=== PATIENT | female | born 1935 | race Caucasian/White ===

== ENCOUNTER 2017-02-10 12:15 | Observation (INO) | payer MEDICARE ==
--- NOTE | 2017-02-10 13:05 | RAD ---
ONE VIEW CHEST: History: Syncope. Generalized weakness. Comparison: 11-16-16 FINDINGS: Atherosclerosis of the aorta. Normal cardiac silhouette. The pulmonary vessels and hilum are normal. Costophrenic angles are clear. Stable minimal elevation of the right hemidiaphragm. Chronic change in the lung parenchyma noted. No masses or consolidation. Old left rib fractures are noted. No pneum othorax. Cervical fusion hardware is identified. IMPRESSION: 1. Atherosclerosis. 2. Chronic changes. POS: [facility]
[2017-02-10 13:15] LABS: #Basophils 0.1 thou/uL (0.0-0.2); #Eosinphils 0.1 thou/uL (0.0-0.7); #Lymphocytes 1.1 thou/uL (1.20-3.40); #Monocytes 0.6 thou/uL (0.11-0.59); #Neutrophils 7.6 thou/uL (1.40-6.50); %Basophils 0.8 % (0.0-1.0); %Eosinophils 1.1 % (0.0-10.0); %Lymphocytes 11.9 % (21.0-51.0); %Monocytes 6.5 % (0.0-10.0); Hematocrit 28.3 % (36.0-47.0); Mean Platelet Volume 7.5 fL (7.4-10.4); Red Blood Cell (RBC) Count 3.26 mill/uL (4.20-5.40); White Blood Cell (WBC) Count 9.5 thou/uL (4.8-10.8)
[2017-02-10 13:33] LABS: ALT (SGPT) 8 U/L (8-55); AST (SGOT) 9 U/L (5-34); Alkaline Phosphatase 119 U/L (40-150); Anion Gap 19 mmol/L (10-20); BUN (Urea Nitrogen) 26 mg/dL (9.8-20.1); Bilirubin, Total 0.4 mg/dL (0.2-1.2); CK (CPK) 22 U/L (29-168); Calc. Creatinine Clearance 0 mL/min (70-130); Calcium 8.7 mg/dL (7.8-10.44); Carbon Dioxide 21 mmol/L (23-31); Chloride 102 mmol/L (98-107); Estimated GFR-MDRD 40; Protein, Total 7.2 g/dL (6.0-8.3)
[2017-02-10 13:38] LABS: Troponin I 0.015 ng/mL (< 0.028)
[2017-02-10 15:03] LABS: Bilirubin Negative (Negative); Blood, Urine Trace (Negative); Glucose, Urine (Dipstick) Negative (Negative); Ketone, Urine Negative (Negative); Nitrite Negative (Negative); Protein, Urine (Dipstick) 100 mg/dL (Neg-Trace)
[2017-02-10 15:06] LABS: Bacteria/HPF 4+ HPF (None Seen); Hyaline Casts/LPF 0-3 HYALINE CAST LPF (0-3 Hyaline); Squamous Epithelial None Seen HPF (0-3)
[2017-02-10] MEDS ORDERED: Ondansetron ODT 4 MG TAB SL PRN (18:38)
[2017-02-10] MEDS ORDERED: Ondansetron HCl/PF 4 MG/2 ML Vial IVP PRN (18:38)
[2017-02-10] MEDS ORDERED: Dextrose 50% Abboject 50 ML SYRINGE SLOW IVP PRN (19:20)
[2017-02-10] MEDS ORDERED: Dextrose 5% in Water 1,000 ML IV PRN (19:20)
[2017-02-10 21:24] VITALS: BMI 34.3
[2017-02-10] MEDS: traMADol HCl 50 MG TAB PO PRN (22:31)
--- NOTE | 2017-02-10 23:58 | HP ---
DATE OF ADMISSION: 02/10/2017 CHIEF COMPLAINT: Generalized weakness, right hand pain. HISTORY OF PRESENT ILLNESS: The patient is a 81-year-old female who [facility] after she was discharged from [facility] a month ago when she was diagnosed with generalized weakness and UTI and she required physical therapy, but she was not v ted happy with the place she was sent to and she said that the quality of care she was giving and th e quality of physical therapy she was giving did not meet her expectations and she requested to be d ischarged home. After she was discharged home visiting nurse at home, noticed that she was very uns teady. She was not able to walk and she was requiring a lot of help to get up. It was very unsafe to keep her at home without any help and she lives alone and so the EMS was called and she was taken to the emergency room for further management of her problem. As mentioned above, she complains abo ut generalized weakness and not being able to get up and walk and then do everything what she needs to do and she lives alone. She denied any chest pain, shortness of breath, headache. She complaine d only about the right hand pain. She had the swelling and redness for several days while at [facility]. PAST MEDICAL HISTORY: Positive for: 1. Atrial fibrillation on chronic anticoagulation. 2. Chronic kidney disease stage 3. 3. Diabetes mellitus type 2. 4. Hypertension. 5. Dyslipidemia. 6. Coronary artery disease. 7. Chronic anticoagulation with Eliquis. 8. Morbid obesity. 9. Moderate aortic stenosis and tricuspid regurgitation. 10. History of cerebrovascular accident. 11. History of polio. 12. Gout. PAST SURGICAL HISTORY: 1. Appendectomy. 2. Left carpal tunnel surgery. 3. Neck surgery. 4. Ablation for atrial flutter. ALLERGIES: FISH, IODINE, METFORMIN, NAPROXEN, PREDNISONE, and PROPOXYPHENE. SOCIAL HISTORY: She is a former smoker. She quit 20 years ago. She does not drink any alcohol. S he does not use any illicit drugs. She has one son who lives in [place]. FAMILY HISTORY: Her mother from cancer. Her father was alcoholic and related to cirrhosi s complications in his 60s. Code status is FULL. Surrogate decision maker is her son, Bella Albright who lives in [place]. MEDICATIONS: Please refer to the list of the long term medications she was taking before. REVIEW OF SYSTEMS: All systems were reviewed and positive only for above-mentioned in HPI, plus roselia ropathy in lower extremities and itching in lower extremities. PHYSICAL EXAMINATION: VITAL SIGNS: Blood pressure is 112/55, pulse is 85, respirations 16, and she is afebrile. HEENT: Head is atraumatic, normocephalic. Eyes are PERRLA. Conjunctivae pinkish. Oral mucosa is moist. NECK: Supple, no lymphadenopathy. Thyroid is not palpable. LUNGS: Clear. HEART: S1, S2 normal, somewhat irregularly irregular. No S3, no S4. There is a systolic murmur mo stly audible at the left sternal border/apex. ABDOMEN: Obese, nondistended, soft, nontender to palpation. EXTREMITIES: She has multiple abrasions to skin over her legs above the ankles. Her pulses are sli ghtly diminished on both tibialis posterior and dorsalis pedis arteries, similar bilaterally. SKIN: Her upper extremities show a lot of ecchymotic areas from previous subcutaneous and continuou s bleeding. LABORATORY: Showed white count of 9.5, hemoglobin 8.8, hematocrit 28.3, platelet count is 383,000, neutrophils 79.8. Chemistry: Sodium of 130, potassium 4.2, chloride 102, CO2 of 21, BUN 26, creati nine 1.28, glucose 182. Lactic acid is 1.0. The rest of chemistry is within normal limits except f or albumin 3.2, globulin 4.0. Urinalysis showed yellow urine, cloudy, pH of 5.5, and urine specific gravity 1.019, 100 of protein, trace of blood, moderate amount of leukocyte esterase, wbc's greater than 50 to too numerous to count, and urine bacteria 4+. Chest x-ray was done, which showed chronic changes, old left rib fractures. This was personally rev iewed by me and EKG showed sinus tachycardia at 107 with first degree AV block and right bundle bran ch block. IMPRESSION: 1. Generalized weakness. 2. Right hand cellulitis, which is mild and borderline. There is some swelling and some erythema, but that is quite mild and there is also some swelling and mild erythema of the finger in the left h and. 3. Diabetes mellitus with neuropathy. 4. Chronic renal insufficiency with metabolic acidosis, mild. 5. Normocytic anemia, which seems to be chronic. 6. Gout. 7. Chronic atrial fibrillation on chronic anticoagulation. 8. Hypertension. 9. Dyslipidemia. 10. Coronary artery disease, chronic, stable. 11. Chronic anticoagulation with Eliquis. 12. Morbid obesity. 13. Moderate aortic stenosis and tricuspid regurgitation. 14. History of cerebrovascular accident. 15. History of polio. PLAN: Plan is to admission to observation. Condition is fair. Activity, bed rest for now, but she will start doing physical therapy, so we will evaluate her what she can do during the first session , on IV Hep-Lock, I think she is at her baseline in terms of renal function. Pain management with t ramadol 100 mg every 6 hours p.r.n. as needed. We will use Rocephin for both cellulitis and UTI. Joann shi will have urine culture. We will do DVT prophylaxis with SCDs and no Lovenox or heparin since she is on Eliquis. We will continue her home medication and we will check her Accu-Cheks a.c. and at b edtime and cover with Humalog sliding scale, mild. We will get keycase assembler to try to arrange some other care home facility, where she can get physical therapy and obviously, we are going to aguirre ve physical therapy working with her.
[2017-02-11] MEDS: HumaLOG 300 UNITS/3 ML VIAL SC PRN ×2 (06:12→14:40)
[2017-02-11] MEDS ORDERED: FLU VACC TS2017-18 (>65YR) 0.5 ML SYRINGE IM ONE (09:00)
--- NOTE | 2017-02-11 11:30 | PDOC.PN ---
- Subjective Encounter Start Date: 02/11/17 Encounter Start Time: 08:50 -: old records requested/rev Patient seen and examined. No new complaints. No overnight events - Objective Resuscitation Status: Resuscitation Status FULL:Full Resuscitation MAR Reviewed: Yes Vital Signs & Weight: Vital Signs (12 hours) Temp Pulse Resp BP BP Pulse Ox 02/11/17 08:00 98.2 F 81 20 123/66 98 02/11/17 04:00 98.4 F 93 18 122/55 L 94 L 02/11/17 00:00 98.4 F 90 18 157/81 H 100 Weight Weight 200 lb I&O: 02/10/17 02/11/17 02/12/17 06:59 06:59 06:59 Intake Total 720 Balance 720 Result Diagrams: 02/10/17 13:00 02/10/17 13:00 Additional Labs: Accuchecks 02/11/17 04:24 POC Glucose 230 H Phys Exam - Physical Examination Constitutional: NAD HEENT: PERRLA, moist MMs, sclera anicteric Neck: no JVD, supple Respiratory: no wheezing, no rales, no rhonchi Cardiovascular: RRR, no significant murmur, no rub Gastrointestinal: soft, non-tender, no distention, positive bowel sounds Musculoskeletal: no edema, pulses present right hand cellulitis Neurological: non-focal, normal sensation Lymphatic: no nodes Psychiatric: normal affect, A&O x 3 Skin: no rash, normal turgor Dx/Plan (1) Cellulitis of right hand Code(s): L03.113 - CELLULITIS OF RIGHT UPPER LIMB Status: Acute (2) UTI (urinary tract infection) Status: Acute (3) Weakness generalized Code(s): R53.1 - WEAKNESS Status: Acute (4) Atrial fibrillation Code(s): I48.91 - UNSPECIFIED ATRIAL FIBRILLATION Status: Chronic (5) CKD (chronic kidney disease) stage 3, GFR 30-59 ml/min Status: Chronic (6) Chronic anticoagulation Code(s): Z79.01 - JAIL (CURRENT) USE OF ANTICOAGULANTS Status: Chronic (7) Chronic diastolic heart failure Code(s): I50.32 - CHRONIC DIASTOLIC (CONGESTIVE) HEART FAILURE Status: Chronic (8) Diabetes type 2, controlled Code(s): E11.9 - TYPE 2 DIABETES MELLITUS WITHOUT COMPLICATIONS Status: Chronic (9) Dyslipidemia Code(s): E78.5 - HYPERLIPIDEMIA, UNSPECIFIED Status: Chronic (10) Gout Code(s): M10.9 - GOUT, UNSPECIFIED Status: Chronic (11) Hypertension Code(s): I10 - ESSENTIAL (PRIMARY) HYPERTENSION Status: Chronic Qualifiers: (12) Moderate aortic stenosis by prior echocardiogram Code(s): I35.0 - NONRHEUMATIC AORTIC (VALVE) STENOSIS Status: Chronic (13) Moderate tricuspid regurgitation by prior echocardiogram Code(s): I07.1 - RHEUMATIC TRICUSPID INSUFFICIENCY Status: Chronic (14) Obesity (BMI 30-39.9) Code(s): E66.9 - OBESITY, UNSPECIFIED Status: Chronic - Plan cont current plan of care, continue antibiotics, PT/OT, social media editor * pt is not safe discharge to home * will consult rehab for evaluation * continue rocephin * on discharge keflex and doxy * medication reviewed as below * symptomatic treatment * possible discharge when rehab accepts. Review of Systems - Review of Systems Constitutional: negative: Fever, Chills, Sweats, Weakness, Malaise, Other ENT: negative: Ear Pain, Ear Discharge, Nose Pain, Nose Discharge, Nose Congestion, Mouth Pain, Mouth Swelling, Throat Pain, Throat Swelling, Other Respiratory: negative: Cough, Dry, Shortness of Breath, Hemoptysis, SOB with Excertion, Pleuritic Pain, Sputum, Wheezing Cardiovascular: negative: Chest Pain, Palpitations, Orthopnea, Paroxysmal Noc. Dyspnea, Edema, Light Headedness, Other Gastrointestinal: negative: Nausea, Vomiting, Abdominal Pain, Diarrhea, Constipation, Melena, Hematochezia, Other Genitourinary: negative: Dysuria, Frequency, Incontinence, Hematuria, Retention , Other Musculoskeletal: Back Pain. negative: Neck Pain, Shoulder Pain, Arm Pain, Hand Pain, Leg Pain, Foot Pain, Other Skin: negative: Rash, Lesions, Vignesh, Bruising, Other - Medications/Allergies Allergies/Adverse Reactions: Allergies Allergy/AdvReac Type Severity Reaction Status Date / Time acetaminophen Allergy Verified 07/28/16 14:21 [From Sandip-N 100] fish derived Allergy Verified 07/28/16 14:21 iodine Allergy Verified 07/28/16 14:21 metformin Allergy Verified 07/28/16 14:21 naproxen Allergy Verified 07/28/16 14:21 omega-3 acid ethyl esters Allergy Verified 07/28/16 14:21 prednisone Allergy Verified 07/28/16 14:21 propoxyphene napsylate Allergy Verified 07/28/16 14:21 [From [facility]-N 100] shellfish derived Allergy Verified 07/28/16 14:21 Medications: Current Medications Dextrose/Water (Dextrose 50%) 25 gm SLOW IVP PRN PRN PRN Reason: Hypoglycemia Glucagon (Glucagon) 1 mg IM PRN PRN PRN Reason: Hypoglycemia Dextrose/Water (D5w) 1,000 mls @ 0 mls/hr IV .Q0M PRN; As Directed PRN Reason: Hypoglycemia Ceftriaxone Sodium 1 gm/ (Syringe 0.4 ml/ Sterile Water) 10 mls @ 120 mls/hr SLOW IVP 1800 KEVAN Insulin Human Lispro (Humalog) 0 units SC .MILD SLIDING SCALE PRN PRN Reason: Mild Correctional Scale Last Admin: 02/11/17 06:12 Dose: 4 unit Tramadol HCl (Ultram) 100 mg PO Q6H PRN PRN Reason: Moderate to Severe Pain (4-10) Last Admin: 02/10/17 22:31 Dose: 100 mg
[2017-02-11] MEDS: traMADol HCl 50 MG TAB PO PRN ×2 (16:10→21:58)
[2017-02-11] MEDS: cefTRIAXone\\ROCEPHIN 1 GM, Syringe 0.4 ML in Sterile Water 9.6 ML SLOW IVP SCH (17:31)
[2017-02-11] MEDS ORDERED: cefTRIAXone\\ROCEPHIN 1 GM in Sodium Chloride 0.9% 100 ML IVPB SCH (18:00)
[2017-02-12] MEDS: traMADol HCl 50 MG TAB PO PRN ×2 (03:51→20:21)
--- NOTE | 2017-02-12 11:04 | PDOC.PN ---
- Subjective Encounter Start Date: 02/12/17 Encounter Start Time: 08:50 Patient seen and examined. No new complaints. No overnight events - Objective Resuscitation Status: Resuscitation Status FULL:Full Resuscitation MAR Reviewed: Yes Vital Signs & Weight: Vital Signs (12 hours) Temp Pulse Resp BP BP Pulse Ox 02/12/17 08:26 99.1 F 91 20 144/64 H 93 L 02/12/17 08:00 99.1 F 91 20 144/64 H 144/64 H 93 L Weight Weight 200 lb I&O: 02/11/17 02/12/17 02/13/17 06:59 06:59 06:59 Intake Total 720 Balance 720 Result Diagrams: 02/10/17 13:00 02/10/17 13:00 Additional Labs: Accuchecks 02/12/17 02/11/17 02/11/17 06:06 19:27 15:46 POC Glucose 193 H 200 H 212 H 02/11/17 11:53 POC Glucose 191 H Phys Exam - Physical Examination Constitutional: NAD HEENT: PERRLA, moist MMs, sclera anicteric Neck: no JVD, supple Respiratory: no wheezing, no rales, no rhonchi Cardiovascular: RRR, no significant murmur, no rub Gastrointestinal: soft, non-tender, no distention, positive bowel sounds Musculoskeletal: no edema, pulses present Neurological: non-focal, normal sensation Lymphatic: no nodes Psychiatric: normal affect, A&O x 3 Skin: no rash, normal turgor Dx/Plan (1) Cellulitis of right hand Code(s): L03.113 - CELLULITIS OF RIGHT UPPER LIMB Status: Acute (2) UTI (urinary tract infection) Status: Acute (3) Weakness generalized Code(s): R53.1 - WEAKNESS Status: Acute (4) Atrial fibrillation Code(s): I48.91 - UNSPECIFIED ATRIAL FIBRILLATION Status: Chronic (5) CKD (chronic kidney disease) stage 3, GFR 30-59 ml/min Status: Chronic (6) Chronic anticoagulation Code(s): Z79.01 - [facility]FP (CURRENT) USE OF ANTICOAGULANTS Status: Chronic (7) Chronic diastolic heart failure Code(s): I50.32 - CHRONIC DIASTOLIC (CONGESTIVE) HEART FAILURE Status: Chronic (8) Diabetes type 2, controlled Code(s): E11.9 - TYPE 2 DIABETES MELLITUS WITHOUT COMPLICATIONS Status: Chronic (9) Dyslipidemia Code(s): E78.5 - HYPERLIPIDEMIA, UNSPECIFIED Status: Chronic (10) Gout Code(s): M10.9 - GOUT, UNSPECIFIED Status: Chronic (11) Hypertension Code(s): I10 - ESSENTIAL (PRIMARY) HYPERTENSION Status: Chronic Qualifiers: (12) Moderate aortic stenosis by prior echocardiogram Code(s): I35.0 - NONRHEUMATIC AORTIC (VALVE) STENOSIS Status: Chronic (13) Moderate tricuspid regurgitation by prior echocardiogram Code(s): I07.1 - RHEUMATIC TRICUSPID INSUFFICIENCY Status: Chronic (14) Obesity (BMI 30-39.9) Code(s): E66.9 - OBESITY, UNSPECIFIED Status: Chronic - Plan cont current plan of care, PT/OT, social work associate * await rehab decision * pt is not safe for discharge to home * continue rocephin * will repeat labs tomorrow if pt has to stay tonight * medication reviewed as below * symptomatic treatment * home medication reconciled. Review of Systems - Review of Systems ENT: negative: Ear Pain, Ear Discharge, Nose Pain, Nose Discharge, Nose Congestion, Mouth Pain, Mouth Swelling, Throat Pain, Throat Swelling, Other Respiratory: negative: Cough, Dry, Shortness of Breath, Hemoptysis, SOB with Excertion, Pleuritic Pain, Sputum, Wheezing Cardiovascular: negative: Chest Pain, Palpitations, Orthopnea, Paroxysmal Noc. Dyspnea, Edema, Light Headedness, Other Gastrointestinal: negative: Nausea, Vomiting, Abdominal Pain, Diarrhea, Constipation, Melena, Hematochezia, Other Genitourinary: negative: Dysuria, Frequency, Incontinence, Hematuria, Retention , Other Musculoskeletal: negative: Neck Pain, Shoulder Pain, Arm Pain, Back Pain, Hand Pain, Leg Pain, Foot Pain, Other - Medications/Allergies Allergies/Adverse Reactions: Allergies Allergy/AdvReac Type Severity Reaction Status Date / Time acetaminophen Allergy Verified 07/28/16 14:21 [From Darlianet-N 100] fish derived Allergy Verified 07/28/16 14:21 iodine Allergy Verified 07/28/16 14:21 metformin Allergy Verified 07/28/16 14:21 naproxen Allergy Verified 07/28/16 14:21 omega-3 acid ethyl esters Allergy Verified 07/28/16 14:21 prednisone Allergy Verified 07/28/16 14:21 propoxyphene napsylate Allergy Verified 07/28/16 14:21 [From [facility]-N 100] shellfish derived Allergy Verified 07/28/16 14:21 Medications: Current Medications Dextrose/Water (Dextrose 50%) 25 gm SLOW IVP PRN PRN PRN Reason: Hypoglycemia Glucagon (Glucagon) 1 mg IM PRN PRN PRN Reason: Hypoglycemia Dextrose/Water (D5w) 1,000 mls @ 0 mls/hr IV .Q0M PRN; As Directed PRN Reason: Hypoglycemia Ceftriaxone Sodium 1 gm/ (Syringe 0.4 ml/ Sterile Water) 10 mls @ 120 mls/hr SLOW IVP 1800 KEVAN Last Admin: 02/11/17 17:31 Dose: 10 mls Insulin Human Lispro (Humalog) 0 units SC .MILD SLIDING SCALE PRN PRN Reason: Mild Correctional Scale Last Admin: 02/11/17 14:40 Dose: 2 unit Tramadol HCl (Ultram) 100 mg PO Q6H PRN PRN Reason: Moderate to Severe Pain (4-10) Last Admin: 02/12/17 03:51 Dose: 100 mg
[2017-02-12] MEDS: hydrOXYzine 25 MG TAB PO SCH ×3 (12:03→23:46)
[2017-02-12] MEDS: Carvedilol 6.25 MG TAB PO SCH (17:37)
[2017-02-12] MEDS: cefTRIAXone\\ROCEPHIN 1 GM, Syringe 0.4 ML in Sterile Water 9.6 ML SLOW IVP SCH (17:40)
[2017-02-12] MEDS: Apixaban 5 MG TAB PO SCH (20:22)
[2017-02-12] MEDS: Gabapentin 300 MG CAP PO SCH (20:22)
[2017-02-12] MEDS: Famotidine 20 MG TAB PO SCH (20:22)
[2017-02-12] MEDS: Insulin NPH/Reg Insulin Hm 300 UNITS/3 ML VIAL SC SCH (20:25)
[2017-02-13 06:06] LABS: #Eosinphils 0.2 thou/uL (0.0-0.7); #Lymphocytes 1.4 thou/uL (1.20-3.40); #Monocytes 0.7 thou/uL (0.11-0.59); #Neutrophils 4.4 thou/uL (1.40-6.50); %Basophils 0.4 % (0.0-1.0); %Lymphocytes 21.1 % (21.0-51.0); Hematocrit 29.4 % (36.0-47.0); Mean Platelet Volume 7.8 fL (7.4-10.4); Red Blood Cell (RBC) Count 3.41 mill/uL (4.20-5.40); White Blood Cell (WBC) Count 6.7 thou/uL (4.8-10.8)
[2017-02-13] MEDS: hydrOXYzine 25 MG TAB PO SCH ×4 (06:13→22:16)
[2017-02-13 06:34] LABS: ALT (SGPT) Less than 7 U/L (8-55); AST (SGOT) 11 U/L (5-34); Alkaline Phosphatase 115 U/L (40-150); Anion Gap 16 mmol/L (10-20); BUN (Urea Nitrogen) 15 mg/dL (9.8-20.1); Bilirubin, Total 0.2 mg/dL (0.2-1.2); Calc. Creatinine Clearance 67 mL/min (70-130); Calcium 8.9 mg/dL (7.8-10.44); Carbon Dioxide 23 mmol/L (23-31); Chloride 101 mmol/L (98-107); Estimated GFR-MDRD 55; Globulin 3.9 g/dL (2.4-3.5); Protein, Total 6.7 g/dL (6.0-8.3); Uric Acid 9.3 mg/dL (2.6-6.0)
[2017-02-13] MEDS ORDERED: Ketorolac Tromethamine 30 MG/ML VIAL IVP PRN (08:07)
[2017-02-13] MEDS: Gabapentin 300 MG CAP PO SCH ×2 (09:06→22:20)
[2017-02-13] MEDS: Apixaban 5 MG TAB PO SCH ×2 (09:06→22:19)
[2017-02-13] MEDS: Aspirin 81 mg Enteric Coated Tablet PO SCH (09:06)
[2017-02-13] MEDS: Furosemide 20 MG TAB PO SCH (09:07)
[2017-02-13] MEDS: Famotidine 20 MG TAB PO SCH ×2 (09:07→22:21)
[2017-02-13] MEDS: Carvedilol 6.25 MG TAB PO SCH ×2 (09:07→17:07)
[2017-02-13] MEDS: Insulin NPH/Reg Insulin Hm 300 UNITS/3 ML VIAL SC SCH ×2 (09:08→22:22)
[2017-02-13] MEDS: Colchicine 0.6 MG TAB PO SCH ×2 (09:12→22:20)
--- NOTE | 2017-02-13 13:21 | PDOC.PN ---
- Subjective Encounter Start Date: 02/13/17 Encounter Start Time: 10:20 Patient seen and examined. No new complaints. No overnight events - Objective Resuscitation Status: Resuscitation Status FULL:Full Resuscitation MAR Reviewed: Yes Vital Signs & Weight: Vital Signs (12 hours) Temp Pulse Resp BP BP Pulse Ox 02/13/17 09:07 108 H 138/64 02/13/17 08:37 99.3 F 108 H 20 138/77 94 L 02/13/17 08:00 98.3 F 108 H 18 94 L 02/13/17 06:05 99.0 F 101 H 18 148/70 H Weight Weight 200 lb I&O: 02/12/17 02/13/17 02/14/17 06:59 06:59 06:59 Intake Total 720 360 Balance 720 360 Result Diagrams: 02/13/17 04:10 02/13/17 04:10 Additional Labs: Accuchecks 02/13/17 02/13/17 02/12/17 11:37 06:17 20:06 POC Glucose 251 H 116 H 207 H 02/12/17 16:40 POC Glucose 127 H Phys Exam - Physical Examination Constitutional: NAD HEENT: PERRLA, moist MMs, sclera anicteric Neck: no JVD, supple Respiratory: no wheezing, no rales, no rhonchi Cardiovascular: RRR, no significant murmur, no rub Gastrointestinal: soft, non-tender, no distention, positive bowel sounds Musculoskeletal: no edema, pulses present right hand swelling improving Neurological: non-focal, normal sensation, moves all 4 limbs Psychiatric: normal affect, A&O x 3 Skin: no rash, normal turgor Dx/Plan (1) Cellulitis of right hand Code(s): L03.113 - CELLULITIS OF RIGHT UPPER LIMB Status: Acute (2) UTI (urinary tract infection) Status: Acute (3) Weakness generalized Code(s): R53.1 - WEAKNESS Status: Acute (4) Atrial fibrillation Code(s): I48.91 - UNSPECIFIED ATRIAL FIBRILLATION Status: Chronic (5) CKD (chronic kidney disease) stage 3, GFR 30-59 ml/min Status: Chronic (6) Chronic anticoagulation Code(s): Z79.01 - [employer] (CURRENT) USE OF ANTICOAGULANTS Status: Chronic (7) Chronic diastolic heart failure Code(s): I50.32 - CHRONIC DIASTOLIC (CONGESTIVE) HEART FAILURE Status: Chronic (8) Diabetes type 2, controlled Code(s): E11.9 - TYPE 2 DIABETES MELLITUS WITHOUT COMPLICATIONS Status: Chronic (9) Dyslipidemia Code(s): E78.5 - HYPERLIPIDEMIA, UNSPECIFIED Status: Chronic (10) Gout Code(s): M10.9 - GOUT, UNSPECIFIED Status: Chronic (11) Hypertension Code(s): I10 - ESSENTIAL (PRIMARY) HYPERTENSION Status: Chronic Qualifiers: (12) Moderate aortic stenosis by prior echocardiogram Code(s): I35.0 - NONRHEUMATIC AORTIC (VALVE) STENOSIS Status: Chronic (13) Moderate tricuspid regurgitation by prior echocardiogram Code(s): I07.1 - RHEUMATIC TRICUSPID INSUFFICIENCY Status: Chronic (14) Obesity (BMI 30-39.9) Code(s): E66.9 - OBESITY, UNSPECIFIED Status: Chronic (15) Acute gout Code(s): M10.9 - GOUT, UNSPECIFIED Status: Acute Qualifiers: Gout site: hand Laterality: right - Plan cont current plan of care, continue antibiotics, PT/OT, health care social worker * uric acid is high, and crp is high, will try colchicine * medication reviewed as below * symptomatic treatment * await rehab placement. Review of Systems - Review of Systems ENT: negative: Ear Pain, Ear Discharge, Nose Pain, Nose Discharge, Nose Congestion, Mouth Pain, Mouth Swelling, Throat Pain, Throat Swelling, Other Respiratory: negative: Cough, Dry, Shortness of Breath, Hemoptysis, SOB with Excertion, Pleuritic Pain, Sputum, Wheezing Cardiovascular: negative: Chest Pain, Palpitations, Orthopnea, Paroxysmal Noc. Dyspnea, Edema, Light Headedness, Other Gastrointestinal: negative: Nausea, Vomiting, Abdominal Pain, Diarrhea, Constipation, Melena, Hematochezia, Other Genitourinary: negative: Dysuria, Frequency, Incontinence, Hematuria, Retention , Other Musculoskeletal: Hand Pain. negative: Neck Pain, Shoulder Pain, Arm Pain, Back Pain, Leg Pain, Foot Pain, Other - Medications/Allergies Allergies/Adverse Reactions: Allergies Allergy/AdvReac Type Severity Reaction Status Date / Time acetaminophen Allergy Verified 07/28/16 14:21 [From Darvocet-N 100] fish derived Allergy Verified 07/28/16 14:21 iodine Allergy Verified 07/28/16 14:21 metformin Allergy Verified 07/28/16 14:21 naproxen Allergy Verified 07/28/16 14:21 omega-3 acid ethyl esters Allergy Verified 07/28/16 14:21 prednisone Allergy Verified 07/28/16 14:21 propoxyphene napsylate Allergy Verified 07/28/16 14:21 [From Darcet-N 100] shellfish derived Allergy Verified 07/28/16 14:21 Medications: Current Medications Apixaban (Eliquis) 2.5 mg PO BID ON LICENSE OF [facility] Last Admin: 02/13/17 09:06 Dose: 2.5 mg Aspirin (Ecotrin) 81 mg PO DAILY ON LICENSE OF [facility] Last Admin: 02/13/17 09:06 Dose: 81 mg Carvedilol (Coreg) 6.25 mg PO BID-[facility] Last Admin: 02/13/17 09:07 Dose: 6.25 mg Colchicine (Colcrys) 0.6 mg PO BID ON LICENSE OF [facility] Last Admin: 02/13/17 09:12 Dose: 0.6 mg Dextrose/Water (Dextrose 50%) 25 gm SLOW IVP PRN PRN PRN Reason: Hypoglycemia Diltiazem HCl (Cardizem Cd) 120 mg PO DAILY ON LICENSE OF [facility] Last Admin: 02/13/17 09:07 Dose: 120 mg Famotidine (Pepcid) 20 mg PO BID ON LICENSE OF [facility] Last Admin: 02/13/17 09:07 Dose: 20 mg Furosemide (Lasix) 40 mg PO DAILY ON LICENSE OF [facility] Last Admin: 02/13/17 09:07 Dose: 40 mg Gabapentin (Neurontin) 600 mg PO BID ON LICENSE OF [facility] Last Admin: 02/13/17 09:06 Dose: 600 mg Glucagon (Glucagon) 1 mg IM PRN PRN PRN Reason: Hypoglycemia Hydroxyzine HCl (Atarax) 25 mg PO Q6H ON LICENSE OF [facility] Last Admin: 02/13/17 11:05 Dose: 25 mg Dextrose/Water (D5w) 1,000 mls @ 0 mls/hr IV .Q0M PRN; As Directed PRN Reason: Hypoglycemia Ceftriaxone Sodium 1 gm/ (Syringe 0.4 ml/ Sterile Water) 10 mls @ 120 mls/hr SLOW IVP 1800 ON LICENSE OF [facility] Last Admin: 02/12/17 17:40 Dose: 10 mls Insulin Human Isoph/Insulin Regular (Humulin 70/30) 15 units SC BID ON LICENSE OF [facility] Last Admin: 02/13/17 09:08 Dose: 15 unit Insulin Human Lispro (Humalog) 0 units SC .MILD SLIDING SCALE PRN PRN Reason: Mild Correctional Scale Last Admin: 02/11/17 14:40 Dose: 2 unit Ketorolac Tromethamine (Toradol) 15 mg IVP Q6H PRN PRN Reason: Pain Stop: 02/18/17 08:08 Pantoprazole Sodium (Protonix) 40 mg PO DAILY KEVAN Last Admin: 02/13/17 09:07 Dose: 40 mg Tramadol HCl (Ultram) 100 mg PO Q6H PRN PRN Reason: Moderate to Severe Pain (4-10) Last Admin: 02/12/17 20:21 Dose: 100 mg
[2017-02-13] MEDS: cefTRIAXone\\ROCEPHIN 1 GM, Syringe 0.4 ML in Sterile Water 9.6 ML SLOW IVP SCH (17:07)
[2017-02-13] MEDS: traMADol HCl 50 MG TAB PO PRN (22:21)
[2017-02-14] MEDS: hydrOXYzine 25 MG TAB PO SCH ×4 (06:10→23:42)
[2017-02-14] MEDS: Carvedilol 6.25 MG TAB PO SCH ×2 (08:44→17:05)
[2017-02-14] MEDS: Colchicine 0.6 MG TAB PO SCH ×2 (08:44→20:56)
[2017-02-14] MEDS: Aspirin 81 mg Enteric Coated Tablet PO SCH (08:44)
[2017-02-14] MEDS: Furosemide 20 MG TAB PO SCH (08:44)
[2017-02-14] MEDS: Gabapentin 300 MG CAP PO SCH ×2 (08:45→20:56)
[2017-02-14] MEDS: Apixaban 5 MG TAB PO SCH ×2 (08:45→20:56)
[2017-02-14] MEDS: Insulin NPH/Reg Insulin Hm 300 UNITS/3 ML VIAL SC SCH ×2 (08:45→20:57)
[2017-02-14] MEDS: Famotidine 20 MG TAB PO SCH ×2 (08:45→20:56)
[2017-02-14] MEDS: traMADol HCl 50 MG TAB PO PRN ×2 (09:58→20:57)
--- NOTE | 2017-02-14 13:56 | PDOC.PN ---
- Subjective Encounter Start Date: 02/14/17 Encounter Start Time: 10:00 Patient seen and examined. No new complaints. No overnight events - Objective Resuscitation Status: Resuscitation Status FULL:Full Resuscitation MAR Reviewed: Yes Vital Signs & Weight: Vital Signs (12 hours) Temp Pulse Resp BP BP Pulse Ox 02/14/17 10:49 98.5 F 77 20 112/64 97 02/14/17 08:44 77 101/67 02/14/17 08:00 98.3 F 77 20 101/67 93 L Weight Weight 200 lb I&O: 02/13/17 02/14/17 02/15/17 06:59 06:59 06:59 Intake Total 1090 480 Balance 1090 480 Result Diagrams: 02/13/17 04:10 02/13/17 04:10 Additional Labs: Accuchecks 02/14/17 02/14/17 02/13/17 11:09 04:19 20:06 POC Glucose 149 H 107 171 H 02/13/17 15:55 POC Glucose 166 H Phys Exam - Physical Examination Constitutional: NAD HEENT: PERRLA, moist MMs, sclera anicteric Neck: no JVD, supple Respiratory: no wheezing, no rales, no rhonchi Cardiovascular: RRR, no significant murmur, no rub Gastrointestinal: soft, non-tender, no distention Musculoskeletal: no edema, pulses present Neurological: non-focal, normal sensation Lymphatic: no nodes Psychiatric: normal affect, A&O x 3 Skin: no rash, normal turgor Dx/Plan (1) Cellulitis of right hand Code(s): L03.113 - CELLULITIS OF RIGHT UPPER LIMB Status: Acute (2) UTI (urinary tract infection) Status: Acute (3) Weakness generalized Code(s): R53.1 - WEAKNESS Status: Acute (4) Atrial fibrillation Code(s): I48.91 - UNSPECIFIED ATRIAL FIBRILLATION Status: Chronic (5) CKD (chronic kidney disease) stage 3, GFR 30-59 ml/min Status: Chronic (6) Chronic anticoagulation Code(s): Z79.01 - IT APPLICATIONS MANAGER (CURRENT) USE OF ANTICOAGULANTS Status: Chronic (7) Chronic diastolic heart failure Code(s): I50.32 - CHRONIC DIASTOLIC (CONGESTIVE) HEART FAILURE Status: Chronic (8) Diabetes type 2, controlled Code(s): E11.9 - TYPE 2 DIABETES MELLITUS WITHOUT COMPLICATIONS Status: Chronic (9) Dyslipidemia Code(s): E78.5 - HYPERLIPIDEMIA, UNSPECIFIED Status: Chronic (10) Gout Code(s): M10.9 - GOUT, UNSPECIFIED Status: Chronic (11) Hypertension Code(s): I10 - ESSENTIAL (PRIMARY) HYPERTENSION Status: Chronic Qualifiers: (12) Moderate aortic stenosis by prior echocardiogram Code(s): I35.0 - NONRHEUMATIC AORTIC (VALVE) STENOSIS Status: Chronic (13) Moderate tricuspid regurgitation by prior echocardiogram Code(s): I07.1 - RHEUMATIC TRICUSPID INSUFFICIENCY Status: Chronic (14) Obesity (BMI 30-39.9) Code(s): E66.9 - OBESITY, UNSPECIFIED Status: Chronic (15) Acute gout Code(s): M10.9 - GOUT, UNSPECIFIED Status: Acute Qualifiers: Gout site: hand Laterality: right - Plan cont current plan of care, 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 Review of Systems - Review of Systems ENT: negative: Ear Pain, Ear Discharge, Nose Pain, Nose Discharge, Nose Congestion, Mouth Pain, Mouth Swelling, Throat Pain, Throat Swelling, Other Respiratory: negative: Cough, Dry, Shortness of Breath, Hemoptysis, SOB with Excertion, Pleuritic Pain, Sputum, Wheezing Cardiovascular: negative: Chest Pain, Palpitations, Orthopnea, Paroxysmal Noc. Dyspnea, Edema, Light Headedness, Other Gastrointestinal: negative: Nausea, Vomiting, Abdominal Pain, Diarrhea, Constipation, Melena, Hematochezia, Other Genitourinary: negative: Dysuria, Frequency, Incontinence, Hematuria, Retention , Other Musculoskeletal: negative: Neck Pain, Shoulder Pain, Arm Pain, Back Pain, Hand Pain, Leg Pain, Foot Pain, Other - Medications/Allergies Allergies/Adverse Reactions: Allergies Allergy/AdvReac Type Severity Reaction Status Date / Time acetaminophen Allergy Verified 07/28/16 14:21 [From Lexat-N 100] fish derived Allergy Verified 07/28/16 14:21 iodine Allergy Verified 07/28/16 14:21 metformin Allergy Verified 07/28/16 14:21 naproxen Allergy Verified 07/28/16 14:21 omega-3 acid ethyl esters Allergy Verified 07/28/16 14:21 prednisone Allergy Verified 07/28/16 14:21 propoxyphene napsylate Allergy Verified 07/28/16 14:21 [From Darlianet-N 100] shellfish derived Allergy Verified 07/28/16 14:21 Medications: Current Medications Apixaban (Eliquis) 2.5 mg PO BID [facility] Last Admin: 02/14/17 08:45 Dose: 2.5 mg Aspirin (Ecotrin) 81 mg PO DAILY [facility] Last Admin: 02/14/17 08:44 Dose: 81 mg Carvedilol (Coreg) 6.25 mg PO BID[facility] Last Admin: 02/14/17 08:44 Dose: 6.25 mg Colchicine (Colcrys) 0.6 mg PO BID [facility] Last Admin: 02/14/17 08:44 Dose: 0.6 mg Dextrose/Water (Dextrose 50%) 25 gm SLOW IVP PRN PRN PRN Reason: Hypoglycemia Diltiazem HCl (Cardizem Cd) 120 mg PO DAILY [facility] Last Admin: 02/14/17 08:44 Dose: 120 mg Famotidine (Pepcid) 20 mg PO BID [facility] Last Admin: 02/14/17 08:45 Dose: 20 mg Furosemide (Lasix) 40 mg PO DAILY [facility] Last Admin: 02/14/17 08:44 Dose: 40 mg Gabapentin (Neurontin) 600 mg PO BID [facility] Last Admin: 02/14/17 08:45 Dose: 600 mg Glucagon (Glucagon) 1 mg IM PRN PRN PRN Reason: Hypoglycemia Hydroxyzine HCl (Atarax) 25 mg PO Q6H [facility] Last Admin: 02/14/17 11:11 Dose: 25 mg Dextrose/Water (D5w) 1,000 mls @ 0 mls/hr IV .Q0M PRN; As Directed PRN Reason: Hypoglycemia Ceftriaxone Sodium 1 gm/ (Syringe 0.4 ml/ Sterile Water) 10 mls @ 120 mls/hr SLOW IVP 1800 [facility] Last Admin: 02/13/17 17:07 Dose: 10 mls Insulin Human Isoph/Insulin Regular (Humulin 70/30) 15 units SC BID [facility] Last Admin: 02/14/17 08:45 Dose: 15 unit Insulin Human Lispro (Humalog) 0 units SC .MILD SLIDING SCALE PRN PRN Reason: Mild Correctional Scale Last Admin: 02/11/17 14:40 Dose: 2 unit Ketorolac Tromethamine (Toradol) 15 mg IVP Q6H PRN PRN Reason: Pain Stop: 02/18/17 08:08 Pantoprazole Sodium (Protonix) 40 mg PO DAILY [facility] Last Admin: 02/14/17 08:45 Dose: 40 mg Tramadol HCl (Ultram) 100 mg PO Q6H PRN PRN Reason: Moderate to Severe Pain (4-10) Last Admin: 02/14/17 09:58 Dose: 100 mg
[2017-02-14] MEDS: cefTRIAXone\\ROCEPHIN 1 GM, Syringe 0.4 ML in Sterile Water 9.6 ML SLOW IVP SCH (17:06)
[2017-02-15] MEDS: traMADol HCl 50 MG TAB PO PRN ×2 (05:37→21:11)
[2017-02-15] MEDS: hydrOXYzine 25 MG TAB PO SCH ×4 (05:37→21:11)
[2017-02-15] MEDS: Insulin NPH/Reg Insulin Hm 300 UNITS/3 ML VIAL SC SCH ×2 (08:49→21:10)
[2017-02-15] MEDS: Apixaban 5 MG TAB PO SCH ×2 (08:53→21:08)
[2017-02-15] MEDS: Carvedilol 6.25 MG TAB PO SCH ×2 (08:54→17:24)
[2017-02-15] MEDS: Gabapentin 300 MG CAP PO SCH ×2 (08:55→21:09)
[2017-02-15] MEDS: Colchicine 0.6 MG TAB PO SCH ×2 (08:55→21:09)
[2017-02-15] MEDS: Famotidine 20 MG TAB PO SCH ×2 (08:55→21:09)
[2017-02-15] MEDS: Furosemide 20 MG TAB PO SCH (08:55)
[2017-02-15] MEDS: Aspirin 81 mg Enteric Coated Tablet PO SCH (08:55)
--- NOTE | 2017-02-15 11:48 | PDOC.PN ---
- Subjective Encounter Start Date: 02/15/17 Encounter Start Time: 08:40 Patient seen and examined. No new complaints. No overnight events - Objective Resuscitation Status: Resuscitation Status FULL:Full Resuscitation MAR Reviewed: Yes Vital Signs & Weight: Vital Signs (12 hours) Temp Pulse Resp BP BP BP Pulse Ox 02/15/17 08:56 70 117/56 L 02/15/17 08:54 117/56 L 02/15/17 08:00 98.2 F 70 22 H 95 02/15/17 07:18 98.2 F 70 22 H 117/56 L 95 02/15/17 04:00 98.0 F 75 18 118/73 91 L Weight Weight 200 lb I&O: 02/14/17 02/15/17 02/16/17 06:59 06:59 06:59 Intake Total 1090 1920 240 Balance 1090 1920 240 Result Diagrams: 02/13/17 04:10 02/13/17 04:10 Additional Labs: Accuchecks 02/15/17 02/15/17 02/14/17 10:58 04:58 18:47 POC Glucose 143 H 119 H 178 H 02/14/17 15:54 POC Glucose 147 H Phys Exam - Physical Examination Constitutional: NAD HEENT: PERRLA, moist MMs, sclera anicteric Neck: no JVD, supple Respiratory: no wheezing, no rales, no rhonchi Cardiovascular: RRR, no significant murmur, no rub Gastrointestinal: soft, non-tender, no distention, positive bowel sounds Musculoskeletal: no edema, pulses present right hand swelling improving Neurological: non-focal, normal sensation Psychiatric: normal affect, A&O x 3 Skin: no rash, normal turgor Dx/Plan (1) Cellulitis of right hand Code(s): L03.113 - CELLULITIS OF RIGHT UPPER LIMB Status: Acute (2) UTI (urinary tract infection) Status: Acute (3) Weakness generalized Code(s): R53.1 - WEAKNESS Status: Acute (4) Atrial fibrillation Code(s): I48.91 - UNSPECIFIED ATRIAL FIBRILLATION Status: Chronic (5) CKD (chronic kidney disease) stage 3, GFR 30-59 ml/min Status: Chronic (6) Chronic anticoagulation Code(s): Z79.01 - NURSING HOME (CURRENT) USE OF ANTICOAGULANTS Status: Chronic (7) Chronic diastolic heart failure Code(s): I50.32 - CHRONIC DIASTOLIC (CONGESTIVE) HEART FAILURE Status: Chronic (8) Diabetes type 2, controlled Code(s): E11.9 - TYPE 2 DIABETES MELLITUS WITHOUT COMPLICATIONS Status: Chronic (9) Dyslipidemia Code(s): E78.5 - HYPERLIPIDEMIA, UNSPECIFIED Status: Chronic (10) Gout Code(s): M10.9 - GOUT, UNSPECIFIED Status: Chronic (11) Hypertension Code(s): I10 - ESSENTIAL (PRIMARY) HYPERTENSION Status: Chronic Qualifiers: (12) Moderate aortic stenosis by prior echocardiogram Code(s): I35.0 - NONRHEUMATIC AORTIC (VALVE) STENOSIS Status: Chronic (13) Moderate tricuspid regurgitation by prior echocardiogram Code(s): I07.1 - RHEUMATIC TRICUSPID INSUFFICIENCY Status: Chronic (14) Obesity (BMI 30-39.9) Code(s): E66.9 - OBESITY, UNSPECIFIED Status: Chronic (15) Acute gout Code(s): M10.9 - GOUT, UNSPECIFIED Status: Acute Qualifiers: Gout site: hand Laterality: right - Plan cont current plan of care, 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 Review of Systems - Review of Systems ENT: negative: Ear Pain, Ear Discharge, Nose Pain, Nose Discharge, Nose Congestion, Mouth Pain, Mouth Swelling, Throat Pain, Throat Swelling, Other Respiratory: negative: Cough, Dry, Shortness of Breath, Hemoptysis, SOB with Excertion, Pleuritic Pain, Sputum, Wheezing Cardiovascular: negative: Chest Pain, Palpitations, Orthopnea, Paroxysmal Noc. Dyspnea, Edema, Light Headedness, Other Gastrointestinal: negative: Nausea, Vomiting, Abdominal Pain, Diarrhea, Constipation, Melena, Hematochezia, Other Genitourinary: negative: Dysuria, Frequency, Incontinence, Hematuria, Retention , Other Musculoskeletal: negative: Neck Pain, Shoulder Pain, Arm Pain, Back Pain, Hand Pain, Leg Pain, Foot Pain, Other - Medications/Allergies Allergies/Adverse Reactions: Allergies Allergy/AdvReac Type Severity Reaction Status Date / Time acetaminophen Allergy Verified 07/28/16 14:21 [From Darvocet-N 100] fish derived Allergy Verified 07/28/16 14:21 iodine Allergy Verified 07/28/16 14:21 metformin Allergy Verified 07/28/16 14:21 naproxen Allergy Verified 07/28/16 14:21 omega-3 acid ethyl esters Allergy Verified 07/28/16 14:21 prednisone Allergy Verified 07/28/16 14:21 propoxyphene napsylate Allergy Verified 07/28/16 14:21 [From [facility]-N 100] shellfish derived Allergy Verified 07/28/16 14:21 Medications: Current Medications Apixaban (Eliquis) 2.5 mg PO BID [facility] Last Admin: 02/15/17 08:53 Dose: 2.5 mg Aspirin (Ecotrin) 81 mg PO DAILY [facility] Last Admin: 02/15/17 08:55 Dose: 81 mg Carvedilol (Coreg) 6.25 mg PO BID[facility] Last Admin: 02/15/17 08:54 Dose: 6.25 mg Colchicine (Colcrys) 0.6 mg PO BID [facility] Last Admin: 02/15/17 08:55 Dose: 0.6 mg Dextrose/Water (Dextrose 50%) 25 gm SLOW IVP PRN PRN PRN Reason: Hypoglycemia Diltiazem HCl (Cardizem Cd) 120 mg PO DAILY [facility] Last Admin: 02/15/17 08:56 Dose: 120 mg Famotidine (Pepcid) 20 mg PO BID [facility] Last Admin: 02/15/17 08:55 Dose: 20 mg Furosemide (Lasix) 40 mg PO DAILY [facility] Last Admin: 02/15/17 08:55 Dose: 40 mg Gabapentin (Neurontin) 600 mg PO BID [facility] Last Admin: 02/15/17 08:55 Dose: 600 mg Glucagon (Glucagon) 1 mg IM PRN PRN PRN Reason: Hypoglycemia Hydroxyzine HCl (Atarax) 25 mg PO Q6H [facility] Last Admin: 02/15/17 11:11 Dose: 25 mg Dextrose/Water (D5w) 1,000 mls @ 0 mls/hr IV .Q0M PRN; As Directed PRN Reason: Hypoglycemia Ceftriaxone Sodium 1 gm/ (Syringe 0.4 ml/ Sterile Water) 10 mls @ 120 mls/hr SLOW IVP 1800 [facility] Last Admin: 02/14/17 17:06 Dose: 10 mls Insulin Human Isoph/Insulin Regular (Humulin 70/30) 15 units SC BID [facility] Last Admin: 02/15/17 08:49 Dose: 15 unit Insulin Human Lispro (Humalog) 0 units SC .MILD SLIDING SCALE PRN PRN Reason: Mild Correctional Scale Last Admin: 02/11/17 14:40 Dose: 2 unit Ketorolac Tromethamine (Toradol) 15 mg IVP Q6H PRN PRN Reason: Pain Stop: 02/18/17 08:08 Pantoprazole Sodium (Protonix) 40 mg PO DAILY [facility] Last Admin: 02/15/17 08:56 Dose: 40 mg Tramadol HCl (Ultram) 100 mg PO Q6H PRN PRN Reason: Moderate to Severe Pain (4-10) Last Admin: 02/15/17 05:37 Dose: 100 mg
[2017-02-15] MEDS: cefTRIAXone\\ROCEPHIN 1 GM, Syringe 0.4 ML in Sterile Water 9.6 ML SLOW IVP SCH (18:21)
[2017-02-15] MEDS: HumaLOG 300 UNITS/3 ML VIAL SC PRN ×2 (18:21→21:13)
[2017-02-16 04:35] LABS: Hematocrit 26.9 % (36.0-47.0)
[2017-02-16] MEDS: hydrOXYzine 25 MG TAB PO SCH ×2 (05:08→13:39)
--- NOTE | 2017-02-16 07:05 | PDOC.PN ---
- Subjective Encounter Start Date: 02/16/17 Encounter Start Time: 07:03 Patient seen and examined. No new complaints. No overnight events - Objective Resuscitation Status: Resuscitation Status FULL:Full Resuscitation MAR Reviewed: Yes Vital Signs & Weight: Vital Signs (12 hours) Temp Pulse Resp 02/15/17 20:00 98.2 F 62 20 Weight Weight 200 lb I&O: 02/15/17 02/16/17 02/17/17 06:59 06:59 06:59 Intake Total 1920 1460 Balance 1920 1460 Result Diagrams: 02/16/17 03:57 02/16/17 03:57 Additional Labs: Accuchecks 02/16/17 02/15/17 02/15/17 05:04 19:00 16:18 POC Glucose 98 228 H 176 H 02/15/17 10:58 POC Glucose 143 H Phys Exam - Physical Examination Constitutional: NAD HEENT: PERRLA, moist MMs, sclera anicteric Neck: no JVD, supple Respiratory: no wheezing, no rales, no rhonchi Cardiovascular: RRR, no significant murmur, no rub Gastrointestinal: soft, non-tender, no distention, positive bowel sounds Musculoskeletal: no edema, pulses present Neurological: non-focal, normal sensation Psychiatric: normal affect, A&O x 3 Skin: no rash, normal turgor Dx/Plan (1) Cellulitis of right hand Code(s): L03.113 - CELLULITIS OF RIGHT UPPER LIMB Status: Acute (2) UTI (urinary tract infection) Status: Acute (3) Weakness generalized Code(s): R53.1 - WEAKNESS Status: Acute (4) Atrial fibrillation Code(s): I48.91 - UNSPECIFIED ATRIAL FIBRILLATION Status: Chronic (5) CKD (chronic kidney disease) stage 3, GFR 30-59 ml/min Status: Chronic (6) Chronic anticoagulation Code(s): Z79.01 - CAR FERRIER (CURRENT) USE OF ANTICOAGULANTS Status: Chronic (7) Chronic diastolic heart failure Code(s): I50.32 - CHRONIC DIASTOLIC (CONGESTIVE) HEART FAILURE Status: Chronic (8) Diabetes type 2, controlled Code(s): E11.9 - TYPE 2 DIABETES MELLITUS WITHOUT COMPLICATIONS Status: Chronic (9) Dyslipidemia Code(s): E78.5 - HYPERLIPIDEMIA, UNSPECIFIED Status: Chronic (10) Gout Code(s): M10.9 - GOUT, UNSPECIFIED Status: Chronic (11) Hypertension Code(s): I10 - ESSENTIAL (PRIMARY) HYPERTENSION Status: Chronic Qualifiers: (12) Moderate aortic stenosis by prior echocardiogram Code(s): I35.0 - NONRHEUMATIC AORTIC (VALVE) STENOSIS Status: Chronic (13) Moderate tricuspid regurgitation by prior echocardiogram Code(s): I07.1 - RHEUMATIC TRICUSPID INSUFFICIENCY Status: Chronic (14) Obesity (BMI 30-39.9) Code(s): E66.9 - OBESITY, UNSPECIFIED Status: Chronic (15) Acute gout Code(s): M10.9 - GOUT, UNSPECIFIED Status: Acute Qualifiers: Gout site: hand Laterality: right (16) Acute kidney injury Code(s): N17.9 - ACUTE KIDNEY FAILURE, UNSPECIFIED Status: Acute - Plan cont current plan of care, continue antibiotics, PT/OT, 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 * today creatinine is high, so i will give 500 ml ivf and dc toradol and hold lasix today, encourage oral intake Review of Systems - Review of Systems ENT: negative: Ear Pain, Ear Discharge, Nose Pain, Nose Discharge, Nose Congestion, Mouth Pain, Mouth Swelling, Throat Pain, Throat Swelling, Other Respiratory: negative: Cough, Dry, Shortness of Breath, Hemoptysis, SOB with Excertion, Pleuritic Pain, Sputum, Wheezing Cardiovascular: negative: Chest Pain, Palpitations, Orthopnea, Paroxysmal Noc. Dyspnea, Edema, Light Headedness, Other Gastrointestinal: negative: Nausea, Vomiting, Abdominal Pain, Diarrhea, Constipation, Melena, Hematochezia, Other Genitourinary: negative: Dysuria, Frequency, Incontinence, Hematuria, Retention , Other Musculoskeletal: negative: Neck Pain, Shoulder Pain, Arm Pain, Back Pain, Hand Pain, Leg Pain, Foot Pain, Other Skin: negative: Rash, Lesions, Vignesh, Bruising, Other - Medications/Allergies Allergies/Adverse Reactions: Allergies Allergy/AdvReac Type Severity Reaction Status Date / Time acetaminophen Allergy Verified 07/28/16 14:21 [From Darvocet-N 100] fish derived Allergy Verified 07/28/16 14:21 iodine Allergy Verified 07/28/16 14:21 metformin Allergy Verified 07/28/16 14:21 naproxen Allergy Verified 07/28/16 14:21 omega-3 acid ethyl esters Allergy Verified 07/28/16 14:21 prednisone Allergy Verified 07/28/16 14:21 propoxyphene napsylate Allergy Verified 07/28/16 14:21 [From Darvocet-N 100] shellfish derived Allergy Verified 07/28/16 14:21 Medications: Current Medications Apixaban (Eliquis) 2.5 mg PO BID [facility] Last Admin: 02/15/17 21:08 Dose: 2.5 mg Aspirin (Ecotrin) 81 mg PO DAILY [facility] Last Admin: 02/15/17 08:55 Dose: 81 mg Carvedilol (Coreg) 6.25 mg PO BID[facility] Last Admin: 02/15/17 17:24 Dose: 6.25 mg Colchicine (Colcrys) 0.6 mg PO BID [facility] Last Admin: 02/15/17 21:09 Dose: 0.6 mg Dextrose/Water (Dextrose 50%) 25 gm SLOW IVP PRN PRN PRN Reason: Hypoglycemia Diltiazem HCl (Cardizem Cd) 120 mg PO DAILY [facility] Last Admin: 02/15/17 08:56 Dose: 120 mg Famotidine (Pepcid) 20 mg PO BID [facility] Last Admin: 02/15/17 21:09 Dose: 20 mg Furosemide (Lasix) 40 mg PO DAILY [facility] Last Admin: 02/15/17 08:55 Dose: 40 mg Gabapentin (Neurontin) 600 mg PO BID [facility] Last Admin: 02/15/17 21:09 Dose: 600 mg Glucagon (Glucagon) 1 mg IM PRN PRN PRN Reason: Hypoglycemia Hydroxyzine HCl (Atarax) 25 mg PO Q6H [facility] Last Admin: 02/16/17 05:08 Dose: Not Given Dextrose/Water (D5w) 1,000 mls @ 0 mls/hr IV .Q0M PRN; As Directed PRN Reason: Hypoglycemia Ceftriaxone Sodium 1 gm/ (Syringe 0.4 ml/ Sterile Water) 10 mls @ 120 mls/hr SLOW IVP 1800 [facility] Last Admin: 02/15/17 18:21 Dose: 10 mls Insulin Human Isoph/Insulin Regular (Humulin 70/30) 15 units SC BID [facility] Last Admin: 02/15/17 21:10 Dose: 15 unit Insulin Human Lispro (Humalog) 0 units SC .MILD SLIDING SCALE PRN PRN Reason: Mild Correctional Scale Last Admin: 02/15/17 21:13 Dose: 4 unit Ketorolac Tromethamine (Toradol) 15 mg IVP Q6H PRN PRN Reason: Pain Stop: 02/18/17 08:08 Pantoprazole Sodium (Protonix) 40 mg PO DAILY [facility] Last Admin: 02/15/17 08:56 Dose: 40 mg Tramadol HCl (Ultram) 100 mg PO Q6H PRN PRN Reason: Moderate to Severe Pain (4-10) Last Admin: 02/15/17 21:11 Dose: 100 mg
[2017-02-16] MEDS: Colchicine 0.6 MG TAB PO SCH (08:49)
[2017-02-16] MEDS: Aspirin 81 mg Enteric Coated Tablet PO SCH (08:49)
[2017-02-16] MEDS: Famotidine 20 MG TAB PO SCH (08:50)
[2017-02-16] MEDS: Apixaban 5 MG TAB PO SCH (08:50)
[2017-02-16] MEDS: Carvedilol 6.25 MG TAB PO SCH (08:50)
[2017-02-16] MEDS: Gabapentin 300 MG CAP PO SCH (08:50)
[2017-02-16] MEDS: traMADol HCl 50 MG TAB PO PRN (08:51)
[2017-02-16] MEDS: Insulin NPH/Reg Insulin Hm 300 UNITS/3 ML VIAL SC SCH (08:51)
[2017-02-16] MEDS: Sodium Chloride 0.9% 500 ML IV SCH ×2 (08:51→15:32)
--- NOTE | 2017-02-16 14:26 | DIS ---
DATE OF ADMISSION: 02/10/2017 DATE OF DISCHARGE: 02/16/2017 PRIMARY CARE PHYSICIAN: Hanh Doe. DISCHARGE DISPOSITION: group home unit. PRIMARY DISCHARGE DIAGNOSES: 1. Acute gout, improved. 2. Acute kidney injury, improved. 3. Cellulitis of right hand, improving. 4. Urinary tract infection. 5. Generalized weakness. SECONDARY DISCHARGE DIAGNOSES: Atrial fibrillation, chronic anticoagulation, chronic diastolic heart failure, chronic kidney disease stage 3, diabetes type 2, dyslipidemia, gout, hypertension, moderate aortic stenosis, moderate tricuspid regurgitation, obesity with BMI 34. PRIMARY PROCEDURE/OPERATION: None. RADIOLOGICAL INVESTIGATION: Chest x-ray was normal. SIGNIFICANT LABS: WBC 6.7, hemoglobin 8.7 and platelets 407. Sodium 136, potassium 4.0, BUN 15, cre atinine 0.98, calcium 8.9, uric acid 9.3. LFTs normal. CRP 20.21. Urinalysis suggestive of UTI. U rine culture grew E. coli. Blood culture negative. DISCHARGE MEDICATIONS: Eliquis 2.5 mg p.o. b.i.d., aspirin 81 mg p.o. daily, Coreg 6.25 mg p.o. b.i. d., Keflex 500 mg t.i.d. for 5 days, Cardizem-CD 120 mg p.o. daily, doxycycline 100 mg p.o. b.i.d. fo r 5 days, Lasix 40 mg p.o. daily, Neurontin 600 mg p.o. b.i.d., NPH insulin 15 units subcutaneously b .i.d., Protonix 40 mg p.o. daily, ranitidine 150 mg p.o. daily, Florastor 250 mg p.o. daily for 5 day s, tramadol one or two tablets q.4 hourly p.r.n., colchicine 0.6 mg p.o. b.i.d. for 5 days. CONTRAINDICATIONS: None. CODE STATUS: FULL CODE. INPATIENT CONSULTANTS: None. ALLERGIES: TYLENOL, METFORMIN and NAPROXEN. DISCHARGE PLAN: Post hospital, the patient will follow up with primary care physician. HOSPITAL COURSE: A 81-year-old female who was admitted by Dr. Henderson 02/10/2017. Please see hi s H&P for further details. The patient mainly came to the hospital for generalized weakness. She wa s having right hand swelling and pain and erythema. She was also found with urinary tract infection. On admission, she had acute kidney injury. The patient was treated with Rocephin while in hospital for suspected gout. We also started colchicine. The patient's right hand cellulitis as well as gou t significantly improved with conservative treatment. Her blood culture remained negative. Her urin e culture was positive for E. coli. While in hospital, she has given Rocephin on a daily basis and n ow we are changing to Keflex and doxycycline for another 5 days. The patient is overall doing very well. This patient was admitted as observation status. The patien t was not meeting inpatient criteria per the cyanide case hardener and that is why during this entire hospital , she remained in observation. Unfortunately, the patient stayed in the hospital longer because she was waiting for her insurance for approval to go to rehab and that was denied and subsequently case josselyn banuelos arranged assisted home. This patient was not safe for home discharge and that is why w e have to keep her in the hospital for several days. The patient is seen and examined at bedside today. Please see my progress note from today for furthe r details. On the day of discharge, we gave her 500 mL of IV fluid because of slightly elevated crea tinine.
[2017-02-16 15:31] VITALS: BP 122/71; TEMP 97.4
--- NOTE | 2017-03-12 12:16 | EKG ---
Test Reason : Blood Pressure : / mmHG Vent. Rate : 107 BPM Atrial Rate : 107 BPM P-R Int : 000 ms QRS Dur : 104 ms QT Int : 320 ms P-R-T Axes : 000 003 010 degrees QTc Int : 427 ms Sinus tachycardia with 1st degree A-V block Incomplete right bundle branch block Borderline ECG Confirmed by JEEVAN CRAWFORD, KALE Mcgarry ([id number]), video news editor NIKKIE LUNA ([id number]) on 03/12/2017 12:15:51 PM Referred By: Confirmed By:KALE CHEW MD
== END 2017-02-16 17:29 ==
LOC: ERS 12:15 → T4-A 18:22
PROVIDERS: ADMIT Internal Medicine; ATTEND Internal Medicine
DX: N39.0 Urinary tract infection, site not specified (principal); R53.1 Weakness; I48.91 Unspecified atrial fibrillation; I13.0 Hypertensive heart and chronic kidney disease with heart failure and stage 1 through stage 4 chronic kidney disease, or unspecified chronic kidney disease; E11.22 Type 2 diabetes mellitus with diabetic chronic kidney disease; N18.3 Chronic kidney disease, stage 3 (moderate); I50.32 Chronic diastolic (congestive) heart failure; N17.9 Acute kidney failure, unspecified; E11.40 Type 2 diabetes mellitus with diabetic neuropathy, unspecified; E78.5 Hyperlipidemia, unspecified; E11.628 Type 2 diabetes mellitus with other skin complications; L03.113 Cellulitis of right upper limb; I25.10 Atherosclerotic heart disease of native coronary artery without angina pectoris; I35.0 Nonrheumatic aortic (valve) stenosis; M10.9 Gout, unspecified; E66.01 Morbid (severe) obesity due to excess calories; Z68.34 Body mass index [BMI] 34.0-34.9, adult; Z88.6 Allergy status to analgesic agent; Z88.5 Allergy status to narcotic agent; Z91.018 Allergy to other foods; Z91.09 Other allergy status, other than to drugs and biological substances; Z91.041 Radiographic dye allergy status; Z79.01 Long term (current) use of anticoagulants; Z79.84 Long term (current) use of oral hypoglycemic drugs; Z79.899 Other long term (current) drug therapy; Z90.49 Acquired absence of other specified parts of digestive tract; Z98.890 Other specified postprocedural states; Z87.891 Personal history of nicotine dependence; Z86.73 Personal history of transient ischemic attack (TIA), and cerebral infarction without residual deficits; Z86.12 Personal history of poliomyelitis
CPT/HCPCS: 51701; 71010; 80053 ×2; 82550; 82553; 82565; 82947; 82962 ×6; 83605; 84484; 84550; 85014; 85018; 85025 ×2; 85049; 86140; 87040; 87077; 87086; 87186; 93005; 96374; 96376 ×5; 97110 ×5; 97139 ×4; 97530 ×5; 97535; 99285; G0008; G0378 ×2; G8978; G8979; G8987; G8988; Q2036; 36415; 36416; 81003; 81015; 90471; 90682; A4216; J0696

== ENCOUNTER 2017-07-06 12:53 | Emergency (ER) | payer MEDICARE ==
[2017-07-06 13:32] LABS: #Eosinphils 0.1 thou/uL (0.0-0.7); #Monocytes 0.4 thou/uL (0.11-0.59); #Neutrophils 5.5 thou/uL (1.40-6.50); %Basophils 0.2 % (0.0-1.0); %Eosinophils 1.7 % (0.0-10.0); %Lymphocytes 13.7 % (21.0-51.0); %Monocytes 5.6 % (0.0-10.0); %Neutrophils 78.8 % (42.0-75.0); Hemoglobin 9.9 g/dL (12.0-16.0); Mean Corpuscular HGB CONC 31.8 g/dL (32.0-36.0); Mean Corpuscular Volume 84.9 fl (81.0-99.0); Mean Platelet Volume 8.4 fL (7.4-10.4); Platelet Count 299 thou/uL (130-400); RBC Distribution Width 16.2 % (11.5-14.5); Red Blood Cell (RBC) Count 3.65 mill/uL (4.20-5.40); White Blood Cell (WBC) Count 6.9 thou/uL (4.8-10.8)
[2017-07-06 14:01] LABS: ALT (SGPT) 7 U/L (8-55); AST (SGOT) 11 U/L (5-34); Albumin 3.7 g/dL (3.4-4.8); Alkaline Phosphatase 131 U/L (40-150); Anion Gap 15 mmol/L (10-20); BUN (Urea Nitrogen) 24 mg/dL (9.8-20.1); Bilirubin, Total 0.3 mg/dL (0.2-1.2); CK (CPK) 25 U/L (29-168); CKMB 0.8 ng/mL (0-6.6); Calc. Creatinine Clearance 0 mL/min (70-130); Calcium 8.9 mg/dL (7.8-10.44); Carbon Dioxide 24 mmol/L (23-31); Chloride 103 mmol/L (98-107); Estimated GFR-MDRD 34; Globulin 3.8 g/dL (2.4-3.5); Glucose 183 mg/dL (83-110); Potassium 4.3 mmol/L (3.5-5.1); Protein, Total 7.5 g/dL (6.0-8.3); Sodium 138 mmol/L (136-145); Troponin I Less than 0.010 ng/mL (< 0.028)
--- NOTE | 2017-07-06 15:42 | RAD ---
PORTABLE CHEST: Date: 07-06-17 Provided Clinical History: Chest pain. Comparison: 02-10-17 FINDINGS: Cardiac silhouette remains enlarged. Atherosclerosis involves the aortic arch. Emphysematous changes are suspected. No focal consolidation, pleural fluid, or pneumothorax apparent. Remote, healed, left sided rib fractures are redemonstrated. IMPRESSION: No evidence for acute cardiopulmonary process. POS: [facility]
== END 2017-07-06 15:55 | disposition home or self-care (01) ==
LOC: ERS 12:53
DX: R07.89 Other chest pain (principal); E11.9 Type 2 diabetes mellitus without complications; E78.5 Hyperlipidemia, unspecified; M19.90 Unspecified osteoarthritis, unspecified site; I48.91 Unspecified atrial fibrillation; I10 Essential (primary) hypertension; M10.9 Gout, unspecified; Z79.4 Long term (current) use of insulin; Z79.82 Long term (current) use of aspirin; Z79.899 Other long term (current) drug therapy
CPT/HCPCS: 71045; 80053; 82553; 83880; 84484; 85025; 93005

== ENCOUNTER 2017-09-10 19:50 | Inpatient (IN) | payer MEDICARE ==
--- NOTE | 2017-09-10 20:16 | RAD ---
CHEST ONE VIEW: 09/10/17 HISTORY: Chest pain. COMPARISON: Chest radiograph 07/06/17. FINDINGS: Heart size is enlarged. Dense mitral annular calcifications. No acute osseous abnormality. Old left sided rib fractures. IMPRESSION: Mild cardiomegaly. No acute intrathoracic abnormality. POS: [facility]
[2017-09-10 20:30] LABS: #Eosinphils 0.1 thou/uL (0.0-0.7); #Lymphocytes 1.2 thou/uL (1.20-3.40); #Monocytes 0.4 thou/uL (0.11-0.59); #Neutrophils 3.7 thou/uL (1.40-6.50); %Basophils 0.5 % (0.0-1.0); %Eosinophils 1.4 % (0.0-10.0); %Lymphocytes 21.9 % (21.0-51.0); %Monocytes 7.7 % (0.0-10.0); %Neutrophils 68.6 % (42.0-75.0); Hemoglobin 10.3 g/dL (12.0-16.0); Mean Corpuscular HGB CONC 33.1 g/dL (32.0-36.0); Mean Corpuscular Hemoglobin 27.6 pg (27.0-31.0); Mean Corpuscular Volume 83.5 fl (81.0-99.0); Mean Platelet Volume 8.1 fL (7.4-10.4); Platelet Count 281 thou/uL (130-400); RBC Distribution Width 15.2 % (11.5-14.5); Red Blood Cell (RBC) Count 3.72 mill/uL (4.20-5.40); White Blood Cell (WBC) Count 5.4 thou/uL (4.8-10.8)
[2017-09-10 20:54] LABS: ALT (SGPT) Less than 7 U/L (8-55); AST (SGOT) 10 U/L (5-34); Albumin 3.5 g/dL (3.4-4.8); Alkaline Phosphatase 124 U/L (40-150); Anion Gap 15 mmol/L (10-20); BUN (Urea Nitrogen) 31 mg/dL (9.8-20.1); Bilirubin, Total 0.2 mg/dL (0.2-1.2); CK (CPK) 20 U/L (29-168); Calc. Creatinine Clearance 0 mL/min (70-130); Calcium 9.3 mg/dL (7.8-10.44); Carbon Dioxide 24 mmol/L (23-31); Chloride 103 mmol/L (98-107); Estimated GFR-MDRD 41; Globulin 3.5 g/dL (2.4-3.5); Glucose 222 mg/dL (83-110); Potassium 4.4 mmol/L (3.5-5.1); Sodium 138 mmol/L (136-145)
[2017-09-10 20:59] LABS: CKMB 0.6 ng/mL (0-6.6); Troponin I Less than 0.010 ng/mL (< 0.028)
[2017-09-10 21:07] LABS: Bilirubin Negative (Negative); Blood, Urine Small (Negative); Clarity CLOUDY (Clear); Glucose, Urine (Dipstick) Negative (Negative); Leukocyte Small (Negative); Nitrite Negative (Negative); Protein, Urine (Dipstick) 100 mg/dL (Neg-Trace); Specific Gravity, Urine 1.012 (1.002-1.036); Urobilinogen 0.2 mg/dL (0.2-1.0); pH, Urine 6.5 (5.0-9.0)
[2017-09-10 21:08] LABS: Bacteria/HPF 4+ HPF (None Seen); Hyaline Casts/LPF 0-3 HYALINE CAST LPF (0-3 Hyaline); Squamous Epithelial 0-3 HPF (0-3)
[2017-09-10] MEDS ORDERED: Labetalol HCl 100 MG/20 ML VIAL SLOW IVP PRN ×2 (21:23→23:25)
[2017-09-10] MEDS ORDERED: hydrALAZINE 20 MG/ML VIAL SLOW IVP PRN (21:23)
[2017-09-10] MEDS ORDERED: cefTRIAXone\\ROCEPHIN 1 GM VIAL ONE (21:46)
[2017-09-10] MEDS ORDERED: Nitroglycerin 2% Ointment 1 INCH/1 GM Packet ONE (21:46)
[2017-09-10] MEDS ORDERED: HumaLOG 300 UNITS/3 ML VIAL SC PRN ×3 (21:53→23:25)
[2017-09-10] MEDS ORDERED: Dextrose 5% in Water 1,000 ML IV PRN ×2 (21:53→23:25)
[2017-09-10] MEDS ORDERED: Dextrose 50% Abboject 50 ML SYRINGE SLOW IVP PRN ×2 (21:53→23:25)
[2017-09-10] MEDS ORDERED: Milk Of Magnesia 30 ML UDCUP PO PRN ×2 (21:55→23:26)
[2017-09-10] MEDS: hydrALAZINE 20 MG/ML VIAL SLOW IVP PRN (23:46)
--- NOTE | 2017-09-11 00:01 | HP ---
PRIMARY CARE PHYSICIAN: Dr. Brian Mac. PRESENTING COMPLAINT: Chest pain. HISTORY OF PRESENT ILLNESS: Ms. Heike Santos is an 82-year-old female with a past medical history o f hypertension, hyperlipidemia, CKD, and atrial fibrillation on anticoagulation, who presents to the emergency room with complaints of chest pain, which she reports started around 5:00 a.m. today. This is intermittent, substernal, 5/10, does not radiate, with no clear aggravating or relieving factors. Pain was fleeting and subsequently resolved; however, she felt that she was in atrial fibrillation and felt it was acting up, so decided to come to the emergency room. At the emergency room, she also complained of urgency and polyuria and her urinalysis was abnormal. She was also shown to have bloo d pressure with systolic in the 200s and was given nitro paste to control blood pressure. She denies nausea, vomiting, diarrhea, or constipation. She has no chest pain, palpitations, PND, orthopnea, l ower extremity edema. PAST MEDICAL HISTORY: Hyperlipidemia; hypertension; atrial fibrillation; CKD, stage 3; type 2 diabet es mellitus; CAD; morbid obesity; moderate aortic stenosis and tricuspid regurgitation; history of CV A, and gout. PAST SURGICAL HISTORY: Appendectomy, left carpal tunnel surgery. FAMILY HISTORY: Reviewed and noncontributory. SOCIAL HISTORY: Does not drink alcohol, but is a former smoker, who quit 20 years ago. Does not use illicit drugs. ALLERGIES: FISH, IODINE, METFORMIN, NAPROXEN, PREDNISONE, and PROPOXYPHENE. FAMILY HISTORY: Reviewed, not contributory. MEDICATIONS TAKEN AT HOME: Referred to home medications, reviewed and ordered. REVIEW OF SYSTEMS: All systems reviewed and only positive for above-mentioned symptoms, all other sy stems otherwise negative. PHYSICAL EXAMINATION: GENERAL: Not in acute distress, lying comfortably in bed. HEENT: Normocephalic, atraumatic. Not pale, anicteric. Moist mucous membrane. PERRLA, EOMI. RESPIRATORY: Vesicular breath sounds. No wheezes, rales or rhonchi. NECK: Supple, full range of movement, no edema. CARDIOVASCULAR: S1 and S2 only, irregularly irregular rhythm with regular rate. Slight systolic mur mur. No rubs or gallops. ABDOMEN: Soft, nontender, nondistended. Bowel sounds positive. MUSCULOSKELETAL: No edema. SKIN: Warm, dry, and well-perfused. No rashes or lesions. PSYCHIATRIC: Normal mood and affect. NEUROLOGIC: Alert and well oriented to time, place and person. No focal deficits. LABORATORY DATA AND X-RAY FINDINGS: CBC: Largely unremarkable. CMP seems to be at patient's baseli ne. BNP was 117. Initial troponin less than 0.010. Urinalysis showed 4+ bacteria with greater than 50 wbc with leukocyte esterase and small amounts of rbc. Chest x-ray, no acute abnormalities. EKG, no signs of acute ischemia, but shows cardiomegaly and signs of LVH. ASSESSMENT AND PLAN: 1. Hypertensive urgency: The patient is otherwise asymptomatic. She has been placed on nitro paste , which should improve her blood pressure. We will also placed on IV hydralazine and labetalol p.r.n . for systolic blood pressure greater than 180 and we will reintroduce her home medications. We will monitor closely on telemetry. 2. Hypertension: As above. 3. Hyperlipidemia: Resume statin. 4. Atrial fibrillation with anticoagulation: She is currently rate controlled. We will continue ca rvedilol, aspirin and Eliquis, as well as diltiazem. 5. Type 2 diabetes mellitus with chronic kidney disease and hyperglycemia: We will restart home med ication, place on sliding scale insulin, fingerstick glucose before meals and at bedtime, hypoglycemi a protocol and a diabetic diet. 6. Urinary tract infection. The patient was symptomatic and had abnormal urinalysis. She has been given one dose of ceftriaxone, which will continue while in hospital and follow up urine cultures. 7. Code status: FULL CODE. 8. Deep venous thrombosis prophylaxis: Eliquis. All other medical conditions at her baseline and we will resume her home medications.
[2017-09-11 02:11] LABS: CKMB 0.8 ng/mL (0-6.6)
[2017-09-11] MEDS: traMADol HCl 50 MG TAB PO PRN ×2 (04:02→23:31)
[2017-09-11 05:38] LABS: Troponin I 0.015 ng/mL (< 0.028)
[2017-09-11] MEDS ORDERED: cefTRIAXone\\ROCEPHIN 1 GM in Sodium Chloride 0.9% 100 ML IVPB SCH (07:00)
[2017-09-11] MEDS ORDERED: Docusate 100 MG CAP PO SCH (09:00)
[2017-09-11] MEDS ORDERED: Apixaban 5 MG TAB PO SCH (09:00)
[2017-09-11] MEDS: cefTRIAXone\\ROCEPHIN 1 GM in Sodium Chloride 0.9% 100 ML IVPB SCH (09:54)
[2017-09-11] MEDS: Saccharomyces boulardii 250 MG CAP PO SCH (09:54)
[2017-09-11] MEDS: Gabapentin 300 MG CAP PO SCH ×2 (09:54→21:12)
[2017-09-11] MEDS: Famotidine 20 MG TAB PO SCH (09:55)
[2017-09-11] MEDS: Aspirin 81 mg Enteric Coated Tablet PO SCH (09:55)
[2017-09-11] MEDS: Docusate 100 MG CAP PO SCH ×2 (09:55→22:12)
[2017-09-11] MEDS: Furosemide 40 MG TAB PO SCH (09:55)
[2017-09-11] MEDS: Insulin NPH/Reg Insulin Hm 300 UNITS/3 ML VIAL SC SCH ×2 (09:56→17:32)
--- NOTE | 2017-09-11 10:24 | PDOC.PN ---
- Subjective Encounter Start Date: 09/11/17 Encounter Start Time: 08:40 Subjective: no c/o sob or chest pain now -: feels better - Objective Resuscitation Status: Resuscitation Status FULL:Full Resuscitation MAR Reviewed: Yes Vital Signs & Weight: Vital Signs (12 hours) Temp Pulse Resp BP BP Pulse Ox 09/11/17 09:55 113 H 09/11/17 09:49 98.9 F 113 H 18 132/60 94 L 09/11/17 04:28 98.8 F 98 19 135/60 96 09/10/17 23:46 84 185/79 H Weight Weight 211 lb 3.2 oz Result Diagrams: 09/10/17 20:21 09/10/17 20:21 Additional Labs: Accuchecks 09/11/17 05:52 POC Glucose 204 H Phys Exam - Physical Examination HEENT: PERRLA, moist MMs Neck: no JVD, supple Respiratory: no wheezing, no rales Cardiovascular: no significant murmur, irregular Gastrointestinal: soft, non-tender, positive bowel sounds Musculoskeletal: no edema, pulses present Neurological: non-focal, moves all 4 limbs Psychiatric: normal affect, A&O x 3 Dx/Plan (1) UTI (urinary tract infection) Status: Acute Qualifiers: Urinary tract infection type: acute cystitis Hematuria presence: with hematuria Qualified Code(s): N30.01 - Acute cystitis with hematuria (2) Atrial fibrillation Code(s): I48.91 - UNSPECIFIED ATRIAL FIBRILLATION Status: Chronic Qualifiers: Atrial fibrillation type: chronic Qualified Code(s): I48.2 - Chronic atrial fibrillation Comment: mild rvr this admission (3) Chronic anticoagulation Code(s): Z79.01 - SNF (CURRENT) USE OF ANTICOAGULANTS Status: Chronic Comment: on eliquis (4) Chronic diastolic heart failure Code(s): I50.32 - CHRONIC DIASTOLIC (CONGESTIVE) HEART FAILURE Status: Chronic Comment: ef of 60% per prior echo in 2016 (5) Diabetes type 2, controlled Code(s): E11.9 - TYPE 2 DIABETES MELLITUS WITHOUT COMPLICATIONS Status: Chronic Qualifiers: Diabetes mellitus ferry terminal agent insulin use: with ferry terminal agent use Diabetes mellitus complication detail: with chronic kidney disease Chronic kidney disease stage: stage 2 (mild) (6) Dyslipidemia Code(s): E78.5 - HYPERLIPIDEMIA, UNSPECIFIED Status: Chronic (7) Gout Code(s): M10.9 - GOUT, UNSPECIFIED Status: Chronic Qualifiers: Gout site: unspecified site Chronicity: chronic (8) Hypertension Code(s): I10 - ESSENTIAL (PRIMARY) HYPERTENSION Status: Chronic Qualifiers: Hypertension type: essential hypertension (9) Moderate aortic stenosis by prior echocardiogram Code(s): I35.0 - NONRHEUMATIC AORTIC (VALVE) STENOSIS Status: Chronic (10) Obesity (BMI 30-39.9) Code(s): E66.9 - OBESITY, UNSPECIFIED Status: Chronic - Plan increase cardizem CD to bid 120mg -: coreg 6.25mg bid, has had prior ablation in 2016 for a.flutter here -: is on ceftriaxone, await cs -: to amb with PT/assistance -: echo, cardiology consultation * . trop x3 is -ve continue home dose 70/30, 15u bid along with coverage. Review of Systems - Medications/Allergies Allergies/Adverse Reactions: Allergies Allergy/AdvReac Type Severity Reaction Status Date / Time acetaminophen Allergy Verified 09/10/17 23:39 [From Darvocet-N 100] fish derived Allergy Verified 09/10/17 23:39 iodine Allergy Verified 09/10/17 23:39 metformin Allergy Verified 09/10/17 23:39 naproxen Allergy Verified 09/10/17 23:39 omega-3 acid ethyl esters Allergy Verified 09/10/17 23:39 prednisone Allergy Verified 09/10/17 23:39 propoxyphene napsylate Allergy Verified 09/10/17 23:39 [From Darvocet-N 100] shellfish derived Allergy Verified 09/10/17 23:39 Medications: Current Medications Apixaban (Eliquis) 2.5 mg PO BID [facility] Last Admin: 09/11/17 09:55 Dose: 2.5 mg Aspirin (Ecotrin) 81 mg PO DAILY [facility] Last Admin: 09/11/17 09:55 Dose: 81 mg Carvedilol (Coreg) 6.25 mg PO BID-[facility] Dextrose/Water (Dextrose 50%) 25 gm SLOW IVP PRN PRN PRN Reason: Hypoglycemia Diltiazem HCl (Cardizem Cd) 120 mg PO BID [facility] Docusate Sodium (Colace) 100 mg PO BID [facility] Last Admin: 09/11/17 09:55 Dose: 100 mg Famotidine (Pepcid) 20 mg PO DAILY [facility] Last Admin: 09/11/17 09:55 Dose: 20 mg Furosemide (Lasix) 40 mg PO DAILY [facility] Last Admin: 09/11/17 09:55 Dose: 40 mg Gabapentin (Neurontin) 600 mg PO BID [facility] Last Admin: 09/11/17 09:54 Dose: 600 mg Glucagon (Glucagon) 1 mg IM PRN PRN PRN Reason: Hypoglycemia Hydralazine HCl (Apresoline) 10 mg SLOW IVP Q4H PRN PRN Reason: Hypertension (SBP > 180) Last Admin: 09/10/17 23:46 Dose: 10 mg Dextrose/Water (D5w) 1,000 mls @ 0 mls/hr IV .Q0M PRN; As Directed PRN Reason: Hypoglycemia Ceftriaxone Sodium 1 gm/ (Sodium Chloride) 100 mls @ 200 mls/hr IVPB Q24HR [facility] Last Admin: 09/11/17 09:54 Dose: 100 mls Insulin Human Isoph/Insulin Regular (Humulin 70/30) 15 units SC BID-[facility] Last Admin: 09/11/17 09:56 Dose: 15 unit/kg Insulin Human Lispro (Humalog) 0 units SC .MILD SLIDING SCALE PRN PRN Reason: Mild Correctional Scale Insulin Human Lispro (Humalog) 0 units SC .BEDTIME SLIDING SC PRN PRN Reason: Bedtime Correctional Scale Labetalol HCl (Normodyne) 10 mg SLOW IVP Q4H PRN PRN Reason: SBP Greater Than 180 Magnesium Hydroxide (Milk Of Magnesium) 30 ml PO DAILYPRN PRN PRN Reason: Constipation Pantoprazole Sodium (Protonix) 40 mg PO DAILY [facility] Last Admin: 09/11/17 09:55 Dose: 40 mg Saccharomyces Boulardii (Florastor) 250 mg PO DAILY [facility] Last Admin: 09/11/17 09:54 Dose: 250 mg Tramadol HCl (Ultram) 50 mg PO Q4H PRN PRN Reason: Pain Last Admin: 09/11/17 04:02 Dose: 50 mg
[2017-09-11] MEDS: Carvedilol 6.25 MG TAB PO SCH (17:32)
--- NOTE | 2017-09-11 20:58 | CON ---
HISTORY OF PRESENT ILLNESS: The patient is a pleasant 82-year-old woman, who presented with left-sided chest discomfort. The patient has a previous history of coronary artery disease. She underwent cardiac catheterization in 2014. This revealed a 40% proximal LAD lesion, a 70% ostial first diagonal lesion and two sequential lesions in the right coronary artery. The patient also has a history of atrial fibrillation. She has previously undergone an ablation in 2015. The patient is on chronic anticoagulation therapy. The patient was in her usual state of health when she developed left-sided chest discomfort. She states it began this morning and was continued for nearly 12 hours. She eventually came to the emergency room for further evaluation. The patient denies having any present chest discomfort. The patient states that the discomfort was left-sided,and it did not radiate. It was not associated with diaphoresis or dyspnea. PAST MEDICAL HISTORY: 1. Coronary artery disease. 2. Atrial fibrillation. 3. Aortic stenosis. 4. Hypertension. 5. Dyslipidemia. 6. History of a cerebrovascular accident. 7. Gout. PAST SURGICAL HISTORY: Appendectomy, carpal tunnel surgery. SOCIAL HISTORY: Nonsmoker. ALLERGIES: METFORMIN, IODINE, FISH OIL, NAPROSYN, PREDNISONE, and PROPOXYPHENE. MEDICATIONS: See nursing list. FAMILY HISTORY: No strong family history of heart disease. REVIEW OF SYSTEMS: Ten-point system otherwise unremarkable. No history of easy bruising or bleeding, bright red blood per rectum. PHYSICAL EXAMINATION: GENERAL: This is an elderly woman in no acute distress. VITAL SIGNS: The blood pressure 132/60. NECK: Showed no jugular venous distention. LUNGS: Clear to auscultation. HEART: Regular rate and rhythm with a normal S1, S2 with a 2/6 systolic murmur. ABDOMEN: Nondistended. EXTREMITIES: Showed no edema. SKIN: Warm and dry. NEUROLOGIC: Nonfocal. VASCULAR: Radial pulses are 2+. LABORATORY DATA: Sodium 138, potassium 4.4, chloride 103, bicarbonate 24, BUN 39, creatinine is 1.26, glucose 222, troponin less than 0.015. BNP was 117. Her white blood cell count is 5.4, hemoglobin 10.3, hematocrit 31.1. Her platelets are 281. Her EKG revealed her to have normal sinus rhythm with an incomplete first degree AV block, incomplete right bundle branch block. IMPRESSION: 1. Chest pain with some features suggestive of angina. 2. Paroxysmal atrial fibrillation. 3. Aortic stenosis. 4. Coronary artery disease. 5. Hypertension. 6. History of cerebrovascular accident. 7. Urinary tract infection. 8. Gout. This patient presents with left-sided chest pain. Her cardiac enzymes revealed no evidence of myocardial infarction. There were no acute electric changes on her electrocardiogram. From a cardiac standpoint, she has a long history of coronary artery disease and with left-sided chest pain. We would recommend repeat stress testing to make sure there is no evidence of severe ischemia. PLAN: 1. Proceed with adenosine stress test 2. Hold Eliquis. We will follow this patient with you through her hospitalization. KELLI
[2017-09-11] MEDS: hydrALAZINE 20 MG/ML VIAL SLOW IVP PRN (21:13)
[2017-09-12] MEDS: Insulin NPH/Reg Insulin Hm 300 UNITS/3 ML VIAL SC SCH ×2 (08:15→17:04)
[2017-09-12] MEDS: cefTRIAXone\\ROCEPHIN 1 GM in Sodium Chloride 0.9% 100 ML IVPB SCH (08:21)
--- NOTE | 2017-09-12 09:38 | PDOC.PN ---
- Subjective Encounter Start Date: 09/12/17 Encounter Start Time: 13:50 Subjective: Patient denies further chest pain or SOB. Ambulating with walker. -: Just got back from stress test which she was told went well. - Objective Resuscitation Status: Resuscitation Status FULL:Full Resuscitation MAR Reviewed: Yes Vital Signs & Weight: Vital Signs (12 hours) Temp Pulse Resp BP Pulse Ox 09/12/17 08:19 97.7 F 86 16 144/67 H 95 09/12/17 04:00 98.4 F 84 14 143/65 H Weight Weight 212 lb I&O: 09/11/17 09/12/17 09/13/17 06:59 06:59 06:59 Intake Total 100 Balance 100 Result Diagrams: 09/10/17 20:21 09/10/17 20:21 Additional Labs: Accuchecks 09/12/17 09/11/17 09/11/17 06:28 20:42 17:31 POC Glucose 175 H 208 H 121 H 09/11/17 10:47 POC Glucose 205 H Phys Exam - Physical Examination Constitutional: NAD Obese, sitting in chair at bedside HEENT: moist MMs Respiratory: no wheezing, no rales, no rhonchi Cardiovascular: RRR 2-3/6 holosytolic murmur at RSB Gastrointestinal: soft, non-tender, positive bowel sounds Neurological: non-focal, moves all 4 limbs Psychiatric: normal affect, A&O x 3 Dx/Plan (1) Chest pain Code(s): R07.9 - CHEST PAIN, UNSPECIFIED Status: Acute Comment: Stress test , Cardiology following (2) Coronary artery disease Code(s): I25.10 - ATHSCL HEART DISEASE OF [place] CORONARY ARTERY W/O ANG PCTRS Status: Chronic (3) Atrial fibrillation Code(s): I48.91 - UNSPECIFIED ATRIAL FIBRILLATION Status: Chronic Qualifiers: Atrial fibrillation type: chronic Qualified Code(s): I48.2 - Chronic atrial fibrillation Comment: mild rvr this admission (4) Moderate aortic stenosis by prior echocardiogram Code(s): I35.0 - NONRHEUMATIC AORTIC (VALVE) STENOSIS Status: Chronic (5) Chronic anticoagulation Code(s): Z79.01 - RESIDENTIAL (CURRENT) USE OF ANTICOAGULANTS Status: Chronic Comment: holding eliquis in case need to cath (6) Chronic diastolic heart failure Code(s): I50.32 - CHRONIC DIASTOLIC (CONGESTIVE) HEART FAILURE Status: Chronic Comment: ef of 60% per prior echo in 2016 (7) Diabetes type 2, controlled Code(s): E11.9 - TYPE 2 DIABETES MELLITUS WITHOUT COMPLICATIONS Status: Chronic Qualifiers: Diabetes mellitus custodial insulin use: with manager terminal use Diabetes mellitus complication detail: with chronic kidney disease Chronic kidney disease stage: stage 2 (mild) (8) Dyslipidemia Code(s): E78.5 - HYPERLIPIDEMIA, UNSPECIFIED Status: Chronic (9) Gout Code(s): M10.9 - GOUT, UNSPECIFIED Status: Chronic Qualifiers: Gout site: unspecified site Chronicity: chronic (10) Hypertension Code(s): I10 - ESSENTIAL (PRIMARY) HYPERTENSION Status: Chronic Qualifiers: Hypertension type: essential hypertension Qualified Code(s): I10 - Essential (primary) hypertension (11) Obesity (BMI 30-39.9) Code(s): E66.9 - OBESITY, UNSPECIFIED Status: Chronic - Plan cont current plan of care, PT/OT, DVT proph w/SCDs Awaiting stress test results and cardiology plan. * . - Discharge Day Encounter end time: 14:05
[2017-09-12] MEDS: Aspirin 81 mg Enteric Coated Tablet PO SCH (14:04)
[2017-09-12] MEDS: Carvedilol 6.25 MG TAB PO SCH ×2 (14:04→17:04)
[2017-09-12] MEDS: Docusate 100 MG CAP PO SCH ×2 (14:04→20:50)
[2017-09-12] MEDS: Saccharomyces boulardii 250 MG CAP PO SCH (14:05)
[2017-09-12] MEDS: Gabapentin 300 MG CAP PO SCH ×2 (14:05→20:49)
[2017-09-12] MEDS: Famotidine 20 MG TAB PO SCH (14:05)
[2017-09-12] MEDS: Furosemide 40 MG TAB PO SCH (14:05)
[2017-09-12] MEDS ORDERED: Regadenoson 0.4 MG/5 ML SYRINGE ONE (14:25)
--- NOTE | 2017-09-12 15:32 | NM ---
CARDIAC SPECT: CLINICAL HISTORY: 82-year-old female with chest pain, coronary artery disease, atrial fibrillation, hypertension, diabe zak, and dyslipidemia. TECHNIQUE: A myocardial perfusion scan was performed using the single isotope two day protocol with 28 mCi techn etium-99m sestamibi injected intravenously for both stress and rest images. Pharmacologic stress with Lexiscan was monitored and interpreted by Dr. Olmos. FINDINGS: Homogeneous tracer distribution is seen in the myocardial segments on stress and rest images without fixed or reversible defects. GATED SPECT LVEF: 64%. WALL MOTION EXAM: Normal. IMPRESSION: Normal myocardial perfusion scan. POS: MARGY
[2017-09-12] MEDS: HumaLOG 300 UNITS/3 ML VIAL SC PRN (17:05)
--- NOTE | 2017-09-12 19:39 | PDOC.CTH ---
Cardiology Progress Note - Subjective Pt. seen and eval. She denies any cardiac complaints at this time. The stress test was negative for ischemia. - Objective Vital Signs Temp Pulse Pulse Resp BP BP Pulse Ox 09/12/17 16:06 78 16 118/58 L 97 09/12/17 13:56 97.8 F 89 18 124/54 L 98 09/12/17 11:16 87 126/63 09/12/17 08:00 97.7 F 86 16 95 09/12/17 07:48 97.7 F 86 16 144/67 H 95 Weight 212 lb 09/11/17 09/12/17 09/13/17 06:59 06:59 06:59 Intake Total 100 Balance 100 - Physical Examination General/Neuro: alert & oriented x3 Neck: carotid US brisk Lungs: CTA Heart: RRR Abdomen: no HSM, NT/ND - Telemetry Telemetry Rhythm: sinus - Labs Result Diagrams: 09/10/17 20:21 09/10/17 20:21 Troponin/CKMB CK-MB (CK-2) 1.0 ng/mL (0-6.6) 09/11/17 03:54 Troponin I 0.015 ng/mL (< 0.028) 09/11/17 03:54 - Assessment/Plan 1. Chest pain- probably non-cardiac. stress test negative. Okay to D/C pt. to home at any time from a cardiac stand point. 2. HTN- stable. 3. DM2 4. Dyslipidemia 5. CAD- stable. Neg. stress test. 6. Afib., paroxysmal. Maintaining NSR. 7. - moderate. Asymptomatic. Continue medical treatment.
[2017-09-13] MEDS: cefTRIAXone\\ROCEPHIN 1 GM in Sodium Chloride 0.9% 100 ML IVPB SCH (08:45)
[2017-09-13] MEDS: Carvedilol 6.25 MG TAB PO SCH ×2 (08:46→17:55)
[2017-09-13] MEDS: Aspirin 81 mg Enteric Coated Tablet PO SCH (08:46)
[2017-09-13] MEDS: Docusate 100 MG CAP PO SCH ×2 (08:46→20:37)
[2017-09-13] MEDS: Insulin NPH/Reg Insulin Hm 300 UNITS/3 ML VIAL SC SCH ×2 (08:46→17:56)
[2017-09-13] MEDS: Saccharomyces boulardii 250 MG CAP PO SCH (08:47)
[2017-09-13] MEDS: Furosemide 40 MG TAB PO SCH (08:47)
[2017-09-13] MEDS: Gabapentin 300 MG CAP PO SCH ×2 (08:47→20:37)
[2017-09-13] MEDS: Famotidine 20 MG TAB PO SCH (08:47)
[2017-09-13] MEDS: HumaLOG 300 UNITS/3 ML VIAL SC PRN ×2 (11:59→20:53)
--- NOTE | 2017-09-13 15:18 | PDOC.CTH ---
<Megha Ward - Last Filed: 09/13/17 15:22> Cardiology Progress Note - Subjective The pt seen and examined. No overnight events. No cardiac complaints. - Objective Vital Signs Temp Pulse Resp BP Pulse Ox 09/13/17 11:52 98.5 F 62 18 95/53 L 97 09/13/17 07:49 98 F 71 16 98 09/13/17 07:44 98 F 71 16 148/65 H 98 09/13/17 04:00 97.5 F L 61 20 125/58 L 95 Weight 212 lb 09/12/17 09/13/17 09/14/17 06:59 06:59 06:59 Intake Total 100 Balance 100 - Physical Examination General/Neuro: alert & oriented x3 Neck: no JVD present Lungs: CTA (diminished at bases) Heart: RRR Abdomen: soft Extremities: other: (No edema) - Telemetry Telemetry Rhythm: SR 1st AVB, HR 60s - Labs Result Diagrams: 09/10/17 20:21 09/10/17 20:21 Troponin/CKMB CK-MB (CK-2) 1.0 ng/mL (0-6.6) 09/11/17 03:54 Troponin I 0.015 ng/mL (< 0.028) 09/11/17 03:54 - Assessment/Plan 1. Chest pain- probably non-cardiac. stress test negative. Okay to D/C pt. to home at any time from a cardiac stand point. 2. HTN- stable. 3. DM2 - stable 4. Dyslipidemia 5. CAD- stable. Neg. stress test. 6. Afib., paroxysmal - Maintaining NSR. 7. - moderate. Asymptomatic. Continue medical treatment. * Echo on 09/12/17 showed EF 60-65%, mod dilated LA and mod . Review of Systems - Review of Systems Constitutional: reports: no symptoms reported EENTM: reports: no symptoms reported Respiratory: reports: no symptoms reported Cardiac (ROS): reports: no symptoms reported ABD/GI: reports: no symptoms reported : reports: no symptoms reported Musculoskeletal: reports: no symptoms reported <Vanessa Suarez - Last Filed: 09/13/17 20:43> Cardiology Progress Note - Objective Vital Signs Temp Pulse Pulse Pulse Resp BP BP 09/13/17 20:37 85 09/13/17 18:04 98.7 F 65 18 09/13/17 14:45 59 L 65 126/60 136/62 09/13/17 11:52 98.5 F 62 18 BP Pulse Ox 09/13/17 20:37 09/13/17 18:04 125/58 L 93 L 09/13/17 14:45 09/13/17 11:52 95/53 L 97 Weight 212 lb 09/12/17 09/13/17 09/14/17 06:59 06:59 06:59 Intake Total 100 Balance 100 - Labs Result Diagrams: 09/10/17 20:21 09/10/17 20:21 Troponin/CKMB CK-MB (CK-2) 1.0 ng/mL (0-6.6) 09/11/17 03:54 Troponin I 0.015 ng/mL (< 0.028) 09/11/17 03:54 - Assessment/Plan Pt. seen and eval. by me. I agree with the A/P by the NP. Frost to d/c pt. in AM. Chest clear. RRR.
--- NOTE | 2017-09-13 18:49 | PDOC.PN ---
- Subjective Encounter Start Date: 09/13/17 Encounter Start Time: 18:35 Subjective: f/u for CP with BOLT LABELER negative for ischemia. UTI dx with E. coli on current -: Rocephin. Overall feels ok and denies SOB or CP. - Objective Resuscitation Status: Resuscitation Status FULL:Full Resuscitation MAR Reviewed: Yes Vital Signs & Weight: Vital Signs (12 hours) Temp Pulse Pulse Pulse Resp BP BP 09/13/17 18:04 98.7 F 65 18 09/13/17 14:45 59 L 65 126/60 136/62 09/13/17 11:52 98.5 F 62 18 09/13/17 07:49 98 F 71 16 09/13/17 07:44 98 F 71 16 BP Pulse Ox 09/13/17 18:04 125/58 L 93 L 09/13/17 14:45 09/13/17 11:52 95/53 L 97 09/13/17 07:49 98 09/13/17 07:44 148/65 H 98 Weight Weight 212 lb I&O: 09/12/17 09/13/17 09/14/17 06:59 06:59 06:59 Intake Total 100 Balance 100 Result Diagrams: 09/10/17 20:21 09/10/17 20:21 Additional Labs: Accuchecks 09/13/17 09/13/17 09/13/17 16:43 10:36 05:45 POC Glucose 158 H 226 H 127 H 09/12/17 20:23 POC Glucose 165 H Microbiology 09/11/17 17:25 Urine voided Urine Culture - Final Escherichia coli 09/11/17 10:52 Venous blood - Right Hand Blood Culture - Preliminary NO GROWTH AT 48 HOURS 09/11/17 10:52 Venous blood - Left Hand Blood Culture - Preliminary NO GROWTH AT 48 HOURS Radiology Reviewed by me: Yes (2D echo - EF 60%, mod , diast dysfxn) EKG Reviewed by me: Yes (Tele - SR in 70's) Phys Exam - Physical Examination Constitutional: NAD HEENT: PERRLA, sclera anicteric, oral pharynx no lesions Neck: no nodes, no JVD, supple, full ROM Respiratory: no wheezing, no rales, no rhonchi, clear to auscultation bilateral II/ MICHAEL RUSB S1, S2 Cardiovascular: RRR, no rub, gallop Gastrointestinal: soft, non-tender, no distention, positive bowel sounds Musculoskeletal: no edema, pulses present Neurological: non-focal, normal sensation, moves all 4 limbs Psychiatric: normal affect, A&O x 3 Skin: no rash, normal turgor, cap refill <2 seconds Dx/Plan (1) Chest pain Code(s): R07.9 - CHEST PAIN, UNSPECIFIED Status: Acute Comment: BOLT LABELER negative , continue ASA and Coreg, likely due to HTN urgency (2) UTI (urinary tract infection) Status: Acute Qualifiers: Urinary tract infection type: acute cystitis Hematuria presence: with hematuria Qualified Code(s): N30.01 - Acute cystitis with hematuria Comment: E. coli by Ucx, transition to po abx in am, continue Rocephin another 24h (3) CKD (chronic kidney disease) stage 3, GFR 30-59 ml/min Status: Chronic Comment: Avoid nephrotoxic meds and contrast exposure (4) Chronic anticoagulation Code(s): Z79.01 - [place]ENT[place] (CURRENT) USE OF ANTICOAGULANTS Status: Chronic Comment: Resume Eliquis 2.5mg BID (5) Diabetes type 2, controlled Code(s): E11.9 - TYPE 2 DIABETES MELLITUS WITHOUT COMPLICATIONS Status: Chronic Qualifiers: Diabetes mellitus shelter insulin use: with shelter use Diabetes mellitus complication detail: with chronic kidney disease Chronic kidney disease stage: stage 2 (mild) Comment: Continue NPH 15u sc BID, ISS (6) Hypertension Code(s): I10 - ESSENTIAL (PRIMARY) HYPERTENSION Status: Chronic Qualifiers: Hypertension type: essential hypertension Qualified Code(s): I10 - Essential (primary) hypertension Comment: Stable, monitor trend - Plan continue antibiotics, 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
[2017-09-13] MEDS: traMADol HCl 50 MG TAB PO PRN (23:11)
[2017-09-14 03:16] VITALS: BMI 35.4
[2017-09-14] MEDS: cefTRIAXone\\ROCEPHIN 1 GM in Sodium Chloride 0.9% 100 ML IVPB SCH (08:10)
[2017-09-14] MEDS: Carvedilol 6.25 MG TAB PO SCH (08:11)
[2017-09-14] MEDS: Aspirin 81 mg Enteric Coated Tablet PO SCH (08:12)
[2017-09-14] MEDS: Furosemide 40 MG TAB PO SCH (08:12)
[2017-09-14] MEDS: Docusate 100 MG CAP PO SCH (08:12)
[2017-09-14] MEDS: Famotidine 20 MG TAB PO SCH (08:12)
[2017-09-14] MEDS: Insulin NPH/Reg Insulin Hm 300 UNITS/3 ML VIAL SC SCH (08:12)
[2017-09-14] MEDS: Saccharomyces boulardii 250 MG CAP PO SCH (08:13)
[2017-09-14] MEDS: Gabapentin 300 MG CAP PO SCH (08:13)
[2017-09-14 10:33] VITALS: BP 123/58; TEMP 98.1
--- NOTE | 2017-09-14 12:38 | DIS ---
DATE OF ADMISSION: 09/10/2017 DATE OF DISCHARGE: 09/14/2017 DISCHARGE DIAGNOSES: 1. Chest pain likely secondary to musculoskeletal origin and hypertensive urgency. 2. Hypertensive urgency, resolved. 3. Urinary tract infection with Escherichia coli. 4. Chronic kidney disease stage 3. 5. Chronic anticoagulation with Eliquis. 6. Diabetes mellitus type 2, insulin requiring. 7. Hypertension, stable. CONSULTATIONS: Dr. Suarez with Cardiology Service. PERTINENT LABORATORY AND X-RAY FINDINGS: Creatinine 1.26 with estimated GFR of 41, troponin I negati ve x3. BNP 117. CBC showed a hemoglobin of 10.3. Urine culture dated 09/11/2017 showed 10-25,000 c olonies of E. coli. Blood cultures x2 from 09/11/2017 showed no growth at 48 hours. A 2D transthora cic echocardiogram dated 09/11/2017 showed ejection fraction of 60%-65%. Moderate left atrial enlarg ement. Diastolic dysfunction. Cardiolite stress test dated 09/11/2017 showed no evidence of reversi ble or fixed ischemia with calculated ejection fraction of 64%. Portable chest x-ray dated 8 showed mild cardiomegaly without acute infiltrate. HOSPITAL COURSE: The patient was admitted to the telemetry unit after initially presenting with ches t pain in the context of multiple risk factors including hypertension; hyperlipidemia; and history of atrial fibrillation, on chronic anticoagulation with Eliquis. The patient was also noted with hyper tensive urgency at the time of admission. The patient was initially treated with IV hydralazine and topical nitroglycerin. The patient underwent subsequent Cardiolite stress testing showing no evidenc e of reversible or fixed ischemia with calculated ejection fraction in the 60%-65% range. The patien t was evaluated by the Cardiology service without recommendations for further aggressive intervention . The patient's blood pressure trend remained stable throughout the hospital course after resumption of home blood pressure regimen. The patient was noted with a urinary tract infection with E. coli s alexeijoesph sensitive to quinolones. The patient overall remained clinically stable throughout the hospit al course, tolerating regular oral intake with telemetry monitoring showing a sinus mechanism. I hav e examined the patient at the time of discharge and discussed pertinent, radiology findings, and foll ow up instructions. The patient verbalized understanding and agreement and will discharge home on . DISCHARGE MEDICATIONS: 1. Eliquis 2.5 mg p.o. b.i.d. 2. Enteric-coated aspirin 81 mg 1 tab p.o. daily. 3. Coreg 6.25 mg p.o. b.i.d. 4. Diltiazem HCL ER 120 mg p.o. daily. 5. Lasix 40 mg p.o. daily. 6. Neurontin 300 mg 4 tabs p.o. b.i.d. 7. NPH insulin 15 units subcutaneously b.i.d. 8. Levaquin 250 mg p.o. daily x5 days. 9. Multivitamin 1 tab p.o. daily. 10. Protonix 40 mg p.o. daily. 11. Florastor 250 mg p.o. daily. 12. Tramadol 50 mg 1-2 tabs p.o. q.4-6 hours p.r.n. pain. FOLLOWUP: The patient will follow up with her primary care provider, Dr. Brian Mac within 7 days o f discharge. SPECIAL INSTRUCTIONS: The patient will receive home health services through [facility] on discharge including physical therapy. CONDITION ON DISCHARGE: Stable. ACTIVITY: ad jose. DIET: Heart healthy and ADA. CODE STATUS: FULL. DISPOSITION: Home on 09/14/2017.
== END 2017-09-14 11:00 | disposition home or self-care (01) | DRG 303 ==
LOC: ERS 19:50 → 2NO 21:30 → ERS 22:53
PROVIDERS: ADMIT Internal Medicine; ATTEND Internal Medicine
DX: I25.119 Atherosclerotic heart disease of native coronary artery with unspecified angina pectoris (principal); N39.0 Urinary tract infection, site not specified; I50.32 Chronic diastolic (congestive) heart failure; I13.0 Hypertensive heart and chronic kidney disease with heart failure and stage 1 through stage 4 chronic kidney disease, or unspecified chronic kidney disease; I16.0 Hypertensive urgency; B96.20 Unspecified Escherichia coli [E. coli] as the cause of diseases classified elsewhere; N18.3 Chronic kidney disease, stage 3 (moderate); Z79.01 Long term (current) use of anticoagulants; I12.9 Hypertensive chronic kidney disease with stage 1 through stage 4 chronic kidney disease, or unspecified chronic kidney disease; E78.5 Hyperlipidemia, unspecified; E11.22 Type 2 diabetes mellitus with diabetic chronic kidney disease; Z79.4 Long term (current) use of insulin; I48.0 Paroxysmal atrial fibrillation; M10.9 Gout, unspecified; E66.9 Obesity, unspecified; Z68.35 Body mass index [BMI] 35.0-35.9, adult; Z86.73 Personal history of transient ischemic attack (TIA), and cerebral infarction without residual deficits; I25.10 Atherosclerotic heart disease of native coronary artery without angina pectoris; Z87.891 Personal history of nicotine dependence; E11.65 Type 2 diabetes mellitus with hyperglycemia; I35.0 Nonrheumatic aortic (valve) stenosis; I07.0 Rheumatic tricuspid stenosis
CPT/HCPCS: 36415; 36416; 71045; 78452; 80053; 81003; 81015; 82553; 83880; 84484; 85025; 87040; 87077; 87086; 87186; 93005; 93017; 93306; 96365; A9500; G8978-GP-CL; G8979-GP-CJ; J0360; J0696; J2785; J7050

== ENCOUNTER 2017-11-16 12:18 | Observation (INO) | payer MEDICARE, MEDICAID ==
[2017-11-16 13:08] LABS: #Eosinphils 0.1 thou/uL (0.0-0.7); #Lymphocytes 1.3 thou/uL (1.20-3.40); #Monocytes 0.4 thou/uL (0.11-0.59); #Neutrophils 3.8 thou/uL (1.40-6.50); %Basophils 0.4 % (0.0-1.0); %Eosinophils 2.4 % (0.0-10.0); %Lymphocytes 22.4 % (21.0-51.0); %Monocytes 7.2 % (0.0-10.0); %Neutrophils 67.6 % (42.0-75.0); Hemoglobin 11.8 g/dL (12.0-16.0); Mean Corpuscular HGB CONC 33.2 g/dL (32.0-36.0); Mean Corpuscular Hemoglobin 28.5 pg (27.0-31.0); Mean Corpuscular Volume 85.7 fL (78.0-98.0); Mean Platelet Volume 8.5 fL (7.4-10.4); Platelet Count 197 thou/uL (130-400); RBC Distribution Width 15.8 % (11.5-14.5); Red Blood Cell (RBC) Count 4.16 mill/uL (4.20-5.40); White Blood Cell (WBC) Count 5.7 thou/uL (4.8-10.8)
[2017-11-16 13:37] LABS: ALT (SGPT) 10 U/L (8-55); AST (SGOT) 10 U/L (5-34); Alkaline Phosphatase 138 U/L (40-150); Anion Gap 18 mmol/L (10-20); BUN (Urea Nitrogen) 28 mg/dL (9.8-20.1); Bilirubin, Total 0.7 mg/dL (0.2-1.2); CK (CPK) 21 U/L (29-168); Calc. Creatinine Clearance 0 mL/min (70-130); Calcium 9.1 mg/dL (7.8-10.44); Carbon Dioxide 21 mmol/L (23-31); Chloride 101 mmol/L (98-107); Estimated GFR-MDRD 33; Globulin 3.3 g/dL (2.4-3.5); Glucose 164 mg/dL (83-110); Lipase 155 U/L (8-78); Potassium 4.1 mmol/L (3.5-5.1); Protein, Total 7.3 g/dL (6.0-8.3); Sodium 136 mmol/L (136-145)
[2017-11-16 13:39] LABS: CKMB 0.8 ng/mL (0-6.6); Troponin I Less than 0.010 ng/mL (< 0.028)
--- NOTE | 2017-11-16 13:57 | RAD ---
PORTABLE CHEST 1 VIEW: DATE: 11/16/17. TIME: 12:14 p.m. HISTORY: Chest pain. FINDINGS: Comparison is made with the exam of 09/21/17. The heart size is enlarged. There is evidence of old granulomatous disease. The lungs are expanded without focal areas of consolidation, pneumothoraces, or pleural effusions. There are degenerative c hanges in the spine. IMPRESSION: No radiographic evidence of acute cardiopulmonary process. POS: OFF
[2017-11-16] MEDS ORDERED: Ondansetron ODT 4 MG TAB ONE ×2 (15:26→19:24)
--- NOTE | 2017-11-16 16:27 | HP ---
DATE OF ADMISSION: 11/16/2017 PRIMARY CARE PHYSICIAN: Brian Mac M.D. REASON FOR ADMISSION: Chest pain. HISTORY OF PRESENT ILLNESS: An 82-year-old female who has underlying history of hypertension, diabet es type 2, paroxysmal atrial fibrillation on chronic anticoagulation therapy, who presented from [facility] with a complaint of chest pain. The patient was not feeling good last night. Thi s morning, she was experiencing chest tightness on the left side, 5/10 in intensity with some left ar m pain. She thought she might have atrial fibrillation, but in the emergency room, her electrocardio gram was normal. She denied any palpitations. She denied any dizziness or any syncope or near synco pe. She denies any associated shortness of breath, cough. She denies any relation of chest pain wit h food, respiration or activity. When she came to emergency room, she refused nitroglycerin, but her pain subsided by itself. The patient was recently admitted in our hospital in 09/2017. At that sascha e, the patient had a stress test done, which was normal. The patient's echocardiography was also don e, which showed moderate aortic stenosis and diastolic dysfunction. Today, in the emergency room, ro utine blood tests including cardiac enzyme is unremarkable. The patient has slightly elevated lipase , but the patient denies any epigastric pain. She denies any UTI symptoms. She denies any constipat ion, diarrhea, melena or hematochezia. REVIEW OF SYSTEMS: The following complete review of systems was negative, unless otherwise mentioned in the HPI or below: Constitutional: Weight loss or gain, ability to conduct usual activities. Sk in: Rash, itching. Eyes: Double vision, pain. ENT/Mouth: Nose bleeding, neck stiffness, pain, te nderness. Cardiovascular: Palpitations, dyspnea on exertion, orthopnea. Respiratory: Shortness of breath, wheezing, cough, hemoptysis, fever or night sweats. Gastrointestinal: Poor appetite, abdom inal pain, heartburn, nausea, vomiting, constipation, or diarrhea. Genitourinary: Urgency, frequenc y, dysuria, nocturia. Musculoskeletal: Pain, swelling. Neurologic/Psychiatric: Anxiety, depressio n. Allergy/Immunologic: Skin rash, bleeding tendency. Please see my HPI for pertinent positive and negative. All other review of system reviewed and negative except as mentioned in the HPI. PAST MEDICAL HISTORY: Diabetes type 2, hypertension, dyslipidemia, paroxysmal atrial fibrillation, C KD stage 3, morbid obesity, moderate aortic stenosis, tricuspid regurgitation, history of CVA, gout. PAST PSYCHIATRIC HISTORY: Reviewed and negative. PAST SURGICAL HISTORY: Appendicectomy, left carpal tunnel surgery. FAMILY HISTORY: No strong family history of premature coronary artery disease, stroke or cancer. SOCIAL HISTORY: The patient lives at [place]. She denies any currently tobacco, alcohol or illici t drug abuse. She is a former smoker. She quit smoking more than 20 years ago. She lives at [facility]. ALLERGIES: FISH, IODINE, METFORMIN, NAPROXEN, PREDNISONE, PROPOXYPHENE. PAST PSYCHIATRIC HISTORY: Reviewed and negative. CURRENT HOME MEDICATIONS: The patient did not bring her medication, but based on our previous hospit al record, the patient is on the following medications: Tramadol 50 mg q.4 hourly p.r.n., Cardizem C D 120 mg p.o. daily, gabapentin 1200 mg twice daily, Novolin insulin 15 units subcu b.i.d., multivita min 1 tablet p.o. daily, ranitidine 150 mg p.o. daily, Eliquis 2.5 mg p.o. b.i.d., aspirin 81 mg p.o. daily, Coreg 6.25 mg p.o. b.i.d., Lasix 40 mg p.o. daily, Protonix 40 mg p.o. daily. EMERGENCY ROOM COURSE: Reviewed. PHYSICAL EXAMINATION: VITAL SIGNS: On arrival, blood pressure 147/68, pulse 72, respiratory rate 17, temperature 98.4, sat uration 95% on room air, weight 95.3 kilograms. GENERAL: The patient is currently alert, awake, no obvious acute distress. HEAD: Normocephalic, atraumatic. EYES: Pupils round and reactive to light. Extraocular muscle intact. ENT: Oropharynx within normal limits. Moist mucous membranes, no oral lesion, no pharyngeal erythem a, no exudate. NECK: Supple, no JVD, no thyromegaly, no carotid bruit. LUNGS: Clear to auscultation without any rhonchi or rales. CARDIAC: S1, S2 regular. No murmur, no gallop, no rub. ABDOMEN: Soft, bowel sounds present, nontender, nondistended. No organomegaly, no mass, no suprapub ic tenderness. Morbid obesity noted. EXTREMITIES: No edema. Good distal pulsation. No calf tenderness. SKIN: No skin rash. HEMATOLOGICAL: No lymphadenopathy. PSYCHIATRIC: Normal affect. SIGNIFICANT LABORATORY DATA: EKG showing normal sinus rhythm within normal limits. Chest x-ray base d on my review, no acute cardiopulmonary process. CBC, WBC 5.7, hemoglobin 11.8, platelet 197,000. Sodium 136, potassium 4.1, chloride 101, carbon dioxide 21, anion gap 18, BUN 28, creatinine 1.53, gl ucose 164, calcium 9.1. LFT, AST 10, ALT 10, alkaline phosphatase 138, albumin 4.0. CK 21, CK-MB 0.8. Troponin I less than 0.010. Lipase 155. ASSESSMENT AND PLAN: 1. Chest discomfort, most likely acid reflux. Currently, the patient's cardiac enzymes negative. E KG is normal. The patient has underlying moderate aortic stenosis, but doubt that contributing to an y chest discomfort. The patient already had negative stress test in 09/2017 and she already had echo cardiography. We will do serial cardiac enzymes x3. If cardiac enzyme remains negative, then we kari l consider discharging back to [place] tomorrow. No need of repeating lipid profile as well, as it was done recently. Her lipid profile is not at target and that is why we need to start the Lipitor therapy as well. The patient is refusing nitroglycerin. We will monitor on telemetry floor. 2. Diabetes type 2. We will continue her insulin 70/30, 15 units subcu b.i.d., Humulin regular insu lewis as per sliding scale. Diabetic diet will be given. 3. Paroxysmal atrial fibrillation, currently in sinus rhythm. We will continue Cardizem CD 120 mg p .o. daily, Coreg 6.25 mg p.o. b.i.d. and anticoagulation with Eliquis 2.5 mg p.o. b.i.d. 4. Diabetic neuropathy. We will continue gabapentin 1200 mg twice daily. 5. Moderate aortic stenosis, stable. The patient will need outpatient Cardiology followup. 6. Morbid obesity. Dietary education given. Weight loss education given. 7. Gastroesophageal reflux disease. We will continue Protonix 40 mg p.o. daily. 8. Deep venous thrombosis prophylaxis not needed because we are expecting discharge in 24 hours. 9. Gastrointestinal prophylaxis, Protonix 40 mg p.o. daily. CODE STATUS: The patient is full code. DISPOSITION PLAN: Based on clinical course, likely within 24 hours. Plan of care discussed with the patient in detail.
[2017-11-16 18:37] LABS: Troponin I Less than 0.010 ng/mL (< 0.028)
[2017-11-16] MEDS ORDERED: Diabetic Tussin 200 MG/10 ML UDCUP PO PRN (21:08)
[2017-11-16] MEDS ORDERED: Mag-Al 1200 mg/1200 mg/30 ML UDCUP PO PRN (21:08)
[2017-11-16] MEDS ORDERED: Chloraseptic Spray 180 ml Bottle PO PRN (21:08)
[2017-11-16] MEDS ORDERED: Zolpidem Tartrate 5 MG TAB PO PRN (21:08)
[2017-11-16] MEDS ORDERED: Milk Of Magnesia 30 ML UDCUP PO PRN (21:08)
[2017-11-16] MEDS ORDERED: Loratadine 10 MG TAB PO PRN (21:08)
[2017-11-16] MEDS ORDERED: Insulin Regular 300 UNITS/3 ML VIAL SC PRN ×2 (21:08)
[2017-11-16] MEDS ORDERED: Loperamide HCl 2 MG CAP PO PRN (21:08)
[2017-11-16] MEDS ORDERED: Eucerin (Mineral Oil/Petrolatum,White) 30 gm Jar TOP PRN (21:08)
[2017-11-16] MEDS ORDERED: Dextrose 5% in Water 1,000 ML IV PRN (21:08)
[2017-11-16] MEDS ORDERED: Ondansetron ODT 4 MG TAB PO PRN (21:08)
[2017-11-16] MEDS ORDERED: traMADol HCl 50 MG TAB PO PRN (21:08)
[2017-11-16] MEDS ORDERED: Nitroglycerin 0.4 MG TAB (25 Tab Bottle) SL PRN (21:08)
[2017-11-16] MEDS ORDERED: Ondansetron HCl/PF 4 MG/2 ML Vial IVP PRN (21:08)
[2017-11-16] MEDS ORDERED: Artificial Tears 18 DROP/0.9 ML EA EYE PRN (21:08)
[2017-11-16] MEDS ORDERED: Senokot 8.6 MG TAB PO PRN (21:08)
[2017-11-16] MEDS ORDERED: Sodium Chloride 0.65% Nasal 44 ML BOT EA NARE PRN (21:08)
[2017-11-16] MEDS ORDERED: Dextrose 50% Abboject 50 ML SYRINGE SLOW IVP PRN (21:08)
[2017-11-16] MEDS ORDERED: hydrALAZINE 20 MG/ML VIAL SLOW IVP PRN (21:08)
[2017-11-16 21:25] LABS: Troponin I 0.013 ng/mL (< 0.028)
[2017-11-16] MEDS ORDERED: Apixaban 2.5 MG TAB PO SCH (21:30)
[2017-11-16] MEDS ORDERED: Gabapentin 400 MG CAP PO SCH (21:45)
[2017-11-16] MEDS ORDERED: Carvedilol 6.25 MG TAB PO SCH (21:45)
[2017-11-16] MEDS: Insulin NPH/Reg Insulin Hm 300 UNITS/3 ML VIAL SC SCH (22:21)
[2017-11-16] MEDS: Carvedilol 6.25 MG TAB PO SCH (22:25)
[2017-11-16] MEDS: Gabapentin 400 MG CAP PO SCH (22:25)
[2017-11-16 23:55] VITALS: BMI 35.2
[2017-11-17] MEDS ORDERED: Furosemide 40 MG TAB PO SCH (07:30)
[2017-11-17 08:14] VITALS: BP 144/65; TEMP 97.5
[2017-11-17] MEDS: Gabapentin 400 MG CAP PO SCH (08:48)
[2017-11-17] MEDS: Carvedilol 6.25 MG TAB PO SCH (08:49)
[2017-11-17] MEDS: Insulin NPH/Reg Insulin Hm 300 UNITS/3 ML VIAL SC SCH (08:49)
[2017-11-17] MEDS ORDERED: Apixaban 2.5 MG TAB PO SCH (09:00)
[2017-11-17] MEDS ORDERED: Aspirin 325 MG TAB PO SCH (09:00)
--- NOTE | 2017-11-17 10:23 | PDOC.PN ---
- Subjective Encounter Start Date: 11/17/17 Encounter Start Time: 10:00 -: old records requested/rev Patient seen and examined. No new complaints. No overnight events - Objective Resuscitation Status: Resuscitation Status FULL:Full Resuscitation MAR Reviewed: Yes Vital Signs & Weight: Vital Signs (12 hours) Temp Pulse Resp BP BP Pulse Ox 11/17/17 07:39 97.5 F L 81 16 144/65 H 92 L 11/17/17 04:07 97.8 F 76 16 113/53 L 92 L Weight Weight 205 lb 6.4 oz Result Diagrams: 11/16/17 12:50 11/16/17 12:50 Additional Labs: Accuchecks 11/17/17 11/16/17 05:59 22:06 POC Glucose 123 H 155 H EKG Reviewed by me: Yes (nsr) Phys Exam - Physical Examination Constitutional: NAD HEENT: PERRLA, moist MMs, sclera anicteric Neck: no JVD, supple Respiratory: no wheezing, no rales, no rhonchi Cardiovascular: RRR, no rub SM+ at aortic area and lower left parasternal Gastrointestinal: soft, non-tender, no distention, positive bowel sounds Musculoskeletal: no edema, pulses present Neurological: non-focal, normal sensation, moves all 4 limbs Psychiatric: normal affect, A&O x 3 Skin: no rash, normal turgor Dx/Plan (1) Chest pain Code(s): R07.9 - CHEST PAIN, UNSPECIFIED Status: Acute Comment: NURSING PROGRAM MANAGER negative , continue ASA and Coreg, likely due to HTN urgency (2) CKD (chronic kidney disease) stage 3, GFR 30-59 ml/min Status: Chronic Comment: Avoid nephrotoxic meds and contrast exposure (3) Chronic anticoagulation Code(s): Z79.01 - ALF (CURRENT) USE OF ANTICOAGULANTS Status: Chronic Comment: Resume Eliquis 2.5mg BID (4) Chronic diastolic heart failure Code(s): I50.32 - CHRONIC DIASTOLIC (CONGESTIVE) HEART FAILURE Status: Chronic Comment: ef of 60% per prior echo in 2016 (5) Coronary artery disease Code(s): I25.10 - ATHSCL HEART DISEASE OF [place] CORONARY ARTERY W/O ANG PCTRS Status: Chronic (6) Diabetes type 2, controlled Code(s): E11.9 - TYPE 2 DIABETES MELLITUS WITHOUT COMPLICATIONS Status: Chronic Comment: Continue NPH 15u sc BID, ISS (7) Dyslipidemia Code(s): E78.5 - HYPERLIPIDEMIA, UNSPECIFIED Status: Chronic (8) Gout Code(s): M10.9 - GOUT, UNSPECIFIED Status: Chronic (9) Hypertension Code(s): I10 - ESSENTIAL (PRIMARY) HYPERTENSION Status: Chronic Qualifiers: Comment: Stable, monitor trend (10) Moderate aortic stenosis by prior echocardiogram Code(s): I35.0 - NONRHEUMATIC AORTIC (VALVE) STENOSIS Status: Chronic (11) Moderate tricuspid regurgitation by prior echocardiogram Code(s): I07.1 - RHEUMATIC TRICUSPID INSUFFICIENCY Status: Chronic (12) Obesity (BMI 30-39.9) Code(s): E66.9 - OBESITY, UNSPECIFIED Status: Chronic (13) PAF (paroxysmal atrial fibrillation) Code(s): I48.0 - PAROXYSMAL ATRIAL FIBRILLATION Status: Chronic (14) Acute gout Code(s): M10.9 - GOUT, UNSPECIFIED Status: Acute (15) Cellulitis of right hand Code(s): L03.113 - CELLULITIS OF RIGHT UPPER LIMB Status: Acute - Plan cont current plan of care * ACS ruled out * no need of more testing as she had recently and normal * medication reviewed as below * symptomatic treatment * discharge today. Review of Systems - Review of Systems ENT: negative: Ear Pain, Ear Discharge, Nose Pain, Nose Discharge, Nose Congestion, Mouth Pain, Mouth Swelling, Throat Pain, Throat Swelling, Other Respiratory: negative: Cough, Dry, Shortness of Breath, Hemoptysis, SOB with Excertion, Pleuritic Pain, Sputum, Wheezing Cardiovascular: negative: chest pain, palpitations, orthopnea, paroxysmal nocturnal dyspnea, edema, light headedness, other Gastrointestinal: negative: Nausea, Vomiting, Abdominal Pain, Diarrhea, Constipation, Melena, Hematochezia, Other Genitourinary: negative: Dysuria, Frequency, Incontinence, Hematuria, Retention , Other Musculoskeletal: negative: Neck Pain, Shoulder Pain, Arm Pain, Back Pain, Hand Pain, Leg Pain, Foot Pain, Other - Medications/Allergies Allergies/Adverse Reactions: Allergies Allergy/AdvReac Type Severity Reaction Status Date / Time acetaminophen Allergy Verified 11/16/17 23:31 [From Lexat-N 100] fish derived Allergy Verified 11/16/17 23:31 iodine Allergy Verified 11/16/17 23:31 metformin Allergy Verified 11/16/17 23:31 naproxen Allergy Verified 11/16/17 23:31 omega-3 acid ethyl esters Allergy Verified 11/16/17 23:31 prednisone Allergy Verified 11/16/17 23:31 propoxyphene napsylate Allergy Verified 11/16/17 23:31 [From Darvocet-N 100] shellfish derived Allergy Verified 11/16/17 23:31 Medications: Current Medications Al Hydroxide/Mg Hydroxide (Maalox) 30 ml PO Q6H PRN PRN Reason: Heartburn or Indigestion Apixaban (Eliquis) 2.5 mg PO BID [facility] Last Admin: 11/17/17 08:49 Dose: 2.5 mg Artificial Tears (Tears Naturale) 0 drop EA EYE PRN PRN PRN Reason: Dry Eyes Last Admin: 11/17/17 09:54 Dose: 2 drop Aspirin (Aspirin) 325 mg PO DAILY [facility] Last Admin: 11/17/17 08:45 Dose: 325 mg Carvedilol (Coreg) 6.25 mg PO BID-[facility] Last Admin: 11/17/17 08:49 Dose: 6.25 mg Dextrose/Water (Dextrose 50%) 25 gm SLOW IVP PRN PRN PRN Reason: Hypoglycemia Diltiazem HCl (Cardizem Cd) 120 mg PO DAILY [facility] Last Admin: 11/17/17 08:47 Dose: 120 mg Furosemide (Lasix) 40 mg PO DAILY-[facility] Last Admin: 11/17/17 09:47 Dose: 40 mg Gabapentin (Neurontin) 1,200 mg PO BID [facility] Last Admin: 11/17/17 08:48 Dose: 1,200 mg Glucagon (Glucagon) 1 mg IM PRN PRN PRN Reason: Hypoglycemia Guaifenesin (Robitussin Sf) 200 mg PO Q4H PRN PRN Reason: Cough Hydralazine HCl (Apresoline) 10 mg SLOW IVP Q4H PRN PRN Reason: Systolic BP > 180 Dextrose/Water (D5w) 1,000 mls @ 0 mls/hr IV .Q0M PRN PRN Reason: Hypoglycemia Insulin Human Isoph/Insulin Regular (Humulin 70/30) 15 units SC [facility] Last Admin: 11/17/17 08:49 Dose: 15 unit Insulin Human Regular (Humulin R) 0 units SC .MODERATE SLIDING SC PRN PRN Reason: Moderate Correctional Scale Insulin Human Regular (Humulin R) 0 units SC .BEDTIME SLIDING SC PRN PRN Reason: Bedtime Correctional Scale Loperamide HCl (Imodium) 2 mg PO PRN PRN PRN Reason: Diarrhea/Loose Stools Loratadine (Claritin) 10 mg PO DAILYPRN PRN PRN Reason: Sinus Symptoms Magnesium Hydroxide (Milk Of Magnesium) 30 ml PO DAILYPRN PRN PRN Reason: Constipation Mineral Oil/White Petrolatum (Eucerin Cream) 0 gm TOP BIDPRN PRN PRN Reason: Dry Skin Nitroglycerin (Nitrostat) 0.4 mg SL Q5MIN PRN PRN Reason: Chest Pain Ondansetron HCl (Zofran Odt) 4 mg PO Q6H PRN PRN Reason: Nausea/Vomiting Ondansetron HCl (Zofran) 4 mg IVP Q6H PRN PRN Reason: Nausea/Vomiting Pantoprazole Sodium (Protonix) 40 mg PO DAILY [facility] Last Admin: 11/17/17 08:49 Dose: 40 mg Phenol (Chloraseptic [place] 180 Ml Bot) 0 ml PO PRN PRN PRN Reason: Sore Throat Senna (Senokot) 2 tab PO HSPRN PRN PRN Reason: Constipation Sodium Chloride ([place] Nasal [place] 0.65%) 0 ml EA NARE QIDPRN PRN PRN Reason: Nasal Congestion Tramadol HCl (Ultram) 50 mg PO Q4H PRN PRN Reason: Moderate Pain (4-6) Last Admin: 11/16/17 22:22 Dose: 50 mg Zolpidem Tartrate (Ambien) 5 mg PO HSPRN PRN PRN Reason: Insomnia
--- NOTE | 2017-11-17 11:17 | DIS ---
DATE OF ADMISSION: 11/16/2017 DATE OF DISCHARGE 11/17/2017 DISCHARGE DISPOSITION: Home. PRIMARY DISCHARGE DIAGNOSIS: Chest pain, ruled out acute coronary syndrome. SECONDARY DISCHARGE DIAGNOSES: Paroxysmal atrial fibrillation, obesity with BMI 35, moderate tricusp id regurgitation, moderate aortic stenoses, hypertension, dyslipidemia, diabetes type 2, gout, bow[place] ry artery disease, chronic kidney disease stage 3, chronic diastolic heart failure, diabetes type 2, hypertension, dyslipidemia, chronic anticoagulation with Eliquis. PRIMARY PROCEDURE/OPERATION: None. RADIOLOGICAL INVESTIGATION: Chest x-ray normal. SIGNIFICANT LABORATORY DATA: WBC 5.7, hemoglobin 11.8, platelet 197. Sodium 136, potassium 4.1, BUN 28, creatinine 1.53, calcium 9.1. LFT normal. Cardiac enzymes negative. DISCHARGE MEDICATIONS: The patient will continue all her previous home medication. We are not makin g any change in her home medication. The patient was on the following medications; Tramadol 50 mg q. 4 hourly p.r.n., Cardizem-CD 120 mg p.o. daily, gabapentin 1200 mg p.o. b.i.d., NPH insulin 15 units subcu b.i.d., multivitamin 1 tablet p.o. daily, ranitidine 150 mg p.o. daily, Eliquis 2.5 mg p.o. b.i .d., Ecotrin 81 mg p.o. daily, Coreg 6.25 mg p.o. b.i.d., Lasix 40 mg p.o. daily, Protonix 40 mg p.o. daily. CONTRAINDICATIONS: None. CODE STATUS: FULL CODE. INPATIENT CONSULTANTS: None. ALLERGIES: IODINE, METFORMIN, NAPROXEN. DISCHARGE PLAN: Post hospital, the patient will follow up with primary care physician. HOSPITAL COURSE: An 82-year-old female who lives at [facility]. She was complaining of chest pain and that is why she was sent to emergency room. The patient's chest x-ray was normal. She had negative cardiac enzyme and a normal EKG. Her telemetry remained unremarkable. We kept this patient in the hospital for observation. We did serial cardiac enzymes that remained normal. Her telemetry remained unremarkable. The patient did not have any further chest pain. The patient already had negative stress test done in September of this year as well as echocardiography was do ne and that is why she did not require any more testing. The patient is seen and examined at bedside today. Please see my progress note from today for furthe r details.
== END 2017-11-17 11:18 | disposition home or self-care (01) ==
LOC: ERS 12:18 → 2SW 17:52
PROVIDERS: ADMIT Internal Medicine; ATTEND Internal Medicine
DX: R07.89 Other chest pain (principal); I48.0 Paroxysmal atrial fibrillation; I13.0 Hypertensive heart and chronic kidney disease with heart failure and stage 1 through stage 4 chronic kidney disease, or unspecified chronic kidney disease; E11.22 Type 2 diabetes mellitus with diabetic chronic kidney disease; N18.3 Chronic kidney disease, stage 3 (moderate); I50.32 Chronic diastolic (congestive) heart failure; E78.5 Hyperlipidemia, unspecified; M10.9 Gout, unspecified; I35.0 Nonrheumatic aortic (valve) stenosis; I07.1 Rheumatic tricuspid insufficiency; E11.40 Type 2 diabetes mellitus with diabetic neuropathy, unspecified; K21.9 Gastro-esophageal reflux disease without esophagitis; L03.113 Cellulitis of right upper limb; I25.2 Old myocardial infarction; E66.01 Morbid (severe) obesity due to excess calories; Z68.35 Body mass index [BMI] 35.0-35.9, adult; Z86.73 Personal history of transient ischemic attack (TIA), and cerebral infarction without residual deficits; Z79.01 Long term (current) use of anticoagulants; Z79.4 Long term (current) use of insulin; Z79.82 Long term (current) use of aspirin; Z79.899 Other long term (current) drug therapy; Z88.8 Allergy status to other drugs, medicaments and biological substances; Z91.013 Allergy to seafood; Z91.041 Radiographic dye allergy status
CPT/HCPCS: 71045; 80053; 82550; 82553; 82962 ×2; 83690; 84484 ×2; 85025; 93005; 99285; G0378 ×2; 36415; 36416; J2270; Q0162

== ENCOUNTER 2017-11-26 11:37 | Emergency (ER) | payer MEDICARE, OTHER ==
[2017-11-26 12:20] LABS: #Eosinphils 0.1 thou/uL (0.0-0.7); #Lymphocytes 0.9 thou/uL (1.20-3.40); #Monocytes 0.4 thou/uL (0.11-0.59); #Neutrophils 4.2 thou/uL (1.40-6.50); %Basophils 0.7 % (0.0-1.0); %Eosinophils 0.9 % (0.0-10.0); %Monocytes 6.9 % (0.0-10.0); %Neutrophils 75.6 % (42.0-75.0); Hemoglobin 10.1 g/dL (12.0-16.0); Mean Corpuscular HGB CONC 33.4 g/dL (32.0-36.0); Mean Corpuscular Hemoglobin 28.5 pg (27.0-31.0); Mean Corpuscular Volume 85.3 fL (78.0-98.0); Platelet Count 237 thou/uL (130-400); RBC Distribution Width 15.2 % (11.5-14.5); Red Blood Cell (RBC) Count 3.55 mill/uL (4.20-5.40); White Blood Cell (WBC) Count 5.6 thou/uL (4.8-10.8)
[2017-11-26 12:41] LABS: ALT (SGPT) Less than 7 U/L (8-55); AST (SGOT) 8 U/L (5-34); Albumin 3.5 g/dL (3.4-4.8); Alkaline Phosphatase 111 U/L (40-150); Anion Gap 16 mmol/L (10-20); BUN (Urea Nitrogen) 32 mg/dL (9.8-20.1); Bilirubin, Total 0.3 mg/dL (0.2-1.2); CK (CPK) 17 U/L (29-168); Calc. Creatinine Clearance 0 mL/min (70-130); Calcium 8.9 mg/dL (7.8-10.44); Carbon Dioxide 23 mmol/L (23-31); Chloride 103 mmol/L (98-107); Estimated GFR-MDRD 25; Globulin 3.1 g/dL (2.4-3.5); Glucose 192 mg/dL (83-110); Lipase 118 U/L (8-78); Potassium 4.1 mmol/L (3.5-5.1); Protein, Total 6.6 g/dL (6.0-8.3); Sodium 138 mmol/L (136-145)
[2017-11-26 12:45] LABS: CKMB 0.9 ng/mL (0-6.6); Troponin I Less than 0.010 ng/mL (< 0.028)
[2017-11-26 12:52] LABS: Bilirubin Negative (Negative); Blood, Urine Trace (Negative); Clarity CLOUDY (Clear); Glucose, Urine (Dipstick) Negative (Negative); Leukocyte Negative (Negative); Nitrite Positive (Negative); Protein, Urine (Dipstick) 100 mg/dL (Neg-Trace); Specific Gravity, Urine 1.015 (1.002-1.036)
[2017-11-26 12:55] LABS: Bacteria/HPF 4+ HPF (None Seen); Hyaline Casts/LPF 0-3 HYALINE CAST LPF (0-3 Hyaline); Pathc Cast-AUWi Flag 0.14 (0-2.49); RBC/HPF 0-3 HPF (0-3); Squamous Epithelial 0-3 HPF (0-3)
[2017-11-26] MEDS ORDERED: Metoclopramide HCl 10 MG/2 ML VIAL ONE (13:07)
[2017-11-26] MEDS ORDERED: cefTRIAXone\\ROCEPHIN 2 GM VIAL ONE (13:26)
--- NOTE | 2017-11-26 14:11 | RAD ---
PORTABLE CHEST: HISTORY: Chest pain. COMPARISON: 11/16/17. FINDINGS: Cardiomegaly. Lung deal are clear. No evidence of vascular congestion or edema. Mitral annular c alcification again noted. IMPRESSION: Cardiomegaly. No acute finding. POS: H
== END 2017-11-26 14:16 | disposition home or self-care (01) ==
LOC: ERS 11:37
DX: N39.0 Urinary tract infection, site not specified (principal); E78.5 Hyperlipidemia, unspecified; M19.90 Unspecified osteoarthritis, unspecified site; I48.91 Unspecified atrial fibrillation; E11.9 Type 2 diabetes mellitus without complications; I10 Essential (primary) hypertension; I44.0 Atrioventricular block, first degree; I44.7 Left bundle-branch block, unspecified; Z79.82 Long term (current) use of aspirin; Z79.4 Long term (current) use of insulin; Z79.899 Other long term (current) drug therapy; Z87.891 Personal history of nicotine dependence
CPT/HCPCS: 36415; 71045; 80053; 81003; 81015; 82553; 83690; 83880; 84484; 85025; 87077; 87086; 87186; 93005; 96365; 96375; J0696; J2765

== ENCOUNTER 2017-11-27 17:13 | Observation (INO) | payer MEDICARE, MEDICAID ==
[2017-11-27 19:29] LABS: Bilirubin Negative (Negative); Blood, Urine Negative (Negative); Clarity CLEAR (Clear); Glucose, Urine (Dipstick) Negative (Negative); Leukocyte Negative (Negative); Nitrite Negative (Negative); Protein, Urine (Dipstick) Negative (Neg-Trace); Specific Gravity, Urine 1.006 (1.002-1.036); Urobilinogen 0.2 mg/dL (0.2-1.0)
[2017-11-27] MEDS ORDERED: Ondansetron HCl/PF 4 MG/2 ML Vial ONE (19:29)
[2017-11-27] MEDS ORDERED: Sodium Chloride 0.9% 100 ML ONE (19:29)
[2017-11-27] MEDS ORDERED: cefTRIAXone\\ROCEPHIN 1 GM VIAL ONE (19:29)
[2017-11-27 19:37] LABS: #Lymphocytes 1.1 thou/uL (1.20-3.40); #Monocytes 0.5 thou/uL (0.11-0.59); #Neutrophils 4.3 thou/uL (1.40-6.50); %Basophils 0.5 % (0.0-1.0); %Eosinophils 0.8 % (0.0-10.0); %Lymphocytes 19.1 % (21.0-51.0); %Neutrophils 71.6 % (42.0-75.0); Hemoglobin 10.7 g/dL (12.0-16.0); Mean Corpuscular HGB CONC 33.9 g/dL (32.0-36.0); Mean Corpuscular Hemoglobin 28.9 pg (27.0-31.0); Mean Corpuscular Volume 85.4 fL (78.0-98.0); Mean Platelet Volume 7.9 fL (7.4-10.4); Platelet Count 269 thou/uL (130-400); RBC Distribution Width 15.2 % (11.5-14.5); Red Blood Cell (RBC) Count 3.71 mill/uL (4.20-5.40)
[2017-11-27 20:05] LABS: ALT (SGPT) Less than 7 U/L (8-55); AST (SGOT) 8 U/L (5-34); Albumin 3.7 g/dL (3.4-4.8); Alkaline Phosphatase 112 U/L (40-150); Anion Gap 16 mmol/L (10-20); BUN (Urea Nitrogen) 26 mg/dL (9.8-20.1); Bilirubin, Total 0.3 mg/dL (0.2-1.2); Calc. Creatinine Clearance 0 mL/min (70-130); Calcium 9.2 mg/dL (7.8-10.44); Carbon Dioxide 22 mmol/L (23-31); Chloride 104 mmol/L (98-107); Estimated GFR-MDRD 34; Globulin 3.3 g/dL (2.4-3.5); Glucose 153 mg/dL (83-110); Lipase 126 U/L (8-78); Magnesium 1.7 mg/dL (1.6-2.6); Potassium 3.8 mmol/L (3.5-5.1); Sodium 138 mmol/L (136-145)
--- NOTE | 2017-11-27 20:59 | RAD ---
PORTABLE AP CHEST X-RAY: 11/27/2017 HISTORY: Nausea and vomiting. UTI. COMPARISON: 11/26/2017 FINDINGS: The cardiac silhouette is magnified by projection but is stable in size. The pulmonary vasculature i s within normal limits. Calcification of the mitral valve annulus is present. Vascular calcificatio n is seen in the thoracic aorta. Remote left-sided rib fractures are again seen. There has been no interval change from prior exam. IMPRESSION: Stable chest without evidence of an acute cardiopulmonary process. POS: JEREMIAH
[2017-11-27] MEDS ORDERED: Ondansetron ODT 4 MG TAB SL PRN (22:40)
[2017-11-27] MEDS ORDERED: Ondansetron HCl/PF 4 MG/2 ML Vial IVP PRN (22:40)
[2017-11-27 23:01] VITALS: BMI 34.5
[2017-11-28] MEDS ORDERED: Apixaban 2.5 MG TAB PO SCH ×2 (00:30→09:00)
[2017-11-28] MEDS ORDERED: traMADol HCl 50 MG TAB PO PRN ×3 (00:30→01:26)
[2017-11-28] MEDS ORDERED: Metoclopramide HCl 10 MG TAB PO PRN (01:26)
[2017-11-28] MEDS ORDERED: Dextrose 5% in Water 1,000 ML IV PRN (01:26)
[2017-11-28] MEDS ORDERED: HumaLOG 300 UNITS/3 ML VIAL SC PRN (01:26)
[2017-11-28] MEDS ORDERED: Dextrose 50% Abboject 50 ML SYRINGE SLOW IVP PRN (01:26)
[2017-11-28] MEDS ORDERED: Sodium Chloride 0.9% 1,000 ML IV SCH (01:30)
[2017-11-28] MEDS ORDERED: traMADol HCl 50 MG TAB PO SCH (02:00)
[2017-11-28 05:05] LABS: ALT (SGPT) Less than 7 U/L (8-55); AST (SGOT) 7 U/L (5-34); Albumin 3.5 g/dL (3.4-4.8); Alkaline Phosphatase 103 U/L (40-150); Anion Gap 15 mmol/L (10-20); BUN (Urea Nitrogen) 25 mg/dL (9.8-20.1); Bilirubin, Total 0.2 mg/dL (0.2-1.2); Calc. Creatinine Clearance 43 mL/min (70-130); Calcium 8.9 mg/dL (7.8-10.44); Carbon Dioxide 23 mmol/L (23-31); Chloride 103 mmol/L (98-107); Estimated GFR-MDRD 33; Globulin 3.1 g/dL (2.4-3.5); Glucose 177 mg/dL (83-110); Potassium 3.4 mmol/L (3.5-5.1); Protein, Total 6.6 g/dL (6.0-8.3); Sodium 138 mmol/L (136-145)
[2017-11-28 05:27] LABS: Band 3 % (5-11); Hemoglobin 10.3 g/dL (12.0-16.0); Hypochromia SLIGHT = 6-15 cells (100X) (0-5/hpf); Lymphocytes 15 % (21-51); MDiff Complete? YES; Mean Corpuscular HGB CONC 33.8 g/dL (32.0-36.0); Mean Corpuscular Volume 85.8 fL (78.0-98.0); Mean Platelet Volume 8.1 fL (7.4-10.4); Monocytes 8 % (0-10); Neutrophil 74 % (42-75); PLT Morphology Comment Appears Adequate; Platelet Count 243 thou/uL (130-400); RBC Distribution Width 15.1 % (11.5-14.5); Red Blood Cell (RBC) Count 3.56 mill/uL (4.20-5.40)
[2017-11-28] MEDS ORDERED: Carvedilol 6.25 MG TAB PO SCH (08:00)
[2017-11-28] MEDS ORDERED: Aspirin 81 mg Enteric Coated Tablet PO SCH (09:00)
[2017-11-28] MEDS ORDERED: Famotidine 20 MG TAB PO SCH (09:00)
[2017-11-28] MEDS ORDERED: Furosemide 20 MG TAB PO SCH (09:00)
[2017-11-28] MEDS ORDERED: Non-Formulary Item 1 EACH (Ranitidine Hcl [Ranitidine Hcl] 150 MG) PO SCH (09:00)
[2017-11-28] MEDS ORDERED: Gabapentin 300 MG CAP PO SCH (09:00)
[2017-11-28] MEDS ORDERED: Multivitamin W/ Minerals 1 TAB PO SCH (09:00)
[2017-11-28] MEDS ORDERED: Insulin NPH/Reg Insulin Hm 300 UNITS/3 ML VIAL SC SCH (09:00)
[2017-11-28] MEDS: Cephalexin 250 MG CAP PO SCH ×2 (09:50→14:19)
[2017-11-28 16:23] VITALS: BP 133/60; TEMP 97.4
--- NOTE | 2017-11-29 01:53 | DIS ---
DATE OF ADMISSION: 11/27/2017 DATE OF DISCHARGE: 11/28/2017 DISCHARGE DIAGNOSES: 1. Nausea and vomiting, resolved. 2. Urinary tract infection with Escherichia coli, pansensitive. 3. Paroxysmal atrial fibrillation with chronic anticoagulation with Eliquis. 4. Diabetes mellitus type 2, insulin-requiring, stable. 5. Chronic kidney disease, stage 3. CONSULTATIONS: None. PERTINENT LABORATORY AND X-RAY FINDINGS: Potassium ranged between 3.4-3.8. Creatinine ranged betwee n 1.47-1.51, estimated GFR ranging between 33-34, lipase 126. CBC showed hemoglobin ranging between 10.3-10.7. Urine culture dated 11/27/2017, showed no growth at 24 hours. Urine culture from 018, showed greater than 100,000 colonies of E. coli. Portable chest x-ray dated 11/27/2017, showed no acute cardiopulmonary process. HOSPITAL COURSE: Patient was observed on the telemetry unit after initially presenting with nausea a nd vomiting. The patient with recent diagnosis of Escherichia coli urinary tract infection, placed o n Keflex. The patient was treated symptomatically with IV Rocephin and Zofran with overall improveme nt in nausea. The patient was given oral challenge including clear liquids, advancing to a regular d iet without difficulty. Metabolic workup was essentially unrevealing and patient underwent repeat ur ine culture assessments showing no growth at 24 hours. Telemetry monitoring showed a sinus mechanism without evidence of acute arrhythmia or dysrhythmia. The patient overall remained clinically stable throughout the hospital course. On examination, the patient at time of discharge and discussed foll owup instructions at which point, the patient verbalized understanding and agreement. The patient ov erall clinically stable and ready for discharge on 11/28/2017. DISCHARGE MEDICATIONS: 1. Keflex 500 mg p.o. q.i.d. 2. Diltiazem ER 120 mg p.o. daily. 3. Neurontin 1200 mg p.o. b.i.d. 4. NPH insulin 15 units subcutaneously b.i.d. 5. Reglan 10 mg p.o. q.i.d. p.r.n. 6. Multivitamin 1 tab p.o. daily. 7. Ranitidine 150 mg p.o. daily. 8. Tramadol 50 mg 1-2 tabs p.o. q.4-6 hours p.r.n. pain. 9. Eliquis 2.5 mg p.o. b.i.d. 10. Enteric coated aspirin 81 mg p.o. daily. 11. Coreg 6.25 mg p.o. b.i.d. 12. Lasix 40 mg p.o. daily. 13. Protonix 40 mg p.o. daily. FOLLOWUP: Patient is to follow up with Dr. Brian Mac within 7 days of discharge. CONDITION ON DISCHARGE: Stable. ACTIVITY: Ad jose. Rolling walker for ambulation. DIET: Heart healthy and ADA. CODE STATUS: FULL. DISPOSITION: Home, 11/28/2017.
--- NOTE | 2017-11-30 12:44 | EKG ---
Test Reason : VOMITING Blood Pressure : / mmHG Vent. Rate : 071 BPM Atrial Rate : 071 BPM P-R Int : 266 ms QRS Dur : 132 ms QT Int : 436 ms P-R-T Axes : 072 -11 -08 degrees QTc Int : 473 ms Sinus rhythm with 1st degree A-V block Right bundle branch block Septal infarct , age undetermined Abnormal ECG Confirmed by LOUISA WAGNER D.O. ([id number]), school photograph editor NIKKIE LUNA ([id number]) on 11/30/2017 12:44:13 PM Referred By: Confirmed By:LOUISA WAGNER D.O.
== END 2017-11-28 18:29 | disposition home or self-care (01) ==
LOC: ERS 17:13 → 2SW 22:36
PROVIDERS: ADMIT Internal Medicine Infectious Disease; ATTEND Internal Medicine Infectious Disease
DX: N30.00 Acute cystitis without hematuria (principal); B96.20 Unspecified Escherichia coli [E. coli] as the cause of diseases classified elsewhere; I48.0 Paroxysmal atrial fibrillation; E11.22 Type 2 diabetes mellitus with diabetic chronic kidney disease; N18.3 Chronic kidney disease, stage 3 (moderate); E78.5 Hyperlipidemia, unspecified; E78.00 Pure hypercholesterolemia, unspecified; Z87.891 Personal history of nicotine dependence; Z79.01 Long term (current) use of anticoagulants; Z79.4 Long term (current) use of insulin; Z79.899 Other long term (current) drug therapy; Z88.8 Allergy status to other drugs, medicaments and biological substances; Z91.013 Allergy to seafood; Z91.041 Radiographic dye allergy status
CPT/HCPCS: 71045; 80053 ×2; 81003; 82962; 83690; 83735; 85007; 85025; 85027; 87086; 93005; 96365; 96366; 96375; 99285; G0378 ×2; 36415; 36416; J0696; J2405; J7050

== ENCOUNTER 2017-12-07 11:18 | Inpatient (IN) | payer MEDICARE, MEDICAID ==
[2017-12-07 12:25] LABS: #Eosinphils 0.1 thou/uL (0.0-0.7); #Lymphocytes 0.9 thou/uL (1.20-3.40); #Monocytes 0.4 thou/uL (0.11-0.59); #Neutrophils 4.8 thou/uL (1.40-6.50); %Basophils 0.4 % (0.0-1.0); %Eosinophils 1.1 % (0.0-10.0); %Lymphocytes 15.3 % (21.0-51.0); %Monocytes 6.1 % (0.0-10.0); %Neutrophils 77.1 % (42.0-75.0); Mean Corpuscular HGB CONC 33.8 g/dL (32.0-36.0); Mean Corpuscular Volume 85.6 fL (78.0-98.0); Mean Platelet Volume 8.6 fL (7.4-10.4); Platelet Count 310 thou/uL (130-400); RBC Distribution Width 14.7 % (11.5-14.5); Red Blood Cell (RBC) Count 3.79 mill/uL (4.20-5.40); White Blood Cell (WBC) Count 6.2 thou/uL (4.8-10.8)
[2017-12-07 12:36] LABS: ALT (SGPT) Less than 7 U/L (8-55); AST (SGOT) 10 U/L (5-34); Albumin 3.8 g/dL (3.4-4.8); Alkaline Phosphatase 120 U/L (40-150); Anion Gap 17 mmol/L (10-20); BUN (Urea Nitrogen) 24 mg/dL (9.8-20.1); Bilirubin, Total 0.6 mg/dL (0.2-1.2); Calc. Creatinine Clearance 0 mL/min (70-130); Calcium 8.8 mg/dL (7.8-10.44); Carbon Dioxide 23 mmol/L (23-31); Chloride 100 mmol/L (98-107); Estimated GFR-MDRD 26; Globulin 2.9 g/dL (2.4-3.5); Glucose 195 mg/dL (83-110); Lipase 129 U/L (8-78); Protein, Total 6.7 g/dL (6.0-8.3); Sodium 136 mmol/L (136-145)
[2017-12-07 12:41] LABS: CKMB 0.5 ng/mL (0-6.6); Troponin I Less than 0.010 ng/mL (< 0.028)
--- NOTE | 2017-12-07 13:10 | CT ---
ABDOMEN AND PELVIS CT SCAN WITH IV CONTRAST: HISTORY: An 82-year-old female with a history of abdominal pain with nausea, vomiting, bloody diarrhea, and me barbara. FINDINGS: The lung bases are clear. The visualized liver, gallbladder, pancreas, spleen, and right adrenal gla nd are unremarkable, as evaluated without IV contrast. There is a stable left adrenal mass, measurin g approximately 4.6 cm, which contains some macroglobular fat. This is unchanged, dating back to 12/2016. Bilateral renal low attenuation foci, evidence for bilateral renal cysts. No evidence for renal calculus or acute obstruction. There appear to be postop changes in the region of the cecal apex, probably related to a prior appendectomy. Multiple intrauterine fibroids are noted, with some associated calcification, up to approximately 3.9 cm. Scattered colonic diverticulosis without acut e diverticulitis. IMPRESSION: 1. Stable left adrenal mass. No renal calculus or acute genitourinary obstruction. 2. Renal hypodensities bilaterally, statistically small cysts. 3. Minimal colonic diverticulosis without acute diverticulitis. 4. Multiple intrauterine fibroids. 5. No mass, abscess, adenopathy, abnormal fluid collection, or other acute process. POS: MARGY
[2017-12-07 13:24] LABS: Bilirubin Negative (Negative); Blood, Urine Negative (Negative); Glucose, Urine (Dipstick) Negative (Negative); Leukocyte Negative (Negative); Nitrite Negative (Negative); Protein, Urine (Dipstick) Trace mg/dL (Neg-Trace); Urobilinogen 0.2 mg/dL (0.2-1.0); pH, Urine 5.5 (5.0-9.0)
[2017-12-07 13:27] LABS: Clarity Clear (Clear)
[2017-12-07] MEDS ORDERED: Pantoprazole 40 MG VIAL ONE (16:46)
[2017-12-07] MEDS ORDERED: Acetaminophen 325 MG TAB PO PRN (16:58)
[2017-12-07] MEDS ORDERED: Dextrose 50% Abboject 50 ML SYRINGE SLOW IVP PRN (17:11)
[2017-12-07] MEDS ORDERED: Dextrose 5% in Water 1,000 ML IV PRN (17:11)
[2017-12-07 18:10] LABS: Hemoglobin 10.9 g/dL (12.0-16.0)
[2017-12-07] MEDS: Gabapentin 400 MG CAP PO SCH (21:24)
--- NOTE | 2017-12-07 22:59 | HP ---
DATE OF CONSULTATION: 12/07/2017 CHIEF COMPLAINT: Lower GI bleed. HISTORY OF PRESENT ILLNESS: This patient is an 82-year-old female who has been here twice in the . She was most recently admitted with nausea and vomiting appeared to possibly have some cyst itis. The patient was symptomatically improved and sent home on Tuesday. She reports on Tuesday she was still having some nausea and vomiting. On this admission, the patient reports that she actually went to see Dr. Mac, her primary care provider and told him that she was continuing to have some l ower GI bleeding, primarily manifested as very dark stools. She says he referred her to the emergenc y department and an ambulance was called and the patient was transported here. She states she has be en sitting here since yesterday; however, records would indicate that all that actually occurred toda y. Presently, she denies any nausea, vomiting. She does report that she has some mild abdominal jia n in both lower quadrants. Her hemoccult in the ER is positive. Therefore, the patient will be kept for observation. REVIEW OF SYSTEMS: The patient reports some chronic pain associated with her back, but otherwise all systems were negative through an 11 system review other than those things mentioned in the history o f present illness. Specifically, the patient denies any bright red blood per rectum or any coffee gr ound type emesis. PAST MEDICAL HISTORY: Notable for diabetes mellitus, hypertension, dyslipidemia, paroxysmal atrial f ibrillation on anticoagulation with Eliquis, chronic kidney disease stage 3, morbid obesity, moderate aortic stenosis, tricuspid regurgitation, history of CVA and history of gout. PAST SURGICAL HISTORY: Appendectomy, left carpal tunnel surgery. She has also had some spinal injec tions by Dr. Davis who is her pain control physician for back pain. FAMILY HISTORY: No family history of premature coronary disease or stroke or cancer. SOCIAL HISTORY: The patient lives at [facility]. She spent much of the time talking to me explaining why she cannot live very longer. She states that she is not getting the level of care that she requ ires because it is an independent living facility. She would like to move to another facility where she can get more nursing care. Denies alcohol, tobacco or drugs. Quit smoking more than 20 years ag o. She is FULL CODE, did not identify a surrogate. ALLERGIES: FISH, IODINE, METFORMIN, NAPROXEN, PREDNISONE, PROPOXYPHENE. CURRENT MEDICATIONS: Tramadol 1-2 q.4 hours p.r.n., ranitidine 150 mg daily, Protonix 40 every day, multivitamin with iron 1 p.o. daily, Reglan 10 mg q.i.d. p.r.n., Novolin 70/30 15 units subcu b.i.d., Neurontin 1200 p.o. b.i.d., Lasix 40 mg every day, diltiazem ER 120 every day, Coreg 6.25 p.o. b.i.d ., aspirin 81 mg daily, Eliquis 2.5 p.o. b.i.d. PHYSICAL EXAMINATION: VITAL SIGNS: BP 113/46, pulse 71, respirations 18, temperature 98.1, O2 sat 98% on room air. GENERAL APPEARANCE: Slightly obese, age appropriate female. She appears to be very awake, alert, an d coherent. She tends to have a very good understanding of her situation in general, although I do b sangitae she has gotten some of her days mixed up. HEENT: PERRL. No OP lesions. Dentures in place. NECK: Supple and symmetric. CARDIOVASCULAR: Regular with some occasional irregularity noted. LUNGS: Clear to auscultation bilaterally. ABDOMEN: Soft, nontender, nondistended. EXTREMITIES: Warm and dry. Slight erythema of the lower extremities, but no edema is present. NEUROLOGIC: The patient has no focal deficits. LABORATORY DATA: White count 6.2, hemoglobin 11.0, which is higher than it was at the time of her di scharge on 11/28/2017 which was 10.7, platelets 310. Chemistries: Sodium 136, potassium 4, chloride 100, CO2 of 23, BUN 24, creatinine 1.85, glucose 195. LFTs normal. Lipase 129. Urinalysis negativ e. Stool for occult blood is positive. CT abdomen and pelvis shows a stable left adrenal mass, colo gwen diverticulosis without diverticulitis, multiple uterine fibroids, otherwise negative. IMPRESSION AND PLAN: 1. Gastrointestinal bleed. The patient appears to have an upper gastrointestinal bleed with dark st ools that are heme positive. The patient is on anticoagulation with Eliquis. This will be held. We will continue to monitor her hemoglobin and ask GI to see her. This does not appear to be a brisk b leed by any means given that her hemoglobin is actually higher than most recently checked and she may not necessarily require endoscopy at this time. 2. History of atrial fibrillation. Discussed her need to hold the anticoagulation. She reports thi s has been done in the past when she has needed spinal injections. She is comfortable with the plan. 3. Diabetes mellitus. We will continue with her usual home insulin regimen as well as some sliding scale. 4. Hypertension. Continue with Coreg and diltiazem. 5. History of chronic pain related to her back. Continue with Neurontin and tramadol as needed.
[2017-12-07 23:09] LABS: Hemoglobin 10.5 g/dL (12.0-16.0)
[2017-12-08] MEDS: Carvedilol 6.25 MG TAB PO SCH ×2 (08:25→16:46)
[2017-12-08] MEDS: Gabapentin 400 MG CAP PO SCH ×2 (08:25→20:55)
[2017-12-08 08:29] LABS: #Eosinphils 0.1 thou/uL (0.0-0.7); #Lymphocytes 1.7 thou/uL (1.20-3.40); #Monocytes 0.9 thou/uL (0.11-0.59); #Neutrophils 5.7 thou/uL (1.40-6.50); %Basophils 0.5 % (0.0-1.0); %Eosinophils 1.6 % (0.0-10.0); %Lymphocytes 20.3 % (21.0-51.0); %Monocytes 10.5 % (0.0-10.0); %Neutrophils 67.1 % (42.0-75.0); Mean Corpuscular HGB CONC 31.8 g/dL (32.0-36.0); Mean Corpuscular Hemoglobin 27.9 pg (27.0-31.0); Mean Corpuscular Volume 87.8 fL (78.0-98.0); Mean Platelet Volume 8.7 fL (7.4-10.4); Platelet Count 283 thou/uL (130-400); RBC Distribution Width 14.8 % (11.5-14.5); Red Blood Cell (RBC) Count 3.59 mill/uL (4.20-5.40); White Blood Cell (WBC) Count 8.4 thou/uL (4.8-10.8)
[2017-12-08 09:16] LABS: Anion Gap 17 mmol/L (10-20); BUN (Urea Nitrogen) 26 mg/dL (9.8-20.1); Calc. Creatinine Clearance 26 mL/min (70-130); Calcium 8.7 mg/dL (7.8-10.44); Carbon Dioxide 22 mmol/L (23-31); Chloride 102 mmol/L (98-107); Estimated GFR-MDRD 23; Glucose 148 mg/dL (83-110); Potassium 3.9 mmol/L (3.5-5.1); Sodium 137 mmol/L (136-145)
[2017-12-08 11:27] VITALS: BMI 33.4
--- NOTE | 2017-12-08 13:43 | PDOC.PN ---
- Subjective Encounter Start Date: 12/08/17 Encounter Start Time: 13:41 Says she is not doing well because she needs to eat. Says she has eaten in three days. The two days prior to admission because she felt nauseated. When I asked about any further BM's she said she had one last night after she ate. Said it was dark. - Objective Resuscitation Status: Resuscitation Status FULL:Full Resuscitation Vital Signs & Weight: Vital Signs (12 hours) Temp Pulse Resp BP BP BP Pulse Ox 12/08/17 11:21 97.5 F L 65 16 111/53 L 100 12/08/17 08:25 84 12/08/17 08:17 97.7 F 84 17 139/64 95 12/08/17 05:50 98 F 81 16 96/48 L 95 12/08/17 04:50 98 F 71 16 96/48 L 95 Weight Admit Weight 169 lb Weight 201 lb I&O: 12/07/17 12/08/17 12/09/17 06:59 06:59 06:59 Intake Total 400 Balance 400 Result Diagrams: 12/08/17 07:54 12/08/17 07:54 Additional Labs: Accuchecks 12/08/17 12/08/17 12/07/17 10:37 05:38 20:45 POC Glucose 162 H 136 H 191 H Phys Exam - Physical Examination Constitutional: NAD Respiratory: no wheezing, no rales, no rhonchi, clear to auscultation bilateral Cardiovascular: RRR, no significant murmur, no rub Gastrointestinal: soft, non-tender, no distention, positive bowel sounds Minimal TTP in BLQ's. No guarding or rebound. Dx/Plan (1) UGI bleed Code(s): K92.2 - GASTROINTESTINAL HEMORRHAGE, UNSPECIFIED Status: Acute (2) Chronic anticoagulation Code(s): Z79.01 - [facility] (CURRENT) USE OF ANTICOAGULANTS Status: Chronic Comment: Resume Eliquis 2.5mg BID (3) Coronary artery disease Code(s): I25.10 - ATHSCL HEART DISEASE OF [place] CORONARY ARTERY W/O ANG PCTRS Status: Chronic (4) Diabetes type 2, controlled Code(s): E11.9 - TYPE 2 DIABETES MELLITUS WITHOUT COMPLICATIONS Status: Chronic Comment: Continue NPH 15u sc BID, ISS (5) Dyslipidemia Code(s): E78.5 - HYPERLIPIDEMIA, UNSPECIFIED Status: Chronic (6) Gout Code(s): M10.9 - GOUT, UNSPECIFIED Status: Chronic (7) Hypertension Code(s): I10 - ESSENTIAL (PRIMARY) HYPERTENSION Status: Chronic Qualifiers: Comment: Stable, monitor trend (8) PAF (paroxysmal atrial fibrillation) Code(s): I48.0 - PAROXYSMAL ATRIAL FIBRILLATION Status: Chronic (9) CKD (chronic kidney disease) stage 3, GFR 30-59 ml/min Status: Chronic Comment: Avoid nephrotoxic meds and contrast exposure. Creat. slight up today. IVF. - Plan * Hemoglobin fairly stable with modest drop. Holding anti coagulation. GI consult pending soon.
[2017-12-08] MEDS: Sodium Chloride 0.45% 1,000 ML IV SCH (14:02)
[2017-12-08] MEDS: HumaLOG 300 UNITS/3 ML VIAL SC PRN (21:24)
[2017-12-08] MEDS: traMADol HCl 50 MG TAB PO PRN (21:25)
--- NOTE | 2017-12-09 00:39 | CON ---
DATE OF CONSULTATION: 12/08/2017 REASON FOR CONSULTATION: Melena, positive fecal occult blood test. CONSULTING PHYSICIAN: Reji Aldrich M.D. HISTORY OF PRESENT ILLNESS: The patient is an 82-year-old female with past medical history of diabet es, hypertension, hyperlipidemia, paroxysmal atrial fibrillation on Eliquis, chronic kidney disease s tage 3, morbid obesity, aortic stenosis, tricuspid regurgitation, cerebrovascular accident, and gout, presenting with increased bouts of nausea, vomiting, and darker colored stools concerning for GI ble eding. The patient states that she has had chronic problems with nausea and vomiting that have been present for at least the last 3-4 weeks, but worsening this last Tuesday with increased episodes of vomiting approximately 2 times; however, that same time, she had approximately 4-6 darker colored liq uid bowel movements that day that were dark, but not black in coloration. This prompted her to see h er primary care physician on Tuesday and when relating the story to her primary care physician, she wa s explained that it could be concerning for possible GI bleeding. She was referred to the emergency department via ambulance for further evaluation. Upon interviewing the patient today, she is an extr rufino poor historian that is at times contradictory to her own statements, but at the current point i n time, she states that she does not have any further episodes of nausea and vomiting, nor she had an y more of these darker colored bowel movement since this last Tuesday. Over the last 24-48 hours, s he has had approximately 1-2 semi-solid dark colored stools, but not black in coloration. Of note, s he also endorses a history of gastric ulcers that were diagnosed when she was approximately 17 years old, but she is unclear as to how this was diagnosed or treatments that were given for this particula r diagnosis. Currently, she denies any nausea, vomiting, fevers, chills, abdominal pain, shortness o f breath, hematemesis, melena, hematochezia, dysphagia or odynophagia. Also, of note, she did have an FOBT that was obtained in the ER that was positive. REVIEW OF SYSTEMS: A 10-category review of systems was obtained with all responses negative except f or the pertinent positives as listed in the HPI. PAST MEDICAL HISTORY: As per HPI. 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 FAMILY HISTORY: Denies any GI malignancies. SOCIAL HISTORY: Denies any tobacco, alcohol or illicit drug use. OUTPATIENT MEDICATIONS: Reviewed. ALLERGIES: FISH, IODINE, METFORMIN, NAPROXEN, PREDNISONE, and PROPOXYPHENE. PHYSICAL EXAMINATION: VITAL SIGNS: Temperature 97.1, pulse 60, blood pressure 119/56, respiratory rate 16, satting 93% on room air. GENERAL: The patient is lying in bed in no acute distress. Alert and oriented x4. NECK: Supple. No JVD noted. CARDIOVASCULAR: Regular rate and rhythm with a 3/6 systolic ejection murmur best heard at the left u pper sternal border and right upper sternal border. LUNGS: Clear to auscultation bilaterally with no discernible wheezes or rales. ABDOMEN: Normoactive bowel sounds, soft, nontender, nondistended. EXTREMITIES: No cyanosis, clubbing or edema. LABORATORY DATA: CBC with a white blood cell count of 8.4, hemoglobin 10, hematocrit 31.5, platelets 283. Chemistry with a sodium of 137, potassium 3.9, chloride 102, CO2 of 22, BUN 26, creatinine 2.0 6, glucose 148, AST 10, ALT less than 7, alkaline phosphatase 120, total bilirubin 0.6, lipase 129. IMAGING DATA: CT of the abdomen and pelvis obtained on 12/07/2017 showed stable left adrenal mass, d iverticulosis without diverticulitis as well as intrauterine fibroids. Per chart review, the patient had a colonoscopy performed on 11/15/2011 with approximately 6 polyps removed at that time consisten t with tubular adenomas. She also had diverticulosis as well as small internal hemorrhoids seen duri ng that examination. ASSESSMENT AND PLAN: The patient is an 82-year-old female with past medical history of diabetes, hyp ertension, hyperlipidemia, paroxysmal atrial fibrillation on anticoagulation, chronic kidney disease stage 3, morbid obesity, aortic stenosis, tricuspid regurgitation, stroke, and gout, presenting with dark colored stools and a positive fecal occult blood test concerning for GI bleeding. Melena/positive fecal occult blood test. The patient is presenting with a one-day [facility] having approximately 4-6 darker colored bowel movements during that day that we re dark brown in coloration rather than black. This was associated with increased nausea with result ant vomiting x2 episodes of nonbloody emesis. She did continue to have further episodes of nausea th roughout the week, but has since improved with increased appetite today. At the current time, she aguirre s had no further episodes of these darker colored stools and for portion of this week did not have an y bowel movements at all with associated increased cramping and flatus, but this has since resolved. Upon evaluation of her anemia, it is unchanged when compared to her baseline on previous hospitaliza tions and her BUN to creatinine ratio is roughly unchanged when compared to previous hospitalizations . At this point in time, it is unclear if this patient has an active upper GI bleed going on based o n her clinical history as it is contradictory at times. The positive fecal occult blood test is not a great indicator for determination for active gastrointestinal bleeding, but rather a colorectal can cer screening test and has very little use in this clinical situation. RECOMMENDATIONS: 1. We would continue to trend H&H and transfuse as necessary to maintain an H&H of 7/21. 2. We would continue to monitor clinically for signs of active gastrointestinal bleeding. 3. We would continue antiemetics as needed for possible nausea and vomiting during this admission. 4. Would start patient on a clear liquid diet and advance slowly as tolerated given the possibility of melenic stools and possible gastrointestinal bleeding. 5. Endoscopic evaluation is not necessarily indicated at this time given the confusing history for p ossible GI bleeding. We will continue to follow. Please call with any additional questions.
[2017-12-09] MEDS: Sodium Chloride 0.45% 1,000 ML IV SCH (03:49)
[2017-12-09 05:53] LABS: #Basophils 0.1 thou/uL (0.0-0.2); #Eosinphils 0.1 thou/uL (0.0-0.7); #Lymphocytes 1.4 thou/uL (1.20-3.40); #Monocytes 0.5 thou/uL (0.11-0.59); #Neutrophils 3.1 thou/uL (1.40-6.50); %Basophils 1.4 % (0.0-1.0); %Eosinophils 2.6 % (0.0-10.0); %Lymphocytes 27.7 % (21.0-51.0); %Monocytes 9.1 % (0.0-10.0); %Neutrophils 59.3 % (42.0-75.0); Mean Corpuscular HGB CONC 33.3 g/dL (32.0-36.0); Mean Corpuscular Hemoglobin 28.6 pg (27.0-31.0); Mean Corpuscular Volume 85.9 fL (78.0-98.0); Mean Platelet Volume 8.7 fL (7.4-10.4); Platelet Count 275 thou/uL (130-400); RBC Distribution Width 14.7 % (11.5-14.5); Red Blood Cell (RBC) Count 3.48 mill/uL (4.20-5.40); White Blood Cell (WBC) Count 5.1 thou/uL (4.8-10.8)
[2017-12-09 06:06] LABS: Anion Gap 12 mmol/L (10-20); BUN (Urea Nitrogen) 30 mg/dL (9.8-20.1); Calc. Creatinine Clearance 27 mL/min (70-130); Calcium 8.1 mg/dL (7.8-10.44); Carbon Dioxide 24 mmol/L (23-31); Chloride 100 mmol/L (98-107); Estimated GFR-MDRD 20; Glucose 109 mg/dL (83-110); Potassium 3.4 mmol/L (3.5-5.1); Sodium 133 mmol/L (136-145)
[2017-12-09] MEDS: Gabapentin 400 MG CAP PO SCH (09:38)
[2017-12-09] MEDS: Carvedilol 6.25 MG TAB PO SCH ×2 (09:39→17:32)
--- NOTE | 2017-12-09 12:35 | PDOC.PN ---
- Subjective Encounter Start Date: 12/09/17 Encounter Start Time: 10:40 Feeling some better. Abdominal pain is improved. No additional concerning BM' s. - Objective Resuscitation Status: Resuscitation Status FULL:Full Resuscitation Vital Signs & Weight: Vital Signs (12 hours) Temp Pulse Resp BP BP BP Pulse Ox 12/09/17 12:05 98.6 F 60 16 91/44 L 12/09/17 12:00 98.6 F 60 16 91/44 L 95 12/09/17 09:39 64 133/60 12/09/17 08:00 98.5 F 59 L 16 133/60 97 12/09/17 05:00 97.6 F 62 18 115/55 L 97 Weight Admit Weight 169 lb Weight 201 lb I&O: 12/08/17 12/09/17 12/10/17 06:59 06:59 06:59 Intake Total 400 2527 240 Balance 400 2527 240 Result Diagrams: 12/09/17 05:14 12/09/17 05:14 Additional Labs: Accuchecks 12/09/17 12/08/17 12/08/17 04:54 20:13 17:05 POC Glucose 119 H 279 H 159 H Phys Exam - Physical Examination Constitutional: NAD Obese Respiratory: no wheezing, no rales, no rhonchi, clear to auscultation bilateral Cardiovascular: RRR, no significant murmur, no rub Gastrointestinal: soft, non-tender, no distention, positive bowel sounds Musculoskeletal: no edema Psychiatric: normal affect Dx/Plan (1) UGI bleed Code(s): K92.2 - GASTROINTESTINAL HEMORRHAGE, UNSPECIFIED Status: Acute Comment: GI consult. Appears stable. No change in hgb. Continue to monitor and hold Eliquis. (2) Chronic anticoagulation Code(s): Z79.01 - [facility] (CURRENT) USE OF ANTICOAGULANTS Status: Chronic Comment: Held for GI bleed. (3) Coronary artery disease Code(s): I25.10 - ATHSCL HEART DISEASE OF [place] CORONARY ARTERY W/O ANG PCTRS Status: Chronic Comment: Stable. (4) Diabetes type 2, controlled Code(s): E11.9 - TYPE 2 DIABETES MELLITUS WITHOUT COMPLICATIONS Status: Chronic Comment: Continue NPH, SSI. Well controlled. (5) Dyslipidemia Code(s): E78.5 - HYPERLIPIDEMIA, UNSPECIFIED Status: Chronic Comment: By history. No current therapy. (6) Gout Code(s): M10.9 - GOUT, UNSPECIFIED Status: Chronic (7) Hypertension Code(s): I10 - ESSENTIAL (PRIMARY) HYPERTENSION Status: Chronic Qualifiers: Comment: Stable, monitor trend (8) PAF (paroxysmal atrial fibrillation) Code(s): I48.0 - PAROXYSMAL ATRIAL FIBRILLATION Status: Chronic Comment: Holding anticoag. (9) CKD (chronic kidney disease) stage 3, GFR 30-59 ml/min Status: Chronic Comment: Avoid nephrotoxic meds and contrast exposure. Creat. slight up today. IVF. (10) Acute on chronic renal failure Code(s): N17.9 - ACUTE KIDNEY FAILURE, UNSPECIFIED; N18.9 - CHRONIC KIDNEY DISEASE, UNSPECIFIED Status: Acute (11) Acute on chronic renal insufficiency Code(s): N28.9 - DISORDER OF KIDNEY AND URETER, UNSPECIFIED; N18.9 - CHRONIC KIDNEY DISEASE, UNSPECIFIED Status: Acute Comment: Continue IVF. Consult Nephrology. - Plan * .
--- NOTE | 2017-12-09 13:58 | PDOC.EVN ---
Event Note - Event Note Event Note: Will continue to hydrate and keep the patient as an inpatient tonight. Nephrology consult pending.
[2017-12-09] MEDS: HumaLOG 300 UNITS/3 ML VIAL SC PRN ×2 (14:27→17:33)
--- NOTE | 2017-12-09 17:08 | CON ---
DATE OF CONSULTATION: 12/09/2017 NEPHROLOGY CONSULTATION REASON FOR CONSULTATION: Elevated creatinine. HISTORY OF PRESENT ILLNESS: This is a very pleasant 82-year-old female who presented to the hospital on 12/07/2017 for lower GI bleed. The patient's baseline creatinine was 1.8 on 12/07/2017. Prior b aseline on 11/28/2017 was 1.5, which increased to 2.0 yesterday and 2.3 today. The patient has had e pisodes of acute kidney injury. The patient denies headache, numbness, tingling or weakness. Denies any nausea, vomiting or chest pain. PAST MEDICAL HISTORY: Significant for diabetes mellitus, hyperlipidemia, chronic kidney disease stag e 3, history of CVA, history of moderate aortic stenosis, tricuspid regurgitation, atrial fibrillatio n on anticoagulation, appendectomy, left carpal tunnel surgery, spinal injection. FAMILY HISTORY: Negative for ESRD. ALLERGIES: Reviewed. HOME MEDICATIONS: List reviewed. REVIEW OF SYSTEMS: A 15-point review of systems was performed and was negative except for positives noted above. GENERAL: Weakness- HEAD: Headache- NECK: No swelling or lumps. NOSE: No epistaxis or discharge. EYES: No diplopia or pain. RESPIRATORY: Dyspnea- CARDIOVASCULAR: Chest pain- GASTROINTESTINAL: Nausea- /DESK EDITOR: Hematuria- MUSCULOSKELETAL: No joint pain. NEUROPSYCHIATIC SYSTEMS: No suicidal ideation. No ideation. SKIN: Denies any rash or ulcer. CONSTITUTIONAL: No fever or chills. PHYSICAL EXAMINATION: GENERAL: Patient is awake, alert. VITAL SIGNS: Afebrile, pulse 53, breathing at 16, blood pressure 108/52. GENERAL APPEARANCE AND MENTAL STATUS: Fair. HEAD/NECK: Normocephalic. Atraumatic. EYES: EOMI. No deformity. EARS: Clear. No ulcers. NOSE: Intact. No lesions. MOUTH: Clear. No discharge. THROAT: Clear. No exudate. LUNGS: Clear. No crackles. CARDIAC: S1, S2. No rub. ABDOMEN: Benign. BS+. GENITALIA/RECTUM: Liao absent. BACK/EXTREMITIES: Edema 0+ Ulcer- NEUROLOGICAL: Alert and motor intact. SKIN: Rash- Bruise- LYMPHATICS: Edema- Ulcer- LABORATORY DATA: Show potassium 3.4, creatinine is 2.3. ASSESSMENT AND RECOMMENDATIONS: 1. Acute kidney disease with chronic kidney disease, most likely due to decreased effective arterial blood volume. Continue hydration. We will change IV fluids to normal saline. 2. Hypertension, stable. 3. Acute tubular necrosis because of low blood pressure. 4. Anemia, stable. 5. Medications based on glomerular filtration rate are appropriate.
[2017-12-09] MEDS: Sodium Chloride 0.9% 1,000 ML IV SCH (17:23)
[2017-12-09] MEDS ORDERED: Gabapentin 300 MG CAP PO SCH (21:00)
[2017-12-09] MEDS: traMADol HCl 50 MG TAB PO PRN (21:33)
--- NOTE | 2017-12-10 01:22 | PRG ---
DATE OF SERVICE: 12/09/2017 REASON FOR CONSULTATION: Possible melena. SUBJECTIVE: The patient states that she is doing well today with decreased abdominal pain. She was no longer having any darker-colored stools that she complained of earlier during this admission. She did allude to a possible appearance of bright-red blood per rectum in the form of blood present on t he toilet paper rather than in the toilet, but she says it only happened once and has not since recur red. Currently, denies any nausea, vomiting, fevers, chills, abdominal pain, melena, hematemesis, dy sphagia, or odynophagia. OBJECTIVE: VITAL SIGNS: Temperature 98, pulse 66, blood pressure 135/60, respiratory rate 18, satting 97% on ro om air. GENERAL: Patient is lying in bed, in no acute distress. Alert and oriented x4. CARDIOVASCULAR: Regular rate and rhythm with a 3/6 systolic ejection murmur, best heard at the left upper sternal border. LUNGS: Clear to auscultation bilaterally. ABDOMEN: Normoactive bowel sounds, soft, nontender, nondistended. EXTREMITIES: No cyanosis, clubbing, or edema. LABORATORY DATA: CBC with a white blood cell count of 5.1, hemoglobin 10, hematocrit 29.9, platelets 275,000. Chemistry with sodium of 133, potassium 3.4, chloride 100, CO2 of 24, BUN 30, creatinine 2 .36. IMAGING DATA: No current GI imaging is available for review. ASSESSMENT AND PLAN: The patient is an 82-year-old female with past medical history of diabetes, hyp ertension; hyperlipidemia; paroxysmal atrial fibrillation, on anticoagulation; chronic kidney disease , stage 3; morbid obesity; aortic stenosis; tricuspid regurgitation; stroke; and gout, presenting wit h complaints of darker-colored stools concerning for melena. Possible melena: The patient initially presented with increased stooling frequency roughly 4-5 days prior to admission, having approximately 4-6 darker-color bowel movements that she characterizes dark brown in coloration rather than black. Since that time, she has not had any further recurrence of h er darker-colored stools, but rather had increased nausea and vomiting, which has also improved durin g this admission. Upon comparison of her H&H over the last 24-48 hours, she also has had relative st ability of her H&H, making active gastrointestinal bleeding much less likely at this time. RECOMMENDATIONS: 1. We would continue to trend H&H and transfuse as necessary to maintain an H&H of 10/22. 2. We would continue to monitor clinically for signs of active GI bleeding. 3. We would continue antiemetics as needed for possible nausea and vomiting during this admission. 4. Given the lack of recurrence of her darker-colored stools and stability of her H&H, colonoscopy e valuation is not indicated at this time. She will ultimately need a colonoscopy in the future for sc reening purposes and for evaluation of probable hemorrhoids, but again does not need to be performed during this admission. We will sign off at this time. Please call with any additional questions.
[2017-12-10] MEDS: traMADol HCl 50 MG TAB PO PRN ×2 (03:58→22:24)
[2017-12-10] MEDS: Carvedilol 6.25 MG TAB PO SCH ×2 (08:49→17:42)
[2017-12-10] MEDS: Gabapentin 300 MG CAP PO SCH ×2 (08:49→19:50)
[2017-12-10] MEDS ORDERED: Gabapentin 300 MG CAP PO SCH ×2 (09:00→21:00)
[2017-12-10 09:18] LABS: #Eosinphils 0.1 thou/uL (0.0-0.7); #Lymphocytes 0.9 thou/uL (1.20-3.40); #Monocytes 0.4 thou/uL (0.11-0.59); #Neutrophils 3.6 thou/uL (1.40-6.50); %Basophils 0.6 % (0.0-1.0); %Eosinophils 2.7 % (0.0-10.0); %Lymphocytes 18.3 % (21.0-51.0); %Monocytes 7.7 % (0.0-10.0); %Neutrophils 70.7 % (42.0-75.0); Hemoglobin 9.3 g/dL (12.0-16.0); Mean Corpuscular HGB CONC 32.8 g/dL (32.0-36.0); Mean Corpuscular Hemoglobin 28.1 pg (27.0-31.0); Mean Corpuscular Volume 85.8 fL (78.0-98.0); Mean Platelet Volume 8.4 fL (7.4-10.4); Platelet Count 224 thou/uL (130-400); RBC Distribution Width 14.5 % (11.5-14.5); Red Blood Cell (RBC) Count 3.32 mill/uL (4.20-5.40); White Blood Cell (WBC) Count 5.1 thou/uL (4.8-10.8)
[2017-12-10 09:29] LABS: Anion Gap 14 mmol/L (10-20); BUN (Urea Nitrogen) 28 mg/dL (9.8-20.1); Calc. Creatinine Clearance 29 mL/min (70-130); Calcium 8.4 mg/dL (7.8-10.44); Carbon Dioxide 21 mmol/L (23-31); Chloride 102 mmol/L (98-107); Estimated GFR-MDRD 26; Glucose 214 mg/dL (83-110); Potassium 3.9 mmol/L (3.5-5.1); Sodium 133 mmol/L (136-145)
[2017-12-10] MEDS: Sodium Chloride 0.9% 1,000 ML IV SCH (11:16)
[2017-12-10] MEDS: HumaLOG 300 UNITS/3 ML VIAL SC PRN ×2 (11:17→17:42)
--- NOTE | 2017-12-10 13:11 | PDOC.PN ---
- Subjective Encounter Start Date: 12/10/17 Encounter Start Time: 10:45 Doing fairly well. No more abdominal pain. - Objective Resuscitation Status: Resuscitation Status FULL:Full Resuscitation Vital Signs & Weight: Vital Signs (12 hours) Temp Pulse Resp BP Pulse Ox 12/10/17 08:50 98.7 F 75 18 138/64 97 12/10/17 08:00 98.7 F 75 18 12/10/17 04:00 99 F 76 12 140/65 93 L Weight Admit Weight 169 lb Weight 170 lb 1 oz I&O: 12/09/17 12/10/17 12/11/17 06:59 06:59 06:59 Intake Total 2527 3110 Output Total 450 Balance 2527 2660 Result Diagrams: 12/10/17 08:56 12/10/17 08:57 Additional Labs: Accuchecks 12/10/17 12/10/17 12/09/17 11:17 05:39 20:46 POC Glucose 193 H 191 H 192 H 12/09/17 12/09/17 16:47 11:16 POC Glucose 210 H 182 H Phys Exam - Physical Examination Constitutional: NAD Obese Respiratory: no wheezing, no rales, no rhonchi, clear to auscultation bilateral Cardiovascular: RRR, no significant murmur, no rub Gastrointestinal: soft, non-tender, no distention, positive bowel sounds Musculoskeletal: no edema Psychiatric: normal affect Dx/Plan (1) UGI bleed Code(s): K92.2 - GASTROINTESTINAL HEMORRHAGE, UNSPECIFIED Status: Acute Comment: GI consult. Appears stable. No change in hgb. Continue to monitor and hold Eliquis. (2) Chronic anticoagulation Code(s): Z79.01 - HALFWAY (CURRENT) USE OF ANTICOAGULANTS Status: Chronic Comment: Held for GI bleed. (3) Coronary artery disease Code(s): I25.10 - ATHSCL HEART DISEASE OF [place] CORONARY ARTERY W/O ANG PCTRS Status: Chronic Comment: Stable. (4) Diabetes type 2, controlled Code(s): E11.9 - TYPE 2 DIABETES MELLITUS WITHOUT COMPLICATIONS Status: Chronic Comment: Continue NPH, SSI. Well controlled. (5) Dyslipidemia Code(s): E78.5 - HYPERLIPIDEMIA, UNSPECIFIED Status: Chronic Comment: By history. No current therapy. (6) Gout Code(s): M10.9 - GOUT, UNSPECIFIED Status: Chronic (7) Hypertension Code(s): I10 - ESSENTIAL (PRIMARY) HYPERTENSION Status: Chronic Qualifiers: Comment: Stable, monitor trend (8) PAF (paroxysmal atrial fibrillation) Code(s): I48.0 - PAROXYSMAL ATRIAL FIBRILLATION Status: Chronic Comment: Holding anticoag. (9) CKD (chronic kidney disease) stage 3, GFR 30-59 ml/min Status: Chronic Comment: Avoid nephrotoxic meds and contrast exposure. Creat. slight up today. IVF. (10) Acute on chronic renal insufficiency Code(s): N28.9 - DISORDER OF KIDNEY AND URETER, UNSPECIFIED; N18.9 - CHRONIC KIDNEY DISEASE, UNSPECIFIED Status: Acute Comment: Continue IVF. Consult Nephrology. Concern for ATN with hypotensive episodes. Creat better today. Continue IVF. - Plan out of bed/ambulate * CM working on placement. Will likely be Tuesday.
--- NOTE | 2017-12-10 14:12 | PRG ---
DATE OF SERVICE: 12/10/2017 SUBJECTIVE: An 82-year-old female, who is being seen for acute kidney injury. The patient denies an y nausea, vomiting, or chest pain. PHYSICAL EXAMINATION: GENERAL: Patient is awake, alert. VITAL SIGNS: Afebrile, pulse 75, breathing 16, blood pressure 138/64. GENERAL APPEARANCE AND MENTAL STATUS: Fair. HEAD/NECK: Normocephalic. Atraumatic. EYES: EOMI. No deformity. EARS: Clear. No ulcers. NOSE: Intact. No lesions. MOUTH: Clear. No discharge. THROAT: Clear. No exudate. LUNGS: Clear. No crackles. CARDIAC: S1, S2. No rub. ABDOMEN: Benign. BS+. GENITALIA/RECTUM: Liao absent. BACK/EXTREMITIES: Edema 0+ Ulcer- NEUROLOGICAL: Alert and motor intact. SKIN: Rash- Bruise- LYMPHATICS: Edema- Ulcer- LABORATORY: Hemoglobin 9.3, creatinine 1.8. ASSESSMENT AND RECOMMENDATIONS: 1. Acute kidney injury, improved. 2. Hypertension, stable. 3. Anemia, stable. Acute kidney injury is because of acute tubular necrosis due to decreased effective arterial blood vo lume. No indication for dialysis. We will follow this patient's renal function closely.
[2017-12-11] MEDS: Sodium Chloride 0.9% 1,000 ML IV SCH ×2 (01:52→08:45)
[2017-12-11 06:10] LABS: #Monocytes 0.3 thou/uL (0.11-0.59); %Basophils 0.7 % (0.0-1.0); %Eosinophils 2.3 % (0.0-10.0); %Lymphocytes 22.4 % (21.0-51.0); %Monocytes 6.8 % (0.0-10.0); %Neutrophils 67.8 % (42.0-75.0); Mean Corpuscular HGB CONC 33.1 g/dL (32.0-36.0); Mean Corpuscular Hemoglobin 28.6 pg (27.0-31.0); Mean Corpuscular Volume 86.4 fL (78.0-98.0); Platelet Count 224 thou/uL (130-400); RBC Distribution Width 14.7 % (11.5-14.5); Red Blood Cell (RBC) Count 3.14 mill/uL (4.20-5.40); White Blood Cell (WBC) Count 4.5 thou/uL (4.8-10.8)
[2017-12-11 06:11] LABS: #Eosinphils 0.1 thou/uL (0.0-0.7); Anion Gap 13 mmol/L (10-20); BUN (Urea Nitrogen) 26 mg/dL (9.8-20.1); Calc. Creatinine Clearance 42 mL/min (70-130); Calcium 8.5 mg/dL (7.8-10.44); Carbon Dioxide 23 mmol/L (23-31); Chloride 106 mmol/L (98-107); Estimated GFR-MDRD 39; Glucose 132 mg/dL (83-110); Potassium 3.7 mmol/L (3.5-5.1); Sodium 138 mmol/L (136-145)
[2017-12-11] MEDS: Carvedilol 6.25 MG TAB PO SCH ×2 (08:45→17:23)
[2017-12-11] MEDS: Gabapentin 300 MG CAP PO SCH ×2 (08:46→20:31)
[2017-12-11] MEDS: HumaLOG 300 UNITS/3 ML VIAL SC PRN (11:53)
--- NOTE | 2017-12-11 12:52 | PRG ---
DATE OF SERVICE: 12/11/2017 SUBJECTIVE: This is an 82-year-old female being seen for acute kidney injury. The patient denies an y nausea, vomiting, or chest pain. PHYSICAL EXAMINATION: GENERAL: Patient is awake, alert. VITAL SIGNS: Afebrile, pulse 76, breathing at 16, blood pressure 134/59. GENERAL APPEARANCE AND MENTAL STATUS: Fair. HEAD/NECK: Normocephalic. Atraumatic. EYES: EOMI. No deformity. EARS: Clear. No ulcers. NOSE: Intact. No lesions. MOUTH: Clear. No discharge. THROAT: Clear. No exudate. LUNGS: Clear. No crackles. CARDIAC: S1, S2. No rub. ABDOMEN: Benign. BS+. GENITALIA/RECTUM: Liao absent. BACK/EXTREMITIES: Edema 0+ Ulcer-. NEUROLOGICAL: Alert and motor intact. SKIN: Rash- Bruise- LYMPHATICS: Edema- Ulcer-. LABORATORY DATA: Show creatinine 1.3. ASSESSMENT AND RECOMMENDATIONS: 1. Acute kidney injury, resolved, due to acute tubular necrosis. 2. Hypertension, stable. 3. Anemia, stable. 4. Medication based on glomerular filtration rate are appropriate. No indication for dialysis. I w ill sign off on this patient. Please reconsult as needed.
--- NOTE | 2017-12-11 14:12 | PDOC.PN ---
- Subjective Encounter Start Date: 12/11/17 Encounter Start Time: 10:20 Feels well today. Had problems keeping an IV. - Objective Resuscitation Status: Resuscitation Status FULL:Full Resuscitation Vital Signs & Weight: Vital Signs (12 hours) Temp Pulse Resp BP BP Pulse Ox 12/11/17 12:00 99.0 F 72 14 133/63 100 12/11/17 08:46 76 161/66 H 12/11/17 08:45 161/66 H 12/11/17 08:00 98.9 F 76 16 161/66 H 97 12/11/17 04:00 97.4 F L 69 16 134/59 L 95 Weight Admit Weight 169 lb Weight 170 lb 6 oz I&O: 12/10/17 12/11/17 12/12/17 06:59 06:59 06:59 Intake Total 3110 975 240 Output Total 450 300 Balance 2660 675 240 Result Diagrams: 12/11/17 05:16 12/11/17 05:16 Additional Labs: Accuchecks 12/11/17 12/11/17 12/10/17 10:48 05:47 20:39 POC Glucose 181 H 132 H 222 H 12/10/17 17:07 POC Glucose 152 H Phys Exam - Physical Examination Constitutional: NAD Respiratory: no wheezing, no rales, no rhonchi, clear to auscultation bilateral Cardiovascular: RRR, no significant murmur, no rub Gastrointestinal: soft, non-tender, no distention, positive bowel sounds Musculoskeletal: no edema Dx/Plan (1) UGI bleed Code(s): K92.2 - GASTROINTESTINAL HEMORRHAGE, UNSPECIFIED Status: Acute Comment: GI consult. Appears stable. No change in hgb. Continue to monitor and hold Eliquis. (2) Chronic anticoagulation Code(s): Z79.01 - INFORMATION SYSTEMS SECURITY SPECIALIST (CURRENT) USE OF ANTICOAGULANTS Status: Chronic Comment: Held for GI bleed. (3) Coronary artery disease Code(s): I25.10 - ATHSCL HEART DISEASE OF [place] CORONARY ARTERY W/O ANG PCTRS Status: Chronic Comment: Stable. (4) Diabetes type 2, controlled Code(s): E11.9 - TYPE 2 DIABETES MELLITUS WITHOUT COMPLICATIONS Status: Chronic Comment: Continue NPH, SSI. Well controlled. (5) Dyslipidemia Code(s): E78.5 - HYPERLIPIDEMIA, UNSPECIFIED Status: Chronic Comment: By history. No current therapy. (6) Gout Code(s): M10.9 - GOUT, UNSPECIFIED Status: Chronic (7) Hypertension Code(s): I10 - ESSENTIAL (PRIMARY) HYPERTENSION Status: Chronic Qualifiers: Comment: Stable, monitor trend (8) PAF (paroxysmal atrial fibrillation) Code(s): I48.0 - PAROXYSMAL ATRIAL FIBRILLATION Status: Chronic Comment: Holding anticoag. (9) CKD (chronic kidney disease) stage 3, GFR 30-59 ml/min Status: Chronic Comment: Avoid nephrotoxic meds and contrast exposure. Creat. slight up today. IVF. (10) Acute on chronic renal insufficiency Code(s): N28.9 - DISORDER OF KIDNEY AND URETER, UNSPECIFIED; N18.9 - CHRONIC KIDNEY DISEASE, UNSPECIFIED Status: Acute Comment: Continue IVF. Consult Nephrology. Concern for ATN with hypotensive episodes. Creat better today. D/ w nephrology. Will stop IVF. Difficulty maintaining IV. - Plan * Stable. Continue to hold the Eliquis for total of 7 days. Renal function is back to baseline. CM working on placement at a SNF. Currently lives at an independent living facility, but needs more care.
[2017-12-12 06:05] LABS: #Eosinphils 0.1 thou/uL (0.0-0.7); #Lymphocytes 1.1 thou/uL (1.20-3.40); #Monocytes 0.4 thou/uL (0.11-0.59); #Neutrophils 2.7 thou/uL (1.40-6.50); %Basophils 0.6 % (0.0-1.0); %Eosinophils 2.4 % (0.0-10.0); %Monocytes 8.9 % (0.0-10.0); %Neutrophils 62.1 % (42.0-75.0); Hemoglobin 9.1 g/dL (12.0-16.0); Mean Corpuscular Hemoglobin 28.5 pg (27.0-31.0); Mean Corpuscular Volume 86.3 fL (78.0-98.0); Mean Platelet Volume 8.8 fL (7.4-10.4); Platelet Count 218 thou/uL (130-400); RBC Distribution Width 14.8 % (11.5-14.5); Red Blood Cell (RBC) Count 3.19 mill/uL (4.20-5.40); White Blood Cell (WBC) Count 4.4 thou/uL (4.8-10.8)
[2017-12-12 06:12] LABS: Anion Gap 13 mmol/L (10-20); BUN (Urea Nitrogen) 23 mg/dL (9.8-20.1); Calc. Creatinine Clearance 51 mL/min (70-130); Calcium 8.8 mg/dL (7.8-10.44); Carbon Dioxide 23 mmol/L (23-31); Chloride 108 mmol/L (98-107); Estimated GFR-MDRD 49; Glucose 131 mg/dL (83-110); Potassium 3.8 mmol/L (3.5-5.1); Sodium 140 mmol/L (136-145)
[2017-12-12] MEDS: Carvedilol 6.25 MG TAB PO SCH ×2 (08:40→16:39)
[2017-12-12] MEDS: Gabapentin 300 MG CAP PO SCH (08:40)
[2017-12-12 16:24] VITALS: BP 130/72; TEMP 98.6
--- NOTE | 2017-12-13 14:05 | DIS ---
DATE OF ADMISSION: 12/09/2017 DATE OF DISCHARGE: 12/12/2017 DISCHARGE DIAGNOSES: As of the followin. Upper gastrointestinal bleed. 2. On chronic anticoagulation. 3. Coronary artery disease. 4. Diabetes. 5. Dyslipidemia. 6. Acute kidney injury on chronic kidney disease. HOSPITAL COURSE: The patient is a very pleasant 82-year-old female who initially presented to the [facility] for possible lower GI bleed. The patient is on Eliquis and aspirin at home. Patient had a po sitive occult blood. The patient at this time was seen by GI who recommended conservative treatment. No scopes were recommended. Patient also was seen by Nephrology for elevated creatinine, which the y thought most likely secondary to arterial blood volume loss. The patient initially was hydrated mi ldly and upon her discharge, her H&H remained stable and her creatinine was at baseline. The patient will be discharged to a skilled nursing. She will follow up with her PCP as an outpatient. CONSULTS: Her consultants were Nephrology and Gastroenterology. MEDICATIONS: Carvedilol 6.25 b.i.d., aspirin 81 mg daily, Eliquis 2.5 b.i.d., Neurontin 1200 mg p.o. b.i.d., Lasix 40 mg daily, diltiazem 120 mg daily, multivitamin 1 daily, insulin 70/30 50 units b.i. d., tramadol 1-2 q.4 hours p.r.n., ranitidine 150 daily, and Protonix 40 mg daily. I did recommend s tarting the Eliquis in the next 3 or 4 days. While she was in the hospital, her Eliquis was on hold. We did talk with GI who stated it was okay to restart the Eliquis; however, the patient stated that she needed to have her epidural shots and normally she is off Eliquis for 7 days. We will continue to hold it for the next few days. The patient may be able to get her epidural shot while she is at t he skilled nursing as an outpatient and may resume the Eliquis after that. PHYSICAL EXAMINATION: VITAL SIGNS: 98.6, 69, 17, 96% on room air, 130/72. GENERAL: She is awake, alert, oriented x3, does not appear in distress. CARDIOVASCULAR: S1, S2 present. No murmurs, rubs, or gallops. ABDOMEN: Soft, nontender. Bowel sounds are present x2. EXTREMITIES: No edema. DISCHARGE INSTRUCTIONS: She will be discharged home. Follow up with primary care doctor and also GI as needed. Also, I have recommended her to follow up with Dr. Suarez to see if she really needs the a spirins since she does not have any stents. Patient being on aspirin and Eliquis is a high risk for bleeding which is the case now. I am not sure maybe she could either go off the aspirin and continue only the Eliquis; however, I would leave this up to Cardiology and patient has been asked to follow up with Cardiology.
== END 2017-12-12 16:52 | DRG 377 ==
LOC: ERS 11:18 → INTOOBSV 16:09 → 2NO 16:09 → OBSVTOIN 12-09 14:00
PROVIDERS: ADMIT Internal Medicine; ATTEND Internal Medicine
DX: K92.2 Gastrointestinal hemorrhage, unspecified (principal); N17.0 Acute kidney failure with tubular necrosis; Z79.01 Long term (current) use of anticoagulants; I25.10 Atherosclerotic heart disease of native coronary artery without angina pectoris; E78.5 Hyperlipidemia, unspecified; M10.9 Gout, unspecified; I48.0 Paroxysmal atrial fibrillation; I12.9 Hypertensive chronic kidney disease with stage 1 through stage 4 chronic kidney disease, or unspecified chronic kidney disease; E11.22 Type 2 diabetes mellitus with diabetic chronic kidney disease; N18.3 Chronic kidney disease, stage 3 (moderate); I95.9 Hypotension, unspecified; M19.90 Unspecified osteoarthritis, unspecified site; Z87.891 Personal history of nicotine dependence; E66.01 Morbid (severe) obesity due to excess calories; Z86.73 Personal history of transient ischemic attack (TIA), and cerebral infarction without residual deficits; M54.9 Dorsalgia, unspecified; G89.29 Other chronic pain; D63.1 Anemia in chronic kidney disease; R19.7 Diarrhea, unspecified; Z91.81 History of falling; Z68.28 Body mass index [BMI] 28.0-28.9, adult
CPT/HCPCS: 36415; 36416; 74176; 80048; 80053; 81003; 82274; 82553; 83690; 84484; 85025; 96374; A4216; C9113; G8978-GP-CL; G8979-GP-CJ; G8987-GO-CJ; G8988-GO-CI; G8996-GN-CH; G8997-GN-CH; G8998-GN-CH

== ENCOUNTER 2017-12-17 08:04 | Inpatient (IN) | payer MEDICARE, MEDICAID ==
[2017-12-17 08:40] LABS: #Eosinphils 0.1 thou/uL (0.0-0.7); #Lymphocytes 0.8 thou/uL (1.20-3.40); #Monocytes 0.6 thou/uL (0.11-0.59); #Neutrophils 8.4 thou/uL (1.40-6.50); %Basophils 0.4 % (0.0-1.0); %Eosinophils 0.6 % (0.0-10.0); %Lymphocytes 7.9 % (21.0-51.0); %Monocytes 6.1 % (0.0-10.0); Hemoglobin 10.4 g/dL (12.0-16.0); Mean Corpuscular HGB CONC 32.5 g/dL (32.0-36.0); Mean Corpuscular Hemoglobin 28.1 pg (27.0-31.0); Mean Corpuscular Volume 86.5 fL (78.0-98.0); Mean Platelet Volume 8.5 fL (7.4-10.4); Platelet Count 291 thou/uL (130-400); Red Blood Cell (RBC) Count 3.69 mill/uL (4.20-5.40); White Blood Cell (WBC) Count 9.9 thou/uL (4.8-10.8)
[2017-12-17 08:42] LABS: Bilirubin Negative (Negative); Blood, Urine Negative (Negative); Clarity CLEAR (Clear); Glucose, Urine (Dipstick) Negative (Negative); Leukocyte Negative (Negative); Nitrite Negative (Negative); Protein, Urine (Dipstick) 100 mg/dL (Neg-Trace); Urobilinogen 0.2 mg/dL (0.2-1.0)
[2017-12-17 08:44] LABS: Bacteria/HPF None Seen HPF (None Seen); Hyaline Casts/LPF 0-3 HYALINE CAST LPF (0-3 Hyaline); Pathc Cast-AUWi Flag 0.72 (0-2.49); RBC/HPF 0-3 HPF (0-3); Squamous Epithelial 0-3 HPF (0-3); WBC/HPF None Seen HPF (0-3)
[2017-12-17] MEDS ORDERED: Diltiazem 125 MG in Sodium Chloride 0.9% 100 ML IVPB SCH (08:45)
--- NOTE | 2017-12-17 08:45 | RAD ---
PORTABLE CHEST: Date: 12/17/17 PROVIDED CLINICAL HISTORY: Dyspnea. FINDINGS: Comparison with 11/27/17. Cardiac and mediastinal silhouette is unchanged in appearance. Vascular calcification involves the ao rtic arch. No focal consolidation, pleural fluid, or pneumothorax apparent. IMPRESSION: No evidence for an acute cardiopulmonary process. POS: [facility]
[2017-12-17 09:03] LABS: ALT (SGPT) Less than 7 U/L (8-55); AST (SGOT) 11 U/L (5-34); Albumin 3.3 g/dL (3.4-4.8); Alkaline Phosphatase 118 U/L (40-150); Anion Gap 14 mmol/L (10-20); BUN (Urea Nitrogen) 24 mg/dL (9.8-20.1); Bilirubin, Total 0.5 mg/dL (0.2-1.2); CK (CPK) 31 U/L (29-168); Calc. Creatinine Clearance 0 mL/min (70-130); Calcium 8.1 mg/dL (7.8-10.44); Carbon Dioxide 24 mmol/L (23-31); Chloride 100 mmol/L (98-107); Estimated GFR-MDRD 41; Globulin 3.2 g/dL (2.4-3.5); Glucose 229 mg/dL (83-110); Lipase 49 U/L (8-78); Potassium 4.2 mmol/L (3.5-5.1); Protein, Total 6.5 g/dL (6.0-8.3); Sodium 134 mmol/L (136-145)
[2017-12-17 09:06] LABS: CKMB 0.9 ng/mL (0-6.6)
[2017-12-17] MEDS ORDERED: Piperacillin/Tazobactam 4.5 GM VIAL ONE (09:19)
[2017-12-17] MEDS ORDERED: Vancomycin HCl 1.5 GM in Sodium Chloride 0.9% 250 ML 300 ML IVPB SCH (09:30)
[2017-12-17 12:06] LABS: Troponin I 0.036 ng/mL (< 0.028)
[2017-12-17] MEDS ORDERED: Digoxin 0.5 MG/2 ML AMP ONE (12:23)
[2017-12-17] MEDS ORDERED: Dextrose 5% in Water 1,000 ML IV PRN (12:56)
[2017-12-17] MEDS ORDERED: Metoclopramide HCl 10 MG TAB PO PRN (12:56)
[2017-12-17] MEDS ORDERED: Guaifenesin DM 100-10/5 ML UDCUP PO PRN (12:56)
[2017-12-17] MEDS ORDERED: Dextrose 50% Abboject 50 ML SYRINGE SLOW IVP PRN (12:56)
[2017-12-17] MEDS ORDERED: Acetaminophen 325 MG TAB PO PRN (12:56)
[2017-12-17] MEDS ORDERED: Sodium Chloride 0.9% 1,000 ML IV SCH (13:00)
--- NOTE | 2017-12-17 13:40 | HP ---
REASON FOR ADMISSION: Atrial fibrillation with rapid ventricular response, fever, demand ischemia. HISTORY OF PRESENTING ILLNESS: The patient gives history of having fever off and on at home. No palpitations, PND or orthopnea. She normally walks with a walker. She was recently discharged on after being hospitalized for GI bleed. The patient states she did not have any urinary frequency or urgency. No cough or expectoration. She has no complaints of any sore except for some itching off and on in the right leg. On arrival in the ER, patient was found to have had temperature of 101 degrees and was in atrial fibrillation with RVR with rates going up to 123. PAST MEDICAL AND SURGICAL HISTORY: History of chronic atrial fibrillation, hypertension, dyslipidemia, history of CKD stage 3, moderate aortic stenosis, tricuspid regurgitation, history of CVA, gout, appendectomy, left carpal tunnel surgery, epidural shots every 3 months. CURRENT MEDICATIONS: Patient is on Lasix 40 mg daily, Protonix 40 mg daily, Coreg 6.25 mg p.o. twice daily, aspirin 81 mg p.o. daily, Eliquis 2.5 mg p.o. twice daily, Ultram p.r.n. for pain, multivitamin 1 tab once daily; Reglan 10 mg p.o. q.i.d. p.r.n., NPH 15 units subcu twice daily, gabapentin 1200 mg p.o. twice daily, Cardizem CD 120 mg p.o. daily. ALLERGIES: FISH, IODINE, METFORMIN, NAPROSYN. PERSONAL HISTORY: Does not abuse alcohol or drugs. She is a resident of [facility]. FAMILY HISTORY: Mother has had history of cancer. Father was alcoholic and related to cirrhosis and complications in his 60s. CODE STATUS: FULL. Power of title attorney is Dr. Valerio. The patient states he is a close friend of hers. REVIEW OF SYSTEMS: The following complete review of systems was negative, unless otherwise mentioned in the HPI or below: Constitutional: Weight loss or gain, ability to conduct usual activities. Skin: Rash, itching. Eyes: Double vision, pain. ENT/Mouth: Nose bleeding, neck stiffness, pain, tenderness. Cardiovascular: Palpitations, dyspnea on exertion, orthopnea. Respiratory: Shortness of breath, wheezing, cough, hemoptysis, fever or night sweats. Gastrointestinal: Poor appetite, abdominal pain, heartburn, nausea, vomiting, constipation, or diarrhea. Genitourinary: Urgency, frequency, dysuria, nocturia. Musculoskeletal: Pain, swelling. Neurologic/Psychiatric: Anxiety, depression. Allergy/Immunologic: Skin rash, bleeding tendency. PHYSICAL EXAMINATION: GENERAL: The patient is an 82-year-old female who is currently not in any acute distress. VITAL SIGNS: Blood pressure on arrival was 145/70, currently 90/76, pulse 80 per minute, respiratory rate 18 per minute, temperature 100.9 degrees Fahrenheit , saturating 95% on 2 liters nasal cannula. NECK: Supple, no elevated JVD. EYES: Extraocular muscles intact. Pupils reacting to light. ORAL CAVITY: Mucous membranes are dry. No exudates or congestion. CARDIOVASCULAR SYSTEM: S1, S2 heard. Irregular rhythm. RESPIRATORY SYSTEM: Air entry 1+ bilaterally. No rales or rhonchi. ABDOMEN: Soft, bowel sounds heard. No tenderness, rigidity or guarding. EXTREMITIES: There is peripheral edema in both lower extremities. No calf tenderness. VASCULAR SYSTEM: Peripheral pulses 1+ bilateral, no ischemic ulcerations or gangrene. The patient has some excoriations on the right lateral leg. CENTRAL NERVOUS SYSTEM: No gross focal deficits noted. The patient is alert and oriented well. PSYCHIATRIC SYSTEM: The patient's mood is euthymic. No hallucinations or delusions. LABORATORY DATA AND IMAGING DATA: White count of 10, hemoglobin and hematocrit 10 and 31, platelet count 291, MCV is 86 with 85% neutrophils. Sodium 134, serum bicarbonate 24, BUN 24, creatinine 1.25, serum glucose 229. Liver enzymes within normal limits. Albumin is 3.3. BNP 682. Troponin is indeterminate with peaking up to 0.03, CK-MB 0.9. TSH 2.62. Chest x-ray done shows no acute cardiopulmonary process. CLINICAL IMPRESSION AND PLAN: The patient will be admitted to telemetry for atrial fibrillation with rapid ventricular response with known history of chronic atrial fibrillation. The patient says she is compliant with the medication. She had fever of 100 degrees and likely is the trigger for her atrial fibrillation with rapid ventricular response. She had received 10 mg of Cardizem IV push and was placed on 5 mg an hour. Patient also received a dose of vancomycin and Zosyn in the ER for fever. Her systolic blood pressure has dropped down to the 80s. I have asked the nurse to stop the Cardizem drip and give her 0.5 mg of digoxin IV. I have also spoken to Dr. Villanueva for Cardiology consultation. We will closely monitor her on telemetry. We will continue her Coreg, Cardinamita CD. If needed, we will increase the dose to b.i.d. from 120 mg daily. We will hold her Lasix for today. Continue Neurontin , NPH insulin, Protonix and Eliquis as before. We will continue to closely monitor her on telemetry. It is unclear the source of her fever. Her UA is clear of any infection. Abdomen is benign with no diarrhea. Her chest x-ray shows no evidence of infiltrate nor did she have cough or expectoration. Maybe patient is too early into her infection and we will closely monitor her. MTDD
--- NOTE | 2017-12-17 17:11 | CON ---
DATE OF CONSULT: 12/17/17 HISTORY OF PRESENT ILLNESS: The patient is an 82-year-old woman who presented with palpitations and dyspnea. The patient has a history of coronary artery disease and aortic stenosis. The patient was recently hospitalized with a GI hemorrhage. The patient underwent a cardiac catheterization in 2014. She had a 40% LAD lesion, a 70% ostial diagonal lesion, two lesions in the right coronary artery. The patient has been on medical therapy. She is on chronic anticoagulation therapy for permanent atrial fibrillation. The patient was admitted in September of this year with chest discomfort and palpitations. The patient underwent an adenosine stress test that revealed her to have no evidence of ischemia with a normal ejection fraction. The patient was most recently hospitalized with a GI hemorrhage. It was decided to treat the patient conservatively. Her was sent home on a low dose of Eliquis and aspirin. The patient was at home when she noticed having palpitations and dyspnea. She denied having any chest discomfort. The patient denied having any fevers or chills. PAST MEDICAL HISTORY: 1. Aortic stenosis. 2. Atrial fibrillation. 3. Hypertension. 4. Dyslipidemia. 5. Gout. 6. History of cerebrovascular accident. PAST SURGICAL HISTORY: Carpal tunnel surgery and appendectomy. MEDICATIONS: Zantac 150 daily, Protonix 40 daily, multivitamin tablet daily, Apixaban 2.5 b.i.d., aspirin 81 daily, Coreg 6.25 b.i.d., diltiazem 120, and Lasix 40 daily. ALLERGIES: TYLENOL, IODINE, METFORMIN, MOTRIN, NAPROSYN, PREDNISONE. PAST FAMILY HISTORY: There is no strong family history of heart disease. SOCIAL HISTORY: Nonsmoker. REVIEW OF SYSTEMS: Ten point system noticeable for no bright red blood per rectum, hematuria or bruising. Ten-point system unremarkable. PHYSICAL EXAMINATION: GENERAL: Elderly woman in no acute distress with a blood pressure 137/60. NECK: Showed no jugular venous distention. LUNGS: Coarse breath sounds bilateral. HEART: Irregular rate and rhythm, normal S1, S2 with III/ systolic murmur. ABDOMEN: Distended. EXTREMITIES: Moderate bilateral edema. NEUROLOGIC: Nonfocal. VASCULAR: Radial pulses 2+. LABORATORY DATA: Sodium 134, potassium 4.2, chloride 100, bicarbonate 24, BUN 24, creatinine is 1.25, glucose is 229. White blood cell count is 9.9, hemoglobin 10.4, hematocrit 31.9, platelets are 291. EKG reveals atrial fibrillation with a rapid ventricular response. IMPRESSION: 1. Atrial fibrillation. 2. Possible sepsis. 3. Aortic stenosis. 4. Coronary artery disease. 5. Diabetes. 6. Hypertension. 7. Gastrointestinal hemorrhage. This patient presents with dyspnea and rapid atrial fibrillation. We will increase the dose of the patient's diltiazem. We will follow this patient with you through her hospitalization. MAYRAD
[2017-12-17] MEDS: Carvedilol 6.25 MG TAB PO SCH (17:14)
[2017-12-17] MEDS: HumaLOG 300 UNITS/3 ML VIAL SC PRN (17:14)
[2017-12-17 17:55] VITALS: BMI 33.9
[2017-12-17] MEDS: Insulin NPH/Reg Insulin Hm 300 UNITS/3 ML VIAL SC SCH (20:56)
[2017-12-17] MEDS: Apixaban 2.5 MG TAB PO SCH (20:56)
[2017-12-17] MEDS: Docusate 100 MG CAP PO SCH (20:57)
[2017-12-17] MEDS: Gabapentin 300 MG CAP PO SCH (20:57)
[2017-12-17] MEDS ORDERED: Famotidine 20 MG TAB PO SCH (21:00)
[2017-12-18 05:41] LABS: #Eosinphils 0.2 thou/uL (0.0-0.7); #Lymphocytes 1.1 thou/uL (1.20-3.40); #Monocytes 0.6 thou/uL (0.11-0.59); %Basophils 0.6 % (0.0-1.0); %Eosinophils 3.3 % (0.0-10.0); %Monocytes 9.4 % (0.0-10.0); %Neutrophils 68.7 % (42.0-75.0); Hemoglobin 8.4 g/dL (12.0-16.0); Mean Corpuscular HGB CONC 30.9 g/dL (32.0-36.0); Mean Corpuscular Hemoglobin 27.1 pg (27.0-31.0); Mean Corpuscular Volume 87.9 fL (78.0-98.0); Mean Platelet Volume 9.1 fL (7.4-10.4); Platelet Count 259 thou/uL (130-400); RBC Distribution Width 14.9 % (11.5-14.5); White Blood Cell (WBC) Count 5.8 thou/uL (4.8-10.8)
[2017-12-18 06:02] LABS: Anion Gap 15 mmol/L (10-20); BUN (Urea Nitrogen) 23 mg/dL (9.8-20.1); Calc. Creatinine Clearance 59 mL/min (70-130); Calcium 7.8 mg/dL (7.8-10.44); Carbon Dioxide 23 mmol/L (23-31); Chloride 103 mmol/L (98-107); Estimated GFR-MDRD 46; Glucose 102 mg/dL (83-110); Potassium 3.9 mmol/L (3.5-5.1); Sodium 137 mmol/L (136-145)
[2017-12-18] MEDS: Carvedilol 6.25 MG TAB PO SCH ×2 (08:19→17:36)
[2017-12-18] MEDS: Docusate 100 MG CAP PO SCH ×2 (08:20→21:08)
[2017-12-18] MEDS: Apixaban 2.5 MG TAB PO SCH ×2 (08:20→21:06)
[2017-12-18] MEDS: Gabapentin 300 MG CAP PO SCH ×2 (08:20→21:07)
[2017-12-18] MEDS: Aspirin 81 mg Enteric Coated Tablet PO SCH (08:20)
[2017-12-18] MEDS: Insulin NPH/Reg Insulin Hm 300 UNITS/3 ML VIAL SC SCH ×2 (08:21→21:10)
[2017-12-18] MEDS: Multivitamin W/ Minerals 1 TAB PO SCH (08:22)
[2017-12-18] MEDS ORDERED: Enoxaparin Sodium 40 MG/0.4 ML SYRINGE SC SCH (09:00)
[2017-12-18] MEDS ORDERED: Non-Formulary Item 1 EACH (Ranitidine Hcl [Ranitidine Hcl] 150 MG) PO SCH (09:00)
[2017-12-18] MEDS ORDERED: Furosemide 20 MG TAB PO SCH (09:00)
--- NOTE | 2017-12-18 10:35 | PDOC.PN ---
- Subjective Encounter Start Date: 12/18/17 Encounter Start Time: 08:50 Subjective: no c/o sob or palp -: is fixing to eat her breakfast, had shower this am - Objective Resuscitation Status: Resuscitation Status FULL:Full Resuscitation MAR Reviewed: Yes Vital Signs & Weight: Vital Signs (12 hours) Temp Pulse Resp BP BP Pulse Ox 12/18/17 08:20 82 12/18/17 08:19 127/62 12/18/17 08:00 95 12/18/17 05:57 95 12/18/17 04:46 98.7 F 82 18 101/47 L 90 L Weight Weight 211 lb I&O: 12/17/17 12/18/17 12/19/17 06:59 06:59 06:59 Intake Total 540 Balance 540 Result Diagrams: 12/18/17 04:56 12/18/17 04:56 Additional Labs: Accuchecks 12/18/17 12/17/17 12/17/17 06:08 20:44 17:01 POC Glucose 113 H 144 H 203 H Phys Exam - Physical Examination HEENT: PERRLA, moist MMs Neck: no JVD, supple Respiratory: no wheezing, no rales Cardiovascular: no significant murmur, irregular Gastrointestinal: soft, non-tender, positive bowel sounds Musculoskeletal: pulses present, edema present Neurological: non-focal, moves all 4 limbs Psychiatric: normal affect, A&O x 3 Dx/Plan (1) Afib Code(s): I48.91 - UNSPECIFIED ATRIAL FIBRILLATION Status: Acute (2) Chronic diastolic heart failure Code(s): I50.32 - CHRONIC DIASTOLIC (CONGESTIVE) HEART FAILURE Status: Chronic (3) Coronary artery disease Code(s): I25.10 - ATHSCL HEART DISEASE OF [place] CORONARY ARTERY W/O ANG PCTRS Status: Chronic Qualifiers: Coronary Disease-Associated Artery/Lesion type: [place] artery [place] vs. transplanted heart: [place] heart Associated angina: without angina Qualified Code(s): I25.10 - Atherosclerotic heart disease of [place] coronary artery without angina pectoris Comment: Stable. (4) Diabetes type 2, controlled Code(s): E11.9 - TYPE 2 DIABETES MELLITUS WITHOUT COMPLICATIONS Status: Chronic Qualifiers: Diabetes mellitus manager intermediate insulin use: with manager intermediate use Diabetes mellitus complication status: with unspecified complications Qualified Code(s) : E11.8 - Type 2 diabetes mellitus with unspecified complications; Z79.4 - termination clerk (current) use of insulin Comment: Continue NPH, SSI. Well controlled. (5) Dyslipidemia Code(s): E78.5 - HYPERLIPIDEMIA, UNSPECIFIED Status: Chronic (6) Gout Code(s): M10.9 - GOUT, UNSPECIFIED Status: Chronic Qualifiers: Gout site: unspecified site (7) Hypertension Code(s): I10 - ESSENTIAL (PRIMARY) HYPERTENSION Status: Chronic Qualifiers: Hypertension type: essential hypertension (8) Moderate aortic stenosis by prior echocardiogram Code(s): I35.0 - NONRHEUMATIC AORTIC (VALVE) STENOSIS Status: Chronic (9) Obesity (BMI 30-39.9) Code(s): E66.9 - OBESITY, UNSPECIFIED Status: Chronic - Plan is on increased dose of cardizem cd 120mg bid now -: continue coreg, asp and eliquis -: 70/30 insulin 15u bid -: dc plan per cardiology advice -: pt does not like wearing derrell hose (has edema) * . No further fever, off antibiotics, check culture results. Review of Systems - Medications/Allergies Allergies/Adverse Reactions: Allergies Allergy/AdvReac Type Severity Reaction Status Date / Time acetaminophen Allergy Verified 12/17/17 13:24 [From Darvocet-N 100] fish derived Allergy Verified 12/17/17 13:24 iodine Allergy Verified 12/17/17 13:24 metformin Allergy Verified 12/17/17 13:24 naproxen Allergy Verified 12/17/17 13:24 omega-3 acid ethyl esters Allergy Verified 12/17/17 13:24 prednisone Allergy Verified 12/17/17 13:24 propoxyphene napsylate Allergy Verified 12/17/17 13:24 [From Darvocet-N 100] shellfish derived Allergy Verified 12/17/17 13:24 Medications: Current Medications Apixaban (Eliquis) 2.5 mg PO BID [facility] Last Admin: 12/18/17 08:20 Dose: 2.5 mg Aspirin (Ecotrin) 81 mg PO DAILY [facility] Last Admin: 12/18/17 08:20 Dose: 81 mg Carvedilol (Coreg) 6.25 mg PO BID[facility] Last Admin: 12/18/17 08:19 Dose: 6.25 mg Dextrose/Water (Dextrose 50%) 25 gm SLOW IVP PRN PRN PRN Reason: Hypoglycemia Diltiazem HCl (Cardizem Cd) 120 mg PO BID [facility] Last Admin: 12/18/17 08:20 Dose: 120 mg Docusate Sodium (Colace) 100 mg PO BID [facility] Last Admin: 12/18/17 08:20 Dose: 100 mg Gabapentin (Neurontin) 1,200 mg PO BID [facility] Last Admin: 12/18/17 08:20 Dose: 1,200 mg Glucagon (Glucagon) 1 mg IM PRN PRN PRN Reason: Hypoglycemia Guaifenesin/Dextromethorphan (Robitussin Dm) 15 ml PO Q4H PRN PRN Reason: Cough Dextrose/Water (D5w) 1,000 mls @ 0 mls/hr IV .Q0M PRN PRN Reason: Hypoglycemia Insulin Human Isoph/Insulin Regular (Humulin 70/30) 15 units SC BID [facility] Last Admin: 12/18/17 08:21 Dose: 15 unit Insulin Human Lispro (Humalog) 0 units SC .MODERATE SLIDING SC PRN PRN Reason: Moderate Correctional Scale Last Admin: 12/17/17 17:14 Dose: 4 unit Iron/Minerals/Multivitamins (Theragran M) 1 tab PO DAILY [facility] Last Admin: 12/18/17 08:22 Dose: 1 tab Metoclopramide HCl (Reglan) 10 mg PO QID PRN PRN Reason: Nausea Pantoprazole Sodium (Protonix) 40 mg PO DAILY [facility] Last Admin: 12/18/17 08:23 Dose: 40 mg
[2017-12-18] MEDS: HumaLOG 300 UNITS/3 ML VIAL SC PRN ×2 (11:55→17:36)
[2017-12-19 05:53] LABS: #Eosinphils 0.1 thou/uL (0.0-0.7); #Lymphocytes 1.1 thou/uL (1.20-3.40); #Monocytes 0.4 thou/uL (0.11-0.59); #Neutrophils 3.8 thou/uL (1.40-6.50); %Basophils 0.4 % (0.0-1.0); %Eosinophils 2.7 % (0.0-10.0); %Lymphocytes 19.7 % (21.0-51.0); %Monocytes 7.5 % (0.0-10.0); %Neutrophils 69.7 % (42.0-75.0); Hemoglobin 8.4 g/dL (12.0-16.0); Mean Corpuscular HGB CONC 31.4 g/dL (32.0-36.0); Mean Corpuscular Hemoglobin 28.2 pg (27.0-31.0); Mean Corpuscular Volume 89.6 fL (78.0-98.0); Mean Platelet Volume 8.8 fL (7.4-10.4); Platelet Count 254 thou/uL (130-400); Red Blood Cell (RBC) Count 2.98 mill/uL (4.20-5.40); White Blood Cell (WBC) Count 5.4 thou/uL (4.8-10.8)
[2017-12-19 06:20] LABS: Anion Gap 16 mmol/L (10-20); BUN (Urea Nitrogen) 26 mg/dL (9.8-20.1); Calc. Creatinine Clearance 53 mL/min (70-130); Calcium 8.2 mg/dL (7.8-10.44); Carbon Dioxide 22 mmol/L (23-31); Chloride 104 mmol/L (98-107); Estimated GFR-MDRD 40; Glucose 104 mg/dL (83-110); Potassium 3.8 mmol/L (3.5-5.1); Sodium 138 mmol/L (136-145)
[2017-12-19] MEDS: Gabapentin 300 MG CAP PO SCH ×2 (08:28→20:27)
[2017-12-19] MEDS: Multivitamin W/ Minerals 1 TAB PO SCH (08:28)
[2017-12-19] MEDS: Docusate 100 MG CAP PO SCH ×2 (08:29→20:27)
[2017-12-19] MEDS: Carvedilol 6.25 MG TAB PO SCH ×2 (08:29→17:15)
[2017-12-19] MEDS: Aspirin 81 mg Enteric Coated Tablet PO SCH (08:29)
[2017-12-19] MEDS: Insulin NPH/Reg Insulin Hm 300 UNITS/3 ML VIAL SC SCH ×2 (08:30→20:32)
[2017-12-19] MEDS: Apixaban 2.5 MG TAB PO SCH ×2 (08:37→20:27)
[2017-12-19] MEDS: HumaLOG 300 UNITS/3 ML VIAL SC PRN (11:55)
--- NOTE | 2017-12-19 13:12 | PDOC.CTH ---
Cardiology Progress Note - Subjective Pt. w/o c/o today. Back to her baseline with chronic Afib.HR under good control. - Objective Vital Signs Temp Pulse Resp BP BP BP Pulse Ox 12/19/17 11:36 98.2 F 66 18 129/59 L 98 12/19/17 11:22 98.2 F 66 18 129/59 L 98 12/19/17 08:29 80 145/62 H 12/19/17 08:22 98.5 F 80 18 145/62 H 97 12/19/17 08:00 97 12/19/17 03:50 98.8 F 52 L 16 117/53 L 96 Weight 207 lb 14.4 oz 12/18/17 12/19/17 12/20/17 06:59 06:59 06:59 Intake Total 540 100 190 Balance 540 100 190 - Physical Examination General/Neuro: alert & oriented x3 Neck: no JVD present Lungs: CTA Heart: other: (irreg/irreg. systolic murmur of MR and ) Abdomen: no HSM, NT/ND Extremities: other: (mild edema) - Labs Result Diagrams: 12/19/17 05:37 12/19/17 05:37 Troponin/CKMB CK-MB (CK-2) 0.9 ng/mL (0-6.6) 12/17/17 08:28 Troponin I 0.036 ng/mL (< 0.028) H 12/17/17 11:40 - Assessment/Plan 1. Afib.: chronic,rate controlled. continue present meds. 2. HTN: stable 3. : asymptomatic. 4. Chronic anemia. pt. is stable to transfer back to rehab. Review of Systems - Review of Systems Constitutional: reports: no symptoms reported Respiratory: reports: no symptoms reported Cardiac (ROS): reports: no symptoms reported ABD/GI: reports: no symptoms reported : reports: no symptoms reported Musculoskeletal: reports: other (generalized weakness.)
--- NOTE | 2017-12-19 19:02 | DIS ---
DATE OF ADMISSION: 12/17/2017 DATE OF DISCHARGE: 12/19/2017 PRIMARY CARE PHYSICIAN: Brian Mac M.D. DISCHARGE DIAGNOSES: 1. Chronic atrial fibrillation. 2. Atrial fibrillation with rapid ventricular response secondary to psychological stress. 3. Chronic diastolic congestive heart failure without acute exacerbation. 4. Coronary artery disease, without angina. 5. Diabetes mellitus type 2 without mention of complications controlled insulin-dependent. 6. Hyperlipidemia. 7. Chronic gout with no acute exacerbation. 8. Essential hypertension. 9. Moderate aortic stenosis by history. 10. Obesity with BMI of 30-39.9. CONSULTATIONS: Cardiology, Dr. Reagan Villanueva 12/17/2017 through the weekend and followed by Dr. Bennie Suarez 12/19/2017. PROCEDURES: None. HISTORY AND PHYSICAL: Ms. Santos is an 82-year-old female with history of known chronic atrial fibril lation who was at [facility] for rehabilitation after recent hospital stay. She states she was having fever off and on, but denied any urinary symptoms, respiratory symptoms. S he was feeling flustered and upset because she felt transferring her at the facility. She david me tachycardic and said she had palpitations, need to go to the emergency department. She was taken to the ER where she was found to be in atrial fibrillation with rapid ventricular response. We arzate d for admit. HOSPITAL COURSE: The patient was seen and examined by Dr. Matta and on 12/17/2017, the patient was continued on home medications, had good rate control. Cardiology consulted and made no further interventions. The patient was watched through the weekend and today was seen by Dr. Bennie Suarez, a regular cardiologi st, who cleared her to go back to [facility]. PHYSICAL EXAMINATION: The patient was seen and examined on the day of discharge. Discharge plan and disposition was discussed with the patient face to face at the bedside. DISCHARGE MEDICATIONS: 1. Eliquis 2.5 mg p.o. b.i.d. 2. Aspirin 81 mg daily. 3. Carvedilol 6.25 mg p.o. b.i.d. 4. Diltiazem 120 mg p.o. daily, diltiazem extended release. 5. Gabapentin 1200 mg p.o. b.i.d. 6. Insulin NPH 70/30 50 units subcu b.i.d. 7. Reglan 10 mg p.o. q.i.d. p.r.n. nausea. 8. Multivitamin daily. 9. Pantoprazole 40 mg daily. 10. Lasix 40 mg daily. 11. Ranitidine 150 mg daily. 12. Tramadol 50 mg 1-2 tablets p.o. q.4 hours p.r.n. pain. FOLLOWUP APPOINTMENTS: 1. Cardiology, Dr. Suarez in 2-3 weeks. 2. Primary care physician within a week. DISCHARGE CONDITION: Stable. DISPOSITION: Being discharged back to [facility] for continued shelter rehabilitation. DISCHARGE ACTIVITY: Per cardiopulmonary limits. DISCHARGE DIET: Heart healthy diabetic diet.
[2017-12-19] MEDS ORDERED: traMADol HCl 50 MG TAB PO PRN ×2 (19:13→19:14)
[2017-12-20] MEDS: Docusate 100 MG CAP PO SCH (08:14)
[2017-12-20] MEDS: Aspirin 81 mg Enteric Coated Tablet PO SCH (08:14)
[2017-12-20] MEDS: Carvedilol 6.25 MG TAB PO SCH (08:15)
[2017-12-20] MEDS: Multivitamin W/ Minerals 1 TAB PO SCH (08:15)
[2017-12-20] MEDS: Apixaban 2.5 MG TAB PO SCH (08:19)
[2017-12-20] MEDS: Insulin NPH/Reg Insulin Hm 300 UNITS/3 ML VIAL SC SCH (08:27)
[2017-12-20] MEDS: Gabapentin 300 MG CAP PO SCH (08:35)
--- NOTE | 2017-12-20 10:13 | DIS ---
DATE OF ADMISSION: 12/17/2017 DATE OF DISCHARGE: 12/20/2017 PRIMARY CARE PHYSICIAN: Brian Mac [facility] COURSE: Please see discharge summary dictated on 12/19/2017. INTERVAL HISTORY: The patient was discharged yesterday, however [facility] repo rted they needed a reauthorization from insurance. An authorization was not received by [facility] yesterday, so the patient was held overnight and discharge was canceled. Today approval was received. The patient was discharged without any acute overnight events. For remainder of the discharge instructions, please see the discharge summary dictated 12/19/2017.
[2017-12-20 11:49] VITALS: BP 131/60; TEMP 98.6
[2017-12-20] MEDS: HumaLOG 300 UNITS/3 ML VIAL SC PRN (12:43)
--- NOTE | 2017-12-20 13:35 | PDOC.CTH ---
<Megha Ward - Last Filed: 12/20/17 13:35> Cardiology Progress Note - Subjective The pt seen and examined. No overnight events. No cardiac complaints. She is up the chair without any difficulties. - Objective Vital Signs Temp Pulse Resp BP BP BP Pulse Ox 12/20/17 11:47 98.6 F 77 18 131/60 95 12/20/17 08:15 92 176/76 H 12/20/17 07:20 97.9 F 92 20 176/76 H 93 L 12/20/17 03:20 98.0 F 94 18 127/57 L 96 Weight 195 lb 14.4 oz 12/19/17 12/20/17 12/21/17 06:59 06:59 06:59 Intake Total 100 1180 120 Balance 100 1180 120 - Physical Examination General/Neuro: alert & oriented x3 Neck: no JVD present Lungs: CTA (diminished at bases) Heart: other: (irregular) Abdomen: soft Extremities: other: (2+ pitting and discoloration to BLE) - Telemetry Telemetry Rhythm: Afib 70s - Labs Result Diagrams: 12/19/17 05:37 12/19/17 05:37 Troponin/CKMB CK-MB (CK-2) 0.9 ng/mL (0-6.6) 12/17/17 08:28 Troponin I 0.036 ng/mL (< 0.028) H 12/17/17 11:40 - Assessment/Plan 1. Chronic Afib - rate well controlled. continue present meds: Coreg 6.25mg BID , Diltiazem 120mg, and Eliquis 2.5mg BID. 2. HTN - stable 3. - asymptomatic. cont. to monitor by serial Echo. 4. Chronic anemia - unchanged. 5. DM type 2 - managed by PCP MAR reviewed * From Cardiac standpoint, the pt is stable. The pt will f/u with Dr Suarez' office within 2-4 wks. Review of Systems - Review of Systems Constitutional: reports: no symptoms reported EENTM: reports: no symptoms reported Respiratory: reports: no symptoms reported Cardiac (ROS): reports: no symptoms reported ABD/GI: reports: no symptoms reported : reports: no symptoms reported Musculoskeletal: reports: no symptoms reported <Vanessa Suarez - Last Filed: 12/20/17 13:48> Cardiology Progress Note - Objective Vital Signs Temp Pulse Resp BP BP BP Pulse Ox 12/20/17 11:47 98.6 F 77 18 131/60 95 12/20/17 08:15 92 176/76 H 12/20/17 07:20 97.9 F 92 20 176/76 H 93 L 12/20/17 03:20 98.0 F 94 18 127/57 L 96 Weight 195 lb 14.4 oz 12/19/17 12/20/17 12/21/17 06:59 06:59 06:59 Intake Total 100 1180 120 Balance 100 1180 120 - Labs Result Diagrams: 12/19/17 05:37 12/19/17 05:37 Troponin/CKMB CK-MB (CK-2) 0.9 ng/mL (0-6.6) 12/17/17 08:28 Troponin I 0.036 ng/mL (< 0.028) H 12/17/17 11:40 - Assessment/Plan pt. seen and eval. I agree with the A/P by the W[employer] PROJECT MANAGER. She has no c/o. Waiting to go back to rehab. Chest clear. irreg/irreg.
--- NOTE | 2017-12-24 11:18 | EKG ---
Test Reason : CP Blood Pressure : / mmHG Vent. Rate : 123 BPM Atrial Rate : 123 BPM P-R Int : 000 ms QRS Dur : 112 ms QT Int : 346 ms P-R-T Axes : 000 002 008 degrees QTc Int : 495 ms Atrial fibrillation with rapid ventricular response with premature ventricular or aberrantly conducte d complexes Right bundle branch block Abnormal ECG Confirmed by ZOE COTO M.D. ([id number]), film editor supervisor NAIDA HERNANDEZ ([id number]) on 12/24/2017 11:18:10 AM Referred By: Confirmed By:ZOE COTO M.D.
== END 2017-12-20 14:40 | DRG 309 ==
LOC: ERS 08:04 → 2NO 09:58
PROVIDERS: ADMIT Internal Medicine; ATTEND Internal Medicine
DX: I48.91 Unspecified atrial fibrillation (principal); I13.0 Hypertensive heart and chronic kidney disease with heart failure and stage 1 through stage 4 chronic kidney disease, or unspecified chronic kidney disease; I50.32 Chronic diastolic (congestive) heart failure; I24.8 Other forms of acute ischemic heart disease; N18.3 Chronic kidney disease, stage 3 (moderate); E78.5 Hyperlipidemia, unspecified; R50.9 Fever, unspecified; I35.0 Nonrheumatic aortic (valve) stenosis; I07.1 Rheumatic tricuspid insufficiency; Z79.899 Other long term (current) drug therapy; Z79.01 Long term (current) use of anticoagulants; Z79.891 Long term (current) use of opiate analgesic; Z88.8 Allergy status to other drugs, medicaments and biological substances; Z91.013 Allergy to seafood; Z91.048 Other nonmedicinal substance allergy status; I25.10 Atherosclerotic heart disease of native coronary artery without angina pectoris; M1A.9XX0 Chronic gout, unspecified, without tophus (tophi); E66.9 Obesity, unspecified; Z68.30 Body mass index [BMI] 30.0-30.9, adult; D64.9 Anemia, unspecified; Z86.73 Personal history of transient ischemic attack (TIA), and cerebral infarction without residual deficits
CPT/HCPCS: 36415; 36416; 51701; 71045; 80048; 80053; 81003; 81015; 82550; 82553; 83605; 83690; 83880; 84443; 84484; 85025; 87040; 87086; 93005; 94760; 96361; 96365; 96366; 96368; 96375; 96376; G8978-GP-CJ; G8979-GP-CI; J1160; J2543; J3370; J7050

== ENCOUNTER 2017-12-20 22:03 | Inpatient (IN) | payer MEDICARE, MEDICAID ==
--- NOTE | 2017-12-20 22:50 | RAD ---
AP VIEW CHEST: 12/20/17 HISTORY: Cough. AP view chest is obtained on 12/20/17. Comparison made to previous exam from 12/17/17. AP view chest demonstrates cardiomegaly. Pulmonary vascular congestion is seen. There may be a tiny r ight sided pleural effusion also present. IMPRESSION: Cardiomegaly and increased pulmonary vascular congestion. Findings may represent congestive heart kortney lure. POS: [facility]
[2017-12-20 22:53] LABS: #Lymphocytes 0.5 thou/uL (1.20-3.40); #Monocytes 0.4 thou/uL (0.11-0.59); #Neutrophils 9.3 thou/uL (1.40-6.50); %Basophils 0.2 % (0.0-1.0); %Eosinophils 0.5 % (0.0-10.0); %Lymphocytes 5.2 % (21.0-51.0); %Monocytes 3.8 % (0.0-10.0); %Neutrophils 90.4 % (42.0-75.0); Hemoglobin 9.7 g/dL (12.0-16.0); Mean Corpuscular HGB CONC 32.3 g/dL (32.0-36.0); Mean Corpuscular Hemoglobin 28.1 pg (27.0-31.0); Platelet Count 337 thou/uL (130-400); RBC Distribution Width 14.8 % (11.5-14.5); Red Blood Cell (RBC) Count 3.47 mill/uL (4.20-5.40); White Blood Cell (WBC) Count 10.3 thou/uL (4.8-10.8)
[2017-12-20 23:15] LABS: ALT (SGPT) 8 U/L (8-55); AST (SGOT) 11 U/L (5-34); Albumin 3.3 g/dL (3.4-4.8); Alkaline Phosphatase 120 U/L (40-150); Anion Gap 17 mmol/L (10-20); BUN (Urea Nitrogen) 23 mg/dL (9.8-20.1); Bilirubin, Total 0.4 mg/dL (0.2-1.2); CK (CPK) 29 U/L (29-168); Calc. Creatinine Clearance 0 mL/min (70-130); Calcium 8.6 mg/dL (7.8-10.44); Carbon Dioxide 23 mmol/L (23-31); Chloride 100 mmol/L (98-107); Estimated GFR-MDRD 36; Globulin 3.6 g/dL (2.4-3.5); Glucose 266 mg/dL (83-110); Potassium 4.6 mmol/L (3.5-5.1); Protein, Total 6.9 g/dL (6.0-8.3); Sodium 135 mmol/L (136-145)
[2017-12-20 23:19] LABS: CKMB 1.4 ng/mL (0-6.6); Troponin I 0.086 ng/mL (< 0.028)
[2017-12-20] MEDS ORDERED: Furosemide 40 MG/4 ML VIAL ONE (23:29)
[2017-12-20] MEDS ORDERED: Albuterol Sulfate 1.25 MG/3 ML NEB NEB SCH (23:45)
[2017-12-21 00:43] LABS: Bilirubin Negative (Negative); Blood, Urine Trace (Negative); Clarity CLEAR (Clear); Glucose, Urine (Dipstick) 100 mg/dL (Negative); Leukocyte Negative (Negative); Nitrite Negative (Negative); Protein, Urine (Dipstick) 100 mg/dL (Neg-Trace); Specific Gravity, Urine 1.013 (1.002-1.036); Urobilinogen 0.2 mg/dL (0.2-1.0); pH, Urine 5.5 (5.0-9.0)
[2017-12-21 00:45] LABS: Bacteria/HPF None Seen HPF (None Seen); Hyaline Casts/LPF 7-10 HYALINE CAST LPF (0-3 Hyaline); Pathc Cast-AUWi Flag 1.88 (0-2.49); Squamous Epithelial 0-3 HPF (0-3)
[2017-12-21] MEDS ORDERED: Ondansetron ODT 4 MG TAB PO PRN (02:14)
[2017-12-21] MEDS ORDERED: Bisacodyl 5 MG TAB PO PRN (02:14)
[2017-12-21] MEDS ORDERED: Levalbuterol HCl 0.63 MG/3 ML NEB NEB PRN (02:39)
[2017-12-21] MEDS ORDERED: Dextrose 50% Abboject 50 ML SYRINGE SLOW IVP PRN (02:45)
[2017-12-21] MEDS ORDERED: Dextrose 5% in Water 1,000 ML IV PRN (02:45)
[2017-12-21 04:13] LABS: #Lymphocytes 0.8 thou/uL (1.20-3.40); #Monocytes 0.4 thou/uL (0.11-0.59); #Neutrophils 5.5 thou/uL (1.40-6.50); %Basophils 0.2 % (0.0-1.0); %Eosinophils 0.1 % (0.0-10.0); %Lymphocytes 11.6 % (21.0-51.0); %Neutrophils 82.1 % (42.0-75.0); Hemoglobin 8.8 g/dL (12.0-16.0); Mean Corpuscular HGB CONC 31.9 g/dL (32.0-36.0); Mean Corpuscular Hemoglobin 27.7 pg (27.0-31.0); Mean Corpuscular Volume 86.8 fL (78.0-98.0); Mean Platelet Volume 8.3 fL (7.4-10.4); Platelet Count 291 thou/uL (130-400); RBC Distribution Width 14.5 % (11.5-14.5); Red Blood Cell (RBC) Count 3.17 mill/uL (4.20-5.40); White Blood Cell (WBC) Count 6.7 thou/uL (4.8-10.8)
[2017-12-21 04:22] LABS: Anion Gap 12 mmol/L (10-20); BUN (Urea Nitrogen) 23 mg/dL (9.8-20.1); Calc. Creatinine Clearance 57 mL/min (70-130); Calcium 8.6 mg/dL (7.8-10.44); Carbon Dioxide 28 mmol/L (23-31); Chloride 101 mmol/L (98-107); Estimated GFR-MDRD 41; Glucose 217 mg/dL (83-110); Potassium 4.3 mmol/L (3.5-5.1); Sodium 137 mmol/L (136-145)
--- NOTE | 2017-12-21 05:46 | HP ---
CHIEF COMPLAINT: Shortness of breath. HISTORIAN: The patient. HISTORY OF PRESENT ILLNESS: This is an 82-year-old female with past medical history of hyperlipidemi a, osteoarthritis, atrial fibrillation, diabetes mellitus type 2, hypertension, and gout, presenting with shortness of breath. The patient was recently seen in the hospital on 12/17/2017 and was discha rged for atrial fibrillation with rapid ventricular response. At the time of that admission, the malika hill was treated with Cardizem drip to control the RVR and patient was given vancomycin and Zosyn at the time. Currently, the patient is coming back because when patient was at home, patient stated javon t she was having shortness of breath and having difficulties breathing; therefore, she told her frien d to call the ambulance. Patient stated that she did not feel comfortable staying at home because sh e felt like something was wrong and that she was having too much difficulty catching her breath. Malika hill stated that she is on oxygen at home and she used the oxygen, but it did not get better with her shortness of breath. The patient endorses some cough with nonproductive sputum. REVIEW OF SYSTEMS: Positive for cough, shortness of breath, headache, otherwise as documented in the HPI. All other systems were reviewed and are negative. PAST MEDICAL HISTORY: Refer to HPI. PAST SURGICAL HISTORY: Patient has history of appendectomy in 06/2014. Carpal tunnel surgery, left wrist and heart catheterization by Dr. Suarez. PSYCHIATRIC HISTORY: No previous psychiatric history. SOCIAL HISTORY: Patient does drink occasionally. Patient was a former tobacco smoker, quit 20 years ago. Patient lives at home. KNOWN ALLERGIES: Patient is allergic to ACETAMINOPHEN, IODINE, METFORMIN, MOTRIN, NAPROXEN, NASONEX, OMEGA 3 FISH OIL, PREDNISONE, PROPOXYPHENE, and SHELLFISH CONTAINING PRODUCTS. CURRENT MEDICATIONS: The patient is on furosemide 40 mg, multivitamins with minerals, Cardizem 120 m g, ranitidine 150 mg, gabapentin 600 mg, carvedilol 6.25 mg, Humulin 70/30 15 units subcu b.i.d., Rena medina 2.5 mg b.i.d., aspirin 81 mg daily. PHYSICAL EXAMINATION: VITAL SIGNS: In the ED, the patient's blood pressure was 155/104, pulse 92, respiratory rate of 20, temperature 99.9, O2 sat of 98. GENERAL APPEARANCE: The patient is sitting in bed, appears to have shortness of breath, able to spea k in complete sentences, not having any distress. Patient is on nasal cannula 2 liters. HEENT: Normocephalic, atraumatic. Pupils are equally round and reactive to light. Extraocular musc les are intact. No scleral icterus. Mucous membranes are moist. RESPIRATORY: The patient is wheezing bilaterally at the anterior lung deal and the posterior lung deal, seem to be some rales at the lower lung bases. CARDIAC: Systolic murmur present. Irregularly irregular heart rate. ABDOMEN: Nontender, nondistended. Positive bowel sounds. No guarding, no rigidity. Obese abdomen. EXTREMITIES: Lower extremities: Patient do have edema present bilaterally at lower extremity. Uppe r extremity: Patient is able to move upper extremities bilaterally without any difficulties. Good p ulses bilaterally at the upper extremities and good pulses bilaterally at lower extremities. NEUROLOGIC: Cranial nerves II through XII are grossly intact. No focal neurologic deficits noted. SKIN: Warm, dry, and intact. IMAGING: Chest x-ray: Cardiomegaly with increased pulmonary vascular congestion. ED COURSE: The patient is on Xopenex 3 mL, ipratropium 0.5 mg, Lasix 40 mg IV, DuoNeb 3 mL nebulizer given. LABORATORY DATA: WBC is 10.3, hemoglobin is 9.7, hematocrit is 30.2, platelets 337,000. Sodium 135, potassium 4.6, chloride 100, BUN is 23, creatinine is 1.40, glucose is 266. Troponin is 0.086, BNP 701.4. Urinalysis: Patient has 100 proteins, 100 of glucose, trace blood and negative for nitrites, negative for leukoesterase. ASSESSMENT AND PLAN: This is an 82-year-old female with multiple comorbidities being admitted for co ngestive heart failure exacerbation. At this point, per records, the patient's Lasix was being held, but per x-ray and the patient's physical exam, the patient has some rales at the lower lung bases an d also at the lower extremities bilaterally and patient has some pulmonary congestion which was seen on x-ray. At this point, the patient has been given 40 of IV Lasix. We will order another x-ray in the morning to assess the patient's fluid status based on the x-ray in the morning. The patient has been placed on BiPAP since the patient's oxygen saturation was at the low 87% to 88% while the patien t was on 3 liters nasal cannula in the ED. ABGs were done and patient's ABG showed a pH of 7.389, PC O2 of 44 and pO2 of 87.4. At this point, we are going to admit the patient to IMCU and place the pat ient on BiPAP since patient is on respiratory failure, hypoxemic. 1. Acute diastolic heart failure. Patient's oxygen saturation on admission with 4 liters of nasal c annula was in the upper 80s, 87 specifically and patient was put on nonrebreather and the patient was satting around 90%-93%. Patient was then placed on BiPAP and the patient started stating around 100 %. We will continue to monitor the patient. The patient has been given IV Solu-Medrol at this time one dose of 125 mg and we have given the patient DuoNeb treatments. We will follow up in the morning to see how patient is doing. If patient is doing well, the patient can be downgraded to the floor a nd patient can be taken off BiPAP. Cardiology has been consulted every follow up with sour bleaching pleater r egarding their recommendations. 2. Acute on chronic kidney disease. Patient's baseline is around 1.2. Currently, patient's creatin ine is 1.4. However, the patient takes Lasix and due to patient's edema and also pulmonary congestio n, the patient will benefit from being on sand drier side, so patient has received Lasix IV 1 dose. We aguirre ve consulted Cardiology and will follow up with cardiology's recommendation. 3. History of atrial fibrillation. We will continue patient on her anticoagulation. 4. Dyslipidemia. Continue the patient on her home medications. 5. Severe tricuspid regurg. At this time, the patient is not having any symptoms; however, Cardiolo gy is on the case. We will follow up with Cardiology regarding their recommendation. 6. History of gout. Patient is currently stable at this time. 7. History of hypertension. We will continue patient on her home medications. 8. Deep venous thrombosis and gastrointestinal prophylaxis. We will currently do Eliquis for deep v enous thrombosis prophylaxis and for gastrointestinal prophylaxis, we will do Pepcid.
[2017-12-21] MEDS ORDERED: Famotidine 20 MG TAB PO SCH (09:00)
[2017-12-21] MEDS: Insulin NPH/Reg Insulin Hm 300 UNITS/3 ML VIAL SC SCH ×2 (10:10→21:07)
[2017-12-21] MEDS: Apixaban 2.5 MG TAB PO SCH ×2 (10:11→20:55)
[2017-12-21] MEDS: Furosemide 40 MG TAB PO SCH (10:12)
[2017-12-21] MEDS: Multivitamin W/ Minerals 1 TAB PO SCH (10:12)
[2017-12-21] MEDS: Carvedilol 6.25 MG TAB PO SCH ×2 (10:12→17:34)
[2017-12-21] MEDS: Gabapentin 400 MG CAP PO SCH ×2 (10:12→20:55)
[2017-12-21] MEDS: Aspirin 81 mg Enteric Coated Tablet PO SCH (10:13)
--- NOTE | 2017-12-21 11:23 | RAD ---
PA AND LATERAL CHEST: HISTORY: An 82-year-old female. History of follow-up cough after given Lasix. FINDINGS: Monitor leads overly the chest. Bilateral pleural effusion with bilateral vascular congestion and so me interstitial edema changes, showing some improvement from the prior one view study of 12/20/2017. There is diffuse bone demineralization. IMPRESSION: Improving interstitial edema, vascular congestion, pleural effusions, and evidence for congestive hea rt failure, when compared to the 12/20/2017 study. Continue short-term followup for clearing or stab ility. POS: [facility] [place]
--- NOTE | 2017-12-21 14:44 | PDOC.PN ---
- Subjective Encounter Start Date: 12/21/17 Encounter Start Time: 14:30 Subjective: f/u for acute hypoxic resp failure on transient BiPAP with pulm edema -: tx with Lasix. Feeling much better today. No fever or cough. Remains -: on O2 @ 2L/min NC - Objective Resuscitation Status: Resuscitation Status FULL:Full Resuscitation MAR Reviewed: Yes Vital Signs & Weight: Vital Signs (12 hours) Temp Pulse Resp BP BP Pulse Ox 12/21/17 10:45 98.1 F 97 18 137/59 L 96 12/21/17 10:12 137/59 L 12/21/17 10:11 88 137/59 L 12/21/17 08:07 96 12/21/17 07:21 98.0 F 88 20 134/64 90 L 12/21/17 04:00 97.6 F 79 18 122/52 L 98 Weight Weight 221 lb 12.8 oz I&O: 12/20/17 12/21/17 12/22/17 06:59 06:59 06:59 Output Total 680 Balance -680 Result Diagrams: 12/21/17 03:49 12/21/17 03:49 Additional Labs: Accuchecks 12/21/17 10:35 POC Glucose 178 H Microbiology 09/11/17 17:25 Urine voided Urine Culture - Final Escherichia coli 09/11/17 10:52 Venous blood - Right Hand Blood Culture - Preliminary NO GROWTH AT 48 HOURS 09/11/17 10:52 Venous blood - Left Hand Blood Culture - Preliminary NO GROWTH AT 48 HOURS Laboratory Tests 11/26/17 12/17/17 12/20/17 12:11 08:21 22:46 Creatinine Troponin I 0.086 H B-Natriuretic Peptide 99.8 682.4 H 12/20/17 12/20/17 22:46 22:46 Creatinine 1.40 H Troponin I B-Natriuretic Peptide 701.4 H Radiology Reviewed by me: Yes (PCXR - improved pulm edema) EKG Reviewed by me: Yes (Tele - A-fib in 80's) Phys Exam - Physical Examination Constitutional: NAD alert, responsive HEENT: PERRLA, sclera anicteric, oral pharynx no lesions Neck: no nodes, no JVD, supple, full ROM minimal bibasilar crackles Respiratory: clear to auscultation bilateral S1, S2 Cardiovascular: no rub, gallop, irregular Gastrointestinal: soft, non-tender, no distention, positive bowel sounds Musculoskeletal: no edema, pulses present Neurological: normal sensation, moves all 4 limbs Psychiatric: normal affect, A&O x 3 Skin: no rash, normal turgor, cap refill <2 seconds Dx/Plan (1) Acute respiratory failure with hypoxia Code(s): J96.01 - ACUTE RESPIRATORY FAILURE WITH HYPOXIA Status: Acute Comment: Improved after transient BiPAP NIMV, continue O2 @ 2L/min NC, may need home O2 (2) Acute on chronic diastolic (congestive) heart failure Code(s): I50.33 - ACUTE ON CHRONIC DIASTOLIC (CONGESTIVE) HEART FAILURE Status : Acute Comment: Improved with Lasix, continue Lasix 40mg po daily (3) Acute on chronic renal failure Code(s): N17.9 - ACUTE KIDNEY FAILURE, UNSPECIFIED; N18.9 - CHRONIC KIDNEY DISEASE, UNSPECIFIED Status: Acute Comment: Improved, monitor renal function given increased diuretic use, repeat creatinine in am (4) Afib Code(s): I48.91 - UNSPECIFIED ATRIAL FIBRILLATION Status: Chronic Qualifiers: Atrial fibrillation type: chronic Qualified Code(s): I48.2 - Chronic atrial fibrillation Comment: Rate-controlled, continue Coreg, Diltiazem and Eliquis (5) Chronic anticoagulation Code(s): Z79.01 - LONG-TERM (CURRENT) USE OF ANTICOAGULANTS Status: Chronic Comment: Continue Eliquis 2.5mg BID - Plan PT/OT, social media marketing specialist, respiratory therapy, out of bed/ambulate, DVT proph w/ SCDs Stable overall -: CM for assistance with HH options -: PT for mobilization and functional assessment -: Continue Lasix 40mg po daily -: AM lab: BMP, CBC * Likely d/c in 24h
[2017-12-21] MEDS: HumaLOG 300 UNITS/3 ML VIAL SC PRN (17:34)
[2017-12-21] MEDS: Famotidine 20 MG TAB PO SCH (20:55)
--- NOTE | 2017-12-21 23:06 | CON ---
DATE OF CONSULTATION: 12/21/2017 HISTORY OF PRESENT ILLNESS: Heike Santos is an 82-year-old female who was admitted just after [facility] with complaints of shortness of breath. I was called by the emergency physician stating that she had a history of COPD and was told that I needed to be made aware of the impending admission, althou gh I was told she was stable. When I saw her this morning, she was in absolutely no distress. She w as treated transiently with BiPAP downstairs. She was off BiPAP on a cannula. She was not tachypnei c. PAST MEDICAL HISTORY: Remarkable for, 1. Discharged from the hospital the day of readmission for congestive heart failure associated with atrial fibrillation. 2. History of coronary artery disease with no angina. 3. Diabetes. 4. Lipid disorder. 5. History of gout. 6. Hypertension. 7. Aortic stenosis. 8. History of cerebrovascular accident. PAST SURGICAL HISTORY: History of carpal tunnel surgery and an appendectomy. ALLERGIES: She reports allergies to TYLENOL, IODINE, METFORMIN, MOTRIN, NAPROSYN and PREDNISONE. FAMILY HISTORY: Negative for lung disease in early age. SOCIAL HISTORY: Nonsmoker, nondrinker. MEDICATIONS: Reviewed. REVIEW OF SYSTEMS: A 10-point review of systems is otherwise negative specifically now. Denies orth opnea, paroxysmal nocturnal dyspnea, hemoptysis or purulent sputum. PHYSICAL EXAMINATION: GENERAL: She was in no distress. When I evaluated her this morning, she was actually lying almost c ompletely flat in bed. VITAL SIGNS: She is afebrile, heart rate was in the 90s, blood pressure 137/59, respiratory rate is 18. HEENT: Pupils are equal. Sclerae are anicteric. NECK: Supple. No lymphadenopathy. LUNGS: Remarkable for fine crackles in both lung bases. She did have end expiratory wheezes. HEART: Regular rhythm. S1 and S2 are normal. ABDOMEN: Soft and nontender. EXTREMITIES: Without clubbing, cyanosis or edema. IMAGING: Chest radiograph shows pulmonary edema. LABORATORY DATA: White count 6.7, hemoglobin 8.8, platelets 291,000. Sodium 137, potassium 4.3, chl oride 101, bicarbonate 28, BUN 23, creatinine 1.25. Blood gas was told was being done last night, bu t I do not find the blood gas on record. IMPRESSION AND PLAN: Cardiac asthma with congestive heart failure associated with atrial fibrillatio n and diastolic dysfunction. She appears to be dramatically clinically improved. We will be happy t o follow with the other physicians caring for her. This is a 50-minute consult, 50% of the time was spent on the unit coordinating care.
[2017-12-22] MEDS ORDERED: traMADol HCl 50 MG TAB PO PRN (01:06)
[2017-12-22] MEDS: traMADol HCl 50 MG TAB PO PRN ×4 (01:13→23:33)
[2017-12-22 04:53] LABS: Anion Gap 12 mmol/L (10-20); BUN (Urea Nitrogen) 22 mg/dL (9.8-20.1); Calc. Creatinine Clearance 62 mL/min (70-130); Calcium 8.6 mg/dL (7.8-10.44); Carbon Dioxide 31 mmol/L (23-31); Chloride 101 mmol/L (98-107); Estimated GFR-MDRD 45; Glucose 61 mg/dL (83-110); Potassium 3.9 mmol/L (3.5-5.1); Sodium 140 mmol/L (136-145)
[2017-12-22 04:54] LABS: Band 4 % (5-11); Eosinophils 2 % (0-10); Hemoglobin 8.9 g/dL (12.0-16.0); Hypochromia SLIGHT = 6-15 cells (100X) (0-5/hpf); Lymphocytes 14 % (21-51); MDiff Complete? YES; Mean Corpuscular HGB CONC 31.9 g/dL (32.0-36.0); Mean Corpuscular Hemoglobin 27.9 pg (27.0-31.0); Mean Corpuscular Volume 87.6 fL (78.0-98.0); Mean Platelet Volume 8.3 fL (7.4-10.4); Monocytes 6 % (0-10); Neutrophil 74 % (42-75); PLT Morphology Comment Appears Adequate; Platelet Count 340 thou/uL (130-400); RBC Distribution Width 14.7 % (11.5-14.5); Red Blood Cell (RBC) Count 3.18 mill/uL (4.20-5.40); White Blood Cell (WBC) Count 7.4 thou/uL (4.8-10.8)
--- NOTE | 2017-12-22 08:02 | ADD-CON ---
ADDENDUM: DATE OF CONSULTATION: 12/21/2017 DATE OF ADMISSION: 12/20/2017 INDICATION FOR CONSULTATION: An 82-year-old female with CHF decompensation or CHF exacerbation. HISTORY OF PRESENT ILLNESS: This is actually just an addendum to the notes from previously as the patient was in the hospital yes terday was just discharged and then returned back to the emergency room apparently last night. She was just discharged yesterday after having CHF and exacerbation with atrial fibrillation with rap id ventricular response. The atrial fibrillation rate controlled. She was discharged on medications which included Lasix. Apparently at home, she became more short of breath and asked someone to call her to the emergency room and she was taken back to the hospital, 911 was called and she was taken b ack to the emergency room. At that time, O2 saturations were in the 80s apparently and then she was placed on oxygen and became in the high 80s and then she was placed on the nonrebreather, BiPAP mask and then the oxygen level increased up to 90s and 100%. She apparently just became decompensated sli ghtly. She does have history of diastolic dysfunction as well as aortic valve stenosis and hypertens ion. She has a chest x-ray did show small bilateral pleural effusions and congestion. She has been given further IV Lasix and at this time is in the telemetry area and appears to be doing better. She has no complaints at this time. She does have nasal oxygen on and apparently is relatively stable a gain. She denied any pain. She just became more short of breath. She does have a history of chroni c obstructive pulmonary disease. At this time it appears that we need to maximize her medications. As far as any other changes from her last visit from her past medical history there are no significan t changes. She did have some occasional cough at this time, which she says she has some mild product ion of sputum and may have underlying possible pneumonia, but did not see this on the chest x-ray. PHYSICAL EXAMINATION: VITAL SIGNS: Today her blood pressure 137/59, heart rates in the 90s and shows atrial fibrillation w hich is chronic. She has a respiratory rate about 18, and O2 saturations are about 96% on 2 liters. She is afebrile. HEENT: Shows head to be normocephalic and atraumatic. CHEST: Has decreased breath sounds at the bases, but did not hear rales, rhonchi or wheezing. CARDIOVASCULAR: Exam reveals an irregularly irregular rhythm. She has a systolic murmur of the aort ic area. She does have a history of aortic valve stenosis. There were no heaves or thrills. ABDOMEN: Shows obesity with positive bowel sounds. EXTREMITIES: Show no clubbing or cyanosis. She has pedal pulses are present. She does have 1+ lowe r extremity edema. NEUROLOGIC: The patient appears to be somewhat confused today. She did not even realize that she aguirre s been home. She just went to get a chest x-ray and then came back to the room, but she did not know that she was changed to a different room and she does not remember going home, but apparently, yeste rday she did realize this the emergency room. IMPRESSION: 1. Elderly female with congestive heart failure exacerbation with a history of diastolic dysfunction as well as aortic valve stenosis. We will continue her diuresis at this time. We will be more than happy to continue to follow the patient with you. We will just need to maximize her medications, bu t increase her diuretics as tolerated, being careful not to over diurese the patient or lower the blo od pressure with her diastolic dysfunction. 2. History of diabetes. This will be dealt with by the primary care service. Her blood sugar today was in the 200 range. Also history of chronic kidney disease. Her creatinine is 1.25 on admission earlier, last night was 1.4. This appears to be stable. She has a history of hypertension. This al so appears to be stable at this time. 3. Aortic valve stenosis. This is moderate in nature and she has been tolerating this well. She is not a very good candidate to undergo aortic valve replacement. Also, she has chronic atrial fibrill ation with a controlled rate at this time.
[2017-12-22] MEDS: Aspirin 81 mg Enteric Coated Tablet PO SCH (09:08)
[2017-12-22] MEDS: Gabapentin 400 MG CAP PO SCH ×2 (09:08→19:57)
[2017-12-22] MEDS: Carvedilol 6.25 MG TAB PO SCH ×2 (09:08→17:23)
[2017-12-22] MEDS: Furosemide 40 MG TAB PO SCH (09:09)
[2017-12-22] MEDS: Apixaban 2.5 MG TAB PO SCH ×2 (09:09→19:57)
[2017-12-22] MEDS: Multivitamin W/ Minerals 1 TAB PO SCH (09:09)
[2017-12-22] MEDS: Insulin NPH/Reg Insulin Hm 300 UNITS/3 ML VIAL SC SCH ×2 (09:10→19:57)
[2017-12-22] MEDS: HumaLOG 300 UNITS/3 ML VIAL SC PRN (11:43)
--- NOTE | 2017-12-22 11:50 | PDOC.CTH ---
<Megha Ward - Last Filed: 12/22/17 12:11> Cardiology Progress Note - Subjective The pt seen and examined. No overnight events. No cardiac complaints. No SOB, but with 2LNC at this moment. - Objective Vital Signs Temp Pulse Resp BP BP BP Pulse Ox 12/22/17 09:08 103 H 161/81 H 12/22/17 07:49 97 12/22/17 07:32 98.4 F 103 H 23 H 161/81 H 92 L 12/22/17 04:00 99.2 F 99 22 H 143/61 H 96 12/22/17 00:00 98.3 F 85 20 140/56 L 97 Weight 219 lb 9 oz 12/21/17 12/22/17 12/23/17 06:59 06:59 06:59 Intake Total 840 Output Total 680 750 Balance -680 90 - Physical Examination General/Neuro: alert & oriented x3 Neck: no JVD present Lungs: other: (diminished at bases) Heart: other: (irregular) Abdomen: soft Extremities: other: (1-2+ pitting BLE edema) - Telemetry Telemetry Rhythm: Afib 70-80s - Labs Result Diagrams: 12/22/17 03:27 12/22/17 03:27 Troponin/CKMB CK-MB (CK-2) 1.4 ng/mL (0-6.6) 12/20/17 22:46 Troponin I 0.086 ng/mL (< 0.028) H 12/20/17 22:46 - Assessment/Plan 1. Acute on Chronic diastolic HF - stable with BBlocker and Lasix 40mg qd; not on GALE/ARB due to hx of CKD 2. Chronic Afib with RVR - HR well controlled; cont. Coreg 6.25mg BID, Diltiazem 120mg qd, ASA 81mg qd, and Eliquis 2.5mg BID. [id number] score is 9. 3. HTN - stable; 4. KELSI on CKD - improving 5. DM type 2 - managed by PCP 6. Chronic Anemia - stable 7. - Echo in 09/2017 showed EF 60-65%, mod . Not good candidate for AV replacement. MAR reviewed * Echo in 09/2017 showed EF 60-65%, mod , mild TR. Review of Systems - Review of Systems Constitutional: reports: no symptoms reported EENTM: reports: no symptoms reported Respiratory: reports: see HPI Cardiac (ROS): reports: no symptoms reported ABD/GI: reports: no symptoms reported : reports: no symptoms reported <Vanessa Suarez - Last Filed: 12/22/17 16:35> Cardiology Progress Note - Objective Vital Signs Temp Pulse Pulse Resp BP BP BP 12/22/17 15:59 98.7 F 92 18 158/60 H 12/22/17 11:53 99.2 F 100 18 158/60 H 12/22/17 10:00 105 H 189/79 H 12/22/17 09:08 103 H 161/81 H 12/22/17 07:49 12/22/17 07:32 98.4 F 103 H 23 H BP Pulse Ox Pulse Ox 12/22/17 15:59 96 12/22/17 11:53 94 L 12/22/17 10:00 92 L 12/22/17 09:08 12/22/17 07:49 97 12/22/17 07:32 161/81 H 92 L Weight 219 lb 9 oz 12/21/17 12/22/17 12/23/17 06:59 06:59 06:59 Intake Total 840 Output Total 680 750 Balance -680 90 - Labs Result Diagrams: 12/22/17 03:27 12/22/17 03:27 Troponin/CKMB CK-MB (CK-2) 1.4 ng/mL (0-6.6) 12/20/17 22:46 Troponin I 0.086 ng/mL (< 0.028) H 12/20/17 22:46 - Assessment/Plan Pt. seen and eval. by me. She is feeling better this afternoon. Good urine output today. Chest : few basilar rales.Irreg/irreg. No edema.
--- NOTE | 2017-12-22 13:50 | PDOC.PN ---
- Subjective Encounter Start Date: 12/22/17 Encounter Start Time: 13:40 Subjective: f/u for dyspnea and diast CHF exacerbation. Remains on O2 @ 2L/min NC -: and still with c/o SOB. - Objective Resuscitation Status: Resuscitation Status FULL:Full Resuscitation MAR Reviewed: Yes Vital Signs & Weight: Vital Signs (12 hours) Temp Pulse Pulse Resp BP BP BP 12/22/17 11:53 99.2 F 100 18 158/60 H 12/22/17 10:00 105 H 189/79 H 12/22/17 09:08 103 H 161/81 H 12/22/17 07:49 12/22/17 07:32 98.4 F 103 H 23 H 12/22/17 04:00 99.2 F 99 22 H 143/61 H BP Pulse Ox Pulse Ox 12/22/17 11:53 94 L 12/22/17 10:00 92 L 12/22/17 09:08 12/22/17 07:49 97 12/22/17 07:32 161/81 H 92 L 12/22/17 04:00 96 Weight Weight 219 lb 9 oz I&O: 12/21/17 12/22/17 12/23/17 06:59 06:59 06:59 Intake Total 840 Output Total 680 750 Balance -680 90 Result Diagrams: 12/22/17 03:27 12/22/17 03:27 Additional Labs: Accuchecks 12/22/17 12/22/17 12/21/17 10:32 06:01 20:20 POC Glucose 250 H 88 187 H 12/21/17 16:51 POC Glucose 227 H Microbiology 09/11/17 17:25 Urine voided Urine Culture - Final Escherichia coli 09/11/17 10:52 Venous blood - Right Hand Blood Culture - Preliminary NO GROWTH AT 48 HOURS 09/11/17 10:52 Venous blood - Left Hand Blood Culture - Preliminary NO GROWTH AT 48 HOURS Laboratory Tests 11/26/17 12/17/17 12/20/17 12:11 08:21 22:46 Hgb Creatinine Troponin I 0.086 H B-Natriuretic Peptide 99.8 682.4 H 12/20/17 12/20/17 12/20/17 22:46 22:46 22:46 Hgb 9.7 L Creatinine 1.40 H Troponin I B-Natriuretic Peptide 701.4 H 12/21/17 12/21/17 03:49 03:49 Hgb 8.8 L Creatinine 1.25 H Troponin I B-Natriuretic Peptide EKG Reviewed by me: Yes (Tele - A-fib in 70's) Phys Exam - Physical Examination Constitutional: NAD HEENT: PERRLA, sclera anicteric, oral pharynx no lesions Neck: no nodes, no JVD, supple, full ROM minimal basilar crackles, o/w clear S1, S2 Cardiovascular: no rub, gallop, irregular Gastrointestinal: soft, non-tender, no distention, positive bowel sounds Musculoskeletal: no edema, pulses present Neurological: normal sensation, moves all 4 limbs Psychiatric: normal affect, A&O x 3 Skin: no rash, normal turgor, cap refill <2 seconds Dx/Plan (1) Acute respiratory failure with hypoxia Code(s): J96.01 - ACUTE RESPIRATORY FAILURE WITH HYPOXIA Status: Acute Comment: Improved after transient BiPAP NIMV, continue O2 @ 2L/min NC, may need home O2 (2) Acute on chronic diastolic (congestive) heart failure Code(s): I50.33 - ACUTE ON CHRONIC DIASTOLIC (CONGESTIVE) HEART FAILURE Status : Acute Comment: Improved with Lasix, continue Lasix 40mg po daily (3) Acute on chronic renal failure Code(s): N17.9 - ACUTE KIDNEY FAILURE, UNSPECIFIED; N18.9 - CHRONIC KIDNEY DISEASE, UNSPECIFIED Status: Acute Comment: Improved, monitor renal function given increased diuretic use, repeat creatinine in am (4) Afib Code(s): I48.91 - UNSPECIFIED ATRIAL FIBRILLATION Status: Chronic Qualifiers: Atrial fibrillation type: chronic Qualified Code(s): I48.2 - Chronic atrial fibrillation Comment: Rate-controlled, continue Coreg, Diltiazem and Eliquis (5) Chronic anticoagulation Code(s): Z79.01 - 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
--- NOTE | 2017-12-22 18:36 | PRG ---
DATE OF SERVICE: 12/22/2017 SUBJECTIVE: Ms. Santos said she was having a bad morning with shortness of breath, but she is in abso lutely no distress with a respiratory rate that was 12-15. OBJECTIVE: VITAL SIGNS: Her blood pressure has been stable. This morning, she was 136/41, heart rate was 103, oximetry is 97 on 2 liters. She has been a little bit hypertensive this afternoon at 189/79. Intake and output is positive 90 mL. LUNGS: Remarkable for improved crackles compared to yesterday at both lung bases. HEART: Regular rhythm. ABDOMEN: Soft. LABORATORY DATA: White count 7.4, hemoglobin 8.9, platelets 240,000. Sodium 140, potassium 3.9, chl oride 101, bicarbonate 31, BUN 22, creatinine 1.15. IMPRESSION: Cardiogenic pulmonary edema, could be secondary to rhythm disturbance or hypertension, s lowly improving. Her complaints were way out of proportion to her exam findings and her clinical appearance. I do thi nk it is appropriate for her to move to the telemetry unit at this point for continued observation. We will sign off.
[2017-12-22] MEDS: Famotidine 20 MG TAB PO SCH (19:57)
[2017-12-23] MEDS: traMADol HCl 50 MG TAB PO PRN (03:46)
[2017-12-23] MEDS ORDERED: traMADol HCl 50 MG TAB PO PRN (04:00)
[2017-12-23] MEDS: Gabapentin 400 MG CAP PO SCH ×2 (08:49→21:39)
[2017-12-23] MEDS: Aspirin 81 mg Enteric Coated Tablet PO SCH (08:49)
[2017-12-23] MEDS: Apixaban 2.5 MG TAB PO SCH ×2 (08:50→21:39)
[2017-12-23] MEDS: Furosemide 40 MG TAB PO SCH (08:50)
[2017-12-23] MEDS: Multivitamin W/ Minerals 1 TAB PO SCH (08:50)
[2017-12-23] MEDS: Carvedilol 6.25 MG TAB PO SCH ×2 (08:50→18:48)
[2017-12-23] MEDS: Insulin NPH/Reg Insulin Hm 300 UNITS/3 ML VIAL SC SCH ×2 (08:59→21:40)
--- NOTE | 2017-12-23 10:50 | PRG ---
DATE OF SERVICE: 12/23/2017 Ms. Santos did well overnight. She has no complaints. She said she slept well. Intake and output is negative 1789. PHYSICAL EXAMINATION: LUNGS: Lungs are clear. HEART: Regular rhythm. ABDOMEN: Soft. LABORATORY DATA: White count 7.4, hemoglobin 8.9, platelets 340, that was yesterday. There is no la b today. IMPRESSION: 1. Cardiogenic pulmonary edema. 2. Atrial fibrillation. She appears to be medically stable. Please call if she deteriorates.
[2017-12-23] MEDS: HumaLOG 300 UNITS/3 ML VIAL SC PRN (11:13)
--- NOTE | 2017-12-23 15:18 | PDOC.CTH ---
<Megha Ward - Last Filed: 12/23/17 15:17> Cardiology Progress Note - Subjective The pt seen and examined. No overnight events. She is very confused today. - Objective Vital Signs Temp Pulse Resp BP BP Pulse Ox 12/23/17 10:49 98.6 F 103 H 18 187/83 H 92 L 12/23/17 08:50 161/81 H 12/23/17 08:49 127 H 12/23/17 08:00 92 L 12/23/17 07:28 98.3 F 102 H 16 168/76 H 92 L 12/23/17 03:49 98.8 F 91 20 177/87 H 96 Weight 219 lb 9 oz 12/22/17 12/23/17 12/24/17 06:59 06:59 06:59 Intake Total 840 1560 Output Total 750 3350 Balance 90 -1790 - Physical Examination General/Neuro: other: (confused) Lungs: CTA (diminished at bases) Heart: other: (irregular) Abdomen: soft Extremities: other: (1-2+ pitting BLE edema) - Telemetry Telemetry Rhythm: Afib 90-100s - Labs Result Diagrams: 12/22/17 03:27 12/22/17 03:27 Troponin/CKMB CK-MB (CK-2) 1.4 ng/mL (0-6.6) 12/20/17 22:46 Troponin I 0.086 ng/mL (< 0.028) H 12/20/17 22:46 - Assessment/Plan 1. Acute on Chronic diastolic HF - stable with BBlocker and Lasix 40mg qd; not on GALE/ARB due to hx of CKD 2. Chronic Afib with RVR - HR well controlled; cont. Coreg 6.25mg BID, Diltiazem 120mg qd, ASA 81mg qd, and Eliquis 2.5mg BID. [id number] score is 9. 3. HTN - increase Coreg from 6.25mg to 12.5mg BID. Cont. to monitor 4. KELSI on CKD - improving 5. DM type 2 - managed by PCP 6. Chronic Anemia - stable 7. - Echo in 09/2017 showed EF 60-65%, mod . Not good candidate for AV replacement. MAR reviewed * Echo in 09/2017 showed EF 60-65%, mod , mild TR. Review of Systems - Review of Systems Constitutional: reports: no symptoms reported EENTM: reports: no symptoms reported Respiratory: reports: no symptoms reported Cardiac (ROS): reports: no symptoms reported ABD/GI: reports: no symptoms reported : reports: no symptoms reported Musculoskeletal: reports: no symptoms reported Skin: reports: no symptoms reported <Vanessa Suarez - Last Filed: 12/23/17 19:42> Cardiology Progress Note - Objective Vital Signs Temp Pulse Resp BP BP Pulse Ox 12/23/17 18:48 161/81 H 12/23/17 15:21 98.4 F 93 17 167/62 H 92 L 12/23/17 10:49 98.6 F 103 H 18 187/83 H 92 L 12/23/17 08:50 161/81 H 12/23/17 08:49 127 H 12/23/17 08:00 92 L Weight 219 lb 9 oz 12/22/17 12/23/17 12/24/17 06:59 06:59 06:59 Intake Total 840 1560 1280 Output Total 750 3350 1700 Balance 90 -1790 -420 - Labs Result Diagrams: 12/22/17 03:27 12/22/17 03:27 Troponin/CKMB CK-MB (CK-2) 1.4 ng/mL (0-6.6) 12/20/17 22:46 Troponin I 0.086 ng/mL (< 0.028) H 12/20/17 22:46 - Assessment/Plan Pt. seen and eval. by me. I agree with the A/P by the SECURITY INTELLIGENCE ANALYST. She is still vol.overloaded. I will try a dose of xaroxolyn in AM.
--- NOTE | 2017-12-23 16:17 | PDOC.PN ---
- Subjective Encounter Start Date: 12/23/17 Encounter Start Time: 16:15 Subjective: f/u for dyspnea and hypoxic resp failure with diast dysfunction -: Remains on O2 @ 2L/min NC. Nsg reports pt more confused and -: agitated today. - Objective Resuscitation Status: Resuscitation Status FULL:Full Resuscitation MAR Reviewed: Yes Vital Signs & Weight: Vital Signs (12 hours) Temp Pulse Resp BP BP Pulse Ox 12/23/17 15:21 98.4 F 93 17 167/62 H 92 L 12/23/17 10:49 98.6 F 103 H 18 187/83 H 92 L 12/23/17 08:50 161/81 H 12/23/17 08:49 127 H 12/23/17 08:00 92 L 12/23/17 07:28 98.3 F 102 H 16 168/76 H 92 L Weight Weight 219 lb 9 oz I&O: 12/22/17 12/23/17 12/24/17 06:59 06:59 06:59 Intake Total 840 1560 Output Total 750 3350 Balance 90 -1790 Result Diagrams: 12/22/17 03:27 12/22/17 03:27 Additional Labs: Accuchecks 12/23/17 12/23/17 12/22/17 10:37 05:40 23:30 POC Glucose 170 H 132 H 119 H 12/22/17 12/22/17 20:07 16:44 POC Glucose 149 H 93 Microbiology 09/11/17 17:25 Urine voided Urine Culture - Final Escherichia coli 09/11/17 10:52 Venous blood - Right Hand Blood Culture - Preliminary NO GROWTH AT 48 HOURS 09/11/17 10:52 Venous blood - Left Hand Blood Culture - Preliminary NO GROWTH AT 48 HOURS Laboratory Tests 11/26/17 12/17/17 12/20/17 12:11 08:21 22:46 Hgb Creatinine Troponin I 0.086 H B-Natriuretic Peptide 99.8 682.4 H 12/20/17 12/20/17 12/20/17 22:46 22:46 22:46 Hgb 9.7 L Creatinine 1.40 H Troponin I B-Natriuretic Peptide 701.4 H 12/21/17 12/21/17 03:49 03:49 Hgb 8.8 L Creatinine 1.25 H Troponin I B-Natriuretic Peptide EKG Reviewed by me: Yes (Tele - A-fib) Phys Exam - Physical Examination Constitutional: NAD lethargic, responds to questions HEENT: PERRLA, sclera anicteric, oral pharynx no lesions Neck: no nodes, no JVD, supple, full ROM few rhonchi Respiratory: no wheezing S1, S2 Cardiovascular: no significant murmur, no rub, gallop, irregular Gastrointestinal: soft, non-tender, no distention, positive bowel sounds Musculoskeletal: no edema, pulses present Neurological: normal sensation, moves all 4 limbs A x O x 2 Skin: no rash, normal turgor, cap refill <2 seconds Deviation from normal: Liao with clear, fabiano urine Dx/Plan (1) Acute respiratory failure with hypoxia Code(s): J96.01 - ACUTE RESPIRATORY FAILURE WITH HYPOXIA Status: Acute Comment: Improved after transient BiPAP NIMV, continue O2 @ 2L/min NC, likely will need home O2 (2) Acute on chronic diastolic (congestive) heart failure Code(s): I50.33 - ACUTE ON CHRONIC DIASTOLIC (CONGESTIVE) HEART FAILURE Status : Acute Comment: Improved with Lasix, continue Lasix 40mg po daily (3) Acute on chronic renal failure Code(s): N17.9 - ACUTE KIDNEY FAILURE, UNSPECIFIED; N18.9 - CHRONIC KIDNEY DISEASE, UNSPECIFIED Status: Acute Comment: Improved, monitor renal function given increased diuretic use, repeat creatinine in am (4) Afib Code(s): I48.91 - UNSPECIFIED ATRIAL FIBRILLATION Status: Chronic Qualifiers: Atrial fibrillation type: chronic Qualified Code(s): I48.2 - Chronic atrial fibrillation Comment: Rate-controlled, continue Coreg, Diltiazem and Eliquis (5) Chronic anticoagulation Code(s): Z79.01 - 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 SNF
[2017-12-23] MEDS: Famotidine 20 MG TAB PO SCH (21:39)
[2017-12-24 05:59] LABS: Hemoglobin 8.4 g/dL (12.0-16.0); Platelet Count 381 thou/uL (130-400)
[2017-12-24] MEDS ORDERED: Metolazone 5 MG TAB PO SCH (07:00)
[2017-12-24] MEDS: Aspirin 81 mg Enteric Coated Tablet PO SCH (08:30)
[2017-12-24] MEDS: Furosemide 40 MG TAB PO SCH (08:30)
[2017-12-24] MEDS: Carvedilol 6.25 MG TAB PO SCH ×2 (08:30→18:06)
[2017-12-24] MEDS: Gabapentin 400 MG CAP PO SCH ×2 (08:30→21:35)
[2017-12-24] MEDS: Multivitamin W/ Minerals 1 TAB PO SCH ×2 (08:30→08:31)
[2017-12-24] MEDS: Apixaban 2.5 MG TAB PO SCH ×2 (08:31→21:35)
[2017-12-24] MEDS: Insulin NPH/Reg Insulin Hm 300 UNITS/3 ML VIAL SC SCH ×2 (08:32→21:35)
--- NOTE | 2017-12-24 11:06 | PDOC.CTH ---
Cardiology Progress Note - Subjective Patient with c/o feeling palpitations overnight. No CP. SOB stable. - Objective Vital Signs Temp Pulse Resp BP BP Pulse Ox 12/24/17 08:31 80 146/55 H 12/24/17 08:30 146/55 H 12/24/17 07:40 100 12/24/17 07:30 97.9 F 80 20 146/55 H 100 12/24/17 05:48 97 20 121/55 L 12/24/17 03:45 96 F L 84 20 116/65 95 12/24/17 02:00 95 12/24/17 00:01 97 12/23/17 23:32 98.2 F 90 20 100/52 L 97 Weight 201 lb 1.6 oz 12/23/17 12/24/17 12/25/17 06:59 06:59 06:59 Intake Total 1560 1676 Output Total 3350 2275 Balance -1790 -599 - Physical Examination General/Neuro: alert & oriented x3 Lungs: CTA Heart: other: (IRR) Abdomen: NT/ND Extremities: other: (Trace edema) - Telemetry Telemetry Rhythm: AFib rate 90-120s - Labs Result Diagrams: 12/24/17 05:36 12/24/17 05:36 Troponin/CKMB CK-MB (CK-2) 1.4 ng/mL (0-6.6) 12/20/17 22:46 Troponin I 0.086 ng/mL (< 0.028) H 12/20/17 22:46 - Assessment/Plan 1. Acute on Chronic diastolic CHF 2. Chronic Afib - Some RVR. Will try to increase diltiazem if BP will tolerate. If not could use low dose Digoxin. 3. HTN 4. SCOTT/CKD 5. DM type 2 6. Chronic Anemia - stable 7. Moderate with preserved EF
--- NOTE | 2017-12-24 12:19 | PRG ---
DATE OF SERVICE: 12/24/2017 SUBJECTIVE: This morning, she is sitting in the side of the bed. OBJECTIVE: VITAL SIGNS: Blood pressure 146/55, pulse is 80, temperature 97, oxygen saturation 100% on 3 liters. GENERAL: She denies any pain or difficulty breathing. CHEST: Chest reveals decreased breath sounds without any wheezing. CARDIAC: Normal S1 and S2. No gallops. ABDOMEN: Soft. IMPRESSION: 1. Morbid obesity. 2. Respiratory failure. 3. Congestive heart failure. 4. Severe deconditioning. PLAN: Continue aggressive cardiac care. PT and supportive care.
--- NOTE | 2017-12-24 16:51 | PDOC.PN ---
- Subjective Encounter Start Date: 12/24/17 Encounter Start Time: 16:40 Subjective: f/u for diast dysfunction and dyspnea. Overall no acute events in last -: 24h. No new complaints. Remains with intermittent confusion. - Objective Resuscitation Status: Resuscitation Status FULL:Full Resuscitation MAR Reviewed: Yes Vital Signs & Weight: Vital Signs (12 hours) Temp Pulse Resp BP BP BP Pulse Ox 12/24/17 11:40 97.7 F 75 20 100/54 L 94 L 12/24/17 08:31 80 146/55 H 12/24/17 08:30 146/55 H 12/24/17 07:40 100 12/24/17 07:30 97.9 F 80 20 146/55 H 100 12/24/17 05:48 97 20 121/55 L Weight Weight 201 lb 1.6 oz I&O: 12/23/17 12/24/17 12/25/17 06:59 06:59 06:59 Intake Total 1560 1676 240 Output Total 3350 2275 Balance -1790 -599 240 Result Diagrams: 12/24/17 05:36 12/24/17 05:36 Additional Labs: Accuchecks 12/24/17 12/24/17 12/24/17 11:36 06:12 05:20 POC Glucose 199 H 105 63 L 12/23/17 19:57 POC Glucose 146 H Microbiology 09/11/17 17:25 Urine voided Urine Culture - Final Escherichia coli 09/11/17 10:52 Venous blood - Right Hand Blood Culture - Preliminary NO GROWTH AT 48 HOURS 09/11/17 10:52 Venous blood - Left Hand Blood Culture - Preliminary NO GROWTH AT 48 HOURS Laboratory Tests 11/26/17 12/17/17 12/20/17 12:11 08:21 22:46 Hgb Creatinine Troponin I 0.086 H B-Natriuretic Peptide 99.8 682.4 H 12/20/17 12/20/17 12/20/17 22:46 22:46 22:46 Hgb 9.7 L Creatinine 1.40 H Troponin I B-Natriuretic Peptide 701.4 H 12/21/17 12/21/17 03:49 03:49 Hgb 8.8 L Creatinine 1.25 H Troponin I B-Natriuretic Peptide EKG Reviewed by me: Yes (Tele - A-fib) Phys Exam - Physical Examination Constitutional: NAD alert, responds to questions HEENT: PERRLA, sclera anicteric, oral pharynx no lesions Neck: no nodes, no JVD, supple, full ROM diminished in bases Respiratory: no wheezing, no rhonchi S1, S2 Cardiovascular: no significant murmur, no rub, gallop, irregular Gastrointestinal: soft, non-tender, no distention, positive bowel sounds Musculoskeletal: no edema, pulses present Neurological: normal sensation, moves all 4 limbs A x O x 2 Skin: normal turgor, cap refill <2 seconds Dx/Plan (1) Acute respiratory failure with hypoxia Code(s): J96.01 - ACUTE RESPIRATORY FAILURE WITH HYPOXIA Status: Acute Comment: Improved after transient BiPAP NIMV, continue O2 @ 2L/min NC, likely will need home O2 (2) Acute on chronic diastolic (congestive) heart failure Code(s): I50.33 - ACUTE ON CHRONIC DIASTOLIC (CONGESTIVE) HEART FAILURE Status : Acute Comment: Improved with Lasix, continue Lasix 40mg po daily (3) Acute on chronic renal failure Code(s): N17.9 - ACUTE KIDNEY FAILURE, UNSPECIFIED; N18.9 - CHRONIC KIDNEY DISEASE, UNSPECIFIED Status: Acute Comment: Improved, monitor renal function given increased diuretic use, repeat creatinine in am (4) Afib Code(s): I48.91 - UNSPECIFIED ATRIAL FIBRILLATION Status: Chronic Qualifiers: Atrial fibrillation type: chronic Qualified Code(s): I48.2 - Chronic atrial fibrillation Comment: Rate-controlled, continue Coreg, Diltiazem and Eliquis (5) Chronic anticoagulation Code(s): Z79.01 - CONSTRUCTION REPRESENTATIVE (CURRENT) USE OF ANTICOAGULANTS Status: Chronic Comment: Continue Eliquis 2.5mg BID (6) Physical deconditioning Code(s): R53.81 - OTHER MALAISE Status: Chronic Comment: PT for mobilization and ambulation, SNF after d/c - Plan PT/OT, case management social worker, respiratory therapy, DVT proph w/SCDs Stable overall -: Continue Lasix daily -: Palliative care, consideration for hospice -: Contiue O2 support, Duonebs -: PT for mobilization * CM for SNF options, fpc likely
[2017-12-24] MEDS: Famotidine 20 MG TAB PO SCH (21:35)
[2017-12-25] MEDS: Carvedilol 6.25 MG TAB PO SCH ×2 (09:32→17:15)
[2017-12-25] MEDS: Furosemide 40 MG TAB PO SCH (09:33)
[2017-12-25] MEDS: Gabapentin 400 MG CAP PO SCH ×2 (09:33→20:44)
[2017-12-25] MEDS: Aspirin 81 mg Enteric Coated Tablet PO SCH (09:33)
[2017-12-25] MEDS: Apixaban 2.5 MG TAB PO SCH ×2 (09:33→20:44)
[2017-12-25] MEDS: Insulin NPH/Reg Insulin Hm 300 UNITS/3 ML VIAL SC SCH ×2 (09:34→20:45)
--- NOTE | 2017-12-25 09:36 | PDOC.CTH ---
Cardiology Progress Note - Subjective Overall feels much better today. Converted back to NSR. - Objective Vital Signs Temp Pulse Resp BP Pulse Ox 12/25/17 07:30 98 F 75 16 130/55 L 94 L 12/25/17 05:28 95 12/25/17 04:00 95 12/25/17 03:11 97.9 F 71 18 146/53 H 95 12/25/17 00:00 97.8 F 67 20 102/45 L 97 Weight 203 lb 14.4 oz 12/24/17 12/25/17 12/26/17 06:59 06:59 06:59 Intake Total 1676 1204 Output Total 2275 1050 Balance -599 154 - Physical Examination General/Neuro: alert & oriented x3 Neck: no JVD present Lungs: CTA Heart: RRR Extremities: other: (+1 bilateral CANDACE) - Telemetry Telemetry Rhythm: SR; 1st degree AVB - Labs Result Diagrams: 12/24/17 05:36 12/24/17 05:36 Troponin/CKMB CK-MB (CK-2) 1.4 ng/mL (0-6.6) 12/20/17 22:46 Troponin I 0.086 ng/mL (< 0.028) H 12/20/17 22:46 - Assessment/Plan 1. Acute on Chronic diastolic CHF - improved symptomatically. 2. Paroxysmal Afib - Feels much better back in NSR. Could consider adding something like Multaq, but unsure if patient could afford. 3. HTN 4. SCOTT/CKD 5. DM type 2 6. Chronic Anemia - stable 7. Moderate with preserved EF
[2017-12-25] MEDS: Multivitamin W/ Minerals 1 TAB PO SCH (09:39)
--- NOTE | 2017-12-25 11:35 | PDOC.PN ---
- Subjective Encounter Start Date: 12/25/17 Encounter Start Time: 11:15 Subjective: f/u for diast CHF, A-fib and deconditioning. Overall feeling better and -: tele showing conversion to SR. Less confused today. - Objective Resuscitation Status: Resuscitation Status FULL:Full Resuscitation MAR Reviewed: Yes Vital Signs & Weight: Vital Signs (12 hours) Temp Pulse Resp BP BP Pulse Ox 12/25/17 09:32 130/55 L 12/25/17 07:30 98 F 75 16 130/55 L 94 L 12/25/17 05:28 95 12/25/17 04:00 95 12/25/17 03:11 97.9 F 71 18 146/53 H 95 12/25/17 00:00 97.8 F 67 20 102/45 L 97 Weight Weight 203 lb 14.4 oz I&O: 12/24/17 12/25/17 12/26/17 06:59 06:59 06:59 Intake Total 1676 1204 Output Total 2275 1050 Balance -599 154 Result Diagrams: 12/24/17 05:36 12/24/17 05:36 Additional Labs: Accuchecks 12/25/17 12/24/17 12/24/17 05:31 20:34 16:51 POC Glucose 73 240 H 114 H 12/24/17 11:36 POC Glucose 199 H Microbiology 09/11/17 17:25 Urine voided Urine Culture - Final Escherichia coli 09/11/17 10:52 Venous blood - Right Hand Blood Culture - Preliminary NO GROWTH AT 48 HOURS 09/11/17 10:52 Venous blood - Left Hand Blood Culture - Preliminary NO GROWTH AT 48 HOURS Laboratory Tests 11/26/17 12/17/17 12/20/17 12:11 08:21 22:46 Hgb Creatinine Troponin I 0.086 H B-Natriuretic Peptide 99.8 682.4 H 12/20/17 12/20/17 12/20/17 22:46 22:46 22:46 Hgb 9.7 L Creatinine 1.40 H Troponin I B-Natriuretic Peptide 701.4 H 12/21/17 12/21/17 03:49 03:49 Hgb 8.8 L Creatinine 1.25 H Troponin I B-Natriuretic Peptide EKG Reviewed by me: Yes (Tele - SR) Phys Exam - Physical Examination Constitutional: NAD HEENT: PERRLA, sclera anicteric, oral pharynx no lesions Neck: no nodes, no JVD, supple, full ROM diminished in bases Respiratory: no wheezing, no rhonchi, clear to auscultation bilateral S1, S2 Cardiovascular: RRR, no significant murmur, no rub, gallop obese Gastrointestinal: soft, non-tender, no distention, positive bowel sounds Musculoskeletal: no edema, pulses present Neurological: normal sensation, moves all 4 limbs A x O x 3 Psychiatric: A&O x 3 Skin: normal turgor, cap refill <2 seconds Dx/Plan (1) Acute respiratory failure with hypoxia Code(s): J96.01 - ACUTE RESPIRATORY FAILURE WITH HYPOXIA Status: Acute Comment: Improved after transient BiPAP NIMV, continue O2 @ 2L/min NC, likely will need home O2 indefinitely (2) Acute on chronic diastolic (congestive) heart failure Code(s): I50.33 - ACUTE ON CHRONIC DIASTOLIC (CONGESTIVE) HEART FAILURE Status : Acute Comment: Improved with Lasix, continue Lasix 40mg po daily, stable (3) Acute on chronic renal failure Code(s): N17.9 - ACUTE KIDNEY FAILURE, UNSPECIFIED; N18.9 - CHRONIC KIDNEY DISEASE, UNSPECIFIED Status: Acute Comment: Improved, monitor renal function given increased diuretic use, repeat creatinine in am (4) Afib Code(s): I48.91 - UNSPECIFIED ATRIAL FIBRILLATION Status: Chronic Qualifiers: Atrial fibrillation type: chronic Qualified Code(s): I48.2 - Chronic atrial fibrillation Comment: Converted to SR, continue Diltiazem, Eliquis and Coreg (5) Chronic anticoagulation Code(s): Z79.01 - GROUP HOME (CURRENT) USE OF ANTICOAGULANTS Status: Chronic Comment: Continue Eliquis 2.5mg BID (6) Physical deconditioning Code(s): R53.81 - OTHER MALAISE Status: Chronic Comment: PT for mobilization and ambulation, anticipate return to SNF in 24h - Plan PT/OT, social media manager, respiratory therapy, out of bed/ambulate, DVT proph w/ SCDs Stable overall -: OOB/ambulate with PT -: Continue Coreg and Diltiazem -: Continue Lasix 40mg daily -: Likely d/c to [facility] in am 12/26/17 * .
[2017-12-25] MEDS: HumaLOG 300 UNITS/3 ML VIAL SC PRN (11:57)
--- NOTE | 2017-12-25 12:45 | PRG ---
DATE OF SERVICE: 12/25/2017 SUBJECTIVE: This morning, she is better. She is less short of breath. OBJECTIVE: VITAL SIGNS: Sats are 94 on 3, blood pressure , temperature 98, pulse 75. CHEST: Minimal crackles, no wheezing. CARDIAC: Normal S1-S2. No gallops. ABDOMEN: No masses. IMPRESSION: Respiratory failure and congestive heart failure, improved. PLAN: Disposition as per Cardiology.
[2017-12-25] MEDS: Famotidine 20 MG TAB PO SCH (20:44)
[2017-12-26 05:28] LABS: Hemoglobin 9.4 g/dL (12.0-16.0); Platelet Count 445 thou/uL (130-400)
[2017-12-26] MEDS: Furosemide 40 MG TAB PO SCH (08:55)
[2017-12-26] MEDS: Apixaban 2.5 MG TAB PO SCH (08:55)
[2017-12-26] MEDS: Carvedilol 6.25 MG TAB PO SCH ×2 (08:55→16:06)
[2017-12-26] MEDS: Aspirin 81 mg Enteric Coated Tablet PO SCH (08:55)
[2017-12-26] MEDS: Multivitamin W/ Minerals 1 TAB PO SCH (08:56)
[2017-12-26] MEDS: Insulin NPH/Reg Insulin Hm 300 UNITS/3 ML VIAL SC SCH (08:56)
[2017-12-26] MEDS: Gabapentin 400 MG CAP PO SCH (08:56)
[2017-12-26] MEDS: HumaLOG 300 UNITS/3 ML VIAL SC PRN (12:04)
--- NOTE | 2017-12-26 13:17 | DIS ---
DATE OF ADMISSION: 12/20/2017 DATE OF DISCHARGE: 12/26/2017 DISCHARGE DIAGNOSES: 1. Acute hypoxic respiratory failure, multifactorial with chronic oxygen supplementation at 2-3 lite rs per minute via nasal cannula. 2. Acute on chronic diastolic congestive heart failure. 3. Acute on chronic renal failure. 4. Chronic atrial fibrillation with conversion to sinus mechanism. 5. Chronic anticoagulation with Eliquis. 6. Physical deconditioning. CONSULTATIONS: Dr. Stock and Dr. Haney with Pulmonology Service. Dr. Suarez and Jeffry with Cardiol ogy Service. PERTINENT LABORATORY AND X-RAY FINDINGS: Creatinine ranged between 1.15 and 1.76, estimated GFR rang ing between 28 and 45. BNP 701, previously noted 682 on 12/17/2017. CBC showed a hemoglobin ranging between 8.4 and 9.7. Portable chest x-ray dated 12/20/2017 showed increased pulmonary vascular prom inence. Portable chest x-ray dated 12/21/2017 showed improving interstitial edema and vascular conge stion. HOSPITAL COURSE: The patient was readmitted after recent admission from 12/17/2017 through 8 for chronic diastolic congestive heart failure with acute exacerbation. The patient was readmitted with increased shortness of breath and mild hypoxemia requiring transient BiPAP noninvasive fire control mechanic al ventilation. The patient continued to require oxygen supplementation at 2-3 liters per minute via nasal cannula and received IV Lasix therapy for diuresis. The patient rapidly clinically improved w ith diuretic therapy and was at baseline functional status. The patient was noted with severe decond itioning and ambulated short distances with physical therapy. The patient was deemed an appropriate candidate for ongoing intermediate care with plans to return to [facility] after discharge. The patient received general pulmonary supportive measures including oxygen supplem entation as well as bronchodilator therapy with DuoNeb. The patient was noted on telemetry monitorin g to convert to sinus mechanism in the context of known chronic atrial fibrillation with chronic anti coagulation with Eliquis. Overall, the patient functioning at baseline levels, tolerating regular or al intake, voiding appropriately, and maintaining O2 saturations in the mid 90% range on 2-3 liters p er minute via nasal cannula. I have examined the patient at the time of discharge and discussed foll owup instructions. The patient overall clinically stable and ready for discharge on 12/26/2017. DISCHARGE MEDICATIONS: 1. Gabapentin 1200 mg p.o. b.i.d. 2. NPH insulin 15 units subcutaneously b.i.d. 3. Multivitamin 1 tab p.o. daily. 4. Eliquis 2.5 mg p.o. b.i.d. 5. Enteric-coated aspirin 81 mg p.o. daily. 6. Coreg 6.25 mg p.o. b.i.d. 7. Diltiazem CD 180 mg p.o. daily. 8. Lasix 40 mg p.o. daily. 9. Xopenex 0.63 mg nebulized t.i.d. p.r.n. 10. Protonix 40 mg p.o. daily. FOLLOWUP: Patient to follow up with Dr. Brian Mac at [facility]. CONDITION ON DISCHARGE: Fair. ACTIVITY: Ad jose. Rolling walker with standby/contact guard assistance with fall risk precautions. DIET: Heart healthy. CODE STATUS: FULL. DISPOSITION: Discharged to [facility] on 12/26/2017. Total time preparing and coordinating discharge was 35 minutes.
[2017-12-26 14:44] VITALS: BMI 33.3
--- NOTE | 2017-12-26 15:16 | PDOC.CTH ---
<Megha Ward - Last Filed: 12/26/17 15:16> Cardiology Progress Note - Subjective The pt seen and examined. No overnight events. No cardiac complaints. She felt better. - Objective Vital Signs Temp Pulse Resp BP BP Pulse Ox 12/26/17 11:33 97.8 F 79 17 149/65 H 92 L 12/26/17 08:55 152/67 H 12/26/17 08:41 98.2 F 77 16 152/67 H 95 12/26/17 08:40 95 12/26/17 04:00 98.4 F 80 20 135/63 98 Admit Weight 221 lb 12.8 oz Weight 212 lb 14.4 oz 12/25/17 12/26/17 12/27/17 06:59 06:59 06:59 Intake Total 1204 1398 Output Total 1050 1450 Balance 154 -52 - Physical Examination General/Neuro: alert & oriented x3 Neck: no JVD present Lungs: CTA (diminished at bases) Heart: RRR Abdomen: soft Extremities: other: (No edema) - Telemetry Telemetry Rhythm: SR 60s - Labs Result Diagrams: 12/26/17 05:19 12/26/17 05:19 Troponin/CKMB CK-MB (CK-2) 1.4 ng/mL (0-6.6) 12/20/17 22:46 Troponin I 0.086 ng/mL (< 0.028) H 12/20/17 22:46 - Assessment/Plan 1. Acute on Chronic diastolic HF - stable with BBlocker and Lasix 40mg qd; not on GALE/ARB due to hx of CKD 2. Chronic Afib with RVR - Converted back to SR over the weekend; cont. Coreg 6.25mg BID, Diltiazem 180mg qd, ASA 81mg qd, and Eliquis 2.5mg BID. [id number] VASc score is 9. Diltiazem was increased to 240mg QD. 3. HTN - stable; Cont. to monitor 4. KELSI on CKD - improving 5. DM type 2 - managed by PCP 6. Chronic Anemia - stable 7. - Echo in 09/2017 showed EF 60-65%, mod . Not good candidate for AV replacement. MAR reviewed * Echo in 09/2017 showed EF 60-65%, mod , mild TR. Review of Systems - Review of Systems Constitutional: reports: weakness EENTM: reports: no symptoms reported Respiratory: reports: no symptoms reported Cardiac (ROS): reports: no symptoms reported ABD/GI: reports: no symptoms reported : reports: no symptoms reported Musculoskeletal: reports: no symptoms reported Skin: reports: no symptoms reported <Vanessa Suarez - Last Filed: 12/26/17 15:39> Cardiology Progress Note - Objective Vital Signs Temp Pulse Resp BP BP BP Pulse Ox 12/26/17 15:27 98.3 F 68 20 133/62 97 12/26/17 11:33 97.8 F 79 17 149/65 H 92 L 12/26/17 08:55 152/67 H 12/26/17 08:41 98.2 F 77 16 152/67 H 95 12/26/17 08:40 95 12/26/17 04:00 98.4 F 80 20 135/63 98 Admit Weight 221 lb 12.8 oz Weight 212 lb 14.4 oz 12/25/17 12/26/17 12/27/17 06:59 06:59 06:59 Intake Total 1204 1398 Output Total 1050 1450 Balance 154 -52 - Labs Result Diagrams: 12/26/17 05:19 12/26/17 05:19 Troponin/CKMB CK-MB (CK-2) 1.4 ng/mL (0-6.6) 12/20/17 22:46 Troponin I 0.086 ng/mL (< 0.028) H 12/20/17 22:46 - Assessment/Plan Pt. seen and eval. by me. I agree with the A/P by the HAND MODEL. She is quentin wharton and remaining in NSR. I will increase the dose of the diltiazem to 240mg.
[2017-12-26 15:30] VITALS: BP 133/62; TEMP 98.3
[2017-12-26] MEDS ORDERED: Diltiazem HCl SR 60 mg Capsule PO SCH ×2 (16:00→21:00)
== END 2017-12-26 16:53 | DRG 291 ==
LOC: ERS 22:03 → IMCU/EMU 23:00 → 2NO 12-23 20:48
PROVIDERS: ADMIT Internal Medicine; ATTEND Internal Medicine
DX: I13.0 Hypertensive heart and chronic kidney disease with heart failure and stage 1 through stage 4 chronic kidney disease, or unspecified chronic kidney disease (principal); J96.01 Acute respiratory failure with hypoxia; I50.33 Acute on chronic diastolic (congestive) heart failure; N17.9 Acute kidney failure, unspecified; I50.1 Left ventricular failure, unspecified; Z99.81 Dependence on supplemental oxygen; N18.9 Chronic kidney disease, unspecified; I48.2 Chronic atrial fibrillation; Z79.01 Long term (current) use of anticoagulants; Z79.4 Long term (current) use of insulin; J44.9 Chronic obstructive pulmonary disease, unspecified; I25.10 Atherosclerotic heart disease of native coronary artery without angina pectoris; E11.22 Type 2 diabetes mellitus with diabetic chronic kidney disease; Z86.73 Personal history of transient ischemic attack (TIA), and cerebral infarction without residual deficits; Z88.6 Allergy status to analgesic agent; Z91.041 Radiographic dye allergy status; D64.9 Anemia, unspecified; I35.0 Nonrheumatic aortic (valve) stenosis; M19.90 Unspecified osteoarthritis, unspecified site; E78.5 Hyperlipidemia, unspecified; I36.1 Nonrheumatic tricuspid (valve) insufficiency
CPT/HCPCS: 36415; 36416; 71045; 71046; 80048; 80053; 81003; 81015; 82553; 82565; 83880; 84484; 85007; 85014; 85018; 85025; 85027; 85049; 93005; 94640; 94660; 96374; A4216; G8978-GP-CN; G8979-GP-CK; G8987-GO-CL; G8988-GO-CJ; J1940; J7620; Q0162

== ENCOUNTER 2018-02-08 10:38 | Outpatient (CLI) | payer MEDICARE, OTHER ==
--- NOTE | 2018-02-08 13:48 | CT ---
NONCONTRAST CT LUMBAR SPINE: 02/08/2018 HISTORY: Lumbar radiculopathy. The patient has been having low back pain for many years. Pain radiates into the bilateral legs with associated tingling, right greater than left. COMPARISON: None available. FINDINGS: There is a heterogeneous mass involving the left adrenal glands, measuring approximately 5 cm in maxi mal dimensions, which is stable in size compared to a CT exam on 12/06/2014, and is overall similar i n size, given slice selection, when compared to an MRI of the lumbar spine from 2008. 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 Dense vascular calcifications are seen in the abdominal aorta and involving the iliac arteries. Colonic diverticulosis is partially imaged, involving the sigmoid colon. Vertebral body heights are within normal limits. There is partial fusion of the L5 and S1 vertebral bodies. The vertebral body heights within normal limits. T11-T12: There is incomplete visualization of this disk space, but there is evidence of vacuum pheno katherine, with mild disk osteophyte complex. The central spinal canal and neural foramina are patent. T12-L1: No significant disk bulge or disk herniation is present. The central spinal canal and neura l foramina are patent. L1-L2: There are facet degenerative changes, but no significant disk bulge or disk herniation is pre sent. The central spinal canal and neural foramina are patent. L2-L3: There is a mild disk osteophyte complex present. Facet hypertrophic change is noted. There is only minimal effacement of the ventral aspect of the thecal sac. The neural foramina are patent. L3-L4: There is a broad-based disk osteophyte complex present with facet degenerative changes noted. There is mild to moderate narrowing of the central spinal canal. The neural foramina are patent. L4-L5: There is vacuum phenomenon seen in the intervertebral disk, related to disk degenerative marcial ges. There is a mild broad-based disk osteophyte complex present. Findings result in mild to modera te narrowing of the central spinal canal. There are moderate facet hypertrophic changes present. Mi ld bilateral neural foraminal narrowing is present, greater on the right. L5-S1: There is posterior osteophyte formation with facet degenerative changes. As noted above, the re does appear to be partial fusion of the L5 and S1 vertebral bodies. Posterior osteophyte formatio n is seen posteriorly, but the central spinal canal is patent. There is mild bilateral neural forami nal narrowing present. IMPRESSION: 1. Multilevel degenerative changes within the lumbar spine. No high grade stenosis involves the roselia ral foramina. 2. Left adrenal mass seen on multiple prior studies, demonstrating characteristics most compatible wi th an adrenal myolipoma. POS: [facility]
== END 2018-02-08 10:39 | disposition home or self-care (01) ==
LOC: BICCT 10:38
PROVIDERS: ATTEND Neurological Surgery
DX: M47.26 Other spondylosis with radiculopathy, lumbar region (principal); E27.9 Disorder of adrenal gland, unspecified
CPT/HCPCS: 72131

== ENCOUNTER 2018-03-31 10:00 | Emergency (ER) | payer MEDICARE, MEDICAID ==
[2018-03-31] MEDS ORDERED: Diltiazem 125 MG/25 ML ONE (10:13)
[2018-03-31 10:33] LABS: #Lymphocytes 0.8 thou/uL (1.20-3.40); #Monocytes 0.7 thou/uL (0.11-0.59); #Neutrophils 7.9 thou/uL (1.40-6.50); %Basophils 0.2 % (0.0-1.0); %Eosinophils 0.4 % (0.0-10.0); %Lymphocytes 8.4 % (21.0-51.0); %Monocytes 7.5 % (0.0-10.0); %Neutrophils 83.6 % (42.0-75.0); Hemoglobin 10.8 g/dL (12.0-16.0); Mean Corpuscular HGB CONC 33.3 g/dL (32.0-36.0); Mean Corpuscular Hemoglobin 28.2 pg (27.0-31.0); Mean Corpuscular Volume 84.5 fL (78.0-98.0); Mean Platelet Volume 8.9 fL (7.4-10.4); Platelet Count 286 thou/uL (130-400); RBC Distribution Width 14.8 % (11.5-14.5); Red Blood Cell (RBC) Count 3.84 mill/uL (4.20-5.40); White Blood Cell (WBC) Count 9.4 thou/uL (4.8-10.8)
[2018-03-31 10:37] LABS: INR-International Normal Ratio 1.2; Prothrombin Time 14.8 SEC (12.0-14.7)
[2018-03-31 10:38] LABS: PTT 32.6 SEC (22.9-36.1)
--- NOTE | 2018-03-31 11:02 | RAD ---
SINGLE VIEW OF THE CHEST: Comparison: 12-20-17 History: Atrial fibrillation, dyspnea. FINDINGS: Single view of the chest shows a normal sized cardiomediastinal silhouette. Increased interstitial ma rkings are present. There is no evidence of consolidation, mass, or pleural effusion. Increased inter stitial markings are present. Degenerative changes are seen in the spine. There are left rib fracture s. IMPRESSION: No evidence of acute cardiopulmonary disease. POS: [facility]
[2018-03-31 11:11] LABS: ALT (SGPT) 8 U/L (8-55); AST (SGOT) 37 U/L (5-34); Albumin 3.5 g/dL (3.4-4.8); Alkaline Phosphatase 129 U/L (40-150); Anion Gap 17 mmol/L (10-20); BUN (Urea Nitrogen) 26 mg/dL (9.8-20.1); Bilirubin, Total 0.4 mg/dL (0.2-1.2); Calc. Creatinine Clearance 0 mL/min (70-130); Calcium 9.1 mg/dL (7.8-10.44); Carbon Dioxide 20 mmol/L (23-31); Chloride 103 mmol/L (98-107); Estimated GFR-MDRD 36; Globulin 5.2 g/dL (2.4-3.5); Glucose 188 mg/dL (83-110); Potassium 5.6 mmol/L (3.5-5.1); Protein, Total 8.7 g/dL (6.0-8.3); Sodium 134 mmol/L (136-145)
== END 2018-03-31 16:46 | disposition home or self-care (01) ==
LOC: ERS 10:00
DX: I48.91 Unspecified atrial fibrillation (principal); I25.10 Atherosclerotic heart disease of native coronary artery without angina pectoris; E78.2 Mixed hyperlipidemia; E11.9 Type 2 diabetes mellitus without complications; I10 Essential (primary) hypertension; M10.9 Gout, unspecified; Z87.891 Personal history of nicotine dependence; Z79.899 Other long term (current) drug therapy; Z79.82 Long term (current) use of aspirin
CPT/HCPCS: 36415; 71045; 80053; 83605; 83880; 84484; 85025; 85610; 85730; 87804; 93005; 96365; 96366

== ENCOUNTER 2018-06-18 11:51 | Emergency (ER) | payer MEDICARE, OTHER ==
[2018-06-18 12:44] LABS: Bilirubin Negative (Negative); Blood, Urine Moderate (Negative); Clarity CLEAR (Clear); Glucose, Urine (Dipstick) Negative (Negative); Leukocyte Negative (Negative); Nitrite Negative (Negative); Protein, Urine (Dipstick) 300 mg/dL (Neg-Trace); Specific Gravity, Urine 1.009 (1.002-1.036); Urobilinogen 0.2 mg/dL (0.2-1.0); pH, Urine 5.5 (5.0-9.0)
[2018-06-18 12:46] LABS: Bacteria/HPF None Seen HPF (None Seen); Hyaline Casts/LPF 7-10 HYALINE CAST LPF (0-3 Hyaline); Pathc Cast-AUWi Flag 1.49 (0-2.49); RBC/HPF 0-3 HPF (0-3)
[2018-06-18] MEDS ORDERED: Dicyclomine 20 MG TAB ONE (13:08)
[2018-06-18 13:18] LABS: #Lymphocytes 0.7 thou/uL (1.20-3.40); #Monocytes 0.3 thou/uL (0.11-0.59); #Neutrophils 3.2 thou/uL (1.40-6.50); %Basophils 0.6 % (0.0-1.0); %Eosinophils 0.1 % (0.0-10.0); %Lymphocytes 15.8 % (21.0-51.0); %Monocytes 7.8 % (0.0-10.0); %Neutrophils 75.7 % (42.0-75.0); Hemoglobin 12.6 g/dL (12.0-16.0); Mean Corpuscular HGB CONC 33.3 g/dL (32.0-36.0); Mean Corpuscular Hemoglobin 29.4 pg (27.0-31.0); Mean Corpuscular Volume 88.3 fL (78.0-98.0); Mean Platelet Volume 9.6 fL (7.4-10.4); Platelet Count 208 thou/uL (130-400); RBC Distribution Width 17.5 % (11.5-14.5); White Blood Cell (WBC) Count 4.2 thou/uL (4.8-10.8)
[2018-06-18 13:40] LABS: ALT (SGPT) 29 U/L (8-55); AST (SGOT) 30 U/L (5-34); Albumin 3.7 g/dL (3.4-4.8); Alkaline Phosphatase 154 U/L (40-150); Anion Gap 15 mmol/L (10-20); BUN (Urea Nitrogen) 13 mg/dL (9.8-20.1); Bilirubin, Total 0.5 mg/dL (0.2-1.2); Calc. Creatinine Clearance 0 mL/min (70-130); Calcium 9.1 mg/dL (7.8-10.44); Carbon Dioxide 23 mmol/L (23-31); Chloride 106 mmol/L (98-107); Estimated GFR-MDRD 49; Globulin 2.7 g/dL (2.4-3.5); Glucose 214 mg/dL (83-110); Lipase 108 U/L (8-78); Potassium 3.6 mmol/L (3.5-5.1); Protein, Total 6.4 g/dL (6.0-8.3); Sodium 140 mmol/L (136-145)
== END 2018-06-18 15:31 | disposition home or self-care (01) ==
LOC: ERS 11:51
DX: R10.9 Unspecified abdominal pain (principal); I25.10 Atherosclerotic heart disease of native coronary artery without angina pectoris; I48.91 Unspecified atrial fibrillation; E78.5 Hyperlipidemia, unspecified; E11.9 Type 2 diabetes mellitus without complications; I10 Essential (primary) hypertension; M19.90 Unspecified osteoarthritis, unspecified site; Z87.891 Personal history of nicotine dependence; Z79.899 Other long term (current) drug therapy; Z79.82 Long term (current) use of aspirin
CPT/HCPCS: 36415; 80053; 81003; 81015; 83690; 84484; 85025; 93005

== ENCOUNTER 2018-06-24 11:51 | Observation (INO) | payer MEDICARE, MEDICAID ==
--- NOTE | 2018-06-24 12:51 | RAD ---
PORTABLE CHEST: DATE: 06/24/2018. PROVIDED CLINICAL HISTORY: Dyspnea. FINDINGS: Comparison 03/31/2018. Cardiac silhouette remains enlarged. Vascular calcification involves the aor tic arch. Chronic-appearing interstitial opacities are redemonstrated. No definite focal consolidat ion, pleural fluid, or pneumothorax apparent. IMPRESSION: Stable radiographic appearance of the chest. POS: [facility]
[2018-06-24 13:19] LABS: #Basophils 0.1 thou/uL (0.0-0.2); #Eosinphils 0.1 thou/uL (0.0-0.7); #Lymphocytes 0.9 thou/uL (1.20-3.40); #Monocytes 0.7 thou/uL (0.11-0.59); #Neutrophils 3.5 thou/uL (1.40-6.50); %Basophils 1.5 % (0.0-1.0); %Lymphocytes 17.3 % (21.0-51.0); %Neutrophils 67.3 % (42.0-75.0); Hemoglobin 11.3 g/dL (12.0-16.0); Mean Corpuscular Hemoglobin 29.5 pg (27.0-31.0); Mean Corpuscular Volume 92.1 fL (78.0-98.0); Mean Platelet Volume 9.2 fL (7.4-10.4); Platelet Count 227 thou/uL (130-400); RBC Distribution Width 17.9 % (11.5-14.5); Red Blood Cell (RBC) Count 3.83 mill/uL (4.20-5.40); White Blood Cell (WBC) Count 5.2 thou/uL (4.8-10.8)
[2018-06-24 13:38] LABS: ALT (SGPT) 16 U/L (8-55); AST (SGOT) 24 U/L (5-34); Albumin 3.3 g/dL (3.4-4.8); Alkaline Phosphatase 119 U/L (40-150); Anion Gap 18 mmol/L (10-20); BUN (Urea Nitrogen) 23 mg/dL (9.8-20.1); Bilirubin, Total 0.5 mg/dL (0.2-1.2); Calc. Creatinine Clearance 0 mL/min (70-130); Calcium 8.2 mg/dL (7.8-10.44); Carbon Dioxide 20 mmol/L (23-31); Chloride 104 mmol/L (98-107); Estimated GFR-MDRD 30; Globulin 3.2 g/dL (2.4-3.5); Glucose 111 mg/dL (83-110); Lipase 82 U/L (8-78); Potassium 4.1 mmol/L (3.5-5.1); Protein, Total 6.5 g/dL (6.0-8.3); Sodium 138 mmol/L (136-145)
[2018-06-24 14:46] LABS: Bilirubin Negative (Negative); Blood, Urine Small (Negative); Clarity CLOUDY (Clear); Glucose, Urine (Dipstick) Negative (Negative); Leukocyte Negative (Negative); Nitrite Negative (Negative); Protein, Urine (Dipstick) 100 mg/dL (Neg-Trace); Specific Gravity, Urine 1.014 (1.002-1.036); Urobilinogen 0.2 mg/dL (0.2-1.0)
[2018-06-24 14:48] LABS: Bacteria/HPF None Seen HPF (None Seen); RBC/HPF 0-3 HPF (0-3); Squamous Epithelial 0-3 HPF (0-3); WBC/HPF 0-3 HPF (0-3)
[2018-06-24 14:49] LABS: Pathc Cast-AUWi Flag 4.35 (0-2.49)
[2018-06-24 15:00] LABS: Hyaline Casts/LPF 7-10 HYALINE CAST LPF (0-3 Hyaline)
[2018-06-24] MEDS ORDERED: Aspirin Chewable 81 MG TAB ONE (15:28)
[2018-06-24 16:38] LABS: Troponin I 0.156 ng/mL (< 0.028)
[2018-06-24] MEDS ORDERED: Dextrose 50% Abboject 50 ML SYRINGE SLOW IVP PRN (17:04)
[2018-06-24] MEDS ORDERED: Insulin Regular 300 UNITS/3 ML VIAL SC PRN ×2 (17:04)
[2018-06-24] MEDS ORDERED: Dextrose 5% in Water 1,000 ML IV PRN (17:04)
[2018-06-24] MEDS ORDERED: Ondansetron ODT 4 MG TAB PO PRN (17:06)
[2018-06-24 18:17] VITALS: BMI 33.0
[2018-06-24 20:09] LABS: Troponin I 0.138 ng/mL (< 0.028)
[2018-06-25 05:39] LABS: #Eosinphils 0.1 thou/uL (0.0-0.7); #Lymphocytes 1.1 thou/uL (1.20-3.40); #Monocytes 0.6 thou/uL (0.11-0.59); #Neutrophils 2.6 thou/uL (1.40-6.50); %Basophils 0.5 % (0.0-1.0); %Lymphocytes 24.2 % (21.0-51.0); %Monocytes 13.5 % (0.0-10.0); %Neutrophils 59.8 % (42.0-75.0); Hemoglobin 10.4 g/dL (12.0-16.0); Mean Corpuscular HGB CONC 33.2 g/dL (32.0-36.0); Mean Corpuscular Hemoglobin 30.4 pg (27.0-31.0); Mean Corpuscular Volume 91.5 fL (78.0-98.0); Mean Platelet Volume 9.1 fL (7.4-10.4); Platelet Count 213 thou/uL (130-400); RBC Distribution Width 17.7 % (11.5-14.5); Red Blood Cell (RBC) Count 3.41 mill/uL (4.20-5.40); White Blood Cell (WBC) Count 4.3 thou/uL (4.8-10.8)
[2018-06-25 06:00] LABS: Anion Gap 13 mmol/L (10-20); BUN (Urea Nitrogen) 24 mg/dL (9.8-20.1); Calc. Creatinine Clearance 47 mL/min (70-130); Calcium 8.2 mg/dL (7.8-10.44); Carbon Dioxide 25 mmol/L (23-31); Chloride 105 mmol/L (98-107); Estimated GFR-MDRD 34; Potassium 3.3 mmol/L (3.5-5.1); Sodium 140 mmol/L (136-145)
[2018-06-25 06:08] LABS: Glucose 59 mg/dL (83-110)
[2018-06-25] MEDS ORDERED: Furosemide 40 MG/4 ML VIAL SLOW IVP SCH (08:30)
[2018-06-25] MEDS ORDERED: Potassium Chloride 40 MEQ in Premix Bag 1 BAG IVPB SCH (08:30)
[2018-06-25] MEDS ORDERED: Potassium Chloride 20 MEQ in Premix Bag 1 BAG IVPB SCH (09:00)
[2018-06-25] MEDS ORDERED: Potassium Chloride 20 MEQ TAB PO SCH (10:30)
--- NOTE | 2018-06-25 12:20 | PDOC.PN ---
- Subjective Encounter Start Date: 06/25/18 Encounter Start Time: 12:19 Subjective: feels much better but still weak - Objective Resuscitation Status - Order Detail: 06/24/18 16:49 Resuscitation Status Routine Co-Sign Provider: Resuscitation Status: PRTL: Chem only Discussed with: Patient, surrogate decision maker: Aliyah WORLEY Reviewed: Yes Vital Signs & Weight: Vital Signs (12 hours) Temp Pulse Resp BP Pulse Ox 06/25/18 07:30 97.4 F L 91 20 145/67 H 92 L 06/25/18 03:56 97.6 F 83 20 123/84 96 Weight Weight 220 lb 3.2 oz I&O: 06/24/18 06/25/18 06/26/18 06:59 06:59 06:59 Intake Total 380 484 Output Total 100 Balance 280 484 Result Diagrams: 06/25/18 05:17 06/25/18 05:17 Additional Labs: Accuchecks 06/25/18 06/25/18 06/24/18 10:40 06:20 20:44 POC Glucose 196 H 77 168 H 06/24/18 18:05 POC Glucose 159 H Microbiology 06/24/18 13:45 Nasal swab Influenza Types A,B Direct EIA - Final 06/24/18 13:31 Venous blood - Left Hand Blood Culture - Preliminary Specimen has been received and culture in progress. No Growth to date. 06/24/18 13:11 Venous blood - Left Hand Blood Culture - Preliminary Specimen has been received and culture in progress. No Growth to date. Laboratory Tests 03/31/18 05/24/18 06/18/18 10:13 10:03 13:04 Creatinine 1.78 H 1.07 Troponin I B-Natriuretic Peptide 266.0 H 06/18/18 06/24/18 06/24/18 13:04 13:11 13:11 Creatinine 1.66 H Troponin I 0.020 B-Natriuretic Peptide 960.0 H 06/24/18 06/24/18 06/24/18 13:11 16:05 19:38 Creatinine Troponin I 0.146 H 0.156 H 0.138 H B-Natriuretic Peptide 06/25/18 05:17 Creatinine 1.48 H Troponin I B-Natriuretic Peptide Phys Exam - Physical Examination Constitutional: NAD sitting up in chair HEENT: PERRLA, moist MMs, sclera anicteric, oral pharynx no lesions Neck: no nodes, no JVD, supple, full ROM Respiratory: no wheezing, no rales, no rhonchi, clear to auscultation bilateral Cardiovascular: RRR, no significant murmur Gastrointestinal: soft, non-tender, no distention, positive bowel sounds Musculoskeletal: no edema, pulses present Neurological: non-focal, normal sensation, moves all 4 limbs Psychiatric: normal affect, A&O x 3 Skin: no rash Dx/Plan (1) Chest pain Code(s): R07.9 - CHEST PAIN, UNSPECIFIED Status: Acute Comment: rosmery ACS (2) Acute on chronic diastolic (congestive) heart failure Code(s): I50.33 - ACUTE ON CHRONIC DIASTOLIC (CONGESTIVE) HEART FAILURE Status : Acute Comment: will give 1 dose lasix (3) Troponin I above reference range Code(s): R74.8 - ABNORMAL LEVELS OF OTHER SERUM ENZYMES Status: Acute Comment: dea demand ischemia form acute CHF (4) Hypokalemia Code(s): E87.6 - HYPOKALEMIA Status: Acute Comment: replace and recheck (5) CKD (chronic kidney disease) stage 3, GFR 30-59 ml/min Status: Chronic Comment: Avoid nephrotoxic meds and contrast exposure. creatinine at baseline. (6) Chronic anticoagulation Code(s): Z79.01 - FDC (CURRENT) USE OF ANTICOAGULANTS Status: Chronic Comment: Continue Eliquis 2.5mg BID (7) Coronary artery disease Code(s): I25.10 - ATHSCL HEART DISEASE OF [place] CORONARY ARTERY W/O ANG PCTRS Status: Chronic Qualifiers: Comment: Stable. (8) Diabetes type 2, controlled Code(s): E11.9 - TYPE 2 DIABETES MELLITUS WITHOUT COMPLICATIONS Status: Chronic Qualifiers: Comment: Continue NPH, SSI. Well controlled. (9) Dyslipidemia Code(s): E78.5 - HYPERLIPIDEMIA, UNSPECIFIED Status: Chronic (10) Gout Code(s): M10.9 - GOUT, UNSPECIFIED Status: Chronic (11) Hypertension Code(s): I10 - ESSENTIAL (PRIMARY) HYPERTENSION Status: Chronic Qualifiers: (12) Moderate aortic stenosis by prior echocardiogram Code(s): I35.0 - NONRHEUMATIC AORTIC (VALVE) STENOSIS Status: Chronic (13) Moderate tricuspid regurgitation by prior echocardiogram Code(s): I07.1 - RHEUMATIC TRICUSPID INSUFFICIENCY Status: Chronic (14) Obesity (BMI 30-39.9) Code(s): E66.9 - OBESITY, UNSPECIFIED Status: Chronic (15) PAF (paroxysmal atrial fibrillation) Code(s): I48.0 - PAROXYSMAL ATRIAL FIBRILLATION Status: Chronic Comment: - Plan PT/OT, respiratory therapy, incentive spirometry, out of bed/ambulate, DVT proph w/SCDs restart home meds. recent Cath reportedly WNL.troponin stable and trending -: down.cont asa,BB.No GALE-I/ARB d/t CKD. -: restart home meds as below including lasix,CCB,BB,ASA -: Hd stable -: cardiology recs requested.further management per Cardiology team * . Review of Systems - Review of Systems Constitutional: weakness, malaise Respiratory: negative: Cough, Dry, Shortness of Breath, Hemoptysis, SOB with Excertion, Pleuritic Pain, Sputum, Wheezing Cardiovascular: negative: chest pain, palpitations, orthopnea, paroxysmal nocturnal dyspnea, edema, light headedness, other Gastrointestinal: negative: Nausea, Vomiting, Abdominal Pain, Diarrhea, Constipation, Melena, Hematochezia, Other Genitourinary: negative: Dysuria, Frequency, Incontinence, Hematuria, Retention , Other Musculoskeletal: negative: Neck Pain, Shoulder Pain, Arm Pain, Back Pain, Hand Pain, Leg Pain, Foot Pain, Other Neurological: negative: Weakness, Numbness, Incoordination, Change in Speech, Confusion, Seizures, Other - Medications/Allergies Allergies/Adverse Reactions: Allergies Allergy/AdvReac Type Severity Reaction Status Date / Time acetaminophen Allergy Verified 06/24/18 19:35 [From Darvocet-N 100] fish derived Allergy Verified 06/24/18 19:35 ibuprofen [From Motrin] Allergy Verified 06/24/18 19:35 iodine Allergy Verified 06/24/18 19:35 metformin Allergy Verified 06/24/18 19:35 mometasone furoate Allergy Verified 06/24/18 19:35 [From Nasonex] naproxen Allergy Verified 06/24/18 19:35 omega-3 acid ethyl esters Allergy Verified 06/24/18 19:35 prednisone Allergy Verified 06/24/18 19:35 propoxyphene napsylate Allergy Verified 06/24/18 19:35 [From Sandip-N 100] shellfish derived Allergy Verified 06/24/18 19:35 Medications: Current Medications Dextrose/Water (Dextrose 50%) 25 gm SLOW IVP PRN PRN PRN Reason: Hypoglycemia Glucagon (Glucagon) 1 mg IM PRN PRN PRN Reason: Hypoglycemia Dextrose/Water (D5w) 1,000 mls @ 0 mls/hr IV .Q0M PRN PRN Reason: Hypoglycemia Insulin Human Regular (Humulin R) 0 units SC .MILD SLIDING SCALE PRN PRN Reason: Mild Correctional Scale Insulin Human Regular (Humulin R) 0 units SC .BEDTIME SLIDING SC PRN PRN Reason: Bedtime Correctional Scale Ondansetron HCl (Zofran Odt) 4 mg PO Q6H PRN PRN Reason: Nausea/Vomiting Potassium Chloride (K-Dur) 40 meq PO 1030 KEVAN Stop: 06/25/18 12:30 Last Admin: 06/25/18 10:40 Dose: 40 meq Sodium Chloride (Flush - Normal Saline) 10 ml IVF Q12HR KEVAN Last Admin: 06/25/18 08:46 Dose: 10 ml Sodium Chloride (Flush - Normal Saline) 10 ml IVF PRN PRN PRN Reason: Saline Flush Last Admin: 06/25/18 10:39 Dose: 10 ml
[2018-06-25] MEDS ORDERED: Dicyclomine 20 MG TAB PO PRN (12:21)
[2018-06-25] MEDS ORDERED: Ondansetron ODT 4 MG TAB SL PRN (12:21)
[2018-06-25] MEDS: Carvedilol 6.25 MG TAB PO SCH (16:52)
--- NOTE | 2018-06-25 18:46 | CON ---
DATE OF CONSULTATION: 06/25/2018 INDICATION FOR CONSULTATION: An 83-year-old female with indeterminate cardiac enzymes, history of diastolic dysfunction, history of coronary disease, history of COPD, history of atrial fibrillation and flutter for which she has undergone ablation, and chronic atrial fibrillation. She is a very pleasant 83-year-old female who resides in assisted living facility. She had a therapist who came yesterday and noticed that her heart rate was irregular and thought that the patient should be seen in the emergency room. Unfortunately, this patient does have chronic atrial fibrillation, but apparently, the therapist thought perhaps the patient was somewhat a little bit confused or not completely coherent in the very beginning; however, she appeared to be knowing exactly what happened some quite sure and exactly how confused whether the patient was confused or not. She has been on Eliquis for her chronic atrial fibrillation, and this was held for the last 3 days due to an upcoming procedure for some spinal injections that the patient is to have by for pain management. Otherwise, she denied any significant problems. When questioned, she did state that occasionally she did have some chest discomfort. She has had it for 2 nights when she lies down to go to bed, she notes some pain in the left upper and lateral chest area. She has noticed it for 2 nights. She has not had any since she has been here. She just goes to sleep and does not worry about the next morning the pain has gone and it only occurs when she is lying down. She has been in the hospital on multiple admissions due to her congestive heart failure symptoms as well as her COPD. It was noted that her troponin I was 0.146 and still elevated at 0.15. Her BNP was 960. She does have a history of diastolic dysfunction, which would account some for the elevated BNP. She does not have any lower extremity edema, and she denied any shortness of breath. At this time, overall, she appears to be doing relatively well. She does have a decreased hemoglobin at 10.4, otherwise appears to be relatively stable. Her EKG does show atrial fibrillation with an incomplete right bundle-branch block, which is unchanged from previous EKGs. PAST MEDICAL HISTORY: Significant for COPD is noted. She was followed by Dr. Haney. She also has a history of diastolic dysfunction and congestive heart failure. Her last ejection fraction was about 60% to 65% with left ventricular hypertrophy and diastolic dysfunction and also likely moderate aortic valve stenosis. She has had an ablation. She is status post atrial fibrillation and flutter ablation [place] [address] Langley. She also has a history of hypertension; chronic kidney disease, stage 3; hyperlipidemia; type 2 diabetes; coronary artery disease; she has had a history of a CVA; and history of polio in the past. She has a history of gout and morbid obesity. She has had an appendectomy, left carpal tunnel syndrome repair, atrial flutter ablation in 2016, neck surgery, and cataract extraction. FAMILY HISTORY: Her mother had breast cancer and in 1992. Her father was an alcoholic, with liver cirrhosis and due to other complications when he is in 60s. SOCIAL HISTORY: She smoked in the past, was stopped more than 20 years ago. She has occasional alcohol, but only just during the holidays. She has no other illicit drug use. She lives in assisted living. ALLERGIES: SHE IS ALLERGIC TO METFORMIN, NAPROSYN, OMEGA-3, PREDNISONE, IODINE, TYLENOL, AND SHELLFISH. MEDICATIONS: Prior to admission, included; 1. Protonix. 2. Aspirin 81 mg a day. 3. Furosemide 40 mg a day. 4. Multivitamins. 5. Coreg 6.25 mg b.i.d. 6. Eliquis 2.5 mg b.i.d., this is being held at this time for upcoming injection. 7. Diltiazem 240 mg a day. 8. Uloric 40 mg daily. 9. Dicyclomine hydrochloride 20 mg one q.8 hours p.r.n. 10. She also is on Zofran for nausea p.r.n. 11. Gabapentin 600 mg two tablets b.i.d. 12. Tramadol 1 to 2 tablets p.r.n. as needed. 13. Ranitidine 150 mg one daily. 14. She is also on insulin 14 units b.i.d. 15. Colchicine 0.6 mg one daily. REVIEW OF SYSTEMS: HEENT: She denies any HEENT complaints of visual changes, hearing loss, or tinnitus. PULMONARY: She has had no recent complaints. She has had no shortness of breath. She does have chronic COPD, but this is under good control at this time. She denies any chest pain except was noted in the History of Present Illness. She does not normally feel the palpitations. She did not feel any palpitations at this time. GI: She complained of some abdominal discomfort and some nausea. She was seen in the emergency room recently, was given some medications for pain and nausea, and this seems to have resolved her problem. She does have some tenderness still in the right upper quadrant on palpation. She has not had cholecystectomy in the past, and she has not had any significant evaluation from the gallbladder that I am aware of. She did have a CT of the abdomen and pelvis in December of 2017, and this showed a stable left adrenal mass with small renal cyst. She had uterine fibroids, but otherwise there were no significant abnormalities or masses noted. NEUROLOGIC: She denied any seizures or syncope. No changes and did not appear to be confused. EXTREMITIES: She denies any clubbing or cyanosis. She does have some excoriations of lower extremities, which is due to itching she says and she has scratched herself, but there is no significant edema and otherwise is unremarkable. PHYSICAL EXAMINATION: GENERAL: Reveals an elderly female, who is in no acute distress at this time. She is oriented. She is pleasant. VITAL SIGNS: Her blood pressure is 123/84; she is afebrile; heart rate is 80s to 90s and she has atrial fibrillation; respiratory rate 20; and O2 saturation is 96%. HEENT: Shows head to be normocephalic and atraumatic. I did not hear any significant bruits. CHEST: Her chest was clear to auscultation without rales, rhonchi, or wheezing. CARDIOVASCULAR: Reveals an irregularly irregular rhythm. She appears to be in atrial fibrillation. There were no gross murmurs, heaves, thrills, bruits or rubs. ABDOMINAL EXAM: Soft. Has some right upper quadrant tenderness. I could not palpate a mass. Positive bowel sounds are present. EXTREMITIES: Showed no clubbing, cyanosis, or edema. She does have pedal pulses present. NEUROLOGICAL: She appears to be intact for someone of her age without any other significant abnormalities. There are no gross focal motor deficits noted. LABORATORY DATA: As noted above. Peak troponin I is 0.146, increased up to 0.156, still indeterminate. Her BNP was 960, compatible with her diastolic dysfunction, mild congestive heart failure, but again ejection fraction has remained normal. Creatinine of 1.66 with a BUN of 23, potassium is 4.1. Hemoglobin is 10.4, WBC of 4.3, and platelet count 213,000. IMPRESSION: 1. Chronic atrial fibrillation for which she has been on Eliquis. This is being held for a few days prior to undergoing injection. I would agree at this time to continue to hold that, but as soon as possible, we will start her back on the Eliquis to decrease the risk of transient ischemic attacks or embolic phenomenon causing cerebrovascular accident. She is status post atrial flutter ablation in February 2016. I do not see any flutter, but she remains in atrial fibrillation. She will continue also on her beta blockers. 2. History of hyperkalemia in the past. Her potassium level is stable. 3. Hypertension. This is under good control at this time. 4. History of coronary artery disease, also was stable. No evidence of any indication. She has any progression of disease. 5. Type 2 diabetes. This will be dealt with by the primary care service. She is on insulin already. 6. Hyperlipidemia. She will continue taking her medications. I do not see that she is presently taking any medications for cholesterol. She may have had side affects such as myopathies in the past associated with her aches and pains associated with that. We will need to re-consider whether or not to resume these medications with her history of coronary artery disease. There was not a fasting lipid profile performed. At this time, despite having some elevation of the BNP and indeterminate cardiac enzymes, she does have chronic atrial fibrillation and appears to be otherwise stable from a Cardiac standpoint. From my perspective, she could be discharged to home today or tomorrow, and I will be glad to see her back in the office. She does have a scheduled appointment within the next couple of weeks. At this time. I will sign off. I have nothing more to offer at this time unless she has changes in her cardiac status. Job ID: [id number]
[2018-06-25] MEDS: Apixaban 2.5 MG TAB PO SCH (20:52)
[2018-06-25] MEDS: Gabapentin 400 MG CAP PO SCH (20:54)
[2018-06-25] MEDS ORDERED: Apixaban 5 MG TAB PO SCH (21:00)
[2018-06-26 05:39] LABS: #Lymphocytes 0.6 thou/uL (1.20-3.40); #Monocytes 0.7 thou/uL (0.11-0.59); #Neutrophils 4.4 thou/uL (1.40-6.50); %Basophils 0.1 % (0.0-1.0); %Eosinophils 0.6 % (0.0-10.0); %Lymphocytes 11.1 % (21.0-51.0); %Monocytes 12.1 % (0.0-10.0); Hemoglobin 10.7 g/dL (12.0-16.0); Mean Corpuscular HGB CONC 30.6 g/dL (32.0-36.0); Mean Corpuscular Hemoglobin 28.5 pg (27.0-31.0); Mean Corpuscular Volume 93.2 fL (78.0-98.0); Mean Platelet Volume 9.2 fL (7.4-10.4); Platelet Count 229 thou/uL (130-400); RBC Distribution Width 17.7 % (11.5-14.5); Red Blood Cell (RBC) Count 3.74 mill/uL (4.20-5.40); White Blood Cell (WBC) Count 5.8 thou/uL (4.8-10.8)
[2018-06-26 05:58] LABS: Anion Gap 16 mmol/L (10-20); BUN (Urea Nitrogen) 21 mg/dL (9.8-20.1); Calc. Creatinine Clearance 47 mL/min (70-130); Calcium 8.6 mg/dL (7.8-10.44); Carbon Dioxide 24 mmol/L (23-31); Chloride 102 mmol/L (98-107); Estimated GFR-MDRD 34; Glucose 132 mg/dL (83-110); Potassium 4.3 mmol/L (3.5-5.1); Sodium 138 mmol/L (136-145)
--- NOTE | 2018-06-26 07:35 | HP ---
CHIEF COMPLAINT: Intermittent chest pain x2 weeks. HISTORY OF PRESENT ILLNESS: Ms. Santos is a very pleasant 83-year-old woman with a background history of AFib, diabetes mellitus type 2 and coronary artery disease, who presents with a 2-week history of intermittent chest pain. She states the pain typically occurs at night and she describes it as a chest pressure. She states the pain is 8/10 in severity and relieved with her . The patient states it completely takes her pain away. She has not noted any pain throughout the day at rest or with exertion as she has been undergoing physical therapy regularly. She presented for physical therapy this morning where she told about this intermittent pain and was advised to come to the ER. She suffers from chronic back pain and was recently recommended injections and for that reason has been off Eliquis for the last 7 days. Overall, the episodes have occurred approximately 2 or 3 times per week. She reports associated nausea, but denies any vomiting. Denies any diaphoresis. Has not had any shortness of breath. She does report a mild dry cough, which is occasional and chronic. The nausea has only occurred in the mornings. She denies having any weakness. Has not had any fevers or chills. She did experience loose stools this morning. Denies having any urinary symptoms such as dysuria, hematuria, urgency, or frequency. Of note, the patient presented to the ED last June 18 for abdominal pain and diarrhea. She was also admitted in December with diastolic CHF exacerbation. Last echo done in September 2017 showed an EF of 60% to 65% with dilatation of left atrium, concentric LVH, aortic stenosis, and tricuspid regurgitation. Nuclear stress test done in September 2017 was normal. REVIEW OF SYSTEMS: Apart from those mentioned above, remaining review of systems are negative. ALLERGIES: 1. ACETAMINOPHEN. 2. IODIDE AND IODIDE CONTAINING PRODUCTS. 3. METFORMIN. 4. MOTRIN. 5. NASONEX. 6. NAPROXEN. 7. OMEGA-3 FISH OIL. 8. PREDNISONE. 9. PROPOXYPHENE. 10. SHELLFISH CONTAINING PRODUCTS. CURRENT MEDICATIONS: 1. Furosemide 40 mg p.o. daily. 2. Multivitamin. 3. Cardizem 120 mg p.o. daily. 4. Ranitidine 150 mg p.o. daily. 5. Gabapentin 600 mg 3 tablets twice daily. 6. Carvedilol 6.25 mg p.o. twice daily. 7. Humulin 15 units subcutaneous twice daily. 8. Eliquis currently on hold, usually takes 2.5 mg p.o. twice daily. 9. Aspirin 81 mg p.o. daily. 10. Bentyl 20 mg p.o. q.8 hours p.r.n. 11. Zofran ODT 4 mg p.o. q.6 hours p.r.n. PAST MEDICAL HISTORY: 1. Atrial fibrillation. 2. Diabetes mellitus. 3. Coronary artery disease. 4. Diabetic neuropathy. 5. Chronic back pain. 6. Chronic diastolic CHF. 7. Chronic anticoagulation with Eliquis. 8. Valvular disease (TR, MR, aortic stenosis) EF 60% to 65% in 2015. 9. Osteoarthritis. 10. Gout. PAST SURGICAL HISTORY: 1. Appendectomy. 2. Carpal tunnel surgery to left wrist. 3. Orthopedic surgery. 4. Heart catheterization in 2014. SOCIAL HISTORY: The patient is a former smoker, quit 10 years ago. Previously smoked half a pack for 10 to 15 years. She comes from [facility]. Reports rare alcohol intake. PHYSICAL EXAMINATION: GENERAL: The patient appears obese, well developed and in no acute distress. HEENT: Normocephalic and atraumatic. Pupils are equal, round, and reactive to light. Sclerae are without icterus. Oropharynx is clear. NECK: Supple. No lymphadenopathy. LUNGS: Clear bilaterally without any wheezes, rales, or rhonchi. CARDIAC: Regular rate and rhythm. ABDOMEN: Soft, obese, nontender, and nondistended. Normoactive bowel sounds present. No guarding or rigidity. No renal angle tenderness. EXTREMITIES: No clubbing or edema. Pallor noted, which the patient states is chronic. NEUROLOGIC: Alert and oriented x3. SKIN: Without rash or jaundice. LABORATORY DATA: White blood count 5.2, hemoglobin 11.3, hematocrit 35.3, and platelets 227. Sodium 138, potassium 4.1, BUN 23, creatinine 1.66, GFR 30, glucose 111, lactic acid 1.2, calcium 9.2, total bilirubin 0.5, AST 25, ALT 26, and alkaline phosphatase 119. CK-MB 2.0 and troponin 0.146. Awaiting second and third troponins. BNP 960. Albumin 3.3 and lipase 22. Urinalysis notable for protein 100, small amount of blood, negative for nitrites and ketones. Negative for leukocyte esterase. A 7 to 10 hyaline casts. No bacteria present. IMAGING DATA: Chest x-ray, 06/24/2018, stable without acute changes. Vascular calcification involving the aortic arch. Chronic appearing interstitial opacities redemonstrated. No definite focal consolidation, pleural fluid, or pneumothorax present. IMPRESSION AND PLAN: Ms. Santos is a pleasant 83-year-old woman, presenting with occasional chest pain in the evenings for the last 2 weeks, admitted for treatment of the following. 1. Chest pain. The patient states relief with her normal analgesics, initially an 8/10, described as pressure. Typically occurring at night, but with no associated shortness of breath. We will continue to trend troponin. BNP 960.0. She does have a history of congestive heart failure and coronary artery disease. Last catheterization apparently was in 2014. She is a patient of Dr. Suarez. We will place a Cardiology consult. She is being admitted for chest pain rule out. Of note, the patient does have a history of atrial fibrillation and ECG done on last ER visit for diarrhea showed normal sinus rhythm. ECG today; however, shows atrial fibrillation, rate controlled, heart rate 86. She has been off Eliquis for the last 7 days. 2. Acute on chronic kidney injury. The patient with a GFR of 30, last was 49, when she was last here. We will give gentle hydration. Continue to monitor. 3. Hypertension. Resume home medications and continue to monitor. 4. Type 2 diabetes. We will resume home medications, start insulin sliding scale, and monitor glucose. 5. Gastrointestinal prophylaxis. 6. Deep venous thrombosis prophylaxis. The patient states she has pain in bilateral legs due to diabetic neuropathy. Therefore, we will hold mechanical sequential compression devices. She also plans to hold anticoagulation due to plans for steroid injections for chronic pain. 7. Code status for intervention only. No compressions. Her surrogate decision maker is Vidhya Valerio. The patient's case was discussed with Dr. Aldrich, who agrees with plan of care as described above. Job ID: [id number]
[2018-06-26] MEDS ORDERED: Furosemide 40 MG TAB PO SCH (09:00)
[2018-06-26] MEDS ORDERED: RANITIDINE HCL PO SCH (09:00)
[2018-06-26] MEDS ORDERED: Febuxostat 40 MG TAB PO SCH (09:00)
[2018-06-26] MEDS ORDERED: Aspirin 81 mg Enteric Coated Tablet PO SCH (09:00)
[2018-06-26] MEDS ORDERED: Colchicine 0.6 MG TAB PO SCH (09:00)
[2018-06-26] MEDS: Carvedilol 6.25 MG TAB PO SCH (09:50)
[2018-06-26] MEDS: Gabapentin 400 MG CAP PO SCH (09:59)
[2018-06-26] MEDS: Apixaban 2.5 MG TAB PO SCH (09:59)
[2018-06-26 11:36] VITALS: BP 163/74; TEMP 98.8
--- NOTE | 2018-06-27 04:05 | DIS ---
DATE OF ADMISSION: 06/24/2018 DATE OF DISCHARGE: 06/26/2018 CONDITION: At the time of discharge, stable and improved. DISCHARGE DISPOSITION: Home with [facility]. PRIMARY CARE PHYSICIAN: Dr. Brian Mac. PRIMARY DRAIN TILER: Dr. Bennie Suarez. DISCHARGE DIAGNOSES: 1. Chest pain, acute coronary syndrome ruled out. 2. Acute on chronic diastolic congestive heart failure. 3. Indeterminate troponin, likely demand ischemia from acute congestive heart failure. 4. Hypokalemia, resolved. 5. Chronic kidney disease, stage 3. 6. History of paroxysmal atrial fibrillation, on chronic anticoagulation. 7. Coronary artery disease. 8. Diabetes. 9. Dyslipidemia. 10. Gout. 11. Hypertension. 12. History of moderate aortic stenosis and tricuspid regurgitation. 13. Obesity. DISCHARGE DIAGNOSES: Restart home medications as follows; 1. Insulin 75/25 14 units b.i.d. 2. Colchicine 1 tablet daily. 3. Uloric 1 tablet daily. 4. Dicyclomine p.r.n. 5. Zofran p.r.n. 6. Gabapentin 2 tablets p.o. b.i.d. 7. Aspirin 81 mg daily. 8. Eliquis 2.5 mg p.o. b.i.d. 9. Lasix 40 mg daily. 10. Diltiazem 240 mg daily. 11. Coreg 6.25 mg p.o. b.i.d. 12. Protonix 40 mg daily. 13. Multivitamin daily. IN-HOUSE CONSULTATION: Cardiology, Dr. Bennie Suarez. PROCEDURES DONE: Chest x-ray upon presentation, which is unremarkable. HISTORY OF PRESENTING ILLNESS: Ms. Santos is a pleasant 83-year-old female, who lives alone but has home health care and primary care providers with past medical history of coronary artery disease, diabetes, atrial fibrillation on anticoagulation, chronic diastolic congestive heart failure, presented to the emergency room with complaints of intermittent chest pain for 2 weeks. Upon presentation, she was hemodynamically stable, and her troponin was mildly bumped. Initial troponin was 0.146 with a CK-MB of 2.0. Otherwise, all of her other workup was essentially unremarkable. She was admitted for further workup of chest pain. She did have elevated BNP of 960. Please see admission history and physical dictated by SHELLY Catsaneda, on 06/24/2018 for full details. The patient's cardiac enzymes were trended and her troponin went from 0.146 to 0.156 and then 0.138. She remained otherwise hemodynamically stable. Dr. Suarez was consulted as the patient has had cardiac catheterization in the past, which was unremarkable. Dr. Suarez saw the patient and recommended that she be continued on her home medication, but she had nothing new to offer her. She was given a dose of Lasix IV for elevated BNP. Otherwise, the patient remained hemodynamically stable and symptom-free. This morning, she is cleared by Cardiology for discharge and will be discharged back to home with home health. She was seen and examined prior to discharge. PHYSICAL EXAMINATION: VITAL SIGNS: Temperature 98, heart rate 92, blood pressure 163/74. GENERAL: No acute distress. Awake, alert, and oriented x3. CHEST: Clear to auscultation bilaterally. HEART: Rate and rhythm is regular. Medication reconciliation was done. DISCHARGE PLAN: Discharge plan was discussed with the patient, who verbalized understanding. Please note that this patient will be restarted on home oxygen as ambulatory oxygen sats were in the high 70s. She has chronic home oxygen, but she has not been using it at home. She is encouraged to do so. Job ID: [id number]
== END 2018-06-26 14:45 | disposition home or self-care (01) ==
LOC: ERS 11:51 → 2SW 17:59
PROVIDERS: ADMIT Internal Medicine; ATTEND Internal Medicine
DX: R07.89 Other chest pain (principal); I13.0 Hypertensive heart and chronic kidney disease with heart failure and stage 1 through stage 4 chronic kidney disease, or unspecified chronic kidney disease; E11.22 Type 2 diabetes mellitus with diabetic chronic kidney disease; N18.3 Chronic kidney disease, stage 3 (moderate); I50.33 Acute on chronic diastolic (congestive) heart failure; N17.9 Acute kidney failure, unspecified; E87.6 Hypokalemia; I48.0 Paroxysmal atrial fibrillation; I25.10 Atherosclerotic heart disease of native coronary artery without angina pectoris; E78.5 Hyperlipidemia, unspecified; M10.9 Gout, unspecified; E11.40 Type 2 diabetes mellitus with diabetic neuropathy, unspecified; G89.29 Other chronic pain; M54.9 Dorsalgia, unspecified; I48.2 Chronic atrial fibrillation; J44.9 Chronic obstructive pulmonary disease, unspecified; I35.0 Nonrheumatic aortic (valve) stenosis; I07.1 Rheumatic tricuspid insufficiency; E66.9 Obesity, unspecified; Z68.33 Body mass index [BMI] 33.0-33.9, adult; Z87.891 Personal history of nicotine dependence; Z79.01 Long term (current) use of anticoagulants; Z79.4 Long term (current) use of insulin; Z79.82 Long term (current) use of aspirin; Z79.899 Other long term (current) drug therapy; Z88.6 Allergy status to analgesic agent; Z88.8 Allergy status to other drugs, medicaments and biological substances; Z91.013 Allergy to seafood; Z91.041 Radiographic dye allergy status
CPT/HCPCS: 51701; 71045; 80048 ×2; 80053; 82553; 82962 ×3; 83605; 83690; 83880; 84484 ×2; 85025 ×3; 87040; 87804 ×2; 93005; 96374; 97139 ×3; 97530 ×2; 99285; G0378 ×2; 36415; 36416; 81003; 81015; 96360; A4353; J1815; J1940

== ENCOUNTER 2018-07-23 20:00 | Emergency (ER) | payer MEDICARE, OTHER ==
--- NOTE | 2018-07-23 20:52 | RAD ---
AP VIEW CHEST: 07/23/18 HISTORY: Shortness of breath. AP view chest is obtained on 07/23/18. Comparison made to a previous exam from 06/24/18. AP view chest demonstrates calcification of the aorta. Calcification of the mitral annulus seen. The lungs are well aerated. No evidence of active intrathoracic disease seen. No evidence of effusions, p neumonia or pneumothorax seen. Old healed left sided rib fractures seen. IMPRESSION: No evidence of acute intrathoracic abnormality seen. POS: [facility]
[2018-07-23 20:53] LABS: #Eosinphils 0.1 thou/uL (0.0-0.7); #Monocytes 0.4 thou/uL (0.11-0.59); %Basophils 1.1 % (0.0-1.0); %Eosinophils 2.2 % (0.0-10.0); %Lymphocytes 28.1 % (21.0-51.0); %Monocytes 10.9 % (0.0-10.0); %Neutrophils 57.7 % (42.0-75.0); Hemoglobin 12.3 g/dL (12.0-16.0); Mean Corpuscular HGB CONC 33.1 g/dL (32.0-36.0); Mean Corpuscular Hemoglobin 30.2 pg (27.0-31.0); Mean Corpuscular Volume 91.2 fL (78.0-98.0); Mean Platelet Volume 10.7 fL (7.4-10.4); Platelet Count 135 thou/uL (130-400); RBC Distribution Width 15.9 % (11.5-14.5); Red Blood Cell (RBC) Count 4.07 mill/uL (4.20-5.40); White Blood Cell (WBC) Count 3.5 thou/uL (4.8-10.8)
[2018-07-23 21:13] LABS: ALT (SGPT) 10 U/L (8-55); AST (SGOT) 11 U/L (5-34); Albumin 3.7 g/dL (3.4-4.8); Alkaline Phosphatase 125 U/L (40-150); Anion Gap 15 mmol/L (10-20); BUN (Urea Nitrogen) 39 mg/dL (9.8-20.1); Bilirubin, Total 0.3 mg/dL (0.2-1.2); Calc. Creatinine Clearance 0 mL/min (70-130); Carbon Dioxide 22 mmol/L (23-31); Chloride 108 mmol/L (98-107); Estimated GFR-MDRD 30; Glucose 151 mg/dL (83-110); Potassium 4.1 mmol/L (3.5-5.1); Protein, Total 6.7 g/dL (6.0-8.3); Sodium 141 mmol/L (136-145)
== END 2018-07-23 21:55 ==
LOC: ERS 20:00
DX: J30.9 Allergic rhinitis, unspecified (principal); I25.10 Atherosclerotic heart disease of native coronary artery without angina pectoris; I48.91 Unspecified atrial fibrillation; E78.2 Mixed hyperlipidemia; E11.9 Type 2 diabetes mellitus without complications; I10 Essential (primary) hypertension; M10.9 Gout, unspecified; Z79.899 Other long term (current) drug therapy; Z79.4 Long term (current) use of insulin; Z79.82 Long term (current) use of aspirin
CPT/HCPCS: 36415; 71045; 80053; 83880; 84484; 85025; 93005

== ENCOUNTER 2018-08-09 19:15 | Inpatient (IN) | payer MEDICARE, MEDICAID ==
--- NOTE | 2018-08-09 19:55 | RAD ---
CHEST ONE VIEW: 08/09/18 HISTORY: Chest pain. COMPARISON: 07/23/18. FINDINGS: Cardiac silhouette is magnified by projection. Pulmonary vasculature upper limits of normal. Mediasti num is midline with aortic calcification. Linear scarring at the left base is stable. No lobar conso lidation or evidence of pneumothorax. Old left rib fractures are stable. radiation monitor leads overli e the chest. IMPRESSION: Atherosclerosis. Chronic type findings are stable. POS: [facility]
[2018-08-09 20:15] LABS: #Lymphocytes 0.6 thou/uL (1.20-3.40); #Monocytes 0.2 thou/uL (0.11-0.59); #Neutrophils 7.1 thou/uL (1.40-6.50); %Eosinophils 0.2 % (0.0-10.0); %Lymphocytes 6.9 % (21.0-51.0); %Monocytes 2.9 % (0.0-10.0); %Neutrophils 89.9 % (42.0-75.0); Hemoglobin 12.1 g/dL (12.0-16.0); Mean Corpuscular HGB CONC 33.7 g/dL (32.0-36.0); Mean Corpuscular Hemoglobin 31.1 pg (27.0-31.0); Mean Corpuscular Volume 92.3 fL (78.0-98.0); Mean Platelet Volume 8.9 fL (7.4-10.4); Platelet Count 293 thou/uL (130-400); RBC Distribution Width 15.2 % (11.5-14.5); Red Blood Cell (RBC) Count 3.89 mill/uL (4.20-5.40); White Blood Cell (WBC) Count 7.9 thou/uL (4.8-10.8)
[2018-08-09] MEDS ORDERED: Insulin Regular 300 UNITS/3 ML VIAL ONE (20:28)
[2018-08-09 20:33] LABS: ALT (SGPT) 8 U/L (8-55); AST (SGOT) 7 U/L (5-34); Albumin 3.9 g/dL (3.4-4.8); Alkaline Phosphatase 129 U/L (40-150); Anion Gap 19 mmol/L (10-20); BUN (Urea Nitrogen) 44 mg/dL (9.8-20.1); Bilirubin, Total 0.3 mg/dL (0.2-1.2); Calc. Creatinine Clearance 0 mL/min (70-130); Calcium 8.9 mg/dL (7.8-10.44); Carbon Dioxide 19 mmol/L (23-31); Chloride 101 mmol/L (98-107); Estimated GFR-MDRD 33; Glucose 430 mg/dL (83-110); Potassium 5.1 mmol/L (3.5-5.1); Protein, Total 6.9 g/dL (6.0-8.3); Sodium 134 mmol/L (136-145)
[2018-08-09] MEDS ORDERED: Aspirin 325 MG TAB ONE (20:43)
[2018-08-09] MEDS ORDERED: Furosemide 40 MG/4 ML VIAL ONE (20:44)
[2018-08-09] MEDS ORDERED: Nitroglycerin 2% Ointment 1 INCH/1 GM Packet ONE (20:44)
[2018-08-09 21:47] LABS: Troponin I 0.011 ng/mL (< 0.028)
[2018-08-09] MEDS ORDERED: Ondansetron ODT 4 MG TAB PO PRN (23:19)
[2018-08-09] MEDS ORDERED: Acetaminophen 325 MG TAB PO PRN (23:19)
[2018-08-09] MEDS ORDERED: Ondansetron PF 4 MG/2 ML Vial IVP PRN (23:19)
[2018-08-09 23:20] VITALS: BMI 32.8
[2018-08-09] MEDS ORDERED: Dextrose 5% in Water 1,000 ML IV PRN (23:22)
[2018-08-09] MEDS ORDERED: Dextrose 50% Abboject 50 ML SYRINGE SLOW IVP PRN (23:22)
[2018-08-10 02:09] LABS: #Lymphocytes 0.6 thou/uL (1.20-3.40); #Monocytes 0.3 thou/uL (0.11-0.59); #Neutrophils 6.5 thou/uL (1.40-6.50); %Eosinophils 0.2 % (0.0-10.0); %Lymphocytes 8.5 % (21.0-51.0); %Monocytes 4.5 % (0.0-10.0); %Neutrophils 86.9 % (42.0-75.0); Hemoglobin 12.3 g/dL (12.0-16.0); Mean Corpuscular HGB CONC 33.4 g/dL (32.0-36.0); Mean Corpuscular Volume 92.8 fL (78.0-98.0); Mean Platelet Volume 8.7 fL (7.4-10.4); Platelet Count 288 thou/uL (130-400); Red Blood Cell (RBC) Count 3.96 mill/uL (4.20-5.40); White Blood Cell (WBC) Count 7.5 thou/uL (4.8-10.8)
[2018-08-10 02:32] LABS: Troponin I Less than 0.010 ng/mL (< 0.028)
[2018-08-10 02:48] LABS: Anion Gap 18 mmol/L (10-20); BUN (Urea Nitrogen) 45 mg/dL (9.8-20.1); Calc. Creatinine Clearance 47 mL/min (70-130); Calcium 9.6 mg/dL (7.8-10.44); Carbon Dioxide 23 mmol/L (23-31); Chloride 100 mmol/L (98-107); Estimated GFR-MDRD 36; Glucose 330 mg/dL (83-110); Potassium 4.7 mmol/L (3.5-5.1); Sodium 136 mmol/L (136-145)
[2018-08-10] MEDS ORDERED: Ondansetron ODT 4 MG TAB SL PRN (03:17)
[2018-08-10] MEDS ORDERED: Dicyclomine 20 MG TAB PO PRN (03:17)
--- NOTE | 2018-08-10 04:10 | HP ---
PRIMARY CARE DOCTOR: Dr. Brian Mac. CODE STATUS: Full code. TIME OF EVALUATION: 11 p.m. CHIEF COMPLAINT: Chest pain. HISTORY OF PRESENT ILLNESS: This is an 83-year-old female patient with past medical history of coronary artery disease, arrhythmia, atrial fibrillation, valvular heart disease, hyperlipidemia, diabetes type 2, hypertension, and gout, came to the hospital after having chest pain. The patient was having intercourse with her partner and started developing chest pain. She reported she had it before, but usually lasts for few minutes, this time was not improving. The patient follows with Dr. Suarez. The patient has reported Dr. Suarez does not want to put any stent on her in the past; however, symptoms have recurred. Pain was 2/10, improved by self. REVIEW OF SYSTEMS: CONSTITUTIONAL: No fever, chills, or generalized weakness. RESPIRATORY: No cough, sputum production, or shortness of breath. CARDIOVASCULAR: The patient has chest pain. No palpitation. GASTROINTESTINAL: No nausea. No vomiting, diarrhea, or abdominal pain. GROVE SUPERINTENDENT: No dizziness, headache, or feeling lightheaded. GENITOURINARY: No burning on urination. EXTREMITIES: Bilateral leg swelling. All other systems were reviewed and negative except for the findings mentioned above. PAST MEDICAL HISTORY: As mentioned in the HPI. SURGICAL HISTORY: Appendectomy, carpal tunnel surgery, neck surgery, cardiac cath, previous ablations. PSYCH HISTORY: No previous psych history. SOCIAL HISTORY: The patient drinks socially. Former cigarette smoker, quit smoking more than 10 years ago. FAMILY HISTORY: Reviewed and noncontributory for current presentation. KNOWN ALLERGIES: Acetaminophen, ibuprofen, iodine, metformin, mometasone, Motrin, naproxen, Nasonex, omega-3 fish oil, prednisone, propoxyphene, shellfish. REPORTED MEDICATIONS: Zofran and PHYSICAL EXAMINATION: VITAL SIGNS: On presentation, blood pressure 171/86 with heart rate 94, respiratory rate was 20, temperature 98.2, pain was 2, oxygen saturation was 97% on room air. GENERAL APPEARANCE: The patient is alert and oriented, not in acute distress. HEENT: Eyes; normal conjunctivae. Anicteric. Moist oral mucosa. Anicteric. No JVD. RESPIRATORY: Bilateral air entry. No rales. No wheezing. Symmetric expansion. CARDIOVASCULAR: Normal rate and regular rhythm. No murmurs. No gallop. No edema. ABDOMEN: Soft. Normal bowel sounds. MUSCULOSKELETAL: Baseline range of motion and strength. No tenderness. SKIN: Warm and intact. No pallor. No rash. No redness. Peripheral pulses are present. Capillary refill seems to be intact. NEUROLOGIC: No evidence of any new focal weakness. Baseline speech. Cranial nerves seems to be intact. PSYCHIATRIC: The patient is in good mood. No anxiety. Optimal judgment. IMAGING DATA: EKG was reviewed. The patient has atrial fibrillation with RVR, heart rate 101, QRS 116, QT corrected 484. Chest x-ray was reviewed. The patient has atherosclerosis, chronic type. Findings are stable. LABORATORY DATA: Labs were reviewed. The patient has white count 7.9 with hemoglobin 12.1, platelet count 293. Chemistry; sodium 134, potassium 5.1, chloride 101, carbon dioxide 19, anion gap 19, BUN 44, creatinine 1.51 and the second one is 1.42, in the previous admission was about the same value. GFR 33. Glucose 430 and second one is 330. Calcium 9.9. Total bilirubin 0.3, AST 7, ALT 8, alkaline phosphatase 129. Troponins have been negative x3. Beta natriuretic peptide is 471. ASSESSMENT AND PLAN: The patient will be placed in the hospital with following medical problems: 1. Chest pain, likely related to exertion. We will consult Dr. Suarez, who has been seeing this patient for a long time and has decided not to offer stent in the past. Troponins are negative, so no evidence of acute coronary syndrome at this point. Further plan depending on Dr. Suarez' recommendations. 2. Acute congestive heart failure exacerbation. The patient has improved with diuresis and will continue for now. We will reconcile home medications once updated. 3. Uncontrolled diabetes. The patient has been placed on sliding scale. Low carb diet is recommended. We will adjust treatment as per patient's response. 4. History of atrial fibrillation. The patient presented with atrial fibrillation with RVR, heart rate in the 100s. We will reconcile home medications, continue anticoagulation. 5. Chronic anticoagulation. The patient was on Eliquis. We will continue for now due to atrial fibrillation. 6. Hyperlipidemia. Low-cholesterol diet is advised. 7. Uncontrolled hypertension. The patient presented with systolic blood pressure of 171/86. We will reconcile home medications, we will adjust the treatment as needed. 8. Chest pain with negative troponin. Plan as above. 9. Deep venous thrombosis prophylaxis. 10. Gastroesophageal reflux disease, reconcile home medications. Job ID: [id number]
[2018-08-10] MEDS ORDERED: Furosemide 40 MG/4 ML VIAL SLOW IVP SCH (09:00)
[2018-08-10] MEDS: Carvedilol 6.25 MG TAB PO SCH ×2 (09:23→17:10)
[2018-08-10] MEDS: Colchicine 0.6 MG TAB PO SCH (09:23)
[2018-08-10] MEDS: Gabapentin 400 MG CAP PO SCH ×2 (09:23→21:43)
[2018-08-10] MEDS: Multivitamin W/ Minerals 1 TAB PO SCH (09:23)
[2018-08-10] MEDS: Apixaban 2.5 MG TAB PO SCH ×2 (09:23→21:43)
[2018-08-10] MEDS: Aspirin 81 mg Enteric Coated Tablet PO SCH (09:24)
[2018-08-10] MEDS: Famotidine 20 MG TAB PO SCH (09:24)
[2018-08-10] MEDS: Febuxostat 40 MG TAB PO SCH (09:30)
[2018-08-10] MEDS: Furosemide 40 MG TAB PO SCH (10:13)
[2018-08-10] MEDS ORDERED: Amiodarone 150 MG in Dextrose 5% in Water 100 ML IVPB SCH (10:15)
[2018-08-10] MEDS ORDERED: Amiodarone 450 MG in Dextrose 5% in Water 250 ML IVPB SCH ×2 (10:15→19:30)
[2018-08-10 10:41] LABS: ALT (SGPT) 7 U/L (8-55); AST (SGOT) 6 U/L (5-34); Albumin 3.7 g/dL (3.4-4.8); Alkaline Phosphatase 119 U/L (40-150); Bilirubin, Direct 0.1 mg/dL (0.1-0.3); Bilirubin, Total 0.2 mg/dL (0.2-1.2); Magnesium 1.9 mg/dL (1.6-2.6)
[2018-08-10] MEDS: HumaLOG 300 UNITS/3 ML VIAL SC PRN ×3 (10:59→21:44)
--- NOTE | 2018-08-10 12:13 | CON ---
DATE OF CONSULTATION: 08/10/2018 HISTORY OF PRESENT ILLNESS: I am seeing Ms. Santos at our [facility] telemetry floor as an Electrophysiology professional services consultant regarding for recurrent atrial fibrillation. Her problems are: 1. Recurrent atrial arrhythmias. a. History of atrial fibrillation and also typical flutter prompting cavotricuspid isthmus ablation in February [address] Langley and subsequent flecainide use, hence history of atrial fibrillation was initiated then. b. Continued paroxysms of atrial fibrillation with occasional rapid rate from the current admission as well. 2. History of coronary artery disease. 3. Valvular heart disease. a. 2D echo from 09/11/2017, demonstrates LVEF of 60% to 65%, mild concentric LVH, moderate left atrial enlargement, moderate aortic stenosis, mild tricuspid regurgitation. 4. Remote history of CVA. 5. History of hyperlipidemia, type 2 diabetes, hypertension, and morbid obesity. 6. History of gout. 7. History of GERD. ALLERGIES: TYLENOL, FISH DERIVED PRODUCTS, IBUPROFEN, IODINE, METFORMIN, NASONEX, NAPROXEN, OMEGA-3 FATTY ACID, PREDNISONE, AND SHELLFISH. MEDICATIONS: At home included: 1. Pantoprazole. 2. Aspirin. 3. Furosemide. 4. Multivitamin. 5. Carvedilol 6.25 mg twice a day. 6. Apixaban 2.5 mg twice a day. 7. Diltiazem. 8. Febuxostat. 9. Dicyclomine. 10. Zofran. 11. Gabapentin. 12. Tramadol. 13. Ranitidine. 14. Insulin. 15. Colchicine. SUBJECTIVE: Ms. Santos is admitted after exertion-related chest pain and she was noted to be in rapid rates on admission after intercourse. Her episodes usually lasting a few minutes this time was not improving and she came to the hospital. She was evaluated and serial cardiac enzymes were negative. She is admitted to the floor and continues in atrial fibrillation now with controlled rates. She is on chronic anticoagulation. She currently denies smoking, EtOH, or drug abuse. No fever, chills, or cough. Rest of 12-point system otherwise unremarkable. PAST MEDICAL HISTORY: As above. She had a recent hospitalization in June with chest pains, borderline troponins. She had negative heart catheterization in the past as per reports and therefore, no repeat heart catheterization was done. Her BNP was elevated. IV Lasix was given, but her renal functions were sent in the past to transient hemodialysis as far as she followed up with Dr. Bustamante in this regard. She has no history of bleeding. She does have a history of hypoxic respiratory failure in the past, possibly due to diastolic heart failure. SOCIAL HISTORY: She denies smoking, EtOH, or drug abuse. PAST SURGICAL HISTORY: Significant for carpal tunnel surgery and appendectomy. FAMILY HISTORY: Negative for lung disease. Father was an alcoholic, of liver cirrhosis in 60s. OBJECTIVE DATA: VITAL SIGNS: Blood pressure 138/63, heart rate 96, respirations 18, and temperature 98.6 degrees Fahrenheit. GENERAL: Alert and oriented woman, in no apparent distress. NECK: Supple. Jugular veins not distended. CHEST: Coarse without crackles. HEART: Sounds are irregularly irregular. S1 and S2 variable. 1/6 systolic ejection murmur is heard. The PMI is nonpalpable. ABDOMEN: Obese and benign. Bowel sounds positive. No hepatosplenomegaly is detected. EXTREMITIES: Lower extremities without edema, clubbing, or cyanosis. Pulses are adequate. NEUROLOGIC: The patient nonfocal. MUSCULOSKELETAL: Without joint swelling or deformity. SKIN: Without rash. DATABASE: EKG is reviewed, revealing atrial fibrillation/coarse atrial fibrillation, right bundle branch block pattern with left axis deviation, no significant ST-T changes except for inferior T-wave inversions. LABORATORY DATA: Cardiac enzymes negative x2. Sodium 136, potassium 4.7, BUN is 45, creatinine 1.42. The BNP was 471. AST and ALT are in normal range. White cell count 7.5, hemoglobin 12.3, platelet count is 288. The chest x-ray on this admission with chronic findings, linear scarring in the left base is stable. ASSESSMENT AND PLAN: Ms. Santos is a pleasant 83-year-old woman with multiple medical issues including diabetes, hypertension, obesity, chronic renal insufficiency, who also has history of diastolic heart failure and angina, albeit unremarkable heart catheterization as per notes in the past. She also has moderate aortic stenosis on medical management currently. She has recurrent atrial arrhythmias. In the past, she had atrial flutter ablation by Dr. Langley, but even then atrial fibrillation was noted she was on flecainide, which she is not taking anymore. She is not recurring with another episode of atrial fibrillation. It seems that in June on review of the EKGs available from the hospital, she was still in sinus rhythm transiently. Likely, she is still in a paroxysmal phase of atrial fibrillation. We had a long discussion about treatment options. Antiarrhythmic agents could be a good consideration, although she has tried flecainide in the past. Multaq could be a consideration, but with history of diastolic heart failure, this may not be tolerated. Alternatively, amiodarone could be also an option, although long-term side effects might limit the use of this drug from sotalol or [id number] agents, hence the labile renal function. We also discussed the ablation options. Pulmonary venous isolation procedure is feasible, although with her advanced age and comorbidities, there definitely was a higher risk than usual. I detailed procedure to her and at this point, she is undecided on this. In the meantime, rate control will be encouraged. She is on beta-gary therapy already, which could be increased if tolerated along with continued diltiazem. Again, alternative of amiodarone therapy could be considered if that is felt feasible. We will discuss with Dr. Suarez and make long-term decision. Heike has an appointment in my office for followup, which I encouraged her to keep. Markedly elevated CHADS-VASc score with age, gender, history of stroke, diabetes, hypertension is 7. She has high risk of stroke and she needs to continue Eliquis, which is appropriately dosed at 2.5 mg twice a day. Monitor for bradyarrhythmias, all the negative chronotropic agents, but so far no indication of pacemaker just yet. Job ID: [id number]
[2018-08-10] MEDS ORDERED: HumuLIN 70/30 (300 UNITS/3 ML VIAL) SC SCH (13:00)
--- NOTE | 2018-08-10 13:36 | PRG ---
DATE OF SERVICE: 08/10/2018 SUBJECTIVE: The patient was seen and examined at the bedside. She does not have much complaints to offer. She could not eat a lot because she does not eat meatloafs and bread. OBJECTIVE: VITAL SIGNS: Blood pressure is 178/75, pulse is 89, temperature is 98.7, respirations 17, O2 saturation is 96% on room air. HEAD: Atraumatic and normocephalic. Sclerae nonicteric. Conjunctivae pinkish. Oral mucosa is moist. NECK: Supple. LUNGS: Clear. HEART: S1, S2. Irregularly irregular. No S3. No S4. No any murmur. ABDOMEN: Soft, nontender, nondistended. EXTREMITIES: No clubbing, cyanosis, or edema. NEUROLOGIC: She moves all 4 extremities. There is no any motor or sensory deficits. Cranial nerves are intact. LABORATORY DATA: Labs showed white count of 7.5, hemoglobin 12.3, hematocrit 36.8, platelet count 288,000. Normal electrolytes. BUN of 45, creatinine 1.42, glycemia is ranging from 274-428. Troponin I two sets 0.011 and 0.010. The rest of chemistry within normal limits. IMPRESSION: 1. Atrial fibrillation with rapid ventricular response, recurrent. The patient was seen by glass mould cleaner and by shearing machine feeder, Dr. Lemon, who recommends amiodarone drip. She is on it during my visit. 2. Coronary artery disease, chronic, stable. 3. Diabetes mellitus, uncontrolled. 4. Hyperlipidemia. 5. Hypertension. 6. History of gout. 7. Chronic anticoagulation. PLAN: As mentioned above. Cardiology/EP started amiodarone drip to convert her. Further recommendation from two consultants to follow. I am going to start her on her insulin 75/25 subcutaneously twice a day plus mild sliding scale and will escalate the treatment as needed. We will continue her apixaban, which is Eliquis twice a day along with aspirin. Also, we will continue her carvedilol, diltiazem, furosemide, gabapentin, pantoprazole, and colchicine. Job ID: [id number]
[2018-08-10] MEDS: HumuLIN 70/30 (300 UNITS/3 ML VIAL) SC SCH (17:12)
--- NOTE | 2018-08-10 23:28 | CON ---
DATE OF CONSULTATION: 08/10/2018 INDICATION FOR CONSULTATION: An 83-year-old female with CHF exacerbation with atrial fibrillation and rapid ventricular response. HISTORY OF PRESENT ILLNESS: This is a very unfortunate 83-year-old female who was at [place] noticed last night after having sexual activity that she was short of breath. She got up and went to the bathroom. She still remained short of breath. She has had a history of intermittent atrial fibrillation ongoing for the last 2 years. There was also some consideration of possibility of a COPD in the past, but she denies any COPD and according to the records, I do not see any further problems with her lungs, so she does not have a true diagnosis of COPD, but has had some episodes of episodes of congestive heart failure. She has diastolic dysfunction. She had an echocardiogram performed just couple of months ago in the office, which showed ejection fraction remained normal. She continued to have atrial fibrillation. She has been on Eliquis 2.5 mg b.i.d. She did have on the last visit in the office atrial flutter and was referred to security installer at that time. They saw her in July of this year. I think her last echocardiogram was in September of 2017, which showed a normal ejection fraction with diastolic dysfunction, mild left ventricle hypertrophy, the left atrium was moderately dilated. She had moderate aortic stenosis and mild tricuspid valve regurgitation. She also has a history of chronic kidney disease. She has been managed by Dr. Bustamante. She has a history of hypertension as well as a history in the past of having a CVA as well as diabetes. PAST MEDICAL HISTORY: Noted for the diabetes, diastolic dysfunction, history of coronary disease, she has had gout, hypertension, aortic valve stenosis and history of a CVA. PAST SURGICAL HISTORY: She has had history of carpal tunnel syndrome and appendectomy. ALLERGIES: SHE IS ALLERGIC TO IODINE, METFORMIN, MOTRIN, TYLENOL, NAPROSYN, AND PREDNISONE. FAMILY HISTORY: Unremarkable, it is noncontributory. SOCIAL HISTORY: She denies any alcohol or tobacco abuse. MEDICATIONS: Her most recent medications, rather extensive list include: 1. Diltiazem HCL 120 mg daily daily, 24 hours. 2. Furosemide 40 mg daily. 3. Ranitidine 150 mg daily. 4. Tramadol 50 mg daily. 5. Aspirin 81 mg daily. 6. Eliquis 2.5 mg b.i.d. 7. Gabapentin 600 mg 3 tablets in the morning, 2 tablets in the evening. 8. Colchicine 0.6 mg one daily. 9. Coreg 6.25 mg daily. 10. Humalog insulin 70/25, 100 units as directed. 11. Uloric 40 mg once daily. 12. Zofran 8 mg as needed. 13. Protonix 40 mg daily. REVIEW OF SYSTEMS: The 10-point review of system is unremarkable except what was noted in the history of present illness with shortness of breath. She has had significant improvement since being in the hospital. She denies any shortness of breath at this time. She has had no chest pain. PHYSICAL EXAMINATION: GENERAL: Reveals an elderly female, who is in no acute distress at this time. She is alert. She is oriented. VITAL SIGNS: Her blood pressure was 109/53, earlier it was 141/77, increased at 178/75, back down to 109/53. She is afebrile, heart rate originally was in the 90s to 120s. With her atrial fibrillation, she was put on IV amiodarone and the heart rate then decreased into the 40s and 50s. At this time, she is about 59 beats per minute. HEENT: Shows the head to be normocephalic and atraumatic. Carotid pulses are present. I did not hear any significant bruits. CHEST: Clear to auscultation. There were no rales, rhonchi, or wheezing noted. CARDIOVASCULAR: At this time reveals a bradycardia, somewhat irregular rhythm. She has a systolic murmur over the upper sternal border, but this is not a harsh murmur. She does have some aortic valve stenosis. ABDOMEN: Shows obesity with positive bowel sounds. EXTREMITIES: No clubbing, cyanosis, or edema. Pedal pulses are present. She has no significant edema. NEUROLOGIC: She appears to be intact. She is oriented x4. There were no gross focal motor deficits noted. SKIN: Warm and dry. LABORATORY DATA: Shows a WBC of 7.5, hemoglobin 12.3, platelet count 288,000. Her sodium is 136, potassium 4.7, BUN is 45, creatinine 1.42, blood sugar was 330. Her BNP was 471. Her EKG shows atrial fibrillation. On admission, was somewhat tachycardic with atrial fibrillation now. She continues to have atrial fibrillation with a heart rate in the 40s to 50s. IMPRESSION: 1.Intermittent atrial fibrillation, probably we just need to control the heart rate and it is unlikely she will be converted back to sinus rhythm. We can repeat the echocardiogram for evaluation of left ventricular size and also left ventricular systolic function as well as her aortic valve stenosis. At this time, since her heart rates are in the 40s and 50s, I will also hold the diltiazem. She will continue on the Coreg 6.25 mg b.i.d. She may need to undergo pacemaker insertion in order to control the bradycardia and then have beta blockers or calcium blockers to control the tachycardia. We will see how she does overnight. We had considered performing an electrocardioversion on her tomorrow, but she may not be able to maintain sinus rhythm unless she is on antiarrhythmic medications and if she is unable to tolerate that, then it is highly unlikely that she will maintain the sinus rhythm without a pacemaker insertion in order to increase the dose of the medications. 2. Diastolic dysfunction. 3. CKdz. 4. HTN Further recommendations will depend on the echocardiogram that will be repeated and also how the patient does overnight and further recommendations from the security installer. Job ID: [id number] [email or web address]
--- NOTE | 2018-08-11 07:42 | CON ---
DATE OF CONSULTATION: 08/10/2018 PRIMARY CARE DOCTOR: Dr. Brian Mac. PRIMARY SHEET METAL LAY OUT WORKER: Dr. Mandie Suarez. PRIMARY SEMICONDUCTOR BONDER: Dr. Bustamante. PRIMARY GI DOCTOR: Dr. Russell. PRIMARY NEUROLOGIST: Dr. Valerio. REASON FOR CARDIOLOGY CONSULT: CHF exacerbation, chest pain, previous cath. HISTORY OF PRESENT ILLNESS: Ms. Santos is an 83-year-old female with significant history of chronic atrial fibrillation with Eliquis 2.5 mg twice a day, [id number] coronary artery disease, history of CVA, hypertension, diabetes, polio, chronic diastolic heart failure, anemia, and moderate aortic valve stenosis. The patient presents to the emergency department with a complaint of chest pain and shortness of breath, and she described her pain at the chest was under her left breast. The pain is sharp in nature, and the patient states the pain has become worse with palpitation and movement. She denied any dizziness, lightheadedness, nausea, vomiting, or numbness to the left arm. However, she also complained of worsening of her shortness of breath lately, but she denied any abdominal bloating or edema in the lower extremities. She had cardiac catheterization done in July 2014 with 40% stenosis in the proximal LAD, 75% in the first diagonal, and 50% to 75% serial lesion in the proximal to mid RCA and no flow limitation. She had an echocardiogram done in September 2017 with EF of 60% to 65%, moderately dilated left atrium, mild LVH, diastolic dysfunction, moderate aortic valve stenosis, and mild tricuspid regurgitation. During initial cardiology consult assessment, the patient denied any chest pain, dizziness, lightheadedness, tightness, or numbness to the left arm and even she denied shortness of breath at this moment. She stated she would like to go home right now. PAST MEDICAL HISTORY: 1. Hyperlipidemia. 2. Osteoarthritis. 3. Coronary artery disease. 4. CVA. 5. GERD. 6. History of polio. 7. Hypertension. 8. Diabetes type 2. 9. Chronic diastolic dysfunction. 10. Anemia. 11. Moderate aortic valve stenosis. PAST SURGICAL HISTORY: Appendectomy in 2013, cervical spine surgery in 2009, cataract surgery, status post atrial flutter ablation in February 2016. FAMILY HISTORY: The patient's mother had a history of breast cancer, in 1992. The patient's father had a history of EtOH abuse, liver cirrhosis. SOCIAL HISTORY: She is staying in the detention at this moment. She is a . She has 2 children and they are living well. She is an ex-smoker, quit about 20 years ago. She has occasional EtOH use during the holidays. She denies illicit drug abuse. She does not exercise. ALLERGIES: SHE IS ALLERGIC TO METFORMIN, NAPROSYN, OMEGA-3, PREDNISONE, IODINE, TYLENOL, AND SHELLFISH. MEDICATIONS: Current medications: 1. Diltiazem HCL 120 once a day. 2. Lasix 40 mg once a day. 3. Ranitidine 150 once a day. 4. Tramadol 50 mg as needed. 5. Aspirin 81 mg once a day. 6. Eliquis 2.5 mg twice a day. 7. Gabapentin 600 mg 3 tablets in a.m. and 2 tablets in p.m. 8. Colchicine 0.6 mg everyday as needed. 9. Carvedilol 6.25 mg twice a day. 10. Humalog 75/25. 11. Uloric 40 mg once a day. 12. Zofran 8 mg daily as needed. 13. Protonix 40 mg once a day. 14. ProAir 2 puffs every 4 to 6 hours as needed. 15. Dicyclomine 20 mg once a day. REVIEW OF SYSTEMS: A 12-point review of systems negative unless otherwise mentioned in the HPI. The patient denied any blood in stool or urine. She has not fallen since she is staying in assisted living. PHYSICAL EXAMINATION: VITAL SIGNS: Blood pressure 178/75, temperature 98.7, pulse is 90s to 130s, atrial fibrillation, respiratory rate 17, O2 saturation 96% with room air. GENERAL: The patient is alert and oriented x4, not in any acute distress. HEENT: Head; normocephalic, atraumatic. Eyes; extraocular muscle movement intact. ENT and mouth; oral and nasal mucosa moist without lesion. NECK: Supple. Normal range of motion. No JVD. RESPIRATORY: Clear to auscultation bilaterally. No wheezing, rales, or rhonchi noted, but diminished at the bases. CARDIOVASCULAR: Irregularly irregular. No S3 or S4. No significant murmur, hives, or thrill noted. 2+ pulses in bilateral upper and lower extremities. No edema in the lower extremities. Carotid pulses are present without bruit or thrill noted. ABDOMEN: Soft and nontender. No mass to palpitate. Bowel sounds are present. SKIN: Warm and dry. No lesion, rash, or erythema noted. MUSCULOSKELETAL: The patient able to move all extremities, but she uses a walker. NEUROLOGIC: The patient is alert and oriented x4. Nonfocal. PSYCHIATRIC: The patient's mood is appropriate, but the patient easy to get upset. LABORATORY DATA: WBC 7.5, hemoglobin 12.3, hematocrit 36.8, platelet 288. Sodium 136, potassium 4.7, BUN 45, creatinine 1.42, glucose 330, calcium 9.6, magnesium 1.9. AST 6, ALT 7. Troponin is negative x3. BNP is 471. TSH is 0.6358. DIAGNOSTIC DATA: Chest x-ray shows chronic atherosclerosis. 12-lead EKG at the ER showed atrial fibrillation/atrial flutter with rapid ventricular response, heart rate of 101. ASSESSMENT AND PLAN: 1. atrial fibrillation/atrial flutter with rapid ventricular response. Dr. Lemon who is an legal mediator already consulted this patient. He already ordered amiodarone drips with bolus. Since the patient does not have any history of chronic obstructive pulmonary disease or respiratory issue or complication, the patient is going to be on that medication until tomorrow. If she does not convert back to the sinus rhythm by tomorrow, she is going to have the cardioversion by Dr. Lemon tomorrow. She has been on Eliquis for more than 6 months. Her blood pressure is stable, and she is on carvedilol 6.25 mg twice a day and also diltiazem 240 mg once a day. 2. Atypical chest pain. Her symptom is possibly musculoskeletal in nature. She complained the pain is with movement or palpitation to the site. We would like to continue to monitor on the telemetry. 3. Hypertension. Her blood pressure is slightly elevated at this moment. However, since amiodarone is going to be started, we would like to continue to monitor and adjust her blood pressure medication as appropriate. 4. Chronic diastolic heart failure. The patient's condition is stable at this moment. Her BNP is 471 which is not that high at this moment. She is on Lasix 40 mg once a day. She is already on room air without any acute distress. 5. [id number] coronary artery disease, which is stable at this moment. We would like to continue to monitor. She is on beta gary and aspirin 81 mg once a day. 6. Diabetes. She is on a.c. and at bedtime blood glucose check with sliding scale insulin, which is managed by primary care doctor. 7. History of moderate aortic valve stenosis. Her condition is stable at this moment. We would like to continue to monitor. 8. Chronic kidney disease stage 3. The patient's renal function is at baseline at this moment. We would like to continue to monitor. Thank you very much for allowing the Cardiology Service to participate in care of this patient. We will follow along the patient's care team and make further recommendations as appropriate. Job ID: [id number]
--- NOTE | 2018-08-11 08:44 | PDOC.CTH ---
Cardiology Progress Note - Subjective The pt seen and examined. No overnight events. No cardiac complaints. - Objective Vital Signs Temp Pulse Resp BP Pulse Ox 08/11/18 07:41 98.3 F 104 H 18 144/75 H 95 08/11/18 03:05 97.5 F L 70 20 126/75 97 Weight 208 lb 3.2 oz 08/10/18 08/11/18 08/12/18 06:59 06:59 06:59 Intake Total 120 1060 Output Total 650 950 500 Balance -530 110 -500 - Physical Examination General/Neuro: alert & oriented x3 Neck: no JVD present Lungs: CTA (diminished at bases) Heart: other: (irregular) Abdomen: soft Extremities: other: (No edema) - Telemetry Telemetry Rhythm: Afib/Aflutter - Labs Result Diagrams: 08/10/18 01:43 08/10/18 01:43 Troponin/CKMB Troponin I Less than 0.010 ng/mL (< 0.028) 08/10/18 01:43 - Assessment/Plan 1. Afib/Aflutter with RVR - well controlled HR without Diltiazem and Amiodarone drip which were stopped due to Bradycardia; On Coreg 6.25mg BID and Eliquis 2.5mg BID; Plan for DCCV today by Dr Suarez and then start po amiodarone 200mg bid.; The pt may require PM placement with antiarrhythmics medication 2. Mild-mod CAD - stable; on BBlocker and ASA 81mg qd 3. HTN - stable with current med 4. DM type 2 - managed by PCP 5. Anemia 6. CKD stage 3 - stable 7. Mod - not good candidate for AV replacement MAR reviewed Pt. seen and eval. by me. I agree with the a/P by the BRAKE SPECIALIST. Cardioversion this afternoon was successful. 1 attempt with 100 j -> NSR. If stable should be able to d/c tomorrow. Review of Systems - Review of Systems Constitutional: reports: no symptoms reported EENTM: reports: no symptoms reported Respiratory: reports: no symptoms reported Cardiac (ROS): reports: no symptoms reported ABD/GI: reports: no symptoms reported : reports: no symptoms reported Musculoskeletal: reports: no symptoms reported
--- NOTE | 2018-08-11 11:34 | PQF ---
CHERRY BERNSTEIN SUKUMAR ORTEGA [id number] CLINICAL DOCUMENTATION IMPROVEMENT CLARIFICATION FORM: ICD-10 Updated PLEASE DO AN ADDENDUM TO THE PROGRESS NOTE WITH ANY DOCUMENTATION UPDATES OR ADDITIONS AND CARRY THROUGH TO DC SUMMARY. THANK YOU. DATE: 08-11-18 ATTN: DR. BROWN Please exercise your independent, professional judgment in responding to the clarification form. Clinical indicators are provided on the bottom of this form for your review Please check appropriate box(s): [ ] Acute on Chronic Diastolic CHF [ ] Chronic Diastolic CHF [ ] Other diagnosis [ ] Unable to determine For continuity of documentation, please document condition throughout progress notes and discharge summary. Thank You. CLINICAL INDICATORS - SIGNS / SYMPTOMS / LABS * ACUTE CHF EXACERBATION - 08-10 () H&P * HX OF DIASTOLIC HEART FAILURE; CHRONIC RENAL INSUFFICIENCY - 08-10 ([facility]) * CHRONIC DIASTOLIC CHF - STABLE AT THIS MOMENT - 08-10 () * ECHO - SEPTEMBER 2017 - EF 60-65%, DIASTOLIC DYSFUNCTION - 08-10 () * INDICATION FOR CONSULT - CHF EXACERBATION W/ A-FIB W/ RAPID VENTRICULAR RESPONSE - 08-10 () LABS: - BNP 471.1 RISKS: * CAD - 08-10 ([facility]ORDAN) H&P * CHRONIC DIASTOLIC CHF - 08-10 () * HX OF CKD - 08-10 () TREATMENTS: ED: LASIX IV 40MG (08-10) COPE: TELE MONITORING MAR: COREG 08-10 LASIX PO 08-10 CONTINUE COREG 6/25 MG b.i.d - HOLD DILTIAZEM FOR HR IN 40-50'S. - 08-10 () THANK YOU, JACQUELINE (This form is maintained as a part of the permanent medical record) 2014 [employer]. All Rights Reserved Jacqueline Acosta RN, BS [email or web address] Cell [facility]
--- NOTE | 2018-08-11 13:09 | PRG ---
DATE OF SERVICE: 08/11/2018 SUBJECTIVE: The patient is seen and examined at the bedside. She does not have much complaints to offer. She says that she is hungry. She feels better. She is getting ready for her cardioversion this morning. OBJECTIVE: VITAL SIGNS: Blood pressure is 144/75, pulse is 104, temperature is 98.3, respirations are 18, O2 saturation is 95% on 2 L by nasal cannula. HEENT: Head is atraumatic and normocephalic. Eyes are PERRLA. Sclerae are nonicteric. Oral mucosa is moist. NECK: Supple. LUNGS: Breath sounds slightly diminished at both bases. HEART: S1, S2. Irregularly irregular. No S3. No S4. ABDOMEN: Soft, nontender, nondistended. EXTREMITIES: No clubbing, cyanosis, or edema. NEUROLOGICAL: She follows my commands. She moves her all 4 extremities. There is no any motor or sensory deficit present. Cranial nerves are intact. LABORATORY DATA: Labs showed glycemia ranging from 183 to 368. White count of 9.5, hemoglobin 12.3, hematocrit 36.8, platelet count 288,000. IMPRESSION: 1. Atrial fibrillation with rapid ventricular response still in spite of amiodarone use. She is going to have cardioversion done this morning to put her heart back to normal rhythm. 2. Uncontrolled diabetes. I started her on her regular regimen of insulin 75/25 at 14 units twice a day, but this is not adequate. I am going to increase her dose to 20 units twice a day plus sliding scale. 3. Coronary artery disease, chronic, stable. 4. Hyperlipidemia, chronic, stable. 5. Hypertension, chronic, stable. 6. History of gout, chronic, stable. 7. Chronic anticoagulation with Eliquis. We are going to continue her current regimen. She will have done this morning, and I am going to increase her insulin 70/30 dose to 20 units twice a day. Job ID: [id number]
[2018-08-11] MEDS ORDERED: PROPOFOL 20 ML ONE (14:55)
--- NOTE | 2018-08-11 16:15 | OP ---
DATE OF PROCEDURE: 08/11/18 SURGEON: Mandie Suarez M.D. PROCEDURE: Electrical cardioversion INDICATION FOR PROCEDURE: This is an 83-year-old female who was admitted with atrial fibrillation. She was advised to undergo e lectrical cardioversion. CARDIOVERSION The patient was taken to the recovery area where she had been giving a loading dose of Amiodarone or partial loading dose of Amiodarone yesterday. She continued to be in atrial fibrillation. She was giv en short acting propofol and using one attempt at 100 joules, she was successfully converted back to sinus rhythm with a heart rate in the 80s without difficulties or complications.
[2018-08-11] MEDS ORDERED: PROPOFOL 200 MG/20 ML VIAL ONE (16:51)
[2018-08-11] MEDS: Colchicine 0.6 MG TAB PO SCH (18:00)
[2018-08-11] MEDS: Carvedilol 6.25 MG TAB PO SCH ×2 (18:00→18:11)
[2018-08-11] MEDS: Famotidine 20 MG TAB PO SCH (18:00)
[2018-08-11] MEDS: Multivitamin W/ Minerals 1 TAB PO SCH (18:09)
[2018-08-11] MEDS: Febuxostat 40 MG TAB PO SCH (18:09)
[2018-08-11] MEDS: Aspirin 81 mg Enteric Coated Tablet PO SCH (18:11)
[2018-08-11] MEDS: Apixaban 2.5 MG TAB PO SCH ×2 (18:12→20:01)
[2018-08-11] MEDS: Gabapentin 400 MG CAP PO SCH ×2 (18:13→20:01)
[2018-08-11] MEDS: HumuLIN 70/30 (300 UNITS/3 ML VIAL) SC SCH ×2 (18:16→19:22)
[2018-08-11] MEDS: Furosemide 40 MG TAB PO SCH ×2 (18:39→19:27)
[2018-08-11] MEDS: Amiodarone 200 MG TAB PO SCH (20:01)
[2018-08-11] MEDS ORDERED: Amiodarone 200 MG TAB PO SCH (21:00)
[2018-08-11] MEDS: HumaLOG 300 UNITS/3 ML VIAL SC PRN (21:46)
[2018-08-12 05:10] LABS: Platelet Count 303 thou/uL (130-400)
[2018-08-12] MEDS: HumuLIN 70/30 (300 UNITS/3 ML VIAL) SC SCH ×2 (08:51→17:11)
[2018-08-12] MEDS: Carvedilol 6.25 MG TAB PO SCH ×2 (08:52→17:07)
[2018-08-12] MEDS: Amiodarone 200 MG TAB PO SCH ×2 (08:52→21:15)
[2018-08-12] MEDS: Aspirin 81 mg Enteric Coated Tablet PO SCH (08:52)
[2018-08-12] MEDS: Colchicine 0.6 MG TAB PO SCH (08:52)
[2018-08-12] MEDS: Multivitamin W/ Minerals 1 TAB PO SCH (08:52)
[2018-08-12] MEDS: Furosemide 40 MG TAB PO SCH (08:53)
[2018-08-12] MEDS: Famotidine 20 MG TAB PO SCH (08:53)
[2018-08-12] MEDS: Gabapentin 400 MG CAP PO SCH ×2 (08:53→21:15)
[2018-08-12] MEDS: Febuxostat 40 MG TAB PO SCH (10:12)
[2018-08-12] MEDS: Apixaban 2.5 MG TAB PO SCH ×2 (10:12→21:15)
--- NOTE | 2018-08-12 13:22 | PRG ---
DATE OF SERVICE: 08/12/2018 SUBJECTIVE: The patient is seen and examined at the bedside. She is doing quite well. She had her cardioversion done yesterday and her heart is back to normal sinus rhythm. OBJECTIVE: VITAL SIGNS: Blood pressure is 175/72, pulse is 79, temperature is 97.6, respirations 18, and O2 saturation is 97% on room air. HEENT: Head is atraumatic and normocephalic. Eyes are PERRLA. Sclerae are nonicteric. Oral mucosa is moist. NECK: Supple. LUNGS: Clear. HEART: S1 and S2, regular. No S3. No S4. ABDOMEN: Soft, obese, nontender, and nondistended. EXTREMITIES: No clubbing, cyanosis, or edema. NEUROLOGICAL: She follows my commands. She moves her all 4 extremities. There is no any motor or sensory deficits. LABORATORY DATA: Labs showed hemoglobin of 13.0, hematocrit 35.3. Her glycemia is ranging from 194 to 361. Her creatinine is 1.34 and estimated GFR is 38. Microbiology, none. Echocardiogram showed LVEF of 50% to 55%. Diastolic dysfunction present. Restrictive filling pattern. Mitral annular calcification and mild multivalvular . IMPRESSION: 1. Atrial fibrillation with rapid ventricular response, status post electrical cardioversion back to normal sinus rhythm. 2. Uncontrolled diabetes mellitus. I just increased her dose on her insulin 75/25 to 20 units twice a day. She is quite significantly hyperglycemic. 3. Coronary artery disease, chronic, stable. 4. Hyperlipidemia, chronic, stable. 5. Hypertension, on carvedilol 6.25 mg twice a day. 6. Chronic anticoagulation with Eliquis. 7. Chronic renal insufficiency. PLAN: Continue current regimen with amiodarone, apixaban, aspirin, carvedilol, colchicine, Uloric, Lasix, gabapentin, and pantoprazole. Also, she will be on 20 units of Humulin 70/30, and I asked her to do some walking and see whether she can be transferred back home in the next 24 hours. Job ID: [id number]
--- NOTE | 2018-08-12 16:48 | EKG ---
Test Reason : Blood Pressure : / mmHG Vent. Rate : 101 BPM Atrial Rate : 086 BPM P-R Int : 000 ms QRS Dur : 116 ms QT Int : 374 ms P-R-T Axes : 000 002 -09 degrees QTc Int : 484 ms Atrial fibrillation with rapid ventricular response Right bundle branch block Abnormal ECG Confirmed by REYNA FREIRE ([id number]), international editorial producer NIKKIE LUNA ([id number]) on 08/12/2018 4:47:11 PM Referred By: Confirmed By:REYNA FREIRE
[2018-08-12] MEDS: HumaLOG 300 UNITS/3 ML VIAL SC PRN (17:12)
[2018-08-13] MEDS: Carvedilol 6.25 MG TAB PO SCH ×2 (08:10→16:26)
[2018-08-13] MEDS: Gabapentin 400 MG CAP PO SCH ×2 (08:11→21:57)
[2018-08-13] MEDS: Aspirin 81 mg Enteric Coated Tablet PO SCH (08:11)
[2018-08-13] MEDS: Amiodarone 200 MG TAB PO SCH ×2 (08:11→21:57)
[2018-08-13] MEDS: Furosemide 40 MG TAB PO SCH (08:11)
[2018-08-13] MEDS: Colchicine 0.6 MG TAB PO SCH (08:11)
[2018-08-13] MEDS: Apixaban 2.5 MG TAB PO SCH ×2 (08:12→21:57)
[2018-08-13] MEDS: Febuxostat 40 MG TAB PO SCH (08:12)
[2018-08-13] MEDS: Famotidine 20 MG TAB PO SCH (08:12)
[2018-08-13] MEDS: Multivitamin W/ Minerals 1 TAB PO SCH (08:17)
[2018-08-13] MEDS: HumuLIN 70/30 (300 UNITS/3 ML VIAL) SC SCH ×2 (08:18→16:32)
[2018-08-13 10:09] LABS: Anion Gap 16 mmol/L (10-20); BUN (Urea Nitrogen) 57 mg/dL (9.8-20.1); Calc. Creatinine Clearance 37 mL/min (70-130); Calcium 8.6 mg/dL (7.8-10.44); Carbon Dioxide 24 mmol/L (23-31); Chloride 100 mmol/L (98-107); Estimated GFR-MDRD 28; Glucose 232 mg/dL (83-110); Potassium 4.6 mmol/L (3.5-5.1); Sodium 135 mmol/L (136-145)
--- NOTE | 2018-08-13 11:46 | PRG ---
DATE OF SERVICE: SUBJECTIVE: The patient is seen and examined at the bedside. She seems to be doing better. Her appetite is fair. She just took a shower. OBJECTIVE: VITAL SIGNS: Blood pressure is 113/54, pulse is 87, temperature is 97.7, respirations 16, O2 saturation 95% on room air. HEENT: Head is atraumatic and normocephalic. Eyes are PERRLA. Sclerae are nonicteric. Oral mucosa is moist. NECK: Supple. LUNGS: Clear. HEART: S1, S2. Regular. There is a systolic murmur at the right sternal border. ABDOMEN: Soft, nontender. Bowel sounds are present. No organomegaly. EXTREMITIES: No clubbing, cyanosis, or edema. NEUROLOGICAL: She follows my commands. She moves her all 4 extremities. LABORATORY DATA: Showed sodium of 135, potassium 4.6, chloride 100, CO2 of 24, BUN 57, creatinine 1.74. IMPRESSION: 1. Atrial fibrillation with rapid ventricular response, status post electrical cardioversion. She is back to normal sinus rhythm now, on amiodarone. 2. Uncontrolled diabetes mellitus. Her mixed insulin is changed to 20 units twice a day and her glycemia this morning is significantly improved. 3. Coronary artery disease, chronic, stable. 4. Hyperlipidemia chronic stable. 5. Hypertension, on carvedilol. 6. Chronic anticoagulation with Eliquis. 7. Chronic renal insufficiency with current Lasix. Creatinine jumped up to 1.74 this morning. We will recheck her kidney function tomorrow and modify the dose on her Lasix. This could be her normal baseline around this 1.7. Creatinine level is getting close to the time when she can be discharged home, if she stays in sinus rhythm on amiodarone. Job ID: [id number]
[2018-08-14 04:52] LABS: Anion Gap 16 mmol/L (10-20); BUN (Urea Nitrogen) 64 mg/dL (9.8-20.1); Calc. Creatinine Clearance 33 mL/min (70-130); Calcium 8.5 mg/dL (7.8-10.44); Carbon Dioxide 25 mmol/L (23-31); Chloride 101 mmol/L (98-107); Estimated GFR-MDRD 24; Glucose 157 mg/dL (83-110); Potassium 4.5 mmol/L (3.5-5.1); Sodium 137 mmol/L (136-145)
--- NOTE | 2018-08-14 08:24 | PDOC.PN ---
- Subjective Encounter Start Date: 08/14/18 Encounter Start Time: 10:45 Subjective: Patient reports feeling much better today and over the weekend -: after cardioversion. No more chest pain. Ambulating well in hallway with -: walker and has walker at home. - Objective Resuscitation Status - Order Detail: 08/09/18 23:19 Resuscitation Status Routine Resuscitation Status: FULL: Full Resuscitation MAR Reviewed: Yes Vital Signs & Weight: Vital Signs (12 hours) Temp Pulse Resp BP Pulse Ox 08/14/18 03:00 97.8 F 84 18 136/62 97 Weight Weight 203 lb I&O: 08/13/18 08/14/18 08/15/18 06:59 06:59 06:59 Intake Total 1110 960 Output Total 1560 400 Balance -450 560 Result Diagrams: 08/12/18 03:59 08/14/18 04:15 Additional Labs: Accuchecks 08/14/18 08/13/18 08/13/18 06:01 20:10 16:33 POC Glucose 167 H 188 H 179 H 08/13/18 08/13/18 11:01 05:19 POC Glucose 230 H 134 H EKG Reviewed by me: Yes (Tele with NSR, no more afib) Phys Exam - Physical Examination Constitutional: NAD HEENT: moist MMs Respiratory: no wheezing, no rales, no rhonchi, clear to auscultation bilateral Cardiovascular: RRR, no significant murmur Gastrointestinal: soft, positive bowel sounds Musculoskeletal: no edema Neurological: non-focal, moves all 4 limbs Psychiatric: normal affect, A&O x 3 Dx/Plan (1) Acute on chronic diastolic (congestive) heart failure Code(s): I50.33 - ACUTE ON CHRONIC DIASTOLIC (CONGESTIVE) HEART FAILURE Status : Acute Comment: Creatinine elevated so will hold further Lasix for now, appears to be well diuresed at this point (2) PAF (paroxysmal atrial fibrillation) Code(s): I48.0 - PAROXYSMAL ATRIAL FIBRILLATION Status: Chronic Comment: s/ p cardioversion back in NSR, cleared for discharge by Dr. Suarez (3) Acute on chronic renal failure Code(s): N17.9 - ACUTE KIDNEY FAILURE, UNSPECIFIED; N18.9 - CHRONIC KIDNEY DISEASE, UNSPECIFIED Status: Acute Comment: bumped with diuretics in the hospital, will hold home Lasix for next day and then resume, recheck as outpatient in next week (4) Chest pain Code(s): R07.9 - CHEST PAIN, UNSPECIFIED Status: Resolved Comment: unlikley ACS (5) Chronic anticoagulation Code(s): Z79.01 - HANGAR ATTENDANT (CURRENT) USE OF ANTICOAGULANTS Status: Chronic Comment: Continue Eliquis 2.5mg BID (6) Coronary artery disease Code(s): I25.10 - ATHSCL HEART DISEASE OF [place] CORONARY ARTERY W/O ANG PCTRS Status: Chronic Qualifiers: Comment: Stable. (7) Diabetes type 2, controlled Code(s): E11.9 - TYPE 2 DIABETES MELLITUS WITHOUT COMPLICATIONS Status: Chronic Qualifiers: Comment: Continue NPH, SSI. Well controlled. (8) Dyslipidemia Code(s): E78.5 - HYPERLIPIDEMIA, UNSPECIFIED Status: Chronic (9) Gout Code(s): M10.9 - GOUT, UNSPECIFIED Status: Chronic (10) Hypertension Code(s): I10 - ESSENTIAL (PRIMARY) HYPERTENSION Status: Chronic Qualifiers: (11) Moderate aortic stenosis by prior echocardiogram Code(s): I35.0 - NONRHEUMATIC AORTIC (VALVE) STENOSIS Status: Chronic (12) Moderate tricuspid regurgitation by prior echocardiogram Code(s): I07.1 - RHEUMATIC TRICUSPID INSUFFICIENCY Status: Chronic (13) Obesity (BMI 30-39.9) Code(s): E66.9 - OBESITY, UNSPECIFIED Status: Chronic - Plan cont current plan of care, out of bed/ambulate Can likely d/c home today, f/u with PCP later this week for creatinine -: recheck -: Continue Amiodarone 200mg BID for another 3 weeks until sees -: cardiology in the clinic. * . - Discharge Day Encounter end time: 11:05
[2018-08-14] MEDS: Carvedilol 6.25 MG TAB PO SCH (08:47)
[2018-08-14] MEDS: HumuLIN 70/30 (300 UNITS/3 ML VIAL) SC SCH (08:48)
[2018-08-14] MEDS: Amiodarone 200 MG TAB PO SCH (08:49)
[2018-08-14] MEDS: Aspirin 81 mg Enteric Coated Tablet PO SCH (08:49)
[2018-08-14] MEDS: Apixaban 2.5 MG TAB PO SCH (08:49)
[2018-08-14] MEDS: Colchicine 0.6 MG TAB PO SCH (08:49)
[2018-08-14] MEDS: Febuxostat 40 MG TAB PO SCH (08:50)
[2018-08-14] MEDS: Famotidine 20 MG TAB PO SCH (08:50)
[2018-08-14] MEDS: Gabapentin 400 MG CAP PO SCH (08:50)
[2018-08-14] MEDS: Multivitamin W/ Minerals 1 TAB PO SCH (08:51)
[2018-08-14] MEDS: Furosemide 40 MG TAB PO SCH (08:52)
[2018-08-14] MEDS: HumaLOG 300 UNITS/3 ML VIAL SC PRN (12:49)
[2018-08-14 12:59] VITALS: TEMP 98.3
--- NOTE | 2018-08-14 14:21 | PDOC.CTH ---
Cardiology Progress Note - Subjective EP PROGRESS NOTE: 08/14/18 Anticipating DC later today. No new cardiac concerns or complaints. . feeling well - Objective Vital Signs Temp Pulse Resp BP BP Pulse Ox 08/14/18 12:57 98.3 F 74 15 121/59 L 97 08/14/18 08:48 97.8 F 79 18 119/56 L 08/14/18 08:47 119/56 L 08/14/18 03:00 97.8 F 84 18 136/62 97 Weight 203 lb 08/13/18 08/14/18 08/15/18 06:59 06:59 06:59 Intake Total 1110 960 Output Total 1560 400 Balance -450 560 - Physical Examination General/Neuro: alert & oriented x3, NAD Neck: carotid US brisk, no JVD present Lungs: CTA, unlabored respirations Heart: PMI normal, RRR Abdomen: NT/ND, soft - Telemetry Telemetry Rhythm: SR - Labs Result Diagrams: 08/12/18 03:59 08/14/18 04:15 Troponin/CKMB Troponin I Less than 0.010 ng/mL (< 0.028) 08/10/18 01:43 - Assessment/Plan 1. Afib/Aflutter with RVR - NSR after CV last week with Dr Suarez. - bradycardia with Diltiazem and Amiodarone drip - rates stable with coreg 6.25mg BID and amiodarone 200mg bid - Eliquis 2.5mg BID 2. Mild-mod CAD 3. HTN - stable with current med 4. DM type 2 - managed by PCP 5. Anemia 6. CKD stage 3 - stable 7. Mod - deemed poor candidate for AV replacement OK for DC by EP. Continue eliquis, coreg, and amiodarone. 6 week follow up requested.
[2018-08-14 15:55] VITALS: BP 148/65
--- NOTE | 2018-08-14 17:35 | PDOC.CTH ---
Cardiology Progress Note - Subjective The pt seen and examined. No overnight events. No cardiac complaints. - Objective Vital Signs Temp Pulse Pulse Pulse Resp BP BP 08/14/18 12:57 98.3 F 74 15 08/14/18 09:50 75 81 148/65 H 08/14/18 08:48 97.8 F 79 18 08/14/18 08:47 119/56 L BP BP Pulse Ox 08/14/18 12:57 121/59 L 97 08/14/18 09:50 137/61 08/14/18 08:48 119/56 L 08/14/18 08:47 Weight 203 lb 08/13/18 08/14/18 08/15/18 06:59 06:59 06:59 Intake Total 1110 960 Output Total 1560 400 Balance -450 560 - Physical Examination General/Neuro: alert & oriented x3 Neck: no JVD present Lungs: CTA (diminished at bases) Heart: RRR Abdomen: soft Extremities: other: (No edema) - Telemetry Telemetry Rhythm: SR - Labs Result Diagrams: 08/12/18 03:59 08/14/18 04:15 Troponin/CKMB Troponin I Less than 0.010 ng/mL (< 0.028) 08/10/18 01:43 - Assessment/Plan 1. Afib/Aflutter with RVR and s/p DCCV on 08/11/2018 - remains in SR with Coreg 6.25mg BID, Eliquis 2.5mg BID and Amiodarone 200mg BID from 08/11/2018; S/p Bradycardia with Diltiazem and Amiodarone drip; The pt may require PM placement for Bradycardia with antiarrhythmics medication 2. Mild-mod CAD - stable; on BBlocker and ASA 81mg qd 3. HTN - stable with current med 4. DM type 2 - managed by PCP 5. Anemia 6. CKD stage 3 - stable 7. Mod - not good candidate for AV replacement MAR reviewed Pt. seen and eval. by me. I agree with nthe A/P by the STOCK ASSOCIATE. Chest clear. RRR. Stable on amiodarone after cardioversion. gjm * The pt will f/u with Dr Suarez' office within 2-4 wks. Review of Systems - Review of Systems Constitutional: reports: no symptoms reported EENTM: reports: no symptoms reported Respiratory: reports: no symptoms reported Cardiac (ROS): reports: no symptoms reported ABD/GI: reports: no symptoms reported : reports: no symptoms reported
--- NOTE | 2018-08-15 04:46 | DIS ---
DATE OF ADMISSION: 08/10/2018 DATE OF DISCHARGE: 08/14/2018 PRIMARY CARE PHYSICIAN: Brian Mac MD REASON FOR ADMISSION: 1. Chest pain. 2. Acute on chronic congestive heart failure. 3. Atrial fibrillation with rapid ventricular rate. DIAGNOSES AT DISCHARGE: 1. Acute on chronic diastolic congestive heart failure, resolved. 2. Paroxysmal atrial fibrillation, status post cardioversion in normal sinus rhythm. 3. Acute on chronic renal failure secondary to diuresis. 4. Chest pain, resolved. 5. Chronic anticoagulation. 6. Coronary artery disease. 7. Diabetes mellitus type 2, well controlled. 8. Dyslipidemia. 9. Gout. 10. Hypertension. 11. Moderate aortic stenosis. PROCEDURES: 1. Echocardiogram is showing an ejection fraction of 50% to 55%, and diastolic dysfunction with a restrictive filling pattern and thickened aortic valve leaflets are not well visualized at this hospitalization. 2. Synchronized electrical cardioversion of atrial fibrillation into normal sinus rhythm. CONSULTATIONS: 1. Electrophysiology, Matteo Lemon MD. 2. Cardiology, Mandie Suarez MD. SUMMARY OF HOSPITAL COURSE: This is an 83-year-old white female with past medical history of coronary artery disease, atrial fibrillation, valvular heart disease and congestive heart failure. She came in after an episode of chest pain with exertion, was evaluated in the emergency room. EP and Dr. Suarez were consulted for atrial fibrillation with rapid ventricular rate. She had no more chest pain in the hospital. She had a cardioversion done, which resulted in normal sinus rhythm and resolution of symptoms. She did have IV diuresis with good diuresis in the hospital. In the last couple of days, her creatinine did start to go up. Her Lasix is being held and is going to be restarted on just her home dose of Lasix tomorrow. The patient has been ambulating well with with a walker in the mer[place] and is eager to go home. DISCHARGE MANAGEMENT: Discharged home. ACTIVITY: As tolerated. DIET: Diabetic diet. FOLLOWUP: Follow up with Dr. Suarez in 2 to [address] Mac in 3 days for recheck of basic metabolic panel. MEDICATIONS: 1. Amiodarone 200 mg twice a day for 3 weeks. 2. Continue Eliquis 2.5 mg twice a day. 3. Aspirin 81 mg daily. 4. Carvedilol 6.25 mg twice a day. 5. Colchicine 0.6 mg daily. 6. Dicyclomine one tab every 8 hours as needed for abdominal pain. 7. Uloric 40 mg daily. 8. Furosemide 40 mg daily starting tomorrow. 9. Gabapentin 600 mg 2 tablets twice a day. 10. Humalog Mix Pen 75/25, 14 units subcu, actually increased to 20 units subcu twice a day. 11. Multivitamin daily. 12. Zofran as needed. 13. Protonix 40 mg daily. 14. Ranitidine 150 mg daily. TIME SPENT: Arranging the details of this discharge took 35 minutes. Job ID: [id number]
--- NOTE | 2018-08-16 15:01 | EKG ---
Test Reason : A.M. Blood Pressure : / mmHG Vent. Rate : 067 BPM Atrial Rate : 067 BPM P-R Int : 210 ms QRS Dur : 124 ms QT Int : 446 ms P-R-T Axes : 055 -08 -11 degrees QTc Int : 471 ms Sinus rhythm with 1st degree A-V block Right bundle branch block ST elevation, consider early repolarization, pericarditis, or injury Abnormal ECG Confirmed by ADY CALLE ([id number]) on 08/16/2018 3:01:20 PM Referred By: LANIE Confirmed By:ADY CALLE
== END 2018-08-14 17:11 | disposition home or self-care (01) | DRG 291 ==
LOC: ERS 19:15 → 2NO 20:43 → OBSVTOIN 08-10 13:35
PROVIDERS: ADMIT Hospitalist; ATTEND Hospitalist
PROC: 5A2204Z Restoration of Cardiac Rhythm, Single (ICD-10-PCS; principal; 2018-08-13)
DX: I13.0 Hypertensive heart and chronic kidney disease with heart failure and stage 1 through stage 4 chronic kidney disease, or unspecified chronic kidney disease (principal); I50.33 Acute on chronic diastolic (congestive) heart failure; N17.9 Acute kidney failure, unspecified; I48.0 Paroxysmal atrial fibrillation; I25.10 Atherosclerotic heart disease of native coronary artery without angina pectoris; M10.9 Gout, unspecified; E11.65 Type 2 diabetes mellitus with hyperglycemia; E66.01 Morbid (severe) obesity due to excess calories; K21.9 Gastro-esophageal reflux disease without esophagitis; I08.0 Rheumatic disorders of both mitral and aortic valves; M19.90 Unspecified osteoarthritis, unspecified site; E78.00 Pure hypercholesterolemia, unspecified; D63.1 Anemia in chronic kidney disease; N18.3 Chronic kidney disease, stage 3 (moderate); E11.22 Type 2 diabetes mellitus with diabetic chronic kidney disease; Z79.01 Long term (current) use of anticoagulants; Z90.49 Acquired absence of other specified parts of digestive tract; Z87.891 Personal history of nicotine dependence; Z88.6 Allergy status to analgesic agent; Z88.8 Allergy status to other drugs, medicaments and biological substances; Z91.013 Allergy to seafood; Z86.73 Personal history of transient ischemic attack (TIA), and cerebral infarction without residual deficits; Z79.82 Long term (current) use of aspirin; Z79.4 Long term (current) use of insulin; Z79.899 Other long term (current) drug therapy; Z68.31 Body mass index [BMI] 31.0-31.9, adult
CPT/HCPCS: 36415; 36416; 71045; 80048; 80053; 80076; 82565; 83735; 83880; 84443; 84484; 85014; 85018; 85025; 85049; 92960; 93005; 93010; 93306; 93798; 96374; 96375; 99214; G0463; J0282; J1815; J1940; J2704; J7070

== ENCOUNTER 2018-09-10 20:27 | Emergency (ER) | payer MEDICARE, MEDICAID ==
--- NOTE | 2018-09-10 20:54 | RAD ---
Radiograph right elbow 4 views: 09/10/2018 8:35 PM HISTORY: 83-year-old female status post acute traumatic elbow injury COMPARISON: None FINDINGS: On the AP view, there is irregularity and lucency involving the lateral epicondyles of the distal hum erus. Because of suboptimal exposure technique, the margins of the soft tissues are very irregular, and it is difficult to rule in or rule out laceration in this location. No other focal osseous abnorm ality is visualized. No dislocation. No high-grade DJD. IMPRESSION: Questionable chip fracture of lateral epicondyles of distal humerus versus artifact. Recommend correl ation with presence or absence of focal spot tenderness.
== END 2018-09-10 22:26 | disposition home or self-care (01) ==
LOC: ERS 20:27
DX: S42.431A Displaced fracture (avulsion) of lateral epicondyle of right humerus, initial encounter for closed fracture (principal); T14.8XXA Other injury of unspecified body region, initial encounter; I25.10 Atherosclerotic heart disease of native coronary artery without angina pectoris; I48.91 Unspecified atrial fibrillation; I38 Endocarditis, valve unspecified; E87.1 Hypo-osmolality and hyponatremia; M19.90 Unspecified osteoarthritis, unspecified site; E11.9 Type 2 diabetes mellitus without complications; I10 Essential (primary) hypertension; Z87.891 Personal history of nicotine dependence; W19.XXXA Unspecified fall, initial encounter
CPT/HCPCS: 29105

== ENCOUNTER 2018-09-15 13:27 | Inpatient (IN) | payer MEDICARE, MEDICAID ==
[2018-09-15 14:32] LABS: #Lymphocytes 0.9 thou/uL (1.20-3.40); #Monocytes 0.6 thou/uL (0.11-0.59); #Neutrophils 3.6 thou/uL (1.40-6.50); %Basophils 0.7 % (0.0-1.0); %Eosinophils 0.5 % (0.0-10.0); %Lymphocytes 17.8 % (21.0-51.0); %Monocytes 11.1 % (0.0-10.0); %Neutrophils 69.8 % (42.0-75.0); Hemoglobin 11.7 g/dL (12.0-16.0); Mean Corpuscular HGB CONC 33.4 g/dL (32.0-36.0); Mean Corpuscular Hemoglobin 32.2 pg (27.0-31.0); Mean Corpuscular Volume 96.4 fL (78.0-98.0); Mean Platelet Volume 9.7 fL (7.4-10.4); Platelet Count 242 thou/uL (130-400); RBC Distribution Width 16.7 % (11.5-14.5); Red Blood Cell (RBC) Count 3.64 mill/uL (4.20-5.40); White Blood Cell (WBC) Count 5.1 thou/uL (4.8-10.8)
--- NOTE | 2018-09-15 14:33 | RAD ---
XR Chest 1 View Portable HISTORY: Chest pain, right shoulder pain COMPARISON: 08/09/2018 FINDINGS: The heart size is prominent but stable. The lungs are well expanded without focal areas of consolidation, pulmonary edema, pneumothorax or pleural effusions. There is a fracture involving the neck of the right humerus. IMPRESSION: 1. No radiographic evidence of acute cardiopulmonary process. 2. Right proximal humeral fracture.
[2018-09-15 14:52] LABS: ALT (SGPT) 16 U/L (8-55); AST (SGOT) 17 U/L (5-34); Albumin 3.3 g/dL (3.4-4.8); Alkaline Phosphatase 166 U/L (40-150); Anion Gap 16 mmol/L (10-20); BUN (Urea Nitrogen) 47 mg/dL (9.8-20.1); Bilirubin, Total 0.5 mg/dL (0.2-1.2); Calc. Creatinine Clearance 0 mL/min (70-130); Calcium 8.2 mg/dL (7.8-10.44); Carbon Dioxide 17 mmol/L (23-31); Chloride 111 mmol/L (98-107); Estimated GFR-MDRD 24; Globulin 2.8 g/dL (2.4-3.5); Glucose 129 mg/dL (83-110); Magnesium 1.3 mg/dL (1.6-2.6); Potassium 3.5 mmol/L (3.5-5.1); Protein, Total 6.1 g/dL (6.0-8.3); Sodium 140 mmol/L (136-145)
[2018-09-15] MEDS ORDERED: traMADol HCl 50 MG TAB ONE (15:13)
[2018-09-15 18:14] LABS: Bilirubin Negative (Negative); Blood, Urine Trace (Negative); Clarity TURBID (Clear); Glucose, Urine (Dipstick) Negative (Negative); Leukocyte Moderate (Negative); Nitrite Negative (Negative); Protein, Urine (Dipstick) 100 mg/dL (Neg-Trace); Specific Gravity, Urine 1.013 (1.002-1.036); Urobilinogen 0.2 mg/dL (0.2-1.0); pH, Urine 6.5 (5.0-9.0)
[2018-09-15 18:15] LABS: Bacteria/HPF 3+ HPF (None Seen); Hyaline Casts/LPF 0-3 HYALINE CAST LPF (0-3 Hyaline); Pathc Cast-AUWi Flag 0.27 (0-2.49); RBC/HPF 0-3 HPF (0-3); Squamous Epithelial None Seen HPF (0-3)
[2018-09-15] MEDS ORDERED: cefTRIAXone\\ROCEPHIN 1 GM VIAL ONE (21:07)
[2018-09-16 00:38] VITALS: BMI 48.6
[2018-09-16] MEDS: Aspirin 81 mg Enteric Coated Tablet PO SCH (08:58)
[2018-09-16] MEDS: Amiodarone 200 MG TAB PO SCH ×2 (08:59→21:19)
[2018-09-16] MEDS: Carvedilol 6.25 MG TAB PO SCH ×2 (08:59→18:13)
[2018-09-16] MEDS ORDERED: Non-Formulary Item 1 EACH (Gabapentin [Gabapentin] 2 TAB) PO SCH (09:00)
[2018-09-16] MEDS: Apixaban 2.5 MG TAB PO SCH ×2 (10:07→21:19)
[2018-09-16] MEDS: Febuxostat 40 MG TAB PO SCH (10:07)
[2018-09-16] MEDS ORDERED: Ondansetron PF 4 MG/2 ML Vial IVP PRN (10:54)
[2018-09-16] MEDS ORDERED: Ondansetron ODT 4 MG TAB PO PRN (10:54)
[2018-09-16] MEDS ORDERED: Dextrose 50% Abboject 50 ML SYRINGE SLOW IVP PRN (11:24)
[2018-09-16] MEDS ORDERED: Insulin Regular 300 UNITS/3 ML VIAL SC PRN (11:24)
[2018-09-16] MEDS ORDERED: Dextrose 5% in Water 1,000 ML IV PRN (11:24)
[2018-09-16 11:30] LABS: #Lymphocytes 0.7 thou/uL (1.20-3.40); #Monocytes 0.6 thou/uL (0.11-0.59); #Neutrophils 3.3 thou/uL (1.40-6.50); %Basophils 0.3 % (0.0-1.0); %Eosinophils 0.7 % (0.0-10.0); %Lymphocytes 15.1 % (21.0-51.0); %Monocytes 13.2 % (0.0-10.0); %Neutrophils 70.8 % (42.0-75.0); Hemoglobin 10.8 g/dL (12.0-16.0); Mean Corpuscular HGB CONC 33.4 g/dL (32.0-36.0); Mean Corpuscular Hemoglobin 32.3 pg (27.0-31.0); Mean Corpuscular Volume 96.8 fL (78.0-98.0); Mean Platelet Volume 9.7 fL (7.4-10.4); Platelet Count 214 thou/uL (130-400); RBC Distribution Width 16.7 % (11.5-14.5); Red Blood Cell (RBC) Count 3.35 mill/uL (4.20-5.40); White Blood Cell (WBC) Count 4.6 thou/uL (4.8-10.8)
[2018-09-16 11:51] LABS: Anion Gap 15 mmol/L (10-20); BUN (Urea Nitrogen) 41 mg/dL (9.8-20.1); Calc. Creatinine Clearance 45 mL/min (70-130); Calcium 8.3 mg/dL (7.8-10.44); Carbon Dioxide 20 mmol/L (23-31); Chloride 110 mmol/L (98-107); Estimated GFR-MDRD 28; Glucose 233 mg/dL (83-110); Potassium 3.3 mmol/L (3.5-5.1); Sodium 142 mmol/L (136-145)
[2018-09-16] MEDS: Sodium Chloride 0.9% 1,000 ML IV SCH (12:03)
--- NOTE | 2018-09-16 12:26 | RAD ---
RIGHT ELBOW 2 VIEWS: HISTORY: Right elbow pain, history of fracture. FINDINGS/IMPRESSION: Three images. Comparison is made with the exam of 09/10/2018. Bony detail is somewhat obscured due to presence of a cast. The probable fracture of the lateral epi condyle of the distal humerus is not as well visualized on the current study due to artifact from ove rlying cast. No dislocation is seen. POS: [facility]
--- NOTE | 2018-09-16 12:26 | HP ---
CHIEF COMPLAINT: Generalized weakness. HISTORY OF PRESENT ILLNESS: Ms. Santos is a pleasant 83-year-old woman, who presents due to generalized weakness and inability to take care of herself at home. Per ED reports, she has contacted EMS to help her get to the toilet. She was found to be soiled and the patient states this is due to generalized weakness and inability to mobilize since her fall a few weeks ago. The patient was placed in a cast after found to have a fracture to her right arm. She states she was walking with her walker, which suddenly went faster than she could, but she was unable to pull it back causing her to fall face forward onto the ground and onto her right arm. Per previous ED reports, it appears that she had presented on September 10, 2018. At that time, she underwent an x-ray of her elbow due to pain in her elbow and found to have a chip fracture to the lateral epicondyle. The patient underwent splinting. New prescription for tramadol to take as needed for pain. She was discharged back to independent living with plans to follow up with Ortho as an outpatient. The patient states she was unable to make it to that appointment and it has been rescheduled. She reports persistent pain in the right arm from the elbow up to her shoulder. She reports having increased discomfort whenever she tries to move or get up. She has been quite sedentary since being discharged from the ER on September 10 and now has lower leg weakness, unable to stand without assistance. The patient states she has had decreased oral intake. She denies any nausea or vomiting. She has had no further falls. Denies having any headaches or dizziness. No blurred vision or speech changes. She does report some mild abdominal discomfort and was found to have a UTI, therefore, started on ceftriaxone. Last echo was done on August 10, 2018, at which time, she had an EF of 50% to 55% with diastolic dysfunction. Noted to have a restrictive filling pattern. Mildly enlarged right atrium and left atrium. Mild MR. Mild aortic regurgitation and tricuspid regurgitation. REVIEW OF SYSTEMS: The patient denies having any recent fevers, chills or sweats. No chest pain or palpitations. No shortness of breath at rest. Denies any cough or hemoptysis. No lower leg swelling or calf pain. All other review of systems apart from those mentioned above in HPI are negative. Of note, the patient does suffer from chronic back pain and follows with Dr. Valerio. PAST MEDICAL HISTORY: 1. Diabetes. 2. Diastolic dysfunction. 3. Coronary artery disease. 4. Hypertension. 5. Aortic valve stenosis. 6. Atrial fibrillation, on Eliquis. 7. History of A-flutter. 8. History of CVA. 9. History of carpal tunnel. 10. Chronic kidney disease. 11. Hyperlipidemia. 12. Osteoarthritis. 13. Chronic back pain. PAST SURGICAL HISTORY: 1. Prior electrocardioversion for atrial fibrillation on August 10, 2018. 2. Laparoscopic appendectomy in June 2013. SOCIAL HISTORY: The patient lives at an independent living ([facility]). She appears to have general deconditioning and issues taking care of herself since the fall on September 10. She has not been approved for any rehab facility due to insurance problems. She denies any tobacco use or alcohol use. She previously smoked, but quit more than 10 years ago. Denies any drug use. ALLERGIES: ACETAMINOPHEN, IBUPROFEN, IODINE, METFORMIN, MOMETASONE FUROATE, MOTRIN, NAPROXEN, NASONEX, OMEGA-3, PREDNISONE, PROPOXYPHENE, AND SHELLFISH. CURRENT MEDICATIONS: 1. Furosemide. 2. Cardizem. 3. Ranitidine. 4. Carvedilol. 5. Eliquis. 6. Aspirin. 7. Gabapentin. PHYSICAL EXAMINATION: GENERAL: The patient appears well developed and in no acute distress. She is found resting comfortably in bed. VITAL SIGNS: Temperature 98.1, pulse 86, respirations 18, O2 sat 97% on room air, and blood pressure 139/63. HEENT: Normocephalic and atraumatic. Pupils are equal, round, reactive to light. Extraocular movements intact. Sclerae without icterus. Oropharynx is clear. NECK: Supple. No nuchal rigidity or neck tenderness. LUNGS: Clear to auscultation bilaterally. CARDIAC: Regular rate and rhythm. ABDOMEN: Mild discomfort with palpation of the suprapubic region. No guarding or rigidity. She is obese. EXTREMITIES: No lower leg swelling or edema. No calf tenderness. Pedal pulses are present and equal bilaterally. The patient with good strength, but with difficulty upon straight leg raise due to some weakness. Unable to straight leg raise against resistance, but able to hold her legs down against the bed against resistance. Good range of motion in both feet with great plantar flexion and extension against resistance. Right upper extremity is notable for hematoma on the medial aspect. Normal sensation. No tense swelling. Splint intact on her right arm. Good range of motion of the fingers on the right hand with normal color and sensation. No shoulder tenderness or pain, but she does have tenderness along the right upper arm. NEUROLOGIC: Alert and oriented x3. SKIN: Without rash or jaundice. LABORATORY DATA: White blood count 5.1, hemoglobin 11.7, hematocrit 35.1, and platelets 242. Sodium 140, potassium 3.5, chloride 111, BUN 47, creatinine 2, GFR 24, and calcium 8.2. LFTs unremarkable. Alkaline phosphatase 166. BNP 114.3. Albumin 3.3. Urinalysis notable for 100 of protein, trace blood, moderate leukocyte esterase, greater than 50 white blood cells, 3+ bacteria. IMAGING DATA: 1. Chest x-ray, 09/15/2018. No radiographic evidence of acute cardiopulmonary process. Right proximal humerus fracture, involving the neck of the right humerus. 2. Elbow x-ray, September 10, 2018. Questionable chip fracture of the lateral epicondyles of the distal humerus versus artifact. IMPRESSION AND PLAN: Tom is a very pleasant 83-year-old woman, who is being admitted for management of the followin. Generalized weakness. The patient has had general deterioration in her mobility and ability to care for herself since her injury on September 10, 2018. This has progressively worsened and she has sought help from EMS for assistance with getting to the toilet. The patient is not able to manage safely at home and would highly benefit from inpatient rehab. Unfortunately, she is awaiting approval with her insurance and has reached a point where she has been brought in after being found sitting in her stool and urine. The patient has had no further falls or injuries, but with significant pain associated with the right arm injury on September 10, 2018. We will discuss with Dr. Glover with regard to inpatient rehab or what other options she might have. PT/OT to be requested once cleared from any other injuries. 2. Hypomagnesemia. The patient with a low mag of 1.3. We will replace magnesium and recheck this afternoon. Further replacement if necessary. 3. Acute kidney injury. We will provide gentle hydration. Continue to monitor renal function. 4. Urinary tract infection. The patient with greater than 50 white blood cells, 3+ bacteria, and moderate leukocyte esterase. Urine culture requested. The patient has been started on ceftriaxone. We will continue and we will follow up on sensitivities. 5. Right arm pain. The patient with questionable chip fracture to the lateral epicondyle on September 10, 2018. She is complaining of right upper arm pain. No other x-rays are obtained at that time. Per chest x-ray, she was noted to have a fracture of the neck of the humerus. We will obtain an x-ray of the right humerus to assess for any mass or fractures. We will continue to manage her pain with tramadol. She has multiple allergies. We will consider referral to Ortho pending results of x-ray. 6. Diabetes mellitus. We will resume home medication. The patient is switched to a consistent carb diet and will initiate insulin sliding scale. Continue to monitor glucose. 7. Hypertension. Resume home medications and monitor blood pressure. 8. Gastrointestinal prophylaxis. Resume regular dose of Protonix. 9. Deep venous thrombosis prophylaxis. Mechanical SCDs. No anticoagulation. She is already on Eliquis. 10. Coronary artery disease. Resume home medications. 11. Code status. The patient is full code status. Her surrogate decision maker is Bella Albright, her daughter. 12. The patient's case was discussed with Dr. Glover, who agrees upon care as described above. Job ID: [id number]
--- NOTE | 2018-09-16 12:28 | RAD ---
RIGHT HUMERUS 2 VIEWS: HISTORY: Right humeral fracture. FINDINGS/IMPRESSION: There is a mildly displaced fracture involving the neck of the right humerus with associated foreshor tening. POS: [facility]
[2018-09-16] MEDS ORDERED: Gabapentin 400 MG CAP PO SCH ×2 (12:30→21:45)
[2018-09-16 15:03] LABS: Magnesium 1.7 mg/dL (1.6-2.6); Potassium 3.6 mmol/L (3.5-5.1)
[2018-09-16] MEDS: traMADol HCl 50 MG TAB PO PRN ×2 (15:51→21:30)
[2018-09-16 18:33] LABS: CK (CPK) 69 U/L (29-168)
[2018-09-16] MEDS: cefTRIAXone\\ROCEPHIN 1 GM in Sodium Chloride 0.9% 100 ML IVPB SCH (21:18)
[2018-09-16] MEDS: HumaLOG 300 UNITS/3 ML VIAL SC PRN (21:18)
[2018-09-17] MEDS: Sodium Chloride 0.9% 1,000 ML IV SCH ×2 (03:02→17:53)
[2018-09-17] MEDS: traMADol HCl 50 MG TAB PO PRN ×5 (05:21→23:58)
[2018-09-17] MEDS: Apixaban 2.5 MG TAB PO SCH ×2 (08:12→20:00)
[2018-09-17] MEDS: Aspirin 81 mg Enteric Coated Tablet PO SCH (08:12)
[2018-09-17] MEDS: Amiodarone 200 MG TAB PO SCH ×2 (08:13→20:00)
[2018-09-17] MEDS: Febuxostat 40 MG TAB PO SCH (08:13)
[2018-09-17] MEDS: Carvedilol 6.25 MG TAB PO SCH ×2 (08:13→17:52)
[2018-09-17] MEDS: Gabapentin 400 MG CAP PO SCH ×2 (08:13→20:01)
--- NOTE | 2018-09-17 10:03 | CON ---
DATE OF CONSULTATION: HISTORY OF PRESENT ILLNESS: We were asked by SHELLY Cosme, to evaluate the patient. She is a very sweet lady, known to our clinic. She is a patient of Dr. Ch's for a humerus fracture. The patient fell on 09/10/2018, was seen in the emergency room, sustained an elbow fracture, put in a splint, and told to follow up with our facility for further evaluation. Upon this admission, she has a large bruise to the right humerus axilla area. X-rays were taken and she has a humeral neck fracture. The patient is in a splint for her elbow. No sling is currently on her. She had one, but not sure where it went. She has good sensation in her hand. She is well known to our hospital. She sees Dr. Anuj Valerio, Dr. Porfirio Davis, and Dr. Ch for her other aches and pains and other ailments. The arm is sore, but with passing time, it is getting better. She is able to wiggle her fingers. Currently, she is sitting up in bed, eating breakfast, and other than movement, her shoulder is doing okay right now as is her elbow. She came in with urinary tract infection. She was told to follow up with one of our orthopedists. I have her met Dr. Reeder this morning, but I did let her know until her urinary tract infection was cleared, we would probably not attempt to do any type of surgery, especially implanting hardware. I explained the risks of seeding that infection, which she understands. PAST SURGICAL HISTORY: She has had appendectomy, carpal tunnel surgery, neck surgery, and cardiac cath with ablations. SOCIAL HISTORY: Nonsmoker. Quit smoking years ago. Maybe an occasional EtOH beverage. No illicit drug use. CURRENT MEDICATIONS: 1. Furosemide. 2. Cardizem. 3. Ranitidine. 4. Carvedilol. 5. Eliquis. 6. Aspirin. 7. Gabapentin. ALLERGIES: TYLENOL, IBUPROFEN, IODINE, METFORMIN, MOMETASONE FUROATE, MOTRIN, NAPROXEN, NASONEX, OMEGA-3, PREDNISONE, LOXAPINE, AND SHELLFISH. FAMILY HISTORY: Family history for this visit is noncontributory. PAST MEDICAL HISTORY: Diabetes, coronary artery disease, hypertension, diastolic dysfunction, aortic valve stenosis, atrial fibrillation, atrial flutter, had a CVA, carpal tunnel in the past, some kidney disease, hyperlipidemia, osteoarthritis, and chronic back and neck pain. REVIEW OF SYSTEMS: Definitely right upper extremity pain. Denies any shortness of breath or chest pain. She does have some frequent urination, but denies any other current positive review of systems. PHYSICAL EXAMINATION: GENERAL: Well-nourished, mildly obese female, resting in bed, in Oncology, in room 134, in no acute distress. Speech is clear. Affect pleasant. Answers questions appropriately. Alert and oriented x3. HEENT: Normal exam. Face symmetric. Tongue midline. NECK: Supple. Trachea midline. RESPIRATORY: No distress. Respirations 16. EXTREMITIES: Upper extremities; right upper extremity has a lot of bruising to the right axilla and has some tenderness to palpation over the humerus proximally. She is able to move her arm below that, but it is quite painful. The rest of the arm is in a splint for her elbow fracture. She is able to wiggle her fingers well. Left upper extremity with some bruising on the forearm, but moving well. ASSESSMENT: The patient is admitted for; 1. Urinary tract infection. 2. Elbow fracture. 3. Proximal humerus fracture, nonsurgical in nature. PLAN: I will speak with Dr. Reeder today. The patient states that she would like to see Dr. Ch, but set to follow up with Dr. Garcia or Dr. Jimenez, who is our elbow guide. I will speak with Dr. Reeder, go over the films with him together, and get her referred to the appropriate person. Also ordered her a new sling to be worn for comfort. I went over the imaging with the patient and told her it is a nonsurgical injury at this point, but the elbow is another issue and she may need to clear up the UTI before any surgery would be discussed or undertaken. Thank you for Dr. Jordin Reeder, but I told her maybe need to see. Job ID: [id number]
[2018-09-17] MEDS: Insulin Regular 300 UNITS/3 ML VIAL SC PRN (11:36)
--- NOTE | 2018-09-17 19:44 | PDOC.PN ---
- Subjective Encounter Start Date: 09/17/18 Encounter Start Time: 08:15 Patient seen and examined for gen weakness. Feels somewhat better. No fever/ chills/dysuria/N/V. No new complaints. No overnight events - Objective Resuscitation Status - Order Detail: 09/16/18 10:54 Resuscitation Status Routine Co-Sign Provider: Resuscitation Status: FULL: Full Resuscitation MAR Reviewed: Yes Vital Signs & Weight: Vital Signs (12 hours) Temp Pulse Pulse Resp BP BP Pulse Ox 09/17/18 15:04 81 148/66 H 09/17/18 08:00 97.6 F 85 18 142/65 H 94 L Weight Weight 249 lb 1.957 oz I&O: 09/16/18 09/17/18 09/18/18 06:59 06:59 06:59 Intake Total 200 3040 1480 Output Total 125 1050 300 Balance 75 1990 1180 Result Diagrams: 09/18/18 05:08 09/18/18 05:08 Additional Labs: Accuchecks 09/17/18 09/17/18 09/17/18 16:35 11:23 05:23 POC Glucose 144 H 180 H 121 H 09/16/18 20:21 POC Glucose 246 H Radiology Reviewed by me: Yes (CXR - No infiltrate) Phys Exam - Physical Examination Constitutional: NAD Respiratory: no wheezing, no rhonchi Cardiovascular: RRR, no rub Gastrointestinal: soft, non-tender, positive bowel sounds Musculoskeletal: no edema Dx/Plan - Plan Gen weakness UTI Hypokalemia/Hypomagnesemia KELSI on CKD 4 Rt Humeral fracture/Recent Elbow fracture Chronic Afib on Anticoag Morbid Obesity BMI 48 DM2 CAD HTN Chronic pain syndrome PLAN: Cont IV Ceftriaxone Cont gentle IV hydration AM labs Cont Eliquis at home dose PT/OT Ortho input appreciated SNF Eval Cont other meds as below Bladder scan ok Microbiology 09/16/18 12:05 Urine clean catch Urine Culture - Preliminary Gram Negative [place] Review of Systems - Review of Systems Respiratory: negative: Cough, Dry, Shortness of Breath, Hemoptysis, SOB with Excertion, Pleuritic Pain, Sputum, Wheezing Cardiovascular: negative: chest pain, palpitations, orthopnea, paroxysmal nocturnal dyspnea, edema, light headedness, other Gastrointestinal: negative: Nausea, Vomiting, Abdominal Pain, Diarrhea, Constipation, Melena, Hematochezia, Other - Medications/Allergies Allergies/Adverse Reactions: Allergies Allergy/AdvReac Type Severity Reaction Status Date / Time acetaminophen Allergy Verified 09/16/18 00:42 [From Darvocet-N 100] fish derived Allergy Verified 09/16/18 00:42 ibuprofen [From Motrin] Allergy Verified 09/16/18 00:42 iodine Allergy Verified 09/16/18 00:42 metformin Allergy Verified 09/16/18 00:42 mometasone furoate Allergy Verified 09/16/18 00:42 [From Nasonex] naproxen Allergy Verified 09/16/18 00:42 omega-3 acid ethyl esters Allergy Verified 09/16/18 00:42 prednisone Allergy Verified 09/16/18 00:42 propoxyphene napsylate Allergy Verified 09/16/18 00:42 [From Darvocet-N 100] shellfish derived Allergy Verified 09/16/18 00:42 Medications: Current Medications Amiodarone HCl (Cordarone) 200 mg PO BID [facility] Last Admin: 09/17/18 08:13 Dose: 200 mg Apixaban (Eliquis) 2.5 mg PO BID [facility] Last Admin: 09/17/18 08:12 Dose: 2.5 mg Aspirin (Ecotrin) 81 mg PO DAILY [facility] Last Admin: 09/17/18 08:12 Dose: 81 mg Carvedilol (Coreg) 6.25 mg PO BID[facility] Last Admin: 09/17/18 17:52 Dose: 6.25 mg Dextrose/Water (Dextrose 50%) 25 gm SLOW IVP PRN PRN PRN Reason: Hypoglycemia Febuxostat (Uloric) 40 mg PO DAILY [facility] Last Admin: 09/17/18 08:13 Dose: 40 mg Gabapentin (Neurontin) 1,200 mg PO BID [facility] Last Admin: 09/17/18 08:13 Dose: 1,200 mg Glucagon (Glucagon) 1 mg IM PRN PRN PRN Reason: Hypoglycemia Ceftriaxone Sodium 1 gm/ (Sodium Chloride) 100 mls @ 200 mls/hr IVPB Q24HR [facility] Last Admin: 09/16/18 21:18 Dose: 100 mls Sodium Chloride (Normal Saline 0.9%) 1,000 mls @ 65 mls/hr IV .[id number] [facility] Last Admin: 09/17/18 17:53 Dose: 1,000 mls Dextrose/Water (D5w) 1,000 mls @ 0 mls/hr IV .Q0M PRN PRN Reason: Hypoglycemia Insulin Human Lispro (Humalog) 0 units SC .BEDTIME SLIDING SC PRN PRN Reason: Bedtime Correctional Scale Last Admin: 09/16/18 21:18 Dose: 2 unit Insulin Human Regular (Humulin R) 0 units SC .MILD SLIDING SCALE PRN PRN Reason: Mild Correctional Scale Last Admin: 09/17/18 11:36 Dose: 2 units Insulin Human Regular (Humulin R) 0 units SC .BEDTIME SLIDING SC PRN PRN Reason: Bedtime Correctional Scale Magnesium Chloride (Slow-Mag) 64 mg PO BID [facility] Ondansetron HCl (Zofran Odt) 4 mg PO Q6H PRN PRN Reason: Nausea/Vomiting Ondansetron HCl (Zofran) 4 mg IVP Q6H PRN PRN Reason: Nausea/Vomiting Pantoprazole Sodium (Protonix) 40 mg PO DAILY [facility] Last Admin: 09/17/18 08:12 Dose: 40 mg Sodium Chloride (Flush - Normal Saline) 10 ml IVF Q12HR [facility] Last Admin: 09/17/18 08:14 Dose: 10 ml Sodium Chloride (Flush - Normal Saline) 10 ml IVF PRN PRN PRN Reason: Saline Flush Tramadol HCl (Ultram) 50 mg PO Q4H PRN PRN Reason: Moderate to Severe Pain (6-10) Last Admin: 09/17/18 15:19 Dose: 50 mg
[2018-09-17] MEDS: Magnesium Chloride 64 MG TAB PO SCH (20:00)
[2018-09-17] MEDS: cefTRIAXone\\ROCEPHIN 1 GM in Sodium Chloride 0.9% 100 ML IVPB SCH (22:10)
[2018-09-18] MEDS: traMADol HCl 50 MG TAB PO PRN ×2 (03:57→13:11)
[2018-09-18 05:27] LABS: #Lymphocytes 0.8 thou/uL (1.20-3.40); #Monocytes 0.5 thou/uL (0.11-0.59); #Neutrophils 2.2 thou/uL (1.40-6.50); %Basophils 0.5 % (0.0-1.0); %Eosinophils 1.2 % (0.0-10.0); %Lymphocytes 21.4 % (21.0-51.0); %Monocytes 13.5 % (0.0-10.0); %Neutrophils 63.3 % (42.0-75.0); Hemoglobin 9.5 g/dL (12.0-16.0); Mean Corpuscular HGB CONC 33.5 g/dL (32.0-36.0); Mean Corpuscular Hemoglobin 32.7 pg (27.0-31.0); Mean Corpuscular Volume 97.4 fL (78.0-98.0); Mean Platelet Volume 9.6 fL (7.4-10.4); Platelet Count 207 thou/uL (130-400); RBC Distribution Width 16.6 % (11.5-14.5); Red Blood Cell (RBC) Count 2.91 mill/uL (4.20-5.40); White Blood Cell (WBC) Count 3.5 thou/uL (4.8-10.8)
[2018-09-18 05:40] LABS: Anion Gap 10 mmol/L (10-20); BUN (Urea Nitrogen) 28 mg/dL (9.8-20.1); Calc. Creatinine Clearance 65 mL/min (70-130); Calcium 8.2 mg/dL (7.8-10.44); Carbon Dioxide 21 mmol/L (23-31); Chloride 112 mmol/L (98-107); Estimated GFR-MDRD 42; Glucose 167 mg/dL (83-110); Magnesium 1.5 mg/dL (1.6-2.6); Potassium 3.8 mmol/L (3.5-5.1); Sodium 139 mmol/L (136-145)
[2018-09-18] MEDS: Febuxostat 40 MG TAB PO SCH (09:33)
[2018-09-18] MEDS: Carvedilol 6.25 MG TAB PO SCH ×2 (09:33→16:44)
[2018-09-18] MEDS: Apixaban 2.5 MG TAB PO SCH ×2 (09:34→20:59)
[2018-09-18] MEDS: Amiodarone 200 MG TAB PO SCH ×2 (09:34→20:54)
[2018-09-18] MEDS: Aspirin 81 mg Enteric Coated Tablet PO SCH (09:34)
[2018-09-18] MEDS: Magnesium Chloride 64 MG TAB PO SCH ×2 (09:37→20:58)
[2018-09-18] MEDS: Gabapentin 400 MG CAP PO SCH ×2 (09:38→20:59)
[2018-09-18] MEDS: Sodium Chloride 0.9% 1,000 ML IV SCH (09:40)
[2018-09-18] MEDS ORDERED: Magnesium 2 GM/50 ML 2 GM in Premix Bag 1 BAG IVPB SCH (13:00)
--- NOTE | 2018-09-18 13:45 | PDOC.PN ---
- Subjective Encounter Start Date: 09/18/18 Encounter Start Time: 07:00 Pt seen for followup re: UTI. Says she feels better. - Objective Resuscitation Status - Order Detail: 09/16/18 10:54 Resuscitation Status Routine Co-Sign Provider: Resuscitation Status: FULL: Full Resuscitation Vital Signs & Weight: Vital Signs (12 hours) Temp Pulse Resp BP Pulse Ox 09/18/18 08:00 93 L 09/18/18 07:59 98.7 F 73 12 111/56 L 93 L 09/18/18 03:56 98.9 F 88 16 114/53 L 93 L Weight Weight 249 lb 1.957 oz I&O: 09/17/18 09/18/18 09/19/18 06:59 06:59 06:59 Intake Total 3040 1480 Output Total 1050 300 Balance 1989 1180 Result Diagrams: 09/18/18 05:08 09/18/18 05:08 Additional Labs: Accuchecks 09/18/18 09/17/18 09/17/18 10:59 20:00 16:35 POC Glucose 166 H 189 H 144 H Phys Exam - Physical Examination Morbid obesity HEENT: moist MMs Neck: supple Respiratory: clear to auscultation bilateral Cardiovascular: RRR Gastrointestinal: soft RUE in sling Neurological: moves all 4 limbs Psychiatric: normal affect Dx/Plan (1) UTI (urinary tract infection) Status: Acute Comment: continue IV ceftriaxone for pansensitive Escherichia coli UTI (2) CKD (chronic kidney disease) stage 3, GFR 30-59 ml/min Status: Chronic Comment: acute on chronic stage 3 renal failure has resolved (3) Chronic diastolic heart failure Code(s): I50.32 - CHRONIC DIASTOLIC (CONGESTIVE) HEART FAILURE Status: Chronic Comment: stable (4) Diabetes type 2, controlled Code(s): E11.9 - TYPE 2 DIABETES MELLITUS WITHOUT COMPLICATIONS Status: Chronic Qualifiers: Comment: reasonable control (5) Hypertension Code(s): I10 - ESSENTIAL (PRIMARY) HYPERTENSION Status: Chronic Qualifiers: Comment: controlled (6) Morbid obesity Code(s): E66.01 - MORBID (SEVERE) OBESITY DUE TO EXCESS CALORIES Status: Chronic Comment: consult dietitian - Plan continue antibiotics, PT/OT, out of bed/ambulate * . appreciate ortho service input re: R elbow and humeral fractures. Review of Systems - Review of Systems Respiratory: negative: Cough, Shortness of Breath, SOB with Excertion, Pleuritic Pain, Wheezing Cardiovascular: negative: chest pain, palpitations, orthopnea, paroxysmal nocturnal dyspnea, edema, light headedness - Medications/Allergies Allergies/Adverse Reactions: Allergies Allergy/AdvReac Type Severity Reaction Status Date / Time acetaminophen Allergy Verified 09/16/18 00:42 [From Darvocet-N 100] fish derived Allergy Verified 09/16/18 00:42 ibuprofen [From Motrin] Allergy Verified 09/16/18 00:42 iodine Allergy Verified 09/16/18 00:42 metformin Allergy Verified 09/16/18 00:42 mometasone furoate Allergy Verified 09/16/18 00:42 [From Nasonex] naproxen Allergy Verified 09/16/18 00:42 omega-3 acid ethyl esters Allergy Verified 09/16/18 00:42 prednisone Allergy Verified 09/16/18 00:42 propoxyphene napsylate Allergy Verified 09/16/18 00:42 [From Darvocet-N 100] shellfish derived Allergy Verified 09/16/18 00:42 Medications: Current Medications Amiodarone HCl (Cordarone) 200 mg PO BID [facility] Last Admin: 09/18/18 09:34 Dose: 200 mg Apixaban (Eliquis) 2.5 mg PO BID [facility] Last Admin: 09/18/18 09:34 Dose: 2.5 mg Aspirin (Ecotrin) 81 mg PO DAILY [facility] Last Admin: 09/18/18 09:34 Dose: 81 mg Carvedilol (Coreg) 6.25 mg PO BID[facility] Last Admin: 09/18/18 09:33 Dose: Not Given Dextrose/Water (Dextrose 50%) 25 gm SLOW IVP PRN PRN PRN Reason: Hypoglycemia Febuxostat (Uloric) 40 mg PO DAILY [facility] Last Admin: 09/18/18 09:33 Dose: 40 mg Gabapentin (Neurontin) 1,200 mg PO BID [facility] Last Admin: 09/18/18 09:38 Dose: 1,200 mg Glucagon (Glucagon) 1 mg IM PRN PRN PRN Reason: Hypoglycemia Ceftriaxone Sodium 1 gm/ (Sodium Chloride) 100 mls @ 200 mls/hr IVPB Q24HR [facility] Last Admin: 09/17/18 22:10 Dose: 100 mls Sodium Chloride (Normal Saline 0.9%) 1,000 mls @ 65 mls/hr IV .[id number] [facility] Last Admin: 09/18/18 09:40 Dose: 1,000 mls Dextrose/Water (D5w) 1,000 mls @ 0 mls/hr IV .Q0M PRN PRN Reason: Hypoglycemia Magnesium Sulfate 2 gm/ Device 50 mls @ 50 mls/hr IVPB NOW [facility] Stop: 09/18/18 15:00 Last Admin: 09/18/18 13:28 Dose: 50 mls Insulin Human Lispro (Humalog) 0 units SC .BEDTIME SLIDING SC PRN PRN Reason: Bedtime Correctional Scale Last Admin: 09/16/18 21:18 Dose: 2 unit Insulin Human Regular (Humulin R) 0 units SC .MILD SLIDING SCALE PRN PRN Reason: Mild Correctional Scale Last Admin: 09/17/18 11:36 Dose: 2 units Insulin Human Regular (Humulin R) 0 units SC .BEDTIME SLIDING SC PRN PRN Reason: Bedtime Correctional Scale Magnesium Chloride (Slow-Mag) 64 mg PO BID [facility] Last Admin: 09/18/18 09:37 Dose: 64 mg Ondansetron HCl (Zofran Odt) 4 mg PO Q6H PRN PRN Reason: Nausea/Vomiting Ondansetron HCl (Zofran) 4 mg IVP Q6H PRN PRN Reason: Nausea/Vomiting Pantoprazole Sodium (Protonix) 40 mg PO DAILY [facility] Last Admin: 09/18/18 09:33 Dose: 40 mg Sodium Chloride (Flush - Normal Saline) 10 ml IVF Q12HR [facility] Last Admin: 09/18/18 08:33 Dose: 10 ml Sodium Chloride (Flush - Normal Saline) 10 ml IVF PRN PRN PRN Reason: Saline Flush Tramadol HCl (Ultram) 50 mg PO Q4H PRN PRN Reason: Moderate to Severe Pain (6-10) Last Admin: 09/18/18 13:11 Dose: 50 mg
[2018-09-18] MEDS ORDERED: Dicyclomine 20 MG TAB PO PRN (13:51)
[2018-09-18] MEDS: Insulin Regular 300 UNITS/3 ML VIAL SC PRN (16:45)
[2018-09-18] MEDS: cefTRIAXone\\ROCEPHIN 1 GM in Sodium Chloride 0.9% 100 ML IVPB SCH (21:00)
[2018-09-19] MEDS: Sodium Chloride 0.9% 1,000 ML IV SCH ×3 (03:03→19:52)
[2018-09-19] MEDS: Famotidine 20 MG TAB PO SCH (08:49)
[2018-09-19] MEDS: Multivitamin W/ Minerals 1 TAB PO SCH (08:49)
[2018-09-19] MEDS: Magnesium Chloride 64 MG TAB PO SCH ×2 (08:49→20:47)
[2018-09-19] MEDS: Gabapentin 400 MG CAP PO SCH ×2 (08:49→20:47)
[2018-09-19] MEDS: Carvedilol 6.25 MG TAB PO SCH ×2 (08:49→16:28)
[2018-09-19] MEDS: Amiodarone 200 MG TAB PO SCH ×2 (08:49→20:48)
[2018-09-19] MEDS: Furosemide 40 MG TAB PO SCH ×2 (08:49→13:09)
[2018-09-19] MEDS: Colchicine 0.6 MG TAB PO SCH (08:50)
[2018-09-19] MEDS: Febuxostat 40 MG TAB PO SCH (08:50)
[2018-09-19] MEDS: Aspirin 81 mg Enteric Coated Tablet PO SCH (08:50)
[2018-09-19] MEDS: Apixaban 2.5 MG TAB PO SCH ×2 (08:50→20:47)
[2018-09-19 08:54] LABS: #Lymphocytes 0.9 thou/uL (1.20-3.40); #Monocytes 0.5 thou/uL (0.11-0.59); #Neutrophils 2.9 thou/uL (1.40-6.50); %Basophils 0.5 % (0.0-1.0); %Lymphocytes 20.5 % (21.0-51.0); %Monocytes 10.5 % (0.0-10.0); %Neutrophils 67.5 % (42.0-75.0); Hemoglobin 11.3 g/dL (12.0-16.0); Mean Corpuscular HGB CONC 32.7 g/dL (32.0-36.0); Mean Corpuscular Hemoglobin 32.2 pg (27.0-31.0); Mean Corpuscular Volume 98.4 fL (78.0-98.0); Mean Platelet Volume 9.4 fL (7.4-10.4); Platelet Count 223 thou/uL (130-400); RBC Distribution Width 16.5 % (11.5-14.5); White Blood Cell (WBC) Count 4.3 thou/uL (4.8-10.8)
[2018-09-19 09:13] LABS: Anion Gap 12 mmol/L (10-20); BUN (Urea Nitrogen) 21 mg/dL (9.8-20.1); Calc. Creatinine Clearance 72 mL/min (70-130); Calcium 8.6 mg/dL (7.8-10.44); Carbon Dioxide 20 mmol/L (23-31); Chloride 110 mmol/L (98-107); Estimated GFR-MDRD 48; Glucose 137 mg/dL (83-110); Potassium 4.2 mmol/L (3.5-5.1); Sodium 138 mmol/L (136-145)
[2018-09-19] MEDS: Insulin Regular 300 UNITS/3 ML VIAL SC PRN ×2 (12:12→16:28)
--- NOTE | 2018-09-19 13:49 | PDOC.PN ---
- Subjective Encounter Start Date: 09/19/18 Encounter Start Time: 07:00 :Pt seen for followup re: UTI. Feels better, slept well. - Objective Resuscitation Status - Order Detail: 09/16/18 10:54 Resuscitation Status Routine Co-Sign Provider: Resuscitation Status: FULL: Full Resuscitation MAR Reviewed: Yes Vital Signs & Weight: Vital Signs (12 hours) Temp Pulse Resp BP BP Pulse Ox 09/19/18 08:49 141/68 H 09/19/18 08:00 94 L 09/19/18 07:52 97.3 F L 85 16 141/68 H 94 L 09/19/18 03:25 67 95 Weight Weight 249 lb 1.957 oz I&O: 09/18/18 09/19/18 09/20/18 06:59 06:59 06:59 Intake Total 1480 1565 818 Output Total 300 700 Balance 1180 865 818 Result Diagrams: 09/19/18 08:47 09/19/18 08:47 Additional Labs: Accuchecks 09/19/18 09/19/18 09/18/18 11:57 05:32 19:31 POC Glucose 249 H 127 H 174 H 09/18/18 15:48 POC Glucose 189 H Labs reviewed by me Phys Exam - Physical Examination Constitutional: NAD HEENT: moist MMs Neck: supple Respiratory: clear to auscultation bilateral Cardiovascular: RRR Gastrointestinal: soft Neurological: moves all 4 limbs Psychiatric: normal affect Dx/Plan (1) UTI (urinary tract infection) Status: Acute Comment: continue IV ceftriaxone for pansensitive Klebsiella UTI (2) CKD (chronic kidney disease) stage 3, GFR 30-59 ml/min Status: Chronic Comment: stable (3) Chronic diastolic heart failure Code(s): I50.32 - CHRONIC DIASTOLIC (CONGESTIVE) HEART FAILURE Status: Chronic Comment: stable (4) Diabetes type 2, controlled Code(s): E11.9 - TYPE 2 DIABETES MELLITUS WITHOUT COMPLICATIONS Status: Chronic Qualifiers: Comment: reasonable control (5) Hypertension Code(s): I10 - ESSENTIAL (PRIMARY) HYPERTENSION Status: Chronic Qualifiers: Comment: controlled (6) Morbid obesity Code(s): E66.01 - MORBID (SEVERE) OBESITY DUE TO EXCESS CALORIES Status: Chronic - Plan continue antibiotics, PT/OT, out of bed/ambulate * . Awaiting SNU eval Review of Systems - Review of Systems Cardiovascular: negative: chest pain, palpitations, orthopnea, paroxysmal nocturnal dyspnea, edema, light headedness Skin: negative: Rash, Lesions, Vignesh, Bruising - Medications/Allergies Allergies/Adverse Reactions: Allergies Allergy/AdvReac Type Severity Reaction Status Date / Time acetaminophen Allergy Verified 09/16/18 00:42 [From Darvocet-N 100] fish derived Allergy Verified 09/16/18 00:42 ibuprofen [From Motrin] Allergy Verified 09/16/18 00:42 iodine Allergy Verified 09/16/18 00:42 metformin Allergy Verified 09/16/18 00:42 mometasone furoate Allergy Verified 09/16/18 00:42 [From Nasonex] naproxen Allergy Verified 09/16/18 00:42 omega-3 acid ethyl esters Allergy Verified 09/16/18 00:42 prednisone Allergy Verified 09/16/18 00:42 propoxyphene napsylate Allergy Verified 09/16/18 00:42 [From Darvocet-N 100] shellfish derived Allergy Verified 09/16/18 00:42 Medications: Current Medications Amiodarone HCl (Cordarone) 200 mg PO BID [facility] Last Admin: 09/19/18 08:49 Dose: 200 mg Apixaban (Eliquis) 2.5 mg PO BID [facility] Last Admin: 09/19/18 08:50 Dose: 2.5 mg Aspirin (Ecotrin) 81 mg PO DAILY [facility] Last Admin: 09/19/18 08:50 Dose: 81 mg Carvedilol (Coreg) 6.25 mg PO BID-[facility] Last Admin: 09/19/18 08:49 Dose: 6.25 mg Colchicine (Colchicine) 0.6 mg PO DAILY [facility] Last Admin: 09/19/18 08:50 Dose: 0.6 mg Dextrose/Water (Dextrose 50%) 25 gm SLOW IVP PRN PRN PRN Reason: Hypoglycemia Dicyclomine HCl (Bentyl) 20 mg PO Q8H PRN PRN Reason: Abdominal pain Famotidine (Pepcid) 20 mg PO DAILY [facility] Last Admin: 09/19/18 08:49 Dose: 20 mg Febuxostat (Uloric) 40 mg PO DAILY [facility] Last Admin: 09/19/18 08:50 Dose: 40 mg Furosemide (Lasix) 40 mg PO 0900,1400 [facility] Last Admin: 09/19/18 13:09 Dose: 40 mg Gabapentin (Neurontin) 1,200 mg PO BID [facility] Last Admin: 09/19/18 08:49 Dose: 1,200 mg Glucagon (Glucagon) 1 mg IM PRN PRN PRN Reason: Hypoglycemia Ceftriaxone Sodium 1 gm/ (Sodium Chloride) 100 mls @ 200 mls/hr IVPB Q24HR [facility] Last Admin: 09/18/18 21:00 Dose: 100 mls Sodium Chloride (Normal Saline 0.9%) 1,000 mls @ 65 mls/hr IV .[id number] [facility] Last Admin: 09/19/18 03:03 Dose: 1,000 mls Dextrose/Water (D5w) 1,000 mls @ 0 mls/hr IV .Q0M PRN PRN Reason: Hypoglycemia Insulin Human Lispro (Humalog) 0 units SC .BEDTIME SLIDING SC PRN PRN Reason: Bedtime Correctional Scale Last Admin: 09/16/18 21:18 Dose: 2 unit Insulin Human Regular (Humulin R) 0 units SC .MILD SLIDING SCALE PRN PRN Reason: Mild Correctional Scale Last Admin: 09/19/18 12:12 Dose: 3 units Insulin Human Regular (Humulin R) 0 units SC .BEDTIME SLIDING SC PRN PRN Reason: Bedtime Correctional Scale Iron/Minerals/Multivitamins (Theragran M) 1 tab PO DAILY [facility] Last Admin: 09/19/18 08:49 Dose: 1 tab Magnesium Chloride (Slow-Mag) 64 mg PO BID [facility] Last Admin: 09/19/18 08:49 Dose: 64 mg Ondansetron HCl (Zofran Odt) 4 mg PO Q6H PRN PRN Reason: Nausea/Vomiting Ondansetron HCl (Zofran) 4 mg IVP Q6H PRN PRN Reason: Nausea/Vomiting Pantoprazole Sodium (Protonix) 40 mg PO DAILY [facility] Last Admin: 09/19/18 08:49 Dose: 40 mg Sodium Chloride (Flush - Normal Saline) 10 ml IVF Q12HR [facility] Last Admin: 09/19/18 08:50 Dose: 10 ml Sodium Chloride (Flush - Normal Saline) 10 ml IVF PRN PRN PRN Reason: Saline Flush Tramadol HCl (Ultram) 50 mg PO Q4H PRN PRN Reason: Moderate to Severe Pain (6-10) Last Admin: 09/18/18 13:11 Dose: 50 mg
[2018-09-19] MEDS: HumaLOG 300 UNITS/3 ML VIAL SC PRN (20:48)
[2018-09-19] MEDS: cefTRIAXone\\ROCEPHIN 1 GM in Sodium Chloride 0.9% 100 ML IVPB SCH (20:49)
[2018-09-19] MEDS: traMADol HCl 50 MG TAB PO PRN (22:48)
[2018-09-20 04:38] LABS: #Monocytes 0.6 thou/uL (0.11-0.59); #Neutrophils 2.9 thou/uL (1.40-6.50); %Lymphocytes 21.5 % (21.0-51.0); %Monocytes 12.7 % (0.0-10.0); %Neutrophils 63.8 % (42.0-75.0); Hemoglobin 10.6 g/dL (12.0-16.0); Mean Corpuscular HGB CONC 33.7 g/dL (32.0-36.0); Mean Corpuscular Hemoglobin 32.5 pg (27.0-31.0); Mean Corpuscular Volume 96.6 fL (78.0-98.0); Mean Platelet Volume 9.9 fL (7.4-10.4); Platelet Count 232 thou/uL (130-400); RBC Distribution Width 16.4 % (11.5-14.5); Red Blood Cell (RBC) Count 3.25 mill/uL (4.20-5.40); White Blood Cell (WBC) Count 4.6 thou/uL (4.8-10.8)
[2018-09-20 04:59] LABS: Anion Gap 11 mmol/L (10-20); BUN (Urea Nitrogen) 21 mg/dL (9.8-20.1); Calc. Creatinine Clearance 69 mL/min (70-130); Calcium 8.3 mg/dL (7.8-10.44); Carbon Dioxide 26 mmol/L (23-31); Chloride 106 mmol/L (98-107); Estimated GFR-MDRD 46; Glucose 134 mg/dL (83-110); Potassium 3.7 mmol/L (3.5-5.1); Sodium 139 mmol/L (136-145)
[2018-09-20] MEDS ORDERED: Magnesium 2 GM/50 ML 2 GM in Premix Bag 1 BAG IVPB SCH (08:30)
[2018-09-20] MEDS: Aspirin 81 mg Enteric Coated Tablet PO SCH (09:44)
[2018-09-20] MEDS: Carvedilol 6.25 MG TAB PO SCH ×2 (09:44→16:35)
[2018-09-20] MEDS: Magnesium Chloride 64 MG TAB PO SCH (09:44)
[2018-09-20] MEDS: Apixaban 2.5 MG TAB PO SCH (09:44)
[2018-09-20] MEDS: Amiodarone 200 MG TAB PO SCH (09:45)
[2018-09-20] MEDS: Famotidine 20 MG TAB PO SCH (09:45)
[2018-09-20] MEDS: Colchicine 0.6 MG TAB PO SCH (09:45)
[2018-09-20] MEDS: Furosemide 40 MG TAB PO SCH ×2 (09:45→14:28)
[2018-09-20] MEDS: Multivitamin W/ Minerals 1 TAB PO SCH (09:45)
[2018-09-20] MEDS: Gabapentin 400 MG CAP PO SCH (09:46)
[2018-09-20] MEDS: Febuxostat 40 MG TAB PO SCH ×2 (09:59→10:03)
[2018-09-20 10:07] VITALS: TEMP 98.3
[2018-09-20] MEDS ORDERED: Nitrofurantoin Monohyd/M-Cryst 100 MG CAP PO SCH ×2 (11:15→21:00)
[2018-09-20] MEDS ORDERED: hydrALAZINE 25 MG TAB PO SCH ×2 (12:00→15:00)
[2018-09-20] MEDS: Insulin Regular 300 UNITS/3 ML VIAL SC PRN (13:04)
[2018-09-20] MEDS: traMADol HCl 50 MG TAB PO PRN (14:28)
[2018-09-20 14:29] VITALS: BP 148/71
[2018-09-20] MEDS ORDERED: Loperamide HCl 2 MG CAP PO SCH (16:45)
--- NOTE | 2018-09-20 18:22 | DIS ---
DATE OF ADMISSION: 09/15/2018 DATE OF DISCHARGE: 09/20/2018 PRIMARY CARE PROVIDER: Brian Mac MD DISCHARGE DIAGNOSES: 1. Urinary tract infection. 2. Pansensitive Klebsiella pneumonia as cause of urinary tract infection. 3. Physical deconditioning. 4. Hypomagnesemia. 5. Acute on chronic stage 3 renal failure. 6. Chronic diastolic heart failure, NYHA stage II. 7. Right elbow fracture. 8. Right humeral fracture. CONSULTATIONS DURING THIS HOSPITALIZATION: Orthopedic Surgery, Dr. Reeder. CONDITION OF PATIENT ON THE DAY OF DISCHARGE: Stable. I assessed Ms. Santos on the day of discharge. She denies any chest pain or shortness of breath. Vital signs are stable. S1 and S2 are heard, regular. Lungs are clear to auscultation bilaterally. DISCHARGE MEDICATIONS: In addition to her pre-admission home medications as dictated by Ms. Prakash in her history and physical note dated September 16, 2018, she is being discharged on, 1. Hydralazine 25 mg 3 times a day. 2. Macrobid 100 mg 2 times a day. FOLLOWUP APPOINTMENTS: The patient is advised to follow up with primary care provider in 3 days' time. She is also advised to follow up with Dr. Chuy Garcia in 2 to 3 weeks. HOSPITAL COURSE: Ms. Santos is a pleasant 83-year-old lady, who was admitted to [facility] on September 15, 2018, for generalized weakness. She also had acute on chronic kidney injury, with a creatinine of 2.00. She was found to have urinary tract infection. She received intravenous antibiotics and is being stepped down to oral antibiotics at the time of discharge. She was seen by Therapy Services as well as by Orthopedic Surgery Service. She has a right humeral fracture that is nonsurgical. She also has a right elbow fracture that Orthopedic Surgery will follow up as outpatient for potential surgical options. She continued to improve clinically. She was physically deconditioned. She has been accepted for further management at [facility]. She is being discharged to [facility] in a stable condition. Many thanks for allowing me to participate in your patient's care. Please feel free to contact me with any questions or concerns. On the day of discharge, Ms. Santos has sodium of 139, potassium 3.7, creatinine 1.14. White count 4600, hemoglobin 10.6, and platelet count 232,000. POST-DISCHARGE FOLLOWUP: With PCP. DISCHARGE DESTINATION: [facility]. TIME SPENT: Total amount of time spent coordinating this discharge: 32 minutes. Job ID: [id number] [facility]
== END 2018-09-20 17:45 | DRG 683 ==
LOC: ERS 13:27 → OBSVTOIN 22:36 → ONC 22:36
PROVIDERS: ADMIT Family Medicine; ATTEND Family Medicine
DX: N17.9 Acute kidney failure, unspecified (principal); N39.0 Urinary tract infection, site not specified; Z68.42 Body mass index [BMI] 45.0-49.9, adult; I50.32 Chronic diastolic (congestive) heart failure; I13.0 Hypertensive heart and chronic kidney disease with heart failure and stage 1 through stage 4 chronic kidney disease, or unspecified chronic kidney disease; E11.22 Type 2 diabetes mellitus with diabetic chronic kidney disease; E66.01 Morbid (severe) obesity due to excess calories; I48.2 Chronic atrial fibrillation; N18.3 Chronic kidney disease, stage 3 (moderate); I25.10 Atherosclerotic heart disease of native coronary artery without angina pectoris; I35.0 Nonrheumatic aortic (valve) stenosis; E78.5 Hyperlipidemia, unspecified; M19.90 Unspecified osteoarthritis, unspecified site; E83.42 Hypomagnesemia; G89.4 Chronic pain syndrome; B96.1 Klebsiella pneumoniae [K. pneumoniae] as the cause of diseases classified elsewhere; S42.201D Unspecified fracture of upper end of right humerus, subsequent encounter for fracture with routine healing; Z88.8 Allergy status to other drugs, medicaments and biological substances; Z79.01 Long term (current) use of anticoagulants; Z88.6 Allergy status to analgesic agent; Z91.041 Radiographic dye allergy status; Z91.013 Allergy to seafood; Z79.82 Long term (current) use of aspirin; Z79.899 Other long term (current) drug therapy; Z90.49 Acquired absence of other specified parts of digestive tract; Z87.891 Personal history of nicotine dependence; Z79.4 Long term (current) use of insulin; S42.431D Displaced fracture (avulsion) of lateral epicondyle of right humerus, subsequent encounter for fracture with routine healing; W19.XXXD Unspecified fall, subsequent encounter
CPT/HCPCS: 36415; 36416; 51701; 71045; 80048; 80053; 81003; 81015; 82550; 83735; 83880; 84443; 84484; 85025; 87077; 87086; 87186; 93005; 96365; A4353; J0696; J1815; J3475; J3490

== ENCOUNTER 2018-12-31 08:53 | Emergency (ER) | payer MEDICARE, OTHER ==
[2018-12-31 09:49] LABS: #Eosinphils 0.1 thou/uL (0.0-0.7); #Lymphocytes 0.9 thou/uL (1.20-3.40); #Monocytes 0.6 thou/uL (0.11-0.59); #Neutrophils 4.5 thou/uL (1.40-6.50); %Basophils 0.4 % (0.0-1.0); %Lymphocytes 15.2 % (21.0-51.0); %Neutrophils 73.4 % (42.0-75.0); Hemoglobin 9.7 g/dL (12.0-16.0); Mean Corpuscular HGB CONC 33.5 g/dL (32.0-36.0); Mean Corpuscular Volume 89.7 fL (78.0-98.0); Mean Platelet Volume 8.5 fL (7.4-10.4); Platelet Count 285 thou/uL (130-400); RBC Distribution Width 15.8 % (11.5-14.5); Red Blood Cell (RBC) Count 3.21 mill/uL (4.20-5.40); White Blood Cell (WBC) Count 6.2 thou/uL (4.8-10.8)
[2018-12-31 10:23] LABS: ALT (SGPT) Less than 7 U/L (8-55); AST (SGOT) 23 U/L (5-34); Albumin 4.2 g/dL (3.4-4.8); Alkaline Phosphatase 130 U/L (40-110); Anion Gap 18 mmol/L (10-20); BUN (Urea Nitrogen) 16 mg/dL (9.8-20.1); Bilirubin, Total 0.6 mg/dL (0.2-1.2); Calc. Creatinine Clearance 0 mL/min (70-130); Calcium 9.3 mg/dL (7.8-10.44); Carbon Dioxide 28 mmol/L (23-31); Chloride 95 mmol/L (98-107); Estimated GFR-MDRD 9; Globulin 3.8 g/dL (2.4-3.5); Glucose 129 mg/dL (83-110); Sodium 138 mmol/L (136-145)
[2018-12-31] MEDS ORDERED: PROPOFOL 200 MG/20 ML VIAL ONE (10:31)
--- NOTE | 2018-12-31 13:28 | HP ---
HISTORY OF PRESENT ILLNESS: Heike Santos is an 83-year-old female, [facility] resident, on Eliquis for atrial fibrillation, who has a right IJ hemodialysis catheter that she has pulled out. They found at her bedside at the residential. They sent her to the emergency room. I was called. I was not told that she was on Eliquis and had taken at this morning. She is morbidly obese. She is demented and confused. Dr. Zendejas performed a laparoscopic appendectomy on her in years past, 2013. Dr. Suarez, August 2018, performed a cardioversion. The patient had a cardiac catheterization in [address] Langley for EP study and ablation. She is noted to have a September 2017 Cardiolite stress test that was negative for ischemia and had a normal EF 64%. The patient recently had a humerus fracture right, seen by Dr. Reeder, followed by Dr. Garcia, treated nonoperatively. Ultrasound vein mapping in both arms has been ordered today. Plan is to place the hemodialysis catheter and plan a future fistula. She will need to hold her Eliquis for 2 days prior, will contact my office for that. I have discussed with Dr. Yu, who agrees. ALLERGIES: SHE STATES THE ACETAMINOPHEN MAKES HER CRAZY. SHE REPORTS ALLERGIES TO NSAIDS, IODINE, METFORMIN. SOCIAL HISTORY: Tobacco, none. Alcohol, none. She is resident of [facility]. Last echo, August 2018, EF 50% to 55%, diastolic dysfunction, restrictive filling pattern, enlarged right atrium and left atrium, mild MR, AR, and TR. PAST MEDICAL HISTORY: Diabetes mellitus; diastolic dysfunction; history of AFib ablation, on Eliquis; aortic valve stenosis; history of atrial flutter; history of stroke; carpal tunnel; end-stage renal disease; osteoarthritis. PAST SURGICAL HISTORY: Laparoscopic appendectomy; EP studies; hemodialysis catheter placement, what was placed unsure, the patient is confused. MEDICATIONS: Listed by the emergency room, 1. Furosemide 40 mg a day. 2. Cardizem 125 mg a day. 3. Ranitidine 150 mg a day. 4. Carvedilol 6.25 mg twice a day. 5. Eliquis 2.5 mg twice a day. 6. Aspirin 81 mg a day. 7. Gabapentin 600 mg twice a day. PHYSICAL EXAMINATION: GENERAL: The patient is alert. EKG 67, sinus, right bundle-branch block. LUNGS: Clear to auscultation. CARDIAC: Regular rate and rhythm. No murmur or gallop. ABDOMEN: Soft, obese. EXTREMITIES: Unremarkable. Palpable radial pulses bilaterally. Palpable ulnar pulses bilaterally. Very obese upper extremities. ASSESSMENT AND PLAN: 1. End-stage renal disease, dislodged hemodialysis catheter. Plan placement of dialysis catheter and return to the residential today. We will hold her Eliquis tonight. Resume her Eliquis tomorrow. We will schedule for a dialysis graft or fistula in the future. She understands risks, benefits, and consents. 2. Other medical problems as noted above. Job ID: [id number]
[2018-12-31] MEDS ORDERED: Lidocaine 2% PF 5 ML VIAL ONE (14:57)
[2018-12-31] MEDS ORDERED: Bupivacaine HCl 0.5%/Epinephrine 1:200,000/PF 30 ml Vial ONE (14:57)
[2018-12-31] MEDS ORDERED: Heparin 10,000 UNITS/1 ML VIAL ONE (14:57)
[2018-12-31] MEDS ORDERED: Sodium Chloride 0.9% 10 ML ONE (14:57)
--- NOTE | 2018-12-31 18:10 | RAD ---
PORTABLE CHEST: Comparison: 09-15-18 History: Catheter placement. FINDINGS: Heart size is enlarged with mitral anulus calcifications. Chronic lung changes. A right sided HemoSpl it catheter is seen. Catheter tip overlies the distal superior vena cava. 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 IMPRESSION: Placement of right sided HemoSplit catheter. No signs of pneumothorax. POS: [facility]
--- NOTE | 2018-12-31 22:08 | OP ---
DATE OF PROCEDURE: 12/31/2018 PREOPERATIVE DIAGNOSIS: End-stage renal disease, on Eliquis, dislodged hemodialysis catheter from [facility] in need of permanent dialysis access. Ultrasound vein mapping to be done today. POSTOPERATIVE DIAGNOSIS: End-stage renal disease, on Eliquis, dislodged hemodialysis catheter from [facility] in need of permanent dialysis access. Ultrasound vein mapping to be done today. PROCEDURES PERFORMED: Right IJ cuffed tunneled hemodialysis catheter, ultrasound, fluoroscopy used ANESTHESIA: Intravenous sedation, local 0.5% Marcaine with epinephrine 30 mL mixed with 2% xylocaine 10 mL. DESCRIPTION OF PROCEDURE: The patient was taken to the operating room, where under intravenous sedation, neck and chest were prepared with ChloraPrep and draped in routine fashion. Ultrasound guidance was used to cannulate the right internal jugular vein, threaded a J-wire, removing the trocar catheters, enlarging skin site sharply with 11 blade. Stab incision was made over the right chest at the planned exit site. Using the tunneling device, the pre-curved [employer] cuffed-tunneled hemodialysis catheter tunneled between the 2 incisions, placed in the fabric cuff beneath the skin exit site. Catheter was secured with 2 interrupted sutures of 3-0 nylon and sterile dressings were applied. Small and medium sized dilators placed over the J-wire and the internal jugular vein removed. Dilator and Peel-Away sheath placed with J-wire in superior vena cava. Dilator and J-wire removed, catheter placed with the Peel-Away sheath. Peel-Away sheath removed. Fluoroscopically, catheter noted to be in good position in the superior vena cava. Platysma was approximated with 4-0 Monocryl, skin with subdermal 4-0 Monocryl and [place] glue applied. Sterile dressing applied. Each port aspirated blood and flushed with saline solution and heparinized with saline solution 1000 per mL indicating volume of the port. Job ID: [id number]
== END 2018-12-31 19:04 | disposition short-term general hospital (02) ==
LOC: ERS 08:53
PROC: 05HM33Z Insertion of Infusion Device into Right Internal Jugular Vein, Percutaneous Approach (ICD-10-PCS; principal; 2018-12-31)
DX: T82.42XA Displacement of vascular dialysis catheter, initial encounter (principal); I12.0 Hypertensive chronic kidney disease with stage 5 chronic kidney disease or end stage renal disease; E11.22 Type 2 diabetes mellitus with diabetic chronic kidney disease; N18.6 End stage renal disease; I45.10 Unspecified right bundle-branch block; F03.90 Unspecified dementia, unspecified severity, without behavioral disturbance, psychotic disturbance, mood disturbance, and anxiety; I48.91 Unspecified atrial fibrillation; I25.10 Atherosclerotic heart disease of native coronary artery without angina pectoris; E78.5 Hyperlipidemia, unspecified; E78.00 Pure hypercholesterolemia, unspecified; M19.90 Unspecified osteoarthritis, unspecified site; M06.9 Rheumatoid arthritis, unspecified; E66.01 Morbid (severe) obesity due to excess calories; Z68.31 Body mass index [BMI] 31.0-31.9, adult; Z87.891 Personal history of nicotine dependence; Z79.01 Long term (current) use of anticoagulants; Z79.82 Long term (current) use of aspirin; Z79.899 Other long term (current) drug therapy; Z88.8 Allergy status to other drugs, medicaments and biological substances; Z91.013 Allergy to seafood; Z91.041 Radiographic dye allergy status; Z99.2 Dependence on renal dialysis
CPT/HCPCS: 36558; 71045; 80053; 85025; 93005; 99285; C1752; C1769; J0670; J1644; J2001; J2704

== ENCOUNTER 2019-01-08 10:32 | Outpatient (CLI) | payer MEDICARE, MEDICAID ==
--- NOTE | 2019-01-08 13:12 | ULT ---
BILATERAL UPPER EXTREMITY VENOUS DOPPLER ULTRASOUND FOR DIALYSIS ACCESS: Date: 01/08/19 HISTORY: End-stage renal disease. FINDINGS: RIGHT UPPER EXTREMITY: The right cephalic vein measures 2.5 mm in the proximal arm, 3.2 mm in the mid arm, 3.2 mm in the dis john paul arm, 3.8 mm in the antecubital fossa, 2.6 mm in the proximal forearm, 2.2 mm in the mid forearm, and 1.8 mm in the distal forearm. The right basilic vein measures 3.7 mm in the proximal arm, 4.4 mm in the mid arm, 4.0 mm in the dist al arm, 4.4 mm in the antecubital fossa, 1.8 mm in the proximal forearm, 1.2 mm in the mid forearm, a nd 0.7 mm in the distal forearm. The right brachial artery measures 3.5 mm, radial artery measures 1.8 mm, and ulnar artery measures 1 .1 mm. LEFT UPPER EXTREMITY: The left cephalic vein measures 2.2 mm in the proximal arm, 2.5 mm in the mid arm, 1.6 mm in the dist al arm, 1.8 mm in the antecubital fossa, 2.0 mm in the proximal forearm, 2.0 mm in the mid forearm, a nd 1.5 mm in the distal forearm. The left basilic vein measures 3.4 mm in the proximal arm, 1.8 mm in the mid arm, 2.4 mm in the dista l arm, 3.8 mm in the antecubital fossa, Left basilic vein is not visualized in the forearm. The left brachial artery measures 3.4 mm, radial artery measures 1.1 mm, and ulnar artery measures 2. 0 mm. POS: [facility]
== END 2019-01-08 10:33 | disposition home or self-care (01) ==
LOC: ULT 10:32
PROVIDERS: ATTEND Specialist
DX: N18.6 End stage renal disease (principal)
CPT/HCPCS: 93970; G0365

== ENCOUNTER 2019-01-16 12:05 | Day surgery (SDC) | payer MEDICARE, MEDICAID ==
[2019-01-16 13:26] LABS: #Lymphocytes 1.3 thou/uL (1.20-3.40); #Monocytes 0.5 thou/uL (0.11-0.59); #Neutrophils 4.5 thou/uL (1.40-6.50); %Basophils 0.7 % (0.0-1.0); %Eosinophils 0.6 % (0.0-10.0); %Lymphocytes 20.6 % (21.0-51.0); %Monocytes 7.9 % (0.0-10.0); %Neutrophils 70.3 % (42.0-75.0); Hemoglobin 8.4 g/dL (12.0-16.0); Mean Corpuscular HGB CONC 33.4 g/dL (32.0-36.0); Mean Corpuscular Hemoglobin 30.7 pg (27.0-31.0); Mean Platelet Volume 8.5 fL (7.4-10.4); Platelet Count 199 thou/uL (130-400); RBC Distribution Width 15.7 % (11.5-14.5); Red Blood Cell (RBC) Count 2.73 mill/uL (4.20-5.40); White Blood Cell (WBC) Count 6.4 thou/uL (4.8-10.8)
[2019-01-16 13:52] LABS: Anion Gap 16 mmol/L (10-20); BUN (Urea Nitrogen) 11 mg/dL (9.8-20.1); Calc. Creatinine Clearance 0 mL/min (70-130); Calcium 8.3 mg/dL (7.8-10.44); Carbon Dioxide 30 mmol/L (23-31); Chloride 94 mmol/L (98-107); Estimated GFR-MDRD 14; Glucose 136 mg/dL (83-110); Sodium 137 mmol/L (136-145)
[2019-01-16 13:54] LABS: Potassium 2.9 mmol/L (3.5-5.1)
[2019-01-16] MEDS ORDERED: Midazolam HCl 2 mg/2 ml Vial ONE ×2 (14:10→15:23)
[2019-01-16] MEDS ORDERED: Fentanyl 100 MCG/2 ML VIAL ONE ×3 (14:10→15:23)
[2019-01-16] MEDS ORDERED: Lidocaine 2% PF 5 ML VIAL ONE (14:39)
[2019-01-16] MEDS ORDERED: Heparin 5,000 UNITS/ML VIAL ONE (14:39)
[2019-01-16] MEDS ORDERED: Protamine Sulfate 50 MG/5 ML VIAL ONE (14:39)
[2019-01-16] MEDS ORDERED: Bupivacaine HCl 0.5%/Epinephrine 1:200,000/PF 30 ml Vial ONE (14:39)
[2019-01-16] MEDS ORDERED: Propofol 500 MG/50 ML VIAL ONE (15:23)
[2019-01-16] MEDS ORDERED: Ketamine 50 MG/ML (10ML VIAL) ONE (15:23)
[2019-01-16] MEDS ORDERED: Heparin 10,000 UNITS/ 10 ML VIAL ONE (18:05)
--- NOTE | 2019-01-16 21:06 | OP ---
DATE OF PROCEDURE: 01/16/2019 PREOPERATIVE DIAGNOSIS: End-stage renal disease, skilled nursing resident. POSTOPERATIVE DIAGNOSIS: End-stage renal disease, skilled nursing resident. PROCEDURES PERFORMED: Right arm arteriovenous fistula, perforating branch antecubital vein to the proximal radial artery outflow, preferentially cephalic vein with secondary outflow via retrograde connections to the basilic vein, outflow basilic vein calibrated to 4 mm dilator. ANESTHESIA: Regional, TIVA. DESCRIPTION OF PROCEDURE: The patient was taken to the operating room. Under intravenous sedation and regional anesthesia, right upper extremity was prepared with ChloraPrep and draped in routine fashion. Incision was made in the proximal volar forearm, carried down longitudinally through skin and subcutaneous tissue, identifying an excellent caliber cephalic vein and the cephalic vein in forearm was so good that a small incision made in the wrist finding the cephalic vein here inadequate and this incision closed by approximating the subcutaneous tissues with 3-0 Monocryl, skin with subdermal 4-0 Monocryl and [place] glue applied. Proximal radial artery dissected free along its brachial and ulnar artery. Vein dissected free and branches were divided between 4-0 silk ties and clips. Perforating branch antecubital vein identified, dissected free, spatulated over branch point, interrogated with coronary dilators, passing coronary dilators from 2 mm to 4 mm coronary dilator throughout the length of the cephalic vein without obstruction. The patient was given heparinized saline solution with 6000 units of heparin intravenously by Anesthesia. Proximal radial artery was clamped proximally and distally. A longitudinal arteriotomy was made sharply, elongated with the [place] scissors for an end vein to side proximal radial artery anastomosis with the anastomosis created with continuous suture of 6-0 Prolene. Vascular clamps released. There was excellent flow in the fistula evident by Doppler interrogation. The patient was given 25 mg of protamine by Anesthesia. After noting good hemostasis, subcutaneous tissue was approximated with 3-0 Monocryl, skin with subdermal 4-0 Monocryl and [place] glue applied. Job ID: [id number]
== END 2019-01-16 18:35 ==
LOC: SDC 12:05
PROVIDERS: ATTEND Specialist
PROC: 031B3ZF Bypass Right Radial Artery to Lower Arm Vein, Percutaneous Approach (ICD-10-PCS; principal; 2019-01-16)
DX: N18.6 End stage renal disease (principal); Z88.8 Allergy status to other drugs, medicaments and biological substances; Z91.013 Allergy to seafood; Z91.041 Radiographic dye allergy status
CPT/HCPCS: 80048; 85025; J0670; J0690; J1644; J2001; J2250; J2704; J2720; J3010